=== PATIENT | male | born 1955 | race Caucasian/White ===

== ENCOUNTER → 2016-12-05 | Outpatient (CLI) | payer OTHER | END | disposition home or self-care (01) | LOC: C.LABPBG 12:44 | PROVIDERS: ATTEND Urology | DX: R39.11 Hesitancy of micturition (principal); N39.43 Post-void dribbling; R35.1 Nocturia ==

== ENCOUNTER 2019-03-13 12:55 | Inpatient (IN) ==
[2019-03-13] MEDS ORDERED: ONDANSETRON INJ 2 MG/ML 2 ML VIAL IV STA (13:23)
[2019-03-13] MEDS ORDERED: SODIUM CHLORIDE 0.9% 1000ML 2,000 ML IV ONE (13:23)
[2019-03-13 13:53] LABS: Basophils # (auto) 0.04 K/uL (0-0.2); Basophils % (auto) 0.5 %; Eosinophils # (auto) 0.09 K/uL (0-0.5); Eosinophils % (auto) 1.1 %; Hematocrit (blood only) 48.7 % (42-52); Hemoglobin 16.5 g/dL (14.0-18.0); Immature Granulocytes # (auto) 0.02 K/uL (0.00-0.02); Immature Granulocytes % (auto) 0.2 %; Lymphocytes # (auto) 1.59 K/uL (1.2-3.4); Lymphocytes % (auto) 18.6 %; Mean Corpuscular Hemoglobin 31.8 pg (25-34); Mean Corpuscular Hgb Conc 33.9 g/dL (32-36); Mean Corpuscular Volume 93.8 fL (80-100); Mean Platelet Volume 9.8 fL (7.4-10.4); Monocytes # (auto) 1.12 K/uL (0.11-0.59); Monocytes % (auto) 13.1 %; Neutrophils % (auto) 66.5 %; Platelet Count 376 K/uL (130-400); RDW Coefficient of Variation 14.9 % (11.5-14.5); RDW Standard Deviation 51.6 fL (36.4-46.3); Red Blood Count 5.19 M/uL (4.7-6.1); White Blood Count 8.56 K/uL (4.8-10.8)
[2019-03-13 14:09] LABS: Albumin Level 3.8 gm/dl (3.4-5.0); BUN Creatinine Ratio 14.4 (10-20); Calcium 9.1 mg/dl (8.5-10.1); Creatinine Clr Calc Pharmacy 21.7 ml/min; Est GFR (African American) 18.4; Est GFR (Non-African American) 15.9
[2019-03-13 14:11] LABS: Albumin Globulin Ratio 0.7 (0.9-2); Bilirubin,Total 0.8 mg/dl (0.2-1); Globulin 5.7 gm/dl (2.5-4.0); Total Protein 9.5 gm/dl (6.4-8.2)
--- NOTE | 2019-03-13 14:58 | CT Scan Report ---
CT SCAN OF THE ABDOMEN AND PELVIS WITHOUT CONTRAST CLINICAL HISTORY: Diffuse abdominal pain. Acute renal insufficiency COMPARISON STUDY: No previous studies for comparison. TECHNIQUE: CT scan of the abdomen and pelvis was performed from the lung bases to the proximal femurs . Images are reviewed in the axial, sagittal, and coronal planes. IV contrast was not administered fo r this examination. A dose lowering technique was utilized adhering to the principles of ALARA. CT DOSE: 621.72 mGy.cm FINDINGS: Lower chest: There are bilateral dependent atelectatic changes present. There is a small hiatal herni a. Liver: The unenhanced liver is normal in size, contour, and attenuation. There is no intrahepatic darby iary ductal dilatation. Gallbladder: Unremarkable. Spleen: Not visualized and presumed surgically absent. There are few left upper quadrant nodules like ly representing splenules Pancreas: Unremarkable. Adrenal glands: Unremarkable. Kidneys: No renal, ureteral, or bladder calculi are visualized. Bowel: There is colonic diverticulosis. There is no evidence of acute diverticulitis. The appendix ap pears normal. There are multiple dilated small bowel loops. The distal small bowel is of normal calib er. The findings are indicative of a small bowel obstruction. Peritoneum: There is no intraperitoneal free air or abdominal ascites. There is a small right inguina l hernia containing a knuckle of small bowel. This is not currently obstructing Vasculature: The abdominal aorta is normal in course and caliber. Adenopathy: None. Pelvic viscera: The prostate is enlarged. There is mild bladder wall thickening. Skeletal structures: No destructive osseous lesions are seen. IMPRESSION: 1. Small bowel obstructive pattern 2. No evidence of free air 3. Diverticulosis. No evidence of acute diverticulitis 4. Normal appendix Electronically signed by: Chris Parmar M.D. 03/13/2019 2:56 PM
[2019-03-13] MEDS ORDERED: SODIUM CHLORIDE 0.9% 500 ML IV ONE (15:13)
--- NOTE | 2019-03-13 16:15 | XRay Report ---
XR KUB/Abdomen 1 view CLINICAL HISTORY: ng tube placement COMPARISON STUDY: No previous studies for comparison. FINDINGS: There is a nasogastric tube is visualized with its tip just above the level of the esophago gastric junction. There are distended small bowel loops consistent with a small bowel obstruction. IMPRESSION: 1. Nasogastric tube with its tip just above the level of the esophagogastric junction. Electronically signed by: Chris Parmar M.D. 03/13/2019 4:13 PM
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
--- NOTE | 2019-03-13 17:13 | XRay Report ---
XR KUB/Abdomen 1 view CLINICAL HISTORY: Nasogastric tube repositioning COMPARISON STUDY: 03/13/2019 FINDINGS: The nasogastric tube has been advanced slightly. The tip now projects over the esophagogast laura junction. There is persistent small bowel dilatation IMPRESSION: The nasogastric tube is now positioned with its tip at the level of the esophagogastric j unction. Electronically signed by: Chris Parmar M.D. 03/13/2019 5:12 PM
--- NOTE | 2019-03-13 18:21 | XRay Report ---
XR KUB/Abdomen 1 view CLINICAL HISTORY: repeat for NG tube COMPARISON STUDY: 03/13/2019 FINDINGS: There is persistent small bowel dilatation. The nasogastric tube has been advanced, and the tip now projects over the stomach 8 cm distal to the esophagogastric junction IMPRESSION: 1. The nasogastric tube has been advanced into the stomach. 2. Small bowel dilatation Electronically signed by: Chris Parmar M.D. 03/13/2019 6:20 PM
[2019-03-13] MEDS ORDERED: ACETAMINOPHEN 10MG/ML PEDIATRIC DOSING IV PRN (18:47)
[2019-03-13] MEDS ORDERED: HYDROmorphone INJ 0.5 MG/0.5 ML SYR IV PRN (18:47)
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
[2019-03-13] MEDS ORDERED: ACETAMINOPHEN 1,000 MG/100 ML VIAL IV PRN (19:00)
--- NOTE | 2019-03-13 19:11 | XRay Report ---
XR KUB/Abdomen 1 view CLINICAL HISTORY: Nasogastric tube placement COMPARISON STUDY: 03/13/2019 FINDINGS: There is persistent small bowel dilatation. A nasogastric tube is again visualized with its tip projected over the proximal stomach. The catheter appears somewhat crenulated. IMPRESSION: The nasogastric tube remains positioned within the stomach. Electronically signed by: Chris Parmar M.D. 03/13/2019 7:10 PM
--- NOTE | 2019-03-13 19:49 | Ultrasound Report ---
EXAMINATION: RENAL ULTRASOUND CLINICAL HISTORY: Acute renal insufficiency COMPARISON STUDY: Noncontrast CT scan dated 03/13/2019 FINDINGS: The right kidney measures 12.6 cm. The left kidney measures 11.7 cm. There is no evidence of hydronephrosis. There is a 23 mm lower pole right renal cyst. A few additional tiny cortical cyst s are visualized. No bladder masses are visualized. Neither ureteral jet was identified. The prostate is heterogeneous and enlarged measuring 5.7 cm transversely IMPRESSION : 1. 23 mm lower pole right renal cyst 2. No evidence of hydronephrosis 3. Prostatomegaly 4. Nonvisualization of the ureteral jets Electronically signed by: Chris Parmar M.D. 03/13/2019 7:48 PM
[2019-03-13] MEDS: NSS + 20MEQ KCL 20 MEQ/1,000 ML BAG IV SCH (20:23)
[2019-03-13] MEDS: POTASSIUM CHLORIDE / WTR 10 MEQ/100 ML PLCT IV SCH ×2 (20:23→21:24)
[2019-03-13 20:45] LABS: Calcium 8.3 mg/dl (8.5-10.1); Creatinine Clr Calc Pharmacy 27.6 ml/min; Est GFR (African American) 24.6; Est GFR (Non-African American) 21.2; Potassium 2.7 mmol/L (3.5-5.1)
[2019-03-13] MEDS: HEPARIN SOD 5,000 UNIT/0.5 ML VIAL SQ SCH (21:25)
[2019-03-14 00:04] LABS: Appearance Urine Clear (Clear); Bacteria Urine Automated Negative (Negative); Bilirubin Urine Negative (Negative); Blood Urine Negative (Negative); Color Urine Dark Yellow; Glucose Urine UA Negative (Negative); Ketones Urine 1+ (Negative); Leukocyte Esterase Urine Trace (Negative); Nitrite Urine Negative (Negative); RBC Urine Automated 0-4 /hpf (0-4); Specific Gravity Urine 1.018 (1.000-1.030); Urobilinogen Urine Negative (Negative); pH Urine 7.5 (4.5-7.5)
[2019-03-14 00:20] LABS: Protein Urine Negative (Negative); Sulfosalicylic Acid Urine Negative (Negative)
[2019-03-14 00:22] LABS: Cast Urine Automated >30 /lpf (0-5)
[2019-03-14 00:28] LABS: Protein Creatinine Ratio Urine 0.3 (0-0.2); Total Protein Urine Random 54.3 mg/dl (0-11.9)
[2019-03-14 01:17] LABS: BUN Creatinine Ratio 18.7 (10-20); Calcium 8.3 mg/dl (8.5-10.1); Creatinine Clr Calc Pharmacy 31.5 ml/min; Est GFR (African American) 28.9; Est GFR (Non-African American) 24.9; Potassium 2.8 mmol/L (3.5-5.1)
[2019-03-14] MEDS: POTASSIUM CHLORIDE / WTR 10 MEQ/100 ML PLCT IV SCH ×7 (02:23→21:14)
[2019-03-14] MEDS: NSS + 20MEQ KCL 20 MEQ/1,000 ML BAG IV SCH (05:23)
[2019-03-14] MEDS: HEPARIN SOD 5,000 UNIT/0.5 ML VIAL SQ SCH (05:26)
--- NOTE | 2019-03-14 07:27 | XRay Report ---
KUB HISTORY: Small bowel obstruction. Follow-up. COMPARISON: KUB 03/13/2019. FINDINGS: Nasogastric tube terminates in the proximal stomach. Multiple dilated gas-filled loops of s mall bowel are again noted. These are similar to the prior study and corresponds to patient's history of a small bowel obstruction. No renal calculi. No ureteral calculi. No pneumoperitoneum or pneumat osis. IMPRESSION: Nasogastric tube terminates in the proximal stomach. Persistent small bowel obstruction pattern. Electronically signed by: Bandar Abarca M.D. 03/14/2019 7:26 AM
[2019-03-14 07:47] LABS: Basophils # (auto) 0.05 K/uL (0-0.2); Basophils % (auto) 0.7 %; Eosinophils # (auto) 0.15 K/uL (0-0.5); Eosinophils % (auto) 2.1 %; Hematocrit (blood only) 43.7 % (42-52); Hemoglobin 14.5 g/dL (14.0-18.0); Immature Granulocytes # (auto) 0.01 K/uL (0.00-0.02); Immature Granulocytes % (auto) 0.1 %; Lymphocytes # (auto) 1.43 K/uL (1.2-3.4); Lymphocytes % (auto) 20.3 %; Mean Corpuscular Hemoglobin 31.9 pg (25-34); Mean Corpuscular Hgb Conc 33.2 g/dL (32-36); Mean Corpuscular Volume 96.3 fL (80-100); Mean Platelet Volume 9.8 fL (7.4-10.4); Monocytes # (auto) 1.34 K/uL (0.11-0.59); Monocytes % (auto) 19.1 %; Neutrophils # (auto) 4.05 K/uL (1.4-6.5); Neutrophils % (auto) 57.7 %; Platelet Count 341 K/uL (130-400); RDW Coefficient of Variation 15.3 % (11.5-14.5); RDW Standard Deviation 53.4 fL (36.4-46.3); Red Blood Count 4.54 M/uL (4.7-6.1); White Blood Count 7.03 K/uL (4.8-10.8)
[2019-03-14 07:59] LABS: Estimated Average Glucose 117 mg/dl; Hemoglobin A1C 5.7 % (4.5-5.6)
[2019-03-14 08:22] LABS: BUN Creatinine Ratio 20.3 (10-20); Calcium 8.4 mg/dl (8.5-10.1); Creatinine Clr Calc Pharmacy 35.8 ml/min; Est GFR (African American) 33.7; Est GFR (Non-African American) 29.1; Potassium 3.1 mmol/L (3.5-5.1)
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
[2019-03-14 08:59] LABS: Magnesium 2.6 mg/dl (1.8-2.4); Phosphorus 2.6 mg/dl (2.5-4.9)
[2019-03-14] MEDS ORDERED: D5W AND 1/2NSS 1,000 ML IV SCH (09:00)
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
[2019-03-14] MEDS: POTASSIUM CHLORIDE 40 MEQ in D5W AND 1/2NSS 1,000 ML/1,000 ML BAG IV SCH ×2 (11:10→21:19)
[2019-03-14 13:49] LABS: BUN Creatinine Ratio 20.4 (10-20); Calcium 8.5 mg/dl (8.5-10.1); Creatinine Clr Calc Pharmacy 40.2 ml/min; Est GFR (African American) 38.8; Est GFR (Non-African American) 33.4
[2019-03-14 18:04] LABS: BUN Creatinine Ratio 21.1 (10-20); Calcium 8.5 mg/dl (8.5-10.1); Creatinine Clr Calc Pharmacy 47.3 ml/min; Est GFR (African American) 47.3; Est GFR (Non-African American) 40.8; Potassium 3.1 mmol/L (3.5-5.1)
[2019-03-15 01:34] LABS: Basophils % (auto) 1.2 %; Eosinophils # (auto) 0.23 K/uL (0-0.5); Eosinophils % (auto) 2.9 %; Hematocrit (blood only) 44.4 % (42-52); Hemoglobin 14.8 g/dL (14.0-18.0); Immature Granulocytes # (auto) 0.01 K/uL (0.00-0.02); Immature Granulocytes % (auto) 0.1 %; Lymphocytes # (auto) 1.43 K/uL (1.2-3.4); Lymphocytes % (auto) 17.8 %; Mean Corpuscular Hemoglobin 32.3 pg (25-34); Mean Corpuscular Hgb Conc 33.3 g/dL (32-36); Mean Corpuscular Volume 96.9 fL (80-100); Mean Platelet Volume 9.5 fL (7.4-10.4); Monocytes # (auto) 1.32 K/uL (0.11-0.59); Monocytes % (auto) 16.4 %; Neutrophils # (auto) 4.96 K/uL (1.4-6.5); Neutrophils % (auto) 61.6 %; Platelet Count 372 K/uL (130-400); RDW Coefficient of Variation 15.1 % (11.5-14.5); RDW Standard Deviation 53.1 fL (36.4-46.3); Red Blood Count 4.58 M/uL (4.7-6.1); White Blood Count 8.05 K/uL (4.8-10.8)
[2019-03-15 01:52] LABS: BUN Creatinine Ratio 23.6 (10-20); Calcium 8.2 mg/dl (8.5-10.1); Creatinine Clr Calc Pharmacy 57.3 ml/min; Est GFR (African American) 59.6; Est GFR (Non-African American) 51.4; Magnesium 2.5 mg/dl (1.8-2.4); Potassium 3.2 mmol/L (3.5-5.1)
[2019-03-15 01:55] LABS: Albumin Globulin Ratio 0.6 (0.9-2); Bilirubin,Total 0.8 mg/dl (0.2-1)
[2019-03-15] MEDS: POTASSIUM CHLORIDE 40 MEQ in D5W AND 1/2NSS 1,000 ML/1,000 ML BAG IV SCH ×2 (07:05→17:24)
--- NOTE | 2019-03-15 07:33 | XRay Report ---
KUB HISTORY: Small bowel obstruction. Follow-up. COMPARISON: KUB 03/14/2019. FINDINGS: Multiple mildly dilated gas-filled loop of small bowel are seen throughout the abdomen. Thi s has improved in the interval. There is gas and stool within the colon. The tip of the nasogastric t ube is above the level the diaphragm and may reside within the small hiatus hernia. No renal calculi . No ureteral calculi. No pneumoperitoneum or pneumatosis. IMPRESSION: 1. Interval improvement in the small bowel obstruction pattern. 2. The tip of the nasogastric tube is above the level the diaphragm and may reside within the small h iatus hernia. 3. This report was called/faxed to the referring physician following dictation. Electronically signed by: Bandar Abarca M.D. 03/15/2019 7:32 AM
[2019-03-15 08:18] LABS: BUN Creatinine Ratio 22.3 (10-20); Calcium 8.6 mg/dl (8.5-10.1); Est GFR (African American) 56.7; Est GFR (Non-African American) 48.9; Potassium 3.2 mmol/L (3.5-5.1)
[2019-03-15 08:20] LABS: Albumin Globulin Ratio 0.6 (0.9-2); Bilirubin,Total 0.8 mg/dl (0.2-1); Globulin 5.1 gm/dl (2.5-4.0); Phosphorus 2.3 mg/dl (2.5-4.9); Total Protein 8.1 gm/dl (6.4-8.2)
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
[2019-03-15] MEDS ORDERED: POTASSIUM PHOS 3 MMOL/1 ML INFUSION IV STA (08:26)
--- NOTE | 2019-03-15 08:59 | Nephrology Progress Note ---
Date of Service March 15, 2019 Assessment & Plan (1) TERESA (acute kidney injury): Patient with acute kidney injury likely due to prerenal azotemia in setting of vomiting for several days. Baseline creatinine of 0.9. Patient admitted with creatinine of 3.7 but down to 1.49 today. Urinalysis showed hyaline casts and a high specific gravity consistent with prerenal azotemia. No obstructive uropathy on imaging. -Continue volume resuscitation with D5 and half-normal saline at 100 mL/h. -Monitor input output. -Avoid nephrotoxins such as contrast unless lifesaving. (2) Electrolyte abnormality: Patient with hypokalemia due to vomiting and now NG suction. Will add 40 mEq of potassium chloride iv today. (3) Small bowel obstruction: Patient being managed conservatively with NG suction. he is showing improvement. Surgical team following. (4) HTN (hypertension): Agree with holding lisinopril and Lasix. Blood pressure is at goal. Subjective Patient reports improvement. he is moving gas. No SOB. No urinary symptoms. Still has NG to suction. No abdominal pain. Cr down trending Review of Systems Review of Systems: All systems reviewed & are unremarkable except as noted in HPI & below Physical Exam Physical Exam: General exam: Appears comfortable, no acute distress HEENT: Pupils are equal and reactive to light. NG tube to suction Neck: No JVD, neck is supple trachea is midline Respiratory system: Clear breath sounds bilaterally. Gastrointestinal: Abdomen is soft, non distended, non tender, bowel sounds are present CVS: Regular rate and rhythm. No murmurs, rubs or gallops Musculoskeletal: No joint or muscle tenderness Extremities: Non tender, no edema, peripheral pulses are present Neuro: Oriented, no tremors, no focal neurological deficits Skin: No rashes Results & Data Vital Signs (Past 12 Hours) Vital Signs Temp Pulse Pulse Resp BP BP Pulse Ox 03/15/19 07:49 37.0 C 69 18 115/68 98 03/15/19 04:32 37.4 C 70 18 107/69 95 03/15/19 00:00 75 03/14/19 23:56 36.9 C 75 18 118/80 92 Laboratory Results Laboratory Results - last 24 hr 03/14/19 03/14/19 03/14/19 07:33 07:33 12:34 WBC RBC Hgb Hct MCV MCH MCHC RDW Std Deviation RDW Coeff of Mani Plt Count MPV Immature Gran % (Auto) Neut % (Auto) Lymph % (Auto) [place] % (Auto) Eos % (Auto) Baso % (Auto) Immature Gran # (Auto) Neut # (Auto) Lymph # (Auto) [place] # (Auto) Eos # (Auto) Baso # (Auto) Sodium 136 Potassium 3.0 L Chloride 96 L Carbon Dioxide 32 Anion Gap 8.0 BUN 42 H Creatinine 2.04 H Est Cr Clr Drug Dosing 40.2 Est GFR ( Amer) 38.8 Est GFR (Non-Af Amer) 33.4 BUN/Creatinine Ratio 20.4 H Glucose 86 Calcium 8.5 Phosphorus 2.6 Magnesium 2.6 H Total Bilirubin AST ALT Alkaline Phosphatase Total Protein Albumin Globulin Albumin/Globulin Ratio Hepatitis C Ab Screen Neg 03/14/19 03/15/19 03/15/19 17:29 01:16 01:16 WBC 8.05 RBC 4.58 L Hgb 14.8 Hct 44.4 MCV 96.9 MCH 32.3 MCHC 33.3 RDW Std Deviation 53.1 H RDW Coeff of Mani 15.1 H Plt Count 372 MPV 9.5 Immature Gran % (Auto) 0.1 Neut % (Auto) 61.6 Lymph % (Auto) 17.8 [place] % (Auto) 16.4 Eos % (Auto) 2.9 Baso % (Auto) 1.2 Immature Gran # (Auto) 0.01 Neut # (Auto) 4.96 Lymph # (Auto) 1.43 [place] # (Auto) 1.32 H Eos # (Auto) 0.23 Baso # (Auto) 0.10 Sodium 137 137 Potassium 3.1 L 3.2 L Chloride 98 100 Carbon Dioxide 32 32 Anion Gap 7.0 5.0 BUN 36 H 34 H Creatinine 1.73 H D 1.43 H D Est Cr Clr Drug Dosing 47.3 57.3 Est GFR ( Amer) 47.3 59.6 Est GFR (Non-Af Amer) 40.8 51.4 BUN/Creatinine Ratio 21.1 H 23.6 H Glucose 94 102 H Calcium 8.5 8.2 L Phosphorus Magnesium 2.5 H Total Bilirubin 0.8 AST 16 ALT 29 Alkaline Phosphatase 66 Total Protein 8.0 Albumin 3.0 L Globulin 5.0 H Albumin/Globulin Ratio 0.6 L Hepatitis C Ab Screen 03/15/19 07:17 WBC RBC Hgb Hct MCV MCH MCHC RDW Std Deviation RDW Coeff of Mani Plt Count MPV Immature Gran % (Auto) Neut % (Auto) Lymph % (Auto) [place] % (Auto) Eos % (Auto) Baso % (Auto) Immature Gran # (Auto) Neut # (Auto) Lymph # (Auto) [place] # (Auto) Eos # (Auto) Baso # (Auto) Sodium 137 Potassium 3.2 L Chloride 100 Carbon Dioxide 32 Anion Gap 5.0 BUN 33 H Creatinine 1.49 H Est Cr Clr Drug Dosing 55.0 Est GFR ( Amer) 56.7 Est GFR (Non-Af Amer) 48.9 BUN/Creatinine Ratio 22.3 H Glucose 104 H Calcium 8.6 Phosphorus 2.3 L Magnesium Total Bilirubin 0.8 AST 14 L ALT 24 Alkaline Phosphatase 70 Total Protein 8.1 Albumin 3.0 L Globulin 5.1 H Albumin/Globulin Ratio 0.6 L Hepatitis C Ab Screen
[2019-03-15] MEDS ORDERED: POTASSIUM PHOSPHATE 15 MMOL in SODIUM CHLORIDE 0.9% 250 ML IV SCH (09:00)
--- NOTE | 2019-03-15 09:00 | XRay Report ---
XR KUB/Abdomen 1 view CLINICAL HISTORY: ng tube repositioned COMPARISON STUDY: 03/15/2019 FINDINGS: There are mildly dilated central abdominal small bowel loops. There is gas present within t he colon. The nasogastric tube has been advanced and the tip now projects over the gastric body. IMPRESSION: 1. The nasogastric tube has been advanced and is now positioned within the stomach. Electronically signed by: Chris Parmar M.D. 03/15/2019 8:58 AM
[2019-03-15] MEDS ORDERED: bisacodyL 10 MG SUPP PR STA (09:31)
--- NOTE | 2019-03-15 09:41 | Surgery Progress Note ---
Date of Service March 15, 2019 Assessment & Plan (1) Small bowel obstruction: some improvement in XR but NG output still high will try suppository clamp NG when output decreases Subjective some flatus, no BM, no pain or nausea Physical Exam Gastrointestinal (Abdomen): Inspection/Auscultation: abdomen not distended Percussion/Palpation: abdomen soft; abdomen nontender NG 600 cc overnight Results & Data Vital Signs (Past 12 Hours) Vital Signs Temp Pulse Pulse Resp BP BP Pulse Ox 03/15/19 07:49 37.0 C 69 18 115/68 98 03/15/19 04:32 37.4 C 70 18 107/69 95 03/15/19 00:00 75 03/14/19 23:56 36.9 C 75 18 118/80 92 PG Care Time/CCT Total # of Minutes Spent Total Time Spent with Patient: Total time spent is greater than 50% in coordination of care (as documented) at patient's floor/unit and/or counseling patient:
[2019-03-15] MEDS: POTASSIUM CHLORIDE / WTR 10 MEQ/100 ML PLCT IV SCH ×3 (10:00→12:46)
[2019-03-16] MEDS: POTASSIUM CHLORIDE 40 MEQ in D5W AND 1/2NSS 1,000 ML/1,000 ML BAG IV SCH ×3 (02:54→23:23)
--- NOTE | 2019-03-16 09:12 | Surgery Progress Note ---
Date of Service March 16, 2019 Assessment & Plan (1) Small bowel obstruction: Small bowel obstruction likely secondary to adhesions. His abdomen is soft and benign and not very distended, and there are positive bowel sounds. However he is not passing flatus and his NG tube output is still high. Continue NG tube to low intermittent wall suction Accurately track the amount of ice chips he is taking it as this may be artificially elevating the output from the NG tube KUB today Possible small bowel follow-through if no improvement tomorrow No acute surgical intervention indicated Plan discussed with patient Present on Admission?: Yes Subjective 63-year-old male admitted with small bowel obstruction likely secondary to adhesions. He denies pain or abdominal bloating. He is not passing gas. He has been taking a few cups of ice chips with the NG tube in. Physical Exam Constitutional: WD/WN, vitals as above Gastrointestinal (Abdomen): normal bowel sounds, soft, nontender, no hepatosplenomegaly Results & Data Vital Signs (Past 12 Hours) Vital Signs Temp Pulse Resp BP BP Pulse Ox 03/16/19 07:46 36.4 C L 74 20 125/83 96 03/16/19 04:14 36.7 C 72 20 110/68 95 03/15/19 23:50 36.4 C L 69 18 121/86 95 PG Care Time/CCT Total # of Minutes Spent Total Time Spent with Patient: Total time spent is greater than 50% in coordination of care (as documented) at patient's floor/unit and/or counseling patient:
[2019-03-16 10:19] LABS: BUN Creatinine Ratio 17.8 (10-20); Creatinine Clr Calc Pharmacy 59.8 ml/min; Est GFR (African American) 62.7; Est GFR (Non-African American) 54.1; Potassium 3.5 mmol/L (3.5-5.1)
--- NOTE | 2019-03-16 12:39 | XRay Report ---
KUB HISTORY: Small bowel obstruction. Follow-up. COMPARISON: KUB 03/15/2019. FINDINGS: Nasogastric tube terminates in the expected location of the stomach. A few mildly dilated g as-filled loops of small bowel are again seen throughout the abdomen. These measure up to 3 cm in diogenes meter. This is similar to the prior study. Gas and stool is again noted throughout the colon. No patrick al calculi. No ureteral calculi. No pneumoperitoneum or pneumatosis. IMPRESSION: 1. Nasogastric tube terminates in the stomach. 2. No change in the mildly dilated gas-filled loops of small bowel within the abdomen. This may repre sent a low-grade partial small bowel obstruction. Electronically signed by: Bandar Abarca M.D. 03/16/2019 12:38 PM
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
--- NOTE | 2019-03-16 17:34 | Nephrology Progress Note ---
Date of Service March 16, 2019 Assessment & Plan (1) TERESA (acute kidney injury): Patient with acute kidney injury likely due to prerenal azotemia in setting of vomiting for several days. Baseline creatinine of 0.9. Patient admitted with creatinine of 3.7 but down to 1.3 today. Urinalysis showed hyaline casts and a high specific gravity consistent with prerenal azotemia. No obstructive uropathy on imaging. -Continue volume resuscitation with D5 and half-normal saline at 100 mL/h. -Monitor input output. -Avoid nephrotoxins such as contrast unless lifesaving. (2) Electrolyte abnormality: Patient with hypokalemia due to vomiting and now NG suction. Will continue potassium enriched fluids iv today. (3) Small bowel obstruction: Patient being managed conservatively with NG suction. he is showing improvement. Surgical team following. (4) HTN (hypertension): Agree with holding lisinopril and Lasix. Blood pressure is at goal. Subjective Seen during morning rounds. Feels better. No abdominal pain. No SOB. Still on NG suction. Cr better Review of Systems Review of Systems: All systems reviewed & are unremarkable except as noted in HPI & below Physical Exam Physical Exam: General exam: Appears comfortable, no acute distress HEENT: Pupils are equal and reactive to light. NG suction Neck: No JVD, neck is supple trachea is midline Respiratory system: Clear breath sounds bilaterally. Gastrointestinal: Abdomen is soft, non distended, non tender, bowel sounds are present CVS: Regular rate and rhythm. No murmurs, rubs or gallops Musculoskeletal: No joint or muscle tenderness Extremities: Non tender, no edema, peripheral pulses are present Neuro: Oriented, no tremors, no focal neurological deficits Skin: No rashes Results & Data Vital Signs (Past 12 Hours) Vital Signs Temp Pulse Resp BP BP Pulse Ox 03/16/19 15:16 36.5 C 76 20 116/81 90 03/16/19 11:37 36.8 C 80 22 115/83 97 03/16/19 07:46 36.4 C L 74 20 125/83 96 Laboratory Results Laboratory Results - last 24 hr 03/16/19 09:46 Sodium 140 Potassium 3.5 Chloride 103 Carbon Dioxide 34 H Anion Gap 3.0 BUN 24 H Creatinine 1.37 Est Cr Clr Drug Dosing 59.8 Est GFR ( Amer) 62.7 Est GFR (Non-Af Amer) 54.1 BUN/Creatinine Ratio 17.8 Glucose 113 H Calcium 9.0
--- NOTE | 2019-03-17 07:38 | Surgery Progress Note ---
Date of Service March 17, 2019 Assessment & Plan (1) Small bowel obstruction: normal exam, NG output variable try clamping NG, if does not tolerate will consider SBFT Supervising Physician Co-Signing Physician Notes sbo vs ileus, passing flatus, exam benign. NG tube clamped, tolerating well. If continues then will remove and start on clears. if fails then sbft. Subjective continues to pass flatus, no BM, no pain Physical Exam Gastrointestinal (Abdomen): Inspection/Auscultation: abdomen not distended Percussion/Palpation: abdomen soft; abdomen nontender NG 975 overnight, 200 the previous 8 hours Results & Data Vital Signs (Past 12 Hours) Vital Signs Temp Pulse Pulse Resp BP Pulse Ox 03/17/19 03:43 36.7 C 87 18 106/71 94 03/17/19 00:00 75 03/16/19 23:29 36.7 C 83 18 110/83 97 03/16/19 19:45 75 PG Care Time/CCT Total # of Minutes Spent Total Time Spent with Patient: Total time spent is greater than 50% in coordination of care (as documented) at patient's floor/unit and/or counseling patient:
[2019-03-17 08:07] LABS: BUN Creatinine Ratio 17.3 (10-20); Creatinine Clr Calc Pharmacy 56.1 ml/min; Est GFR (African American) 58.1; Est GFR (Non-African American) 50.1; Magnesium 2.5 mg/dl (1.8-2.4); Potassium 3.4 mmol/L (3.5-5.1)
[2019-03-17 08:13] LABS: Phosphorus 3.8 mg/dl (2.5-4.9)
[2019-03-17] MEDS: POTASSIUM CHLORIDE 40 MEQ in D5W AND 1/2NSS 1,000 ML/1,000 ML BAG IV SCH ×2 (09:11→19:23)
--- NOTE | 2019-03-17 14:17 | Surgery Progress Note ---
Date of Service March 17, 2019 Assessment & Plan (1) Small bowel obstruction: NG residual less than 50 cc for shift, tube removed can have clears for dinner Subjective no symptoms while NG clamped Physical Exam Gastrointestinal (Abdomen): Inspection/Auscultation: abdomen not distended Percussion/Palpation: abdomen soft Results & Data Vital Signs (Past 12 Hours) Vital Signs Temp Pulse Pulse Resp BP BP Pulse Ox 03/17/19 11:33 36.4 C L 77 18 97/66 L 96 03/17/19 08:21 81 03/17/19 08:01 36.5 C 78 18 111/78 96 03/17/19 03:43 36.7 C 87 18 106/71 94 PG Care Time/CCT Total # of Minutes Spent Total Time Spent with Patient: Total time spent is greater than 50% in coordination of care (as documented) at patient's floor/unit and/or counseling patient:
--- NOTE | 2019-03-17 15:48 | Nephrology Progress Note ---
Date of Service March 17, 2019 Assessment & Plan (1) TERESA (acute kidney injury): Patient with acute kidney injury likely due to prerenal azotemia in setting of vomiting for several days. Baseline creatinine of 0.9. Patient admitted with creatinine of 3.7 but stable at 1.4 today. Urinalysis showed hyaline casts and a high specific gravity consistent with prerenal azotemia. No obstructive uropathy on imaging. -Continue volume resuscitation with D5 and half-normal saline at 100 mL/h. -Monitor input output. -Avoid nephrotoxins such as contrast unless lifesaving. (2) Electrolyte abnormality: Patient with hypokalemia due to vomiting and now NG suction. K of 3.4 today. Will continue potassium enriched fluids iv today. (3) Small bowel obstruction: Patient being managed conservatively with NG suction. he is showing improvement. Surgical team following. (4) HTN (hypertension): Agree with holding lisinopril and Lasix. Blood pressure is on the low s koko Subjective He feels better today. No shortness of breath. Still has NG tube but not on suction. Denies abdominal pain. No urinary symptoms. Review of Systems Review of Systems: All systems reviewed & are unremarkable except as noted in HPI & below Physical Exam Physical Exam: General exam: Appears comfortable, no acute distress HEENT: Pupils are equal and reactive to light. NG tube Neck: No JVD, neck is supple trachea is midline Respiratory system: Clear breath sounds bilaterally. Gastrointestinal: Abdomen is soft, non distended, non tender, bowel sounds are present CVS: Regular rate and rhythm. No murmurs, rubs or gallops Musculoskeletal: No joint or muscle tenderness Extremities: Non tender, no edema, peripheral pulses are present Neuro: Oriented, no tremors, no focal neurological deficits Skin: No rashes Results & Data Vital Signs (Past 12 Hours) Vital Signs Temp Pulse Pulse Resp BP BP Pulse Ox 03/17/19 15:18 36.2 C L 75 20 90/59 L 92 03/17/19 11:33 36.4 C L 77 18 97/66 L 96 03/17/19 08:21 81 03/17/19 08:01 36.5 C 78 18 111/78 96 Laboratory Results Laboratory Results - last 24 hr 03/17/19 06:59 Sodium 141 Potassium 3.4 L Chloride 104 Carbon Dioxide 30 Anion Gap 7.0 BUN 25 H Creatinine 1.46 H Est Cr Clr Drug Dosing 56.1 Est GFR ( Amer) 58.1 Est GFR (Non-Af Amer) 50.1 BUN/Creatinine Ratio 17.3 Glucose 125 H Calcium 9.0 Phosphorus 3.8 D Magnesium 2.5 H
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
[2019-03-17] MEDS: PROMETHAZINE HCL 12.5 MG in SODIUM CHLORIDE 0.9% 50 ML IV PRN (23:57)
[2019-03-18] MEDS: POTASSIUM CHLORIDE 40 MEQ in D5W AND 1/2NSS 1,000 ML/1,000 ML BAG IV SCH ×2 (06:13→16:37)
[2019-03-18 07:24] LABS: Calcium 8.8 mg/dl (8.5-10.1); Creatinine Clr Calc Pharmacy 47.6 ml/min; Est GFR (African American) 47.6; Est GFR (Non-African American) 41.1
--- NOTE | 2019-03-18 09:55 | Nephrology Progress Note ---
Date of Service March 18, 2019 Assessment & Plan (1) TERESA (acute kidney injury): Patient with acute kidney injury likely due to prerenal azotemia in setting of vomiting for several days. Baseline creatinine of 0.9. Patient admitted with creatinine of 3.7 but slightly up today at 1.7 likely prerenal. Urinalysis showed hyaline casts and a high specific gravity consistent with prerenal azotemia. No obstructive uropathy on imaging. -Increase rate of IV fluids to 125 mL/h with D5 and half-normal saline. -Monitor input output. -Avoid nephrotoxins such as contrast unless lifesaving. (2) Electrolyte abnormality: Patient with hypokalemia due to vomiting and now NG suction. K of 3.4 today. Will continue potassium enriched fluids iv today. (3) Small bowel obstruction: Patient being managed conservatively with NG suction. he is showing improvement. Surgical team following. (4) HTN (hypertension): Agree with holding lisinopril and Lasix. Blood pressure is on the low side Subjective No new complaints. Patient still on NG suction. No abdominal pain. Creatinine up today at 1.7 Review of Systems Review of Systems: All systems reviewed & are unremarkable except as noted in HPI & below Physical Exam 2 Physical Exam: General exam: Appears comfortable, no acute distress HEENT: Pupils are equal and reactive to light. NG suction Neck: No JVD, neck is supple trachea is midline Respiratory system: Clear breath sounds bilaterally. Gastrointestinal: Abdomen is soft, non distended, non tender, bowel sounds are present CVS: Regular rate and rhythm. No murmurs, rubs or gallops Musculoskeletal: No joint or muscle tenderness Extremities: Non tender, no edema, peripheral pulses are present Neuro: Oriented, no tremors, no focal neurological deficits Skin: No rashes Results & Data Vital Signs (Past 12 Hours) Vital Signs Temp Pulse Resp BP BP Pulse Ox 03/18/19 07:14 36.4 C L 89 19 104/74 95 03/18/19 03:52 36.3 C L 85 20 94/61 L 93 03/17/19 23:59 36.3 C L 96 H 17 116/83 97 Laboratory Results Laboratory Results - last 24 hr 03/18/19 03/18/19 06:30 07:49 Sodium 140 Potassium 3.4 L Chloride 102 Carbon Dioxide 33 H Anion Gap 5.0 BUN 31 H Creatinine 1.72 H Est Cr Clr Drug Dosing 47.6 Est GFR ( Amer) 47.6 Est GFR (Non-Af Amer) 41.1 BUN/Creatinine Ratio 18.0 Glucose 118 H Calcium 8.8
--- NOTE | 2019-03-18 10:04 | Surgery Progress Note ---
Date of Service March 18, 2019 Assessment & Plan (1) Small bowel obstruction: will repeat XR exam is benign, continues to pass flatus but not made much progress Supervising Physician Co-Signing Physician Notes Patient seen and examined, agree with above. Patient with partial small bowel obstruction versus ileus, NG tube pulled yesterday, started clears in the evening then developed bloating and vomited. NG tube was replaced. He is feeling better since then. Denies any abdominal pain. He reports he is still passing flatus. On exam he is afebrile with stable vitals. Abdomen is soft, nondistended, with positive bowel sounds. KUB performed, on my review appears to show nonobstructive bowel gas pattern with air in the colon and rectum with no air-fluid levels or significantly distended small bowel. Radiology read pending. Labs from yesterday showed persistent hypokalemia and renal dysfunction. Partial small bowel obstruction versus ileus versus possible gastroparesis. Based on the progression of his x-rays and benign exam with reported passing flatus, this does not appear to be a true bowel obstruction. We will continue the NG tube for another day or 2. If he does not make progress over the weekend then we will consider a CT scan with oral contrast through the NG tube versus a small bowel follow-through. Continue NG tube If no improvement then CT scan with oral contrast versus small bowel follow- through on Thursday or Thursday Dr. Valerio covering over the weekend Call with questions or concerns Plan of care was discussed with the patient, all questions were answered, the patient expressed understanding agrees with plan of care as stated. Subjective felt a little bloated after dinner then vomited, NG replaced, still having flatus, no BM Physical Exam Gastrointestinal (Abdomen): Inspection/Auscultation: abdomen not distended Percussion/Palpation: abdomen soft; abdomen nontender Results & Data Vital Signs (Past 12 Hours) Vital Signs Temp Pulse Resp BP BP Pulse Ox 03/18/19 07:14 36.4 C L 89 19 104/74 95 03/18/19 03:52 36.3 C L 85 20 94/61 L 93 03/17/19 23:59 36.3 C L 96 H 17 116/83 97 PG Care Time/CCT Total # of Minutes Spent Total Time Spent with Patient: Total time spent is greater than 50% in coordination of care (as documented) at patient's floor/unit and/or counseling patient:
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
[2019-03-18] MEDS ORDERED: POTASSIUM ACETATE 10 MEQ in 0.9 % SODIUM CHLORIDE 100 ML IV ONE (11:25)
[2019-03-18] MEDS ORDERED: POTASSIUM CHLORIDE / WTR 10 MEQ/100 ML PLCT IV STA (11:32)
--- NOTE | 2019-03-18 11:37 | XRay Report ---
XR KUB/Abdomen 1 view CLINICAL HISTORY: SBO COMPARISON STUDY: 03/16/2019 FINDINGS: A nasogastric tube is again visualized. There is gas present within both colon and small aneta wel loops. There is a mildly dilated central small bowel measuring 38 mm in diameter. IMPRESSION: 1. Nasogastric tube within the stomach 2. Nonspecific bowel gas pattern with a minimally dilated central small bowel loop measuring 38 mm. Electronically signed by: Chris Parmar M.D. 03/18/2019 11:36 AM
[2019-03-19] MEDS: POTASSIUM CHLORIDE 40 MEQ in D5W AND 1/2NSS 1,000 ML/1,000 ML BAG IV SCH ×3 (00:17→16:42)
[2019-03-19 07:38] LABS: BUN Creatinine Ratio 16.3 (10-20); Calcium 9.2 mg/dl (8.5-10.1); Creatinine Clr Calc Pharmacy 49.6 ml/min; Est GFR (African American) 50.1; Est GFR (Non-African American) 43.2
--- NOTE | 2019-03-19 10:15 | Nephrology Progress Note ---
Date of Service March 19, 2019 Assessment & Plan (1) TERESA (acute kidney injury): Patient with acute kidney injury likely due to prerenal azotemia in setting of vomiting for several days. Baseline creatinine of 0.9. Patient admitted with creatinine of 3.7 but slightly up today at 1.6 likely prerenal. Urinalysis showed hyaline casts and a high specific gravity consistent with prerenal azotemia. No obstructive uropathy on imaging. -Continue IV fluids to 125 mL/h with D5 and half-normal saline. -Monitor input output. -Avoid nephrotoxins such as contrast unless lifesaving. (2) Electrolyte abnormality: Patient with hypokalemia due to vomiting and now NG suction. K of 3.8 today. Will continue potassium enriched fluids iv today. (3) Small bowel obstruction: Patient being managed conservatively with NG suction. he is showing improvement. Surgical team following. (4) HTN (hypertension): Agree with holding lisinopril and Lasix. Blood pressure is stable Subjective He feels about the same. No abdominal pain. He continues NG suction. He is now on ice chips orally. Creatinine slightly better than yesterday. Review of Systems Review of Systems: All systems reviewed & are unremarkable except as noted in HPI & below Physical Exam Physical Exam: General exam: Appears comfortable, no acute distress HEENT: Pupils are equal and reactive to light. NG suction Neck: No JVD, neck is supple trachea is midline Respiratory system: Clear breath sounds bilaterally. Gastrointestinal: Abdomen is soft, non distended, non tender, bowel sounds are present CVS: Regular rate and rhythm. No murmurs, rubs or gallops Musculoskeletal: No joint or muscle tenderness Extremities: Non tender, no edema, peripheral pulses are present Neuro: Oriented, no tremors, no focal neurological deficits Skin: No rashes Results & Data Vital Signs (Past 12 Hours) Vital Signs Temp Pulse Pulse Resp BP BP Pulse Ox 03/19/19 08:00 77 03/19/19 07:08 36.3 C L 71 22 106/77 92 03/19/19 04:46 36.5 C 73 20 95/65 L 96 03/19/19 01:20 78 03/18/19 23:41 36.5 C 76 20 104/73 95 Laboratory Results Laboratory Results - last 24 hr 03/19/19 03/19/19 06:20 07:52 Sodium 140 Potassium 3.8 Chloride 103 Carbon Dioxide 32 Anion Gap 5.0 BUN 27 H Creatinine 1.65 H Est Cr Clr Drug Dosing 49.6 Est GFR ( Amer) 50.1 Est GFR (Non-Af Amer) 43.2 BUN/Creatinine Ratio 16.3 Glucose 116 H Calcium 9.2
--- NOTE | 2019-03-19 10:33 | Surgery Progress Note ---
Date of Service March 19, 2019 Supervising Physician Co-Signing Physician Notes Patient with partial small bowel obstruction versus ileus - feels better with ng tube in place. Abdominal exam is benign with no clinical sign of obstruction but he does not tolerate advancement of diet. Plan for CT with PO contrast through ng on Thursday. No new recommendations. Subjective Feels fine with the ng in place. No abdominal pain or discomfort. Continuing to pass flatus. Review of Systems Review of Systems: All systems reviewed & are unremarkable except as noted in HPI & below Physical Exam Constitutional: WD/WN, vitals as above Respiratory: normal respiratory effort, lungs clear to auscultation Cardiovascular: Rate/Rhythm: regular rate and regular rhythm Gastrointestinal (Abdomen): normal bowel sounds, soft, nontender, no hepatosplenomegaly NG with 2050 output Neurologic: moves all extremities; no focal motor deficits Results & Data Vital Signs (Past 12 Hours) Vital Signs Temp Pulse Pulse Resp BP BP Pulse Ox 03/19/19 08:00 77 03/19/19 07:08 36.3 C L 71 22 106/77 92 03/19/19 04:46 36.5 C 73 20 95/65 L 96 03/19/19 01:20 78 03/18/19 23:41 36.5 C 76 20 104/73 95
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
[2019-03-20] MEDS: POTASSIUM CHLORIDE 40 MEQ in D5W AND 1/2NSS 1,000 ML/1,000 ML BAG IV SCH ×3 (00:54→17:22)
--- NOTE | 2019-03-20 09:24 | Nephrology Progress Note ---
Date of Service March 20, 2019 Assessment & Plan (1) TERESA (acute kidney injury): Patient with acute kidney injury likely due to prerenal azotemia in setting of vomiting for several days. Baseline creatinine of 0.9. Patient admitted with creatinine of 3.7 but now stable at 1.6.. Urinalysis showed hyaline casts and a high specific gravity consistent with prerenal azotemia. No obstructive uropathy on imaging. -Continue IV fluids to 125 mL/h with D5 and half-normal saline. -Monitor input output. -Avoid nephrotoxins such as contrast unless lifesaving. (2) Electrolyte abnormality: Patient with hypokalemia due to vomiting and now NG suction. Will continue potassium enriched fluids iv today. (3) Small bowel obstruction: Patient being managed conservatively with NG decompression. he is showing improvement. Surgical team following. (4) HTN (hypertension): Agree with holding lisinopril and Lasix. Blood pressure is stable Subjective Patient is now eating and drinking. Still has NG tube. No abdominal pain. He is making a lot of urine, 2.5 L in the past 24 hours Review of Systems Review of Systems: All systems reviewed & are unremarkable except as noted in HPI & below Physical Exam Physical Exam: General exam: Appears comfortable, no acute distress HEENT: Pupils are equal and reactive to light. NG tube Neck: No JVD, neck is supple trachea is midline Respiratory system: Clear breath sounds bilaterally. Gastrointestinal: Abdomen is soft, non distended, non tender, bowel sounds are present CVS: Regular rate and rhythm. No murmurs, rubs or gallops Musculoskeletal: No joint or muscle tenderness Extremities: Non tender, no edema, peripheral pulses are present Neuro: Oriented, no tremors, no focal neurological deficits Skin: No rashes Results & Data Vital Signs (Past 12 Hours) Vital Signs Temp Pulse Pulse Resp BP BP Pulse Ox 03/20/19 08:00 36.4 C L 74 18 106/74 94 03/20/19 04:19 36.9 C 76 18 102/69 95 03/20/19 00:22 36.4 C L 69 18 115/77 94 03/19/19 23:01 75
[2019-03-20 09:55] LABS: BUN Creatinine Ratio 16.4 (10-20); Creatinine Clr Calc Pharmacy 57.7 ml/min; Est GFR (African American) 60.1; Est GFR (Non-African American) 51.8; Potassium 3.5 mmol/L (3.5-5.1)
--- NOTE | 2019-03-20 10:21 | Surgery Progress Note ---
Date of Service March 20, 2019 Assessment & Plan (1) Nausea and vomiting: No clinical sign of bowel obstruction but still with intermittent nausea. Would continue clears today. if tolerates, can d/c ng. if not, will plan on CT with PO contrast through the ng on Thursday. May need eval for gastroparesis if symptoms do not imporove. Present on Admission?: Yes Subjective Overall feels well, tolerating clear liquids but did have one time where ng was unclamped due to nausea which resolved once placed on suction. Now clamped all night with no further nausea. Just had breakfast of clear liquids. No abdominal pain. Physical Exam Constitutional: WD/WN, vitals as above Respiratory: normal respiratory effort, lungs clear to auscultation Cardiovascular: Rate/Rhythm: regular rate and regular rhythm Gastrointestinal (Abdomen): normal bowel sounds, soft, nontender, no hepatosplenomegaly Neurologic: moves all extremities; no focal motor deficits Results & Data Vital Signs (Past 12 Hours) Vital Signs Temp Pulse Pulse Resp BP BP Pulse Ox 03/20/19 08:00 36.4 C L 74 18 106/74 94 03/20/19 04:19 36.9 C 76 18 102/69 95 03/20/19 00:22 36.4 C L 69 18 115/77 94 03/19/19 23:01 75
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
[2019-03-21] MEDS: POTASSIUM CHLORIDE 40 MEQ in D5W AND 1/2NSS 1,000 ML/1,000 ML BAG IV SCH ×3 (01:49→18:34)
[2019-03-21 06:50] LABS: BUN Creatinine Ratio 17.2 (10-20); Calcium 8.8 mg/dl (8.5-10.1); Creatinine Clr Calc Pharmacy 68.8 ml/min; Est GFR (African American) 74.4; Est GFR (Non-African American) 64.2; Potassium 3.6 mmol/L (3.5-5.1)
--- NOTE | 2019-03-21 10:57 | Surgery Progress Note ---
Date of Service March 21, 2019 Assessment & Plan (1) Small bowel obstruction: PSBO vs ileus vs gastroparesis will check CT with po contrast, creatinine remains elevated Subjective continues to pass flatus but no BM, NG clamped for clears but had nausea this AM after breakfast and 450cc out Physical Exam Gastrointestinal (Abdomen): Inspection/Auscultation: + abdomen distended (litle more than preious) Percussion/Palpation: abdomen soft; abdomen nontender Results & Data Vital Signs (Past 12 Hours) Vital Signs Temp Pulse Pulse Resp BP BP Pulse Ox 03/21/19 07:50 36.4 C L 82 16 112/82 97 03/20/19 23:37 36.6 C 79 16 119/84 95 PG Care Time/CCT Total # of Minutes Spent Total Time Spent with Patient: Total time spent is greater than 50% in coordination of care (as documented) at patient's floor/unit and/or counseling patient:
--- NOTE | 2019-03-21 12:18 | Nephrology Progress Note ---
Date of Service March 21, 2019 Assessment & Plan (1) TERESA (acute kidney injury): Patient with acute kidney injury likely due to prerenal azotemia in setting of vomiting for several days. Baseline creatinine of 0.9. Patient admitted with creatinine of 3.7 but now further improved to 1.2 Urinalysis showed hyaline casts and a high specific gravity consistent with prerenal azotemia. No obstructive uropathy on imaging. -Continue IV fluids to 125 mL/h with D5 and half-normal saline and 40 mEq/L K. -Monitor input output. -Avoid nephrotoxins such as contrast unless lifesaving. (2) Electrolyte abnormality: Patient with hypokalemia due to vomiting and now NG suction. Will continue potassium enriched fluids iv today. (3) Small bowel obstruction: Patient being managed conservatively with NG decompression. he is showing improvement. Surgical team following. (4) HTN (hypertension): Agree with holding lisinopril and Lasix. Blood pressure is stable/accept able Subjective seen on rounds thsi am at 0820; up in chair; passing gas, tolerates minimal PO but > N; NGT clamped; ambulates w/o pain or sob Review of Systems Review of Systems: All systems reviewed & are unremarkable except as noted in HPI & below Physical Exam Constitutional: well developed and well nourished; no acute distress up in chair on RA w/ clamped NGT Eyes: EOM intact bilaterally ENMT: Ears: no external ear abnormality Nose: no external nose abnormality Mouth: + dry oral mucous membranes Neck: no nuchal rigidity Respiratory: normal respiratory effort Auscultation: + diminished lung sounds Cardiovascular: RRR, no murmur, no edema Gastrointestinal (Abdomen): Inspection/Auscultation: normal bowel sounds Percussion/Palpation: abdomen soft; abdomen nontender Musculoskeletal: Extremities: strength 5/5 throughout Skin: no rashes, warm and dry Neurologic: silva, fluent speech, no tremor Genitourinary: no silverman Results & Data Vital Signs (Past 12 Hours) Vital Signs Temp Pulse Resp BP Pulse Ox 03/21/19 07:50 36.4 C L 82 16 112/82 97 Laboratory Results 03/15/19 01:16 03/21/19 06:02
--- NOTE | 2019-03-21 14:09 | CT Scan Report ---
CT abd pelvis oral con only CLINICAL HISTORY: 63 years-old Male presenting with partial SBO. TECHNIQUE: Multidetector CT of the abdomen and pelvis was performed after the administration of oral contrast only. IV contrast: None. One or more dose lowering techniques were used consistent with the principles of ALARA (as low as reasonably achievable), including automatic exposure control, mA or kV adjustment to individual patient size, and/or use of iterative reconstruction. COMPARISON: 03/13/2019. CT DOSE (mGy.cm): The estimated cumulative dose is 854.92 mGycm. FINDINGS: Deck Molder topogram: Nasogastric tube terminates in the proximal stomach with sidehole likely within the g astric lumen. Lung bases: Normal heart size. Coronary artery and aortic valve calcification. No pericardial or pleu ral effusion. Minimal dependent changes likely atelectasis. Liver: Normal morphology. Normal density. Biliary: No gross biliary ductal dilatation allowing for noncontrast technique. Gallbladder is likely physiologically distended. No evidence of tension. No gallbladder wall thickening. Pancreas: Normal noncontrast appearance. Spleen: Absent. Adrenal glands: Normal noncontrast appearance. Kidneys and ureters: Normal noncontrast appearance. No nephrolithiasis. No hydronephrosis. Normal ure ters. Bladder: Severe circumferential wall thickening allowing for underdistention. Pelvic organs: Prostate enlargement likely secondary to benign prostatic hyperplasia. Bowel: Nasogastric tube terminates in the gastric body with side hole likely contained within the gas tric lumen. Diverticulosis of the sigmoid and descending colon without wall thickening or pericolonic inflammatory change. The appendix is not well identified on the current exam. A small buckle of smal l bowel is contained within the right inguinal hernia. This does not appear to be the site of obstruc tion. Dilated proximal small bowel with oral contrast transiting to the jejunum. There is smooth tape ring of the extreme bowel. Downstream, there is also smooth tapering to a less dilated caliber. There is no clear site of a transition point. Peritoneal cavity: No free fluid or intraperitoneal gas. Lymph nodes: No gross lymphadenopathy allowing for noncontrast technique. Vasculature: Atherosclerosis of the normal caliber abdominal aorta. Abdominal wall: Small bowel containing right inguinal hernia. Musculoskeletal: Normal. IMPRESSION: 1. Proximally dilated small bowel without evidence of a focal transition point up stream or downstre am. This could represent a partial low-grade bowel obstruction versus ileus. Findings are similar to prior exam. 2. Small bowel containing right inguinal hernia. No obstruction. This does not appear to be the site of obstruction. 3. Chronic bladder outlet obstruction secondary to prostatomegaly. Electronically signed by: Jatinder Zazueta M.D. 03/21/2019 2:08 PM
[2019-03-21] MEDS: PROMETHAZINE HCL 12.5 MG in SODIUM CHLORIDE 0.9% 50 ML IV PRN (15:36)
--- NOTE | 2019-03-21 17:46 | Anesthesiology Consultation ---
Date of Service March 21, 2019 Assessment & Plan Chart Review Chart Review: Patient NOT seen in Pre Admission Testing Consults Requested none ASA [id number] Proposed Anesthesia Anesthesia Type: General History Surgery Operation Date: 03/22/19 12:00 Proposed Procedures p Diagnostic Laparoscopy, Possible Laparotomy, Possible Laparoscopic or Open Inguinal Hernia Repair - Gunnar Coffey, , FACS Height/Weight Height: 6 ft Weight: 80 kg Allergies Allergy/AdvReac Type Severity Reaction Status Date / Time amlodipine AdvReac Intermediate peripheral Verified 03/13/19 16:50 edema Medications Home Medications Medication Instructions Recorded Confirmed Last Taken aspirin 81 mg PO DAILY 03/13/19 03/13/19 Unknown lisinopril 40 mg PO DAILY 03/13/19 03/13/19 Unknown Active Medications Generic Name Dose Route Start Last Admin Trade Name Freq PRN Reason Stop Dose Admin Potassium Chloride 40 meq/ 1,000 ml in 1,020 mls @ 125 mls/hr 03/14/19 10:45 03/21/19 09:51 Dextrose/Sodium Chloride IV 04/13/19 10:44 125 mls/hr .[id number] SEBASTIAN Administration Promethazine HCl 12.5 mg/ 50.5 mls @ 202 mls/hr 03/17/19 23:22 03/21/19 16:39 Sodium Chloride IV 04/16/19 23:21 Infused Q6H PRN Infusion Nausea And Vomiting Past Medical History Medical History Gout HTN (hypertension) Exercise / Class Metabolic Activity III < 4 Walking/Shop/Light housework Past Family History Family History Father Colorectal cancer Mother Breast cancer Past Surgical History Surgical History H/O left inguinal hernia repair H/O splenectomy History of elbow surgery Past Anesthesia History No Hx of Anesthesia Complications and No Family Hx of Anesthesia Complications History of PONV No Hx of PONV and No Hx of Motion Sickness Social History Smoking Status: Former smoker Hx Alcohol Use: Yes Alcohol type: beer Hx Substance Use: No Physical Exam Vital Signs Last Vital Signs Temp 36.5 C 03/21/19 15:52 Pulse 67 03/21/19 15:52 Resp 16 03/21/19 15:52 BP 120/65 03/21/19 15:52 Pulse Ox 93 03/21/19 15:52 Testing Laboratory Results 03/15/19 01:16 03/21/19 06:02 Hemoglobin A1c 5.7 % (4.5-5.6) H 03/14/19 07:33 Urine Color Dark Yellow 03/13/19 23:50 Urine Appearance Clear (Clear) 03/13/19 23:50 Urine pH 7.5 (4.5-7.5) 03/13/19 23:50 Ur Specific [place] 1.018 (1.000-1.030) 03/13/19 23:50 Urine Protein Negative (Negative) 03/13/19 23:50 Urine Glucose (UA) Negative (Negative) 03/13/19 23:50 Urine Ketones 1+ (Negative) H 03/13/19 23:50 Urine Nitrite Negative (Negative) 03/13/19 23:50 Ur Leukocyte Esterase Trace (Negative) H 03/13/19 23:50 Urine WBC (Auto) 1-5 /hpf (0-5) 03/13/19 23:50 Urine RBC (Auto) 0-4 /hpf (0-4) 03/13/19 23:50 U Hyaline Cast (Auto) >30 /lpf (0-5) H 03/13/19 23:50 U Epithel Cells (Auto) 10-20 /lpf (0-5) H 03/13/19 23:50 Urine Bacteria (Auto) Negative (Negative) 03/13/19 23:50
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
[2019-03-22] MEDS: POTASSIUM CHLORIDE 40 MEQ in D5W AND 1/2NSS 1,000 ML/1,000 ML BAG IV SCH ×3 (02:44→22:27)
--- NOTE | 2019-03-22 08:07 | XRay Report ---
KUB HISTORY: Small bowel obstruction. COMPARISON: KUB 03/18/2019. FINDINGS: The nasogastric tube is just below the level the diaphragm likely resides within the proxim al stomach. A few mildly dilated gas-filled loops of small bowel are seen within the abdomen. These m easure up to 3.3 cm in diameter. This has slightly improved. Gas and stool remains throughout the col on. Contrast is seen within the proximal colon. Therefore, this is consistent with improvement in the partial small bowel obstruction. No renal calculi. No ureteral calculi. No pneumoperitoneum or pneu matosis. IMPRESSION: 1. Interval improvement in the partial small bowel obstruction. The oral contrast now resides within the proximal colon. 2. Nasogastric tube terminates in the proximal stomach. Electronically signed by: Bandar Abarca M.D. 03/22/2019 8:05 AM
--- NOTE | 2019-03-22 09:36 | Surgery Progress Note ---
Date of Service March 22, 2019 Assessment & Plan (1) Small bowel obstruction: 63-year-old male with possible partial small bowel obstruction. He is passing flatus and contrast has gone into his right colon on his x-ray this morning, however he continues to have high NG tube output and has not tolerated trials of clamping or removing his NG tube. I again reviewed his CT scans and x-rays, and it is not clear that this is a small bowel obstruction. I discussed his options with him to include surgical exploration, continued observation, and possible GI evaluation. I informed him that exploration may not yield any cause of his symptoms, but it would also help us to know that there is no true mechanical obstruction. He also understands that it does incur the risk of performing surgery that we have discussed. At this point, he is willing to undergo a diagnostic laparoscopy and is scheduled for surgery today. Plan for diagnostic laparoscopy, possible open, possible bowel resection, possible laparoscopic or open right inguinal hernia repair The risks of this procedure were discussed to include but not limited to bleeding, infection, conversion to open, damage to surrounding structures, need for future more extensive surgery, chronic pain, hernia recurrence, negative exploration, and the risks of anesthesia Pre-op antibiotic The differential diagnosis, treatment options, details of the procedure and recovery, and plan of care discussed with the patient, all questions were answered, the patient expressed understanding and agrees to proceed with surgery as planned Subjective 63-year-old male admitted for partial small bowel obstruction. Over the course the past week he has had return of flatus and has not been very distended. It appeared on multiple occasions that his obstruction was resolving and we attempted removal or clamping of his NG tube which he did not tolerate. We repeated a CT scan with oral contrast yesterday which showed a gentle tapering of the bowel with contrast into the small bowel and no transition point, which could represent a partial small bowel obstruction. This morning's x-ray shows contrast in his right colon. He is continued to pass gas and is denying any pain. However he has had copious amounts from his NG tube overnight, almost 4 L. He said most the contrast came out. No other changes Physical Exam Constitutional: WD/WN, vitals as above Eyes: PERRL, conjunctivae normal, anicteric sclerae ENMT: external ear and nose normal, oropharynx normal Neck: trachea midline, no thyromegaly Respiratory: normal respiratory effort, lungs clear to auscultation Cardiovascular: RRR, no murmur, no edema Gastrointestinal (Abdomen): Inspection/Auscultation: + abdominal surgical scar (Left upper quadrant subcostal incision well-healed, no evidence of hernia) Percussion/Palpation: abdomen soft and + hernia (Reducible right inguinal hernia); abdomen nontender, no guarding, abdomen not rigid, no hepatosplenomegaly and not tympanic to percussion Musculoskeletal: no cyanosis or clubbing, extremities motor strength 5/5 Skin: no rashes, warm and dry Neurologic: PERRL, EOMI, accommodation nl, no face palsy, no dysarthria Psychiatric: A+Ox3, euthymic affect Lymphatic: no cervical or axillary lymphadenopathy Results & Data Vital Signs (Past 12 Hours) Vital Signs Temp Pulse Pulse Resp BP Pulse Ox 03/22/19 07:50 36.5 C 81 16 118/81 93 03/21/19 23:04 36.7 C 79 16 120/83 95 Diagnostic Findings HISTORY: Small bowel obstruction. COMPARISON: KUB 03/18/2019. FINDINGS: The nasogastric tube is just below the level the diaphragm likely resides within the proximal stomach. A few mildly dilated gas-filled loops of small bowel are seen within the abdomen. These measure up to 3.3 cm in diameter. This has slightly improved. Gas and stool remains throughout the colon. Contrast is seen within the proximal colon. Therefore, this is consistent with improvement in the partial small bowel obstruction. No renal calculi. No ureteral calculi. No pneumoperitoneum or pneumatosis. IMPRESSION: 1. Interval improvement in the partial small bowel obstruction. The oral contrast now resides within the proximal colon. 2. Nasogastric tube terminates in the proximal stomach. CT abd pelvis oral con only CLINICAL HISTORY: 63 years-old Male presenting with partial SBO. TECHNIQUE: Multidetector CT of the abdomen and pelvis was performed after the administration of oral contrast only. IV contrast: None. One or more dose lowering techniques were used consistent with the principles of ALARA (as low as reasonably achievable), including automatic exposure control, mA or kV a djustment to individual patient size, and/or use of iterative reconstruction. COMPARISON: 03/13/2019. CT DOSE (mGy.cm): The estimated cumulative dose is 854.92 mGycm. FINDINGS: Net Software Engineer topogram: Nasogastric tube terminates in the proximal stomach with sidehole likely within the gastric lumen. Lung bases: Normal heart size. Coronary artery and aortic valve calcification. No pericardial or pleural effusion. Minimal dependent changes likely atelectasis. Liver: Normal morphology. Normal density. Biliary: No gross biliary ductal dilatation allowing for noncontrast technique. Gallbladder is likely physiologically distended. No evidence of tension. No gallbladder wall thickening. Pancreas: Normal noncontrast appearance. Spleen: Absent. Adrenal glands: Normal noncontrast appearance. Kidneys and ureters: Normal noncontrast appearance. No nephrolithiasis. No hydronephrosis. Normal ureters. Bladder: Severe circumferential wall thickening allowing for underdistention. Pelvic organs: Prostate enlargement likely secondary to benign prostatic hyperplasia. Bowel: Nasogastric tube terminates in the gastric body with side hole likely contained within the gastric lumen. Diverticulosis of the sigmoid and descending colon without wall thickening or pericolonic inflammatory change. The appendix is not well identified on the current exam. A small buckle of small bowel is contained within the right inguinal hernia. This does not appear to be the site of obstruction. Dilated proximal small bowel with oral contrast transiting to the jejunum. There is smooth tapering of the extreme bowel. Downstream, there is also smooth tapering to a less dilated caliber. There is no clear site of a transition point. Peritoneal cavity: No free fluid or intraperitoneal gas. Lymph nodes: No gross lymphadenopathy allowing for noncontrast technique. Vasculature: Atherosclerosis of the normal caliber abdominal aorta. Abdominal wall: Small bowel containing right inguinal hernia. Musculoskeletal: Normal. IMPRESSION: 1. Proximally dilated small bowel without evidence of a focal transition point up stream or downstream. This could represent a partial low-grade bowel obstruction versus ileus. Findings are similar to prior exam. 2. Small bowel containing right inguinal hernia. No obstruction. This does not appear to be the site of obstruction. 3. Chronic bladder outlet obstruction secondary to prostatomegaly. PG Care Time/CCT Total # of Minutes Spent Total Time Spent with Patient: Total time spent is greater than 50% in coordination of care (as documented) at patient's floor/unit and/or counseling patient:
[2019-03-22] MEDS ORDERED: GLYCOPYRROLATE 0.2 MG/ML VIAL ONE ×2 (10:09→11:55)
[2019-03-22] MEDS ORDERED: ONDANSETRON INJ 2 MG/ML 2 ML VIAL ONE (10:09)
[2019-03-22] MEDS ORDERED: NEOSTIGMINE METHYLSULFATE 5 MG/5 ML SYR ONE (10:09)
[2019-03-22] MEDS ORDERED: MIDAZOLAM HCL 1 MG/ML 2ML VIAL ONE (10:09)
[2019-03-22] MEDS ORDERED: PROPOFOL IV EMULSION 10 MG/ML 20 ML VIAL IV ONE (10:09)
[2019-03-22] MEDS ORDERED: DEXAMETHASONE SOD INJ 4 MG/ML VIAL ONE (10:09)
[2019-03-22] MEDS ORDERED: LIDOCAINE HCL 2% 2 ML VIAL/AMP(20MG/ML) INFIL ONE (10:09)
[2019-03-22] MEDS ORDERED: fentaNYL citrate 100 MCG/2 ML VIAL ONE ×3 (10:09→11:41)
[2019-03-22] MEDS ORDERED: BUPIVACAINE 0.5 % 5 MG/1 ML MPF 30ML VIAL ONE (10:19)
[2019-03-22] MEDS ORDERED: METOCLOPRAMIDE HCL INJ 5 MG/ML 2 ML VIAL IV PRN (10:35)
[2019-03-22] MEDS ORDERED: ONDANSETRON INJ 2 MG/ML 2 ML VIAL IV PRN (10:35)
[2019-03-22] MEDS ORDERED: HYDROmorphone INJ 0.5 MG/0.5 ML SYR IV PRN (10:35)
[2019-03-22] MEDS ORDERED: ePHEDrine sulfate 50 MG/ML AMP IV PRN (10:35)
[2019-03-22] MEDS ORDERED: PROMETHAZINE HCL 12.5 MG in SODIUM CHLORIDE 0.9% 50 ML IV PRN (10:35)
[2019-03-22] MEDS ORDERED: fentaNYL citrate 100 MCG/2 ML VIAL IV PRN (10:35)
[2019-03-22] MEDS ORDERED: ATROPINE SULFATE 0.1 MG/ML 10ML SYR IV PRN (10:35)
[2019-03-22] MEDS ORDERED: HYDROmorphone INJ 2 MG/ML SYR/VIAL IV PRN (10:39)
[2019-03-22] MEDS ORDERED: SODIUM CHLORIDE 0.9% INJ 10 ML VIAL ONE (10:52)
[2019-03-22] MEDS ORDERED: CEFAZOLIN 250 MG/ML 1 GM VIAL ONE (10:52)
[2019-03-22] MEDS ORDERED: CEFAZOLIN 2000MG 2,000 MG/15 ML SYR IV ONE (11:30)
[2019-03-22] MEDS ORDERED: ROCURONIUM BROMIDE 10 MG/ML 5 ML VIAL ONE (11:52)
[2019-03-22] MEDS ORDERED: LARYING-O-JET KIT (LTA) ONE (11:52)
--- NOTE | 2019-03-22 12:05 | Operative Report ---
PG Post Operative Report Pre & Post Diagnosis Operation Date: 03/22/19 12:00 Pre-Op Diagnosis: Small Bowel Obstruction Post-Op Diagnosis: Ileus I identified the patient and participated in the time-out.: Yes Procedure Operation Date: 03/22/19 12:00 Actual Procedures p Diagnostic Laparoscopy, Lysis of Adhesions(Not Applicable) - Gunnar Coffey DO, OPHELIA Surgeon Gunnar Coffey DO, OPHELIA Outside Machinist Jose Tapia Estimated Blood Loss 4 Findings Consistent with Post-Op Diagnosis Some omental adhesions to the anterior abdominal wall. No evidence of bowel obstruction. Small right inguinal hernia not containing any bowel. Normal appendix and colon. Dilated proximal small bowel with no transition point and no significant adhesions. Distended but noninflamed gallbladder. Normal stomac h. Specimens None Anesthesia Type General Complications none Disposition Accompanied Patient To Recovery: No Disposition: Recovery Room Indications 63-year-old male admitted with possible partial small bowel obstruction with apparent resolution. Multiple attempts to clamp to remove the NG tube were unsuccessful. CT scans showed persistent possible small bowel obstruction. A fter discussion with the patient regarding his options, the patient elected for diagnostic laparoscopy. We will plan for diagnostic laparoscopy, possible open, possible bowel resection, possible lap scopic or open right inguinal hernia repair. The patient understood that there was potential for normal laparoscopy. The risks of the procedure were discussed, all questions were answered, and the patient agreed to proceed with surgery as planned. Description of Procedure The patient was properly identified, consented, and taken to the operating room where he was placed in the supine position. General endotracheal anesthesia was induced. An NG tube was already in place. A silverman catheter, SCDs and a safety belt were placed. Preoperative antibiotics were administered. The patient's abdomen was prepped and draped in the standard sterile fashion. Surgical timeout was performed and all parties were in agreement that this was the correct patient and procedure to be performed and we continued as planned. An incision was made to the right of the umbilicus and the Veress needle was inserted. Saline drop test confirmed entry into the peritoneum. The abdomen was insufflated with carbon dioxide which the patient tolerated without incident. The abdomen was then entered using the Optiview technique and a 5 mm trocar. The laparoscope was inserted and no damage from initial trocar or Veress needle placement was noted, no gross abnormalities were noted within the 4 quadrants of the abdomen. 5 mm ports were then placed in the right upper and right lower quadrants. The abdomen was explored. There was some omental adhesions to the anterior abdominal wall in the area of his prior laparotomy incision. These were taken down using the harmonic scalpel. Overall the abdomen appeared normal. We began running the small bowel starting at the ligament of Treitz and working distally. The proximal small bowel was moderately dilated but did not appear inflamed. As we ran the bowel there was no evidence of significant adhesions. As the small bowel was examined it had a gentle taper to non distended bowel. There was no transition point. No evidence of any internal hernias or significant intestinal adhesions. We continued running the small bowel until he reached the ileocecal valve which appeared normal. The appendix was not inflamed and normal. The colon was normal. There were some adhesions of the right colon to the lateral and anterior abdominal wall but this was not causing any evidence of obstruction. The sigmoid colon and rectum appeared normal. There was a small right inguinal hernia that was not incarcerated and did not contain bowel, nor did it seem large enough to allow bowel to enter it. This was obviously not a point of obstruction. This was not repaired. The gallbladder appeared distended but not inflamed and normal. Overall this was a normal laparoscopy. Hemostasis was confirmed and the abdomen was irrigated. 5 mm trochars were removed under direct visualization and the abdomen was allowed to collapse. The wound was irrigated, and the skin of all ports was closed with 4-0 Monocryl subc uticular sutures. Dermabond was placed over the wounds. The patient was extubated in the operating room and taken to the PACU where he recovered without apparent incident. All sponge, instrument and needle counts were correct at the conclusion of the procedure. The patient tolerated the procedure well. The physician's supply assistant was present and scrubbed for the entire to the case. He was critical in positioning the patient, prepping and draping, driving the laparoscope, closure the incisions, and placement of the dressings. I attest to the content of the Intraoperative Record and any orders documented therein. Any exceptions are noted below.
[2019-03-22] MEDS ORDERED: MoRPHine SULFATE 2 MG/ML CARP IV PRN (12:55)
[2019-03-22] MEDS ORDERED: MoRPHine SULFATE 4 MG/ML 1 ML CARP\\VIAL IV PRN (12:55)
--- NOTE | 2019-03-22 13:06 | Anesthesiology Progress Note ---
Date of Service March 22, 2019 Anesthesia Post Procedure Vital Signs Vital Signs: Temp Pulse Pulse Resp BP BP Pulse Ox 03/22/19 12:55 36.1 C L 71 10 L 113/80 95 03/22/19 12:45 65 12 128/86 94 03/22/19 12:35 69 12 136/85 96 03/22/19 12:25 61 10 L 151/97 H 100 03/22/19 12:15 36.8 C 61 12 167/100 H 100 03/22/19 10:16 36.8 C 77 18 110/78 99 03/22/19 07:50 36.5 C 81 16 118/81 93 03/21/19 23:04 36.7 C 79 16 120/83 95 03/21/19 15:52 36.5 C 67 16 120/65 93 Pain Intensity Abdomen: Pain Intensity: 0 Transfer of Care Handoff Completed per policy Notes Mental Status: alert / awake / arousable and participated in evaluation Patient Amnestic to Procedure: Yes Nausea / Vomiting: adequately controlled Pain: adequately controlled Airway Patency, RR, SpO2: stable & adequate BP & HR: stable & adequate Hydration State: stable & adequate Anesthetic Complications: no major complications apparent
[2019-03-22] MEDS ORDERED: METHYLNALTREXONE BROMIDE 12 MG/0.6 ML VIAL SQ ONE (14:51)
--- NOTE | 2019-03-22 15:05 | Gastrointestinal Consultation ---
Date of Consultation March 22, 2019 Assessment & Plan (1) Ileus: Pt is a 63 y/o male admitted initially for suspected SBO. He didn't tolerate trial of NGT clamping. Taken to OR for laparascopic eval and found to have not site of obstruction, essentially normal exam. - Keep NGT to LIS - Bowel rest - Relistor 12mg subQ today - Repeat KUB tomorrow AM - Replete and maintain K >4 Supervising Physician Co-Signing Physician Notes On 03/22/2019, I performed a history and physical examination of this patient and reviewed the electronic medical record. Specifically, on physical examination there is mild epigastric tenderness. I have discussed the case with JEANNIE Quezada. The above note reflects my findings, conclusions, and recommendations. Ten Oconnor MD History of Present Illness Reason for Consultation: Persistent N/V Requesting Physician: Dr. Gunnar Coffey Attending Physician: Dr. Ten Oconnor History of Present Illness Pt is a 63 y/o male currently admitted for suspected SBO. He had been followed by Surgery service. Attempted clamping of NGT and feeding him CL diet failed resulting in nausea and vomiting. CT abd/pelvis yesterday showed proximally di lated small bowel without evidence of a focal transition point up stream or downstream suspicious for low grade SBO vs ileus, small bowel contains R inguinal hernia but this doesn't appear to be site of obstruction. He was taken to OR for laparoscopic eval by Dr. Coffey - some adhesions noted on R colon but no site of obstruction found. Pt reports hx of spleenectomy, otherwise denies any other abdominal surgeries. Denies any uses of chronic narcotic Currently he has NGT w intermittent suction in place. NGT draining bilious fluid about 200mL. He reports passing flatus but no BM since 03/11/19 per chart review. Allergies Allergy/AdvReac Type Severity Reaction Status Date / Time amlodipine AdvReac Intermediate peripheral Verified 03/13/19 16:50 edema Home Medications Home Medications Medication Instructions Recorded Confirmed Type aspirin 81 mg PO DAILY 03/13/19 03/13/19 History lisinopril 40 mg PO DAILY 03/13/19 03/13/19 History Patient History Medical History Gout HTN (hypertension) Surgical History H/O left inguinal hernia repair H/O splenectomy History of elbow surgery Family History Father Colorectal cancer Mother Breast cancer Social History Preferred Language: Malian Communication Ability: Effective Beliefs That Will Affect Care: None marital status: Single Current Living Situation: Family Current Living Situation Comment: Lives with mother Other Information That Helps Us Care for You: No Feels Safe at Home: Yes Safety Concerns: Feels Safe At This Time Smoking Status: Former smoker Number of Years Since Quit: 30 ; Hx Alcohol Use: Yes Alcohol type: beer Alcohol type Comment: 6 light beers daily; last drink 1 week ago Alcohol Intake Frequency: Daily Hx Substance Use: No Review of Systems Review of Systems: All systems reviewed & are unremarkable except as noted in HPI & below Physical Exam Constitutional: WD/WN, vitals as above well groomed, cooperative and comfortable Eyes: PERRL, conjunctivae normal, anicteric sclerae ENMT: external ear and nose normal, oropharynx normal NGT in place Respiratory: normal respiratory effort, lungs clear to auscultation Cardiovascular: RRR, no murmur, no edema Gastrointestinal (Abdomen): Inspection/Auscultation: + hypoactive bowel sounds Percussion/Palpation: abdomen soft; abdomen nontender Skin: no rashes, warm and dry no jaundice Psychiatric: A+Ox3, euthymic affect Lymphatic: no lymphedema Results & Data Vital Signs (Past 12 Hours) Vital Signs Temp Pulse Resp BP BP Pulse Ox 03/22/19 14:05 36.3 C L 73 16 125/86 96 03/22/19 13:35 71 16 114/75 93 03/22/19 13:05 36.5 C 74 14 119/78 95 03/22/19 12:55 36.1 C L 71 10 L 113/80 95 03/22/19 12:45 65 12 128/86 94 03/22/19 12:35 69 12 136/85 96 03/22/19 12:25 61 10 L 151/97 H 100 03/22/19 12:15 36.8 C 61 12 167/100 H 100 03/22/19 10:16 36.8 C 77 18 110/78 99 03/22/19 07:50 36.5 C 81 16 118/81 93 03/22/19 03:40 88 16 154/74 H 95
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
[2019-03-22] MEDS ORDERED: TPN/PPN CONSULT PHARMACY PRN (19:51)
[2019-03-23] MEDS: POTASSIUM CHLORIDE 40 MEQ in D5W AND 1/2NSS 1,000 ML/1,000 ML BAG IV SCH ×2 (07:40→12:10)
--- NOTE | 2019-03-23 08:17 | XRay Report ---
KUB CLINICAL HISTORY: Reevaluate ileus. COMPARISON STUDY: CT of the abdomen and pelvis March 31, 2019. KUB March 22, 2019. FINDINGS: Right colon oral contrast is noted. Tip of nasogastric tube projects of the proximal body o f the stomach. Mild small bowel dilatation is similar to KUB of March 31, 2019. IMPRESSION: No significant change in mild small bowel dilatation since prior KUB. This may reflect a partial small bowel obstruction or ileus. Electronically signed by: Nasir Baker M.D. 03/23/2019 8:16 AM
[2019-03-23 08:20] LABS: Calcium 9.2 mg/dl (8.5-10.1); Creatinine Clr Calc Pharmacy 69.4 ml/min; Est GFR (African American) 75.1; Est GFR (Non-African American) 64.8; Potassium 3.5 mmol/L (3.5-5.1)
[2019-03-23 08:25] LABS: Bilirubin,Total 0.9 mg/dl (0.2-1); Phosphorus 3.5 mg/dl (2.5-4.9); Prealbumin 18.1 mg/dl (20-40)
--- NOTE | 2019-03-23 09:13 | Surgery Progress Note ---
Date of Service March 23, 2019 Assessment & Plan (1) Ileus: 63-year-old male POD #1 negative diagnostic laparoscopy with no evidence of bowel obstruction. He appears to have an ileus of unclear etiology that is not related to his surgery. No further surgical intervention indicated Appreciate GIs assessment of this patient Management per GI and primary team Surgery will follow peripherally Patient may shower Activity as tolerated All with questions or concerns Subjective 63-year-old male POD #1 diagnostic laparoscopy with lysis of omental adhesions to abdominal wall but no intestinal adhesions and no evidence of bowel obstruction. He is yet to have a bowel movement and still has a decent amount of NG tube output. Overall he has minimal pain from his surgery. He continues to pass flatus. GI saw him in consultation yesterday. Physical Exam Constitutional: WD/WN, vitals as above Gastrointestinal (Abdomen): normal bowel sounds, soft, nontender, no hepatosplenomegaly Inspection/Auscultation: + abdominal surgical incision (Incision with Dermabond, healing well, no evidence of infection) Results & Data Vital Signs (Past 12 Hours) Vital Signs Temp Pulse Pulse Resp BP Pulse Ox 03/23/19 07:46 36.5 C 68 16 123/79 94 03/23/19 03:04 36.5 C 68 16 145/88 H 96 03/22/19 23:22 36.4 C L 67 16 127/77 96 03/22/19 23:21 36.4 C L PG Care Time/CCT Total # of Minutes Spent Total Time Spent with Patient: Total time spent is greater than 50% in coordination of care (as documented) at patient's floor/unit and/or counseling patient:
--- NOTE | 2019-03-23 09:47 | Gastroenterology Progress Note ---
Date of Service March 23, 2019 Assessment & Plan (1) Ileus: Pt is a 63 y/o male admitted initially for suspected SBO. He didn't tolerate trial of NGT clamping. Taken to OR for laparascopic eval and found to have not site of obstruction, essentially normal exam. Likely having an ileus He's not passing flatus or bowel movements though on exam does have more bowel sounds and abd remains soft, non tender - Keep NGT to LIS - Bowel rest - Relistor 12mg subQ tomorrow again - Repeat KUB daily - Replete and maintain K >4 Supervising Physician Co-Signing Physician Notes I have performed a history and physical examination of this patient and reviewed the electronic medical record. Specifically, on physical examination there is no abdominal tenderness. I have discussed the case with JEANNIE Quezada. The above note reflects my findings, conclusions, and recommendations. Ten Oconnor MD Subjective Pt reports mild abd pain and R shoulder soreness. He isn't passing flatus or stools. He had ambulated this AM. NGT in place, noted output yesterday 4.9L though he had also been eating ice chips. KUB showed similar small bowel dilation suggestive of PSBO vs ileus Review of Systems Review of Systems: All systems reviewed & are unremarkable except as noted in HPI & below Physical Exam Constitutional: WD/WN, vitals as above well groomed, cooperative and comfortable Eyes: PERRL, conjunctivae normal, anicteric sclerae ENMT: external ear and nose normal, oropharynx normal NGT in place, output bilious fluid Respiratory: normal respiratory effort, lungs clear to auscultation Cardiovascular: RRR, no murmur, no edema Gastrointestinal (Abdomen): Inspection/Auscultation: + hypoactive bowel sounds Percussion/Palpation: abdomen soft; abdomen nontender Skin: no rashes, warm and dry no jaundice Psychiatric: A+Ox3, euthymic affect Lymphatic: no lymphedema Results & Data Vital Signs (Past 12 Hours) Vital Signs Temp Pulse Pulse Resp BP Pulse Ox 03/23/19 07:46 36.5 C 68 16 123/79 94 03/23/19 03:04 36.5 C 68 16 145/88 H 96 03/22/19 23:22 36.4 C L 67 16 127/77 96 03/22/19 23:21 36.4 C L
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
--- NOTE | 2019-03-23 11:43 | Pharmacy Report ---
Pharmacy PN Initial Consult - Date of Service March 23, 2019 - Scope Pharmacy has been consulted to manage parenteral nutrition orders and order appropriate labs. As part of the Nutrition Support Team guidelines, pharmacy will work in conjunction with dietary when determining the patients caloric needs. - Subjective The patient is a 63 year old M admitted on 03/13/19 15:50 for SBO. 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 Trialed clear liquid diet on admission and NGT but patient currently still with N/V and high NGT output on suction. Hospitalist ordered to start PPN. - Objective Height: 6 ft Weight: 80 kg Vascular Access:: Peripheral access currently Intake & Output (Last 24Hrs): Intake & Output 03/21/19 03/22/19 03/23/19 03/24/19 06:59 06:59 06:59 06:59 Intake Total 3850.417 / 3850.417 3519.667 / 3519.667 3060 / 3060 Output Total 635 / 635 5520 / 5520 2145 / 2145 Balance 3215.417 / 3215.417 -2000.333 / -2000.333 915 / 915 Weight 80 kg Laboratory Data (Last 24 Hrs):: 03/23/19 07:03 Sodium 138 Potassium 3.5 Chloride 103 Carbon Dioxide 30 BUN 18 Creatinine 1.18 Glucose 103 H Calcium 9.2 Phosphorus 3.5 Magnesium 2.0 Total Bilirubin 0.9 AST 18 ALT 34 Alkaline Phosphatase 79 Prealbumin 18.1 L Nutrition Assessment:: Please refer to the Notes section of the EMR for the most recent nutrition program instructor note. - Assessment 03/23: Today is day 1 of PPN. Labs assessed. WNL. Patient has been getting IV fluids D51/2NS w/ 40 meq KCL running at 125 ml/hr for around past 10 days. Will start PPN at lower than goal calories then advance to goal in the next 1 to 2 days per dietitian's recommendation. Will d/c IV fluids at 1600 today and start PPN at that time. - Plan For day 1 of PN administration, the following will be ordered: Macronutrients Amino acids 80 grams/day Dextrose 150 grams/day Lipids 20 grams/day Micronutrients Combined electrolytes 20 mL - contains 35 mEq Na, 20 meq K, 4.5 mEq Ca, 5 mEq Mg, 35 mEq Cl, 29.5 mEq acetate per 20 mL Sodium phosphate 12 MMol Sodium chloride 50 mEq Potassium chloride 30 mEq Multivitamins 10 mL Trace Elements 1 mL Additional additives: Folic acid 1mg; Thiamine 100 mg, Famotidine 20 mg Total volume 3000 mL to be infused over 24 hrs will provide 1030 kcal/day Final osmolarity 597 mOsm/L (maximum for PPN is 900 mOsm/L) Labs to be ordered per PN order protocol Pharmacy will follow and adjust parenteral nutrition orders on a daily basis. Thank you.
[2019-03-23] MEDS ORDERED: METOCLOPRAMIDE HCL INJ 5 MG/ML 2 ML VIAL IV ONE (13:29)
[2019-03-23] MEDS ORDERED: Custom Peripheral Pn 3,000 ML in TPN BAG 0 ML IV SCH (16:00)
--- NOTE | 2019-03-23 18:24 | Nephrology Progress Note ---
Date of Service March 23, 2019 Assessment & Plan (1) TERESA (acute kidney injury): Patient with acute kidney injury likely due to prerenal azotemia in setting of vomiting for several days. Baseline creatinine of 0.9. Patient admitted with creatinine of 3.7 but now further plateau'd at 1.2 Urinalysis showed hyaline casts and a high specific gravity consistent with prerenal azotemia. No obstructive uropathy on imaging. -note this afternoon team has stopped IV fluids 125 mL/h with D5 and half-normal saline and 40 mEq/L K> pt starting tpn -Monitor input output. -Avoid nephrotoxins such as contrast unless lifesaving. (2) Electrolyte abnormality: Patient with hypokalemia due to vomiting and now NG suction. Will continue potassium enriched fluids iv today. GI recommends K of 4; should improve on TPN daily bmp (3) HTN (hypertension): Agree with holding lisinopril and Lasix. Blood pressure is s table/acceptable (4) Ileus: Patient being managed conservatively with NG decompression. s/p 03/22 exlap showing no obstruction. gi following Present on Admission?: Yes Subjective went to OR yesterday for ex lap > no obstruction site found; for continued supportive care; getting TPN Review of Systems Review of Systems: All systems reviewed & are unremarkable except as noted in HPI & below Gastrointestinal: + abdominal pain (minimal) + flatus; no bm since or Genitourinary: no dysuria, no difficulty urinating and no urinary frequency Hematologic / Lymphatic: no easy bleeding Physical Exam Constitutional: well developed and well nourished; no acute distress (sitting in bed on RA w/ NGT w/ dark brown green OP) Eyes: EOM intact bilaterally ENMT: Ears: no external ear abnormality Nose: no external nose abnormality Mouth: + dry oral mucous membranes Neck: no nuchal rigidity Respiratory: normal respiratory effort Auscultation: + diminished lung s ounds Cardiovascular: RRR, no murmur, no edema Gastrointestinal (Abdomen): Inspection/Auscultation: + hypoactive bowel sounds (slight) Percussion/Palpation: + abdomen tender and abdomen soft lap wounds healing well Musculoskeletal: Extremities: strength 5/5 throughout Skin: no rashes, warm and dry Neurologic: silva, fluent speech, no tremor Psychiatric: Orientation: alert and oriented x 3 Speech: normal rate/rhythm/volume of speech Affect: + anxious affect and + tearful affect Genitourinary: no silverman Results & Data Vital Signs (Past 12 Hours) Vital Signs Temp Pulse Pulse Resp BP Pulse Ox 03/23/19 15:42 36.7 C 71 16 128/83 96 03/23/19 07:46 36.5 C 68 16 123/79 94 Laboratory Results 03/15/19 01:16 03/23/19 07:03
[2019-03-24 07:11] LABS: Hematocrit (blood only) 43.9 % (42-52); Hemoglobin 14.7 g/dL (14.0-18.0); Mean Corpuscular Hemoglobin 31.9 pg (25-34); Mean Corpuscular Hgb Conc 33.5 g/dL (32-36); Mean Corpuscular Volume 95.2 fL (80-100); Mean Platelet Volume 10.2 fL (7.4-10.4); Platelet Count 450 K/uL (130-400); RDW Coefficient of Variation 14.9 % (11.5-14.5); RDW Standard Deviation 52.1 fL (36.4-46.3); Red Blood Count 4.61 M/uL (4.7-6.1); White Blood Count 9.54 K/uL (4.8-10.8)
[2019-03-24 07:46] LABS: BUN Creatinine Ratio 17.7 (10-20); Calcium 8.8 mg/dl (8.5-10.1); Est GFR (African American) 86.5; Est GFR (Non-African American) 74.7; Potassium 3.5 mmol/L (3.5-5.1)
[2019-03-24 07:54] LABS: Phosphorus 2.9 mg/dl (2.5-4.9)
--- NOTE | 2019-03-24 08:33 | Nephrology Progress Note ---
Date of Service March 24, 2019 Assessment & Plan (1) Electrolyte abnormality: Patient with hypokalemia due to vomiting and now NG suction. GI recommends K of 4; should improve on PPN -discussed w/ PPN pharmacist >> will increase K in PPN up to 100 mEq if possible from fluid osm standpoint -ordered 40 mEq IV K as well -cont daily bmp and mag, phos (2) HTN (hypertension): cont to hold lisinopril and Lasix. Blood pressure is stable/acceptable (3) Ileus: Patient being managed conservatively with NG decompression. s/p 03/22 exlap showing no obstruction. gi following Subjective thick and slightly weak cough this am (new); nonproductive. denies sob or orthopnea; no f. no voidign issues; passing gas and NT else. no mm weakness Review of Systems Review of Systems: All systems reviewed & are unremarkable except as noted in HPI & below Physical Exam Constitutional: well developed and well nourished; no acute distress (sitting in bed on RA w/ NGT w/ dark brown OP) Eyes: EOM intact bilaterally ENMT: Ears: no external ear abnormality Nose: no external nose abnormality Mouth: + dry oral mucous membranes Neck: no nuchal rigidity Respiratory: normal respiratory effort Auscultation: + diminished lung sounds Cardiovascular: RRR, no murmur, no edema Gastrointestinal (Abdomen): Inspection/Auscultation: + hypoactive bowel sounds (slight) Percussion/Palpation: + abdomen tender and abdomen soft Musculoskeletal: Extremities: strength 5/5 throughout Skin: no rashes, warm and dry Psychiatric: Orientation: alert and oriented x 3 Speech: normal rate/rhythm/volume of speech Affect: euthymic affect Results & Data Vital Signs (Past 12 Hours) Vital Signs Temp Pulse Pulse Resp BP Pulse Ox 03/24/19 08:03 36.8 C 68 18 134/85 95 03/23/19 22:52 36.7 C 71 16 138/77 96 Laboratory Results 03/24/19 07:00 03/24/19 07:00
--- NOTE | 2019-03-24 09:22 | Gastroenterology Progress Note ---
Date of Service March 24, 2019 Assessment & Plan (1) Ileus: Pt is a 63 y/o male followed for ileus. Laparoscopic exam w/o signs of obstruction. He is feeling better today, less abd pain, and is passing flatus, no n/v. No BMs yet. On exam abd soft, non tender and good bowel sounds present. - KUB today. If still signs of ileus may repeat Relistor 12mg subQ today - Trial clamping of NGT - PPN management per primary team. - Replete and maintain K >4 Supervising Physician Co-Signing Physician Notes I have performed a history and physical examination of this patient and reviewed the electronic medical record. Specifically, on physical examination there is mild epigastric tenderness. I have discussed the case with JEANNIE Quezada. The above note reflects my findings, conclusions, and recommendations. Ten Oconnor MD Subjective Pt feels less abd pain, is passing flatus, but no BMs. He denies any n/v. NGT w bilious fluid 1.4L output yesterday. He had been started on PPN. Review of Systems Review of Systems: All systems reviewed & are unremarkable except as noted in HPI & below Physical Exam Constitutional: WD/WN, vitals as above well groomed, cooperative and comfortable Eyes: PERRL, conjunctivae normal, anicteric sclerae ENMT: external ear and nose normal, oropharynx normal NGT in place w Low intermittent suction Respiratory: normal respiratory effort, lungs clear to auscultation Cardiovascular: RRR, no murmur, no edema Gastrointestinal (Abdomen): Inspection/Auscultation: normal bowel sounds Percussion/Palpation: abdomen soft; abdomen nontender Skin: no rashes, warm and dry no jaundice Psychiatric: A+Ox3, euthymic affect Lymphatic: no lymphedema Results & Data Vital Signs (Past 12 Hours) Vital Signs Temp Pulse Pulse Resp BP Pulse Ox 03/24/19 08:03 36.8 C 68 18 134/85 95 03/23/19 22:52 36.7 C 71 16 138/77 96
--- NOTE | 2019-03-24 09:47 | XRay Report ---
XR KUB/Abdomen 1 view CLINICAL HISTORY: 63 years-old Male presenting with re-eval ileus. TECHNIQUE: Single supine view of the abdomen was obtained. COMPARISON: 03/23/2019 at 8:00 AM. FINDINGS: Nasogastric tube remains in place terminating in the proximal stomach, side hole within the gastric l umen. Mild gaseous distention of small bowel loops with possible mild small bowel wall thickening in the central abdomen. Mild stool burden. Radiodense contrast noted in the right colon. No gross pneumo peritoneum allowing for supine technique. Few pelvic phleboliths noted. The gas and stool burden degrades evaluation for nephrolithiasis. Mild focal degenerative changes in the lower lumbar spine. Lung bases clear. IMPRESSION: 1. Appropriately positioned nasogastric tube. 2. Mild gaseous distention of small bowel with mild small bowel wall thickening suspected. This can be seen in the setting of ileus or enteritis. Electronically signed by: Jatinder Zazueta M.D. 03/24/2019 9:46 AM
[2019-03-24] MEDS: POTASSIUM CHLORIDE / WTR 10 MEQ/100 ML PLCT IV SCH ×4 (10:19→15:11)
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
[2019-03-24] MEDS ORDERED: METHYLNALTREXONE BROMIDE 12 MG/0.6 ML VIAL SQ ONE (11:00)
[2019-03-24] MEDS ORDERED: Custom Peripheral Pn 3,000 ML in TPN BAG 0 ML IV SCH (16:00)
[2019-03-24] MEDS: DEXTROSE 10% 1,000 ML IV SCH (16:33)
[2019-03-25] MEDS: DEXTROSE 10% 1,000 ML IV SCH ×2 (01:09→09:52)
[2019-03-25 08:22] LABS: Hematocrit (blood only) 41.2 % (42-52); Mean Corpuscular Volume 94.3 fL (80-100); Mean Platelet Volume 10.2 fL (7.4-10.4); Platelet Count 468 K/uL (130-400); RDW Coefficient of Variation 14.7 % (11.5-14.5); RDW Standard Deviation 50.7 fL (36.4-46.3); Red Blood Count 4.37 M/uL (4.7-6.1); White Blood Count 11.67 K/uL (4.8-10.8)
[2019-03-25 08:50] LABS: Albumin Level 2.7 gm/dl (3.4-5.0); BUN Creatinine Ratio 24.1 (10-20); Calcium 9.1 mg/dl (8.5-10.1); Creatinine Clr Calc Pharmacy 95.2 ml/min; Est GFR (African American) 106.2; Est GFR (Non-African American) 91.6; Potassium 3.9 mmol/L (3.5-5.1)
[2019-03-25 08:52] LABS: Albumin Globulin Ratio 0.5 (0.9-2); Bilirubin,Total 0.6 mg/dl (0.2-1); Globulin 4.9 gm/dl (2.5-4.0); Total Protein 7.6 gm/dl (6.4-8.2)
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
--- NOTE | 2019-03-25 10:16 | Gastroenterology Progress Note ---
Date of Service March 25, 2019 Assessment & Plan (1) Ileus: Pt is a 63 y/o male followed for ileus. Laparoscopic exam w/o signs of obstruction. He tolerated clamping of NGT w/o abd pain, n/v. Continues to pass flatus but no BMs yet. - KUB today. - Can DC NGT, trial sips of CL. - PPN management per primary team. - Replete and maintain K >4. - GI to sign off; recall prn Supervising Physician Co-Signing Physician Notes I saw and evaluated the patient. It appears that he is starting to pass some flatus but no stool as of yet. Appears that the ileus is starting to improve. Given this the GI service will sign off for the present time. Subjective Pt feels well. Tolerated clamping of NGT w/o n/v, abd pain. Is still passing flatus but no BMs yet. Review of Systems Review of Systems: All systems reviewed & are unremarkable except as noted in HPI & below Physical Exam Constitutional: WD/WN, vitals as above well groomed, cooperative and comfortable Eyes: PERRL, conjunctivae normal, anicteric sclerae ENMT: external ear and nose normal, oropharynx normal NGT in place, clamped Respiratory: normal respiratory effort, lungs clear to auscultation Cardiovascular: RRR, no murmur, no edema Gastrointestinal (Abdomen): Inspection/Auscultation: normal bowel sounds Percussion/Palpation: abdomen soft; abdomen nontender Skin: no rashes, warm and dry no jaundice Psychiatric: A+Ox3, euthymic affect Lymphatic: no lymphedema Results & Data Vital Signs (Past 12 Hours) Vital Signs Temp Pulse Pulse Resp BP Pulse Ox 03/25/19 07:33 36.5 C 85 18 133/87 96 03/24/19 23:04 36.6 C 68 18 138/84 95
--- NOTE | 2019-03-25 10:29 | XRay Report ---
XR KUB/Abdomen 1 view CLINICAL HISTORY: re-eval ileus COMPARISON STUDY: 03/24/2019 FINDINGS: There is a nasogastric tube within the proximal stomach. There is contrast present within n ondilated right colon. There are multiple air-filled small bowel loops at the upper limits of normal in size, and slightly diminished from the preceding study IMPRESSION: 1. Decreasing small bowel distention. 2. Nasogastric tube within the proximal stomach Electronically signed by: Chris Parmar M.D. 03/25/2019 10:28 AM
--- NOTE | 2019-03-25 14:37 | Surgery Progress Note ---
Date of Service March 25, 2019 Assessment & Plan (1) Nausea and vomiting: some progress stable post op Dr. Gonzalez covering the weekend if there are any new issues Subjective NG clamped for more than 24 hrs without nausea, trying clears for lunch Physical Exam Gastrointestinal (Abdomen): Inspection/Auscultation: + abdominal surgical incision (clean, dry); abdomen not distended Percussion/Palpation: abdomen soft Results & Data Vital Signs (Past 12 Hours) Vital Signs Temp Pulse Resp BP Pulse Ox 03/25/19 07:33 36.5 C 85 18 133/87 96 PG Care Time/CCT Total # of Minutes Spent Total Time Spent with Patient: Total time spent is greater than 50% in coordination of care (as documented) at patient's floor/unit and/or counseling patient:
[2019-03-25] MEDS: PROMETHAZINE HCL 12.5 MG in SODIUM CHLORIDE 0.9% 50 ML IV PRN (23:32)
[2019-03-26 07:35] LABS: BUN Creatinine Ratio 20.9 (10-20); Creatinine Clr Calc Pharmacy 93.1 ml/min; Est GFR (African American) 105.2; Est GFR (Non-African American) 90.8; Potassium 3.8 mmol/L (3.5-5.1)
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
--- NOTE | 2019-03-26 08:24 | Surgery Progress Note ---
Date of Service March 26, 2019 Assessment & Plan (1) Small bowel obstruction: Awaiting full return of his bowel function. We will keep him on liquids again today to see how he does before advancing to solid foods. Subjective Doing better today. Tolerated liquids all day yesterday however did have some nausea after his evening meal. No emesis. This morning he feels good but he has not had breakfast yet. Physical Exam Physical Exam: Alert and oriented no acute distress No respiratory distress Abdomen is soft with expected tenderness. Nondistended. Results & Data Vital Signs (Past 12 Hours) Vital Signs Temp Pulse Pulse Resp BP BP Pulse Ox 03/26/19 08:00 36.4 C L 83 16 131/81 03/25/19 23:10 36.3 C L 83 18 136/86 96 PG Care Time/CCT Total # of Minutes Spent Total Time Spent with Patient: Total time spent is greater than 50% in coordination of care (as documented) at patient's floor/unit and/or counseling patient:
[2019-03-26] MEDS: INDOMETHACIN 25 MG CAP PO SCH ×3 (08:51→20:07)
[2019-03-26] MEDS: COLCHICINE 0.6 MG TAB PO SCH ×2 (08:51→20:07)
[2019-03-27] MEDS: PROMETHAZINE HCL 12.5 MG in SODIUM CHLORIDE 0.9% 50 ML IV PRN (04:10)
[2019-03-27] MEDS ORDERED: ONDANSETRON 8MG OD TAB PO PRN (07:21)
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
[2019-03-27 08:28] LABS: Hematocrit (blood only) 42.1 % (42-52); Hemoglobin 14.3 g/dL (14.0-18.0); Mean Corpuscular Hemoglobin 31.2 pg (25-34); Mean Corpuscular Volume 91.9 fL (80-100); Mean Platelet Volume 10.2 fL (7.4-10.4); Platelet Count 511 K/uL (130-400); RDW Coefficient of Variation 15.1 % (11.5-14.5); RDW Standard Deviation 50.2 fL (36.4-46.3); Red Blood Count 4.58 M/uL (4.7-6.1); White Blood Count 10.26 K/uL (4.8-10.8)
[2019-03-27 08:58] LABS: BUN Creatinine Ratio 19.5 (10-20); Creatinine Clr Calc Pharmacy 80.3 ml/min; Est GFR (African American) 89.6; Est GFR (Non-African American) 77.3; Potassium 3.4 mmol/L (3.5-5.1)
[2019-03-27] MEDS: INDOMETHACIN 25 MG CAP PO SCH ×3 (09:49→20:27)
[2019-03-27] MEDS: COLCHICINE 0.6 MG TAB PO SCH ×2 (09:49→20:26)
--- NOTE | 2019-03-27 09:57 | XRay Report ---
XR KUB/Abdomen 1 view CLINICAL HISTORY: 63 years-old Male presenting with sbo. TECHNIQUE: Single supine view of the abdomen was obtained. COMPARISON: 03/25/[address] from 03/21/2019. FINDINGS: Gaseous distention of small bowel with an apparent diameter of nearly 4 cm though this may be affecte d by magnification. The degree of distention appears greater than on exam. Distention is rather diffu se. Mild stool burden. No gross pneumoperitoneum. Allowing for bowel gas and stool, no calcifications to suggest nephrolithiasis. Degenerative changes of the spine. Lung bases clear. IMPRESSION: 1. Diffuse pathologic distention of small bowel increased from prior. Persistent ileus versus partia l low-grade bowel obstruction. Electronically signed by: Jatinder Zazueta M.D. 03/27/2019 9:56 AM
--- NOTE | 2019-03-27 10:11 | Surgery Progress Note ---
Date of Service March 27, 2019 Assessment & Plan (1) Small bowel obstruction: Clinically doing okay at this point. I think it is okay to keep him on the regular diet and see how he does for lunch today. We will add some Reglan to his regimen to see if a prokinetic may help some of his symptoms. Subjective Patient was having some nausea with vomiting last evening and early this morning however is feeling better currently. In fact he ate some scrambled eggs and toast and so far feels fine. He did have a bowel movement yesterday but it was on the liquid side. His pain is controlled. Physical Exam Physical Exam: Alert and oriented no acute distress Abdomen is soft nondistended. Results & Data Vital Signs (Past 12 Hours) Vital Signs Temp Pulse Pulse Resp BP BP Pulse Ox 03/27/19 07:52 36.3 C L 69 18 103/70 96 03/26/19 23:50 36.2 C L 70 18 135/85 97 PG Care Time/CCT Total # of Minutes Spent Total Time Spent with Patient: Total time spent is greater than 50% in coordination of care (as documented) at patient's floor/unit and/or counseling patient:
[2019-03-27] MEDS ORDERED: POTASSIUM CHLORIDE 20 MEQ TABCR PO STA (11:29)
[2019-03-27] MEDS: METOCLOPRAMIDE HCL 10 MG TABLET PO SCH ×3 (11:54→23:22)
[2019-03-28 05:56] LABS: Hemoglobin 13.4 g/dL (14.0-18.0); Mean Corpuscular Hemoglobin 31.4 pg (25-34); Mean Corpuscular Hgb Conc 33.5 g/dL (32-36); Mean Corpuscular Volume 93.7 fL (80-100); Mean Platelet Volume 10.1 fL (7.4-10.4); Platelet Count 558 K/uL (130-400); RDW Coefficient of Variation 15.1 % (11.5-14.5); RDW Standard Deviation 51.7 fL (36.4-46.3); Red Blood Count 4.27 M/uL (4.7-6.1); White Blood Count 8.96 K/uL (4.8-10.8)
[2019-03-28] MEDS: METOCLOPRAMIDE HCL 10 MG TABLET PO SCH (05:59)
[2019-03-28 06:22] LABS: BUN Creatinine Ratio 23.3 (10-20); Calcium 8.5 mg/dl (8.5-10.1); Creatinine Clr Calc Pharmacy 75.1 ml/min; Est GFR (African American) 82.7; Est GFR (Non-African American) 71.4; Potassium 3.4 mmol/L (3.5-5.1)
[2019-03-28 07:56] VITALS: TEMP 98.1; O2SAT 98
[2019-03-28] MEDS: INDOMETHACIN 25 MG CAP PO SCH (08:11)
[2019-03-28] MEDS: COLCHICINE 0.6 MG TAB PO SCH (08:12)
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
[2019-03-28 08:54] VITALS: BP 98/65; PULSE 85
--- NOTE | 2019-03-28 12:54 | Surgery Progress Note ---
Date of Service March 28, 2019 Assessment & Plan (1) Small bowel obstruction: 03/28/19 Patient passing flatus and having BMs currently tolerating a regular diet without nausea or abdominal pain Medicine placed discharge orders will leave instructions for patient to follow up with Dr. Coffey within 2 weeks for a post op check Subjective Patient states that he is feeling well. He has eaten breakfast and is currently working on lunch without any complaints of nausea. He is passing flatus and says his last BM was this morning. He has minimal incisional pain. Physical Exam Physical Exam: awake/alert. sitting in chair eating lunch Constitutional: well developed and well nourished; no acute distress Respiratory: normal respiratory effort Gastrointestinal (Abdomen): Inspection/Auscultation: + abdominal surgical incision (c/d/i with dermabond overtop) Percussion/Palpation: abdomen soft; abdomen nontender Results & Data Vital Signs (Past 12 Hours) Vital Signs Temp Pulse Pulse Resp BP BP Pulse Ox 03/28/19 08:53 36.7 C 74 85 16 98/65 L 111/74 98 03/28/19 07:00 36.7 C 74 16 111/74 98 PG Care Time/CCT Total # of Minutes Spent Total Time Spent with Patient: Total time spent is greater than 50% in coordination of care (as documented) at patient's floor/unit and/or counseling patient:
== END 2019-03-28 14:09 | disposition home or self-care (01) | DRG 357 ==
LOC: ED 12:55 → SUATTDRO 15:50 → 2S 15:50 → 3N 03-20 18:14

== ENCOUNTER 2019-11-29 17:47 | Inpatient (IN) ==
[2019-11-29 18:21] LABS: Basophils # (auto) 0.02 K/uL (0-0.2); Basophils % (auto) 0.4 %; Hematocrit (blood only) 41.1 % (42-52); Hemoglobin 13.7 g/dL (14.0-18.0); Immature Granulocytes # (auto) 0.01 K/uL (0.00-0.02); Immature Granulocytes % (auto) 0.2 %; Lymphocytes # (auto) 0.63 K/uL (1.2-3.4); Lymphocytes % (auto) 11.7 %; Mean Corpuscular Hemoglobin 31.6 pg (25-34); Mean Corpuscular Hgb Conc 33.3 g/dL (32-36); Mean Corpuscular Volume 94.7 fL (80-100); Mean Platelet Volume 9.4 fL (7.4-10.4); Monocytes # (auto) 0.66 K/uL (0.11-0.59); Monocytes % (auto) 12.3 %; Neutrophils # (auto) 4.06 K/uL (1.4-6.5); Neutrophils % (auto) 75.4 %; Platelet Count 486 K/uL (130-400); RDW Coefficient of Variation 16.9 % (11.5-14.5); Red Blood Count 4.34 M/uL (4.7-6.1); White Blood Count 5.38 K/uL (4.8-10.8)
[2019-11-29 18:37] LABS: Albumin Level 3.2 gm/dl (3.4-5.0); BUN Creatinine Ratio 23.4 (10-20); Calcium 9.4 mg/dl (8.5-10.1); Creatinine Clr Calc Pharmacy 66.9 ml/min; Est GFR (Non-African American) 77.7; Potassium 4.3 mmol/L (3.5-5.1)
[2019-11-29 18:40] LABS: Albumin Globulin Ratio 0.6 (0.9-2); Bilirubin,Total 0.5 mg/dl (0.2-1); Globulin 5.7 gm/dl (2.5-4.0)
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
--- NOTE | 2019-11-29 19:22 | XRay Report ---
XR chest 1V portable CLINICAL HISTORY: sob, cancer COMPARISON STUDY: Chest CT scan performed September 2019 FINDINGS: There is elevation of the right hemidiaphragm. There is a right basilar chest tube. There i s no pneumothorax. There is no significant pleural fluid. The left lung is clear. There is abnormal d ensity within the right hilum/paramediastinal region. This may represent residual mass/adenopathy.[ IMPRESSION: 1. Interval placement of a right-sided chest tube. No pleural effusion. No evidence of pneumothorax 2. Right hilar/paramediastinal opacity, possibly representing residual mass/adenopathy ACT 112: Negative or not required by law. Electronically signed by: Chris Parmar M.D. 11/29/2019 7:21 PM
[2019-11-29] MEDS ORDERED: IOVERSOL 100ml IV ONE (19:46)
--- NOTE | 2019-11-29 20:02 | CT Scan Report ---
CT abd pelvis IV con only CLINICAL HISTORY: Abdominal pain COMPARISON STUDY: 03/21/2019 TECHNIQUE: The patient was scanned in a dynamic helical fashion during intravenous administration of 94 cc of Optiray 320. A dose lowering technique was utilized adhering to the principles of ALARA. CT DOSE: 318.60 mGy.cm FINDINGS: Lower chest: There is partial visualization of an 8 cm mediastinal mass. There is subcarinal lymphade nopathy. There is a pericardial effusion. There are coronary artery calcifications. There is a right- sided pleural drainage catheter. There is a small right pleural effusion. There are right middle lobe atelectatic changes. There is mild elevation right hemidiaphragm. Liver: The contrast-enhanced liver is normal in size, contour, and attenuation. There is no intrahepa tic biliary ductal dilatation. The hepatic veins and portal veins are patent. Gallbladder: Mildly distended. No calculi identified. Spleen: There are small upper quadrant splenules. The spleen is presumably surgically absent. Pancreas: Unremarkable. Adrenal glands: There is a new 17 mm left adrenal mass suspicious for a metastatic deposit. Kidneys: There are bilateral renal cysts. There is no hydronephrosis. No solid renal masses are visua lized. Bowel: There is colonic diverticulosis. There is no evidence of acute diverticulitis. There is marked gastric distention. There are dilated fluid-filled proximal and mid small bowel loops with air-fluid levels. The distal small bowel is of normal caliber. The findings are indicative of a small bowel ob struction. Peritoneum: There is no intraperitoneal free air or abdominal ascites. Vasculature: The abdominal aorta is normal in course and caliber. Adenopathy: None. Pelvic viscera: The prostate is enlarged. Skeletal structures: No destructive osseous lesions are seen. There are nonspecific subcutaneous nodu les within the anterior abdominal wall. IMPRESSION: 1. Small bowel obstruction with marked gastric distention 2. No evidence of free air 3. Partially visualized 8 centimeter mediastinal mass and subcarinal adenopathy 4. Small right pleural effusion. Right-sided chest tube. 5. New left adrenal nodule suspicious for metastatic disease 6. Prostatomegaly 7. Extensive colonic diverticulosis. No evidence of acute diverticulitis ACT 112: Negative or not required by law. Electronically signed by: Chris Parmar M.D. 11/29/2019 8:00 PM
[2019-11-29] MEDS ORDERED: SODIUM CHLORIDE 0.9% 1000ML 1,000 ML IV ONE (20:46)
[2019-11-29] MEDS ORDERED: ONDANSETRON INJ 2 MG/ML 2 ML VIAL IV STA (20:46)
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
[2019-11-29] MEDS ORDERED: ACETAMINOPHEN 1000 MG/100 ML IV IV SCH (23:22)
[2019-11-29] MEDS ORDERED: D5W AND NSS 1,000 ML IV SCH (23:22)
[2019-11-29] MEDS ORDERED: ACETAMINOPHEN 1000 MG/100 ML IV IV ONE (23:45)
[2019-11-29] MEDS ORDERED: DiphenhydrAMINE HCL 50 MG/ML VIAL IV STA (23:50)
[2019-11-30 00:10] LABS: Partial Thromboplastin Ratio 1.4; Partial Thromboplastin Time 39.9 Seconds (21.0-31.0)
[2019-11-30] MEDS: ACETAMINOPHEN 1,000 MG/100 ML VIAL IV SCH ×4 (00:37→23:36)
[2019-11-30] MEDS: PANTOprazole 40 MG in SYRINGE 0 ML IV SCH ×3 (00:47→21:05)
[2019-11-30] MEDS: HEPARIN SODIUM/DEXTROSE 25,000 UNITS/500 ML BAG IV SCH ×2 (00:50→21:50)
[2019-11-30] MEDS ORDERED: MAGNESIUM SULFATE / D5W 1 GM/100 ML BAG IV ONE (03:59)
[2019-11-30] MEDS ORDERED: NORMOSOL-R 1,000 ML IV ONE (04:00)
[2019-11-30] MEDS: D5W AND NSS 1,000 ML IV SCH ×3 (05:58→21:50)
[2019-11-30 06:42] LABS: Appearance Urine Cloudy (Clear); Bacteria Urine Automated Negative (Negative); Bilirubin Urine Negative (Negative); Blood Urine 3+ (Negative); Color Urine Dark Yellow; Glucose Urine UA Negative (Negative); Ketones Urine 2+ (Negative); Leukocyte Esterase Urine Negative (Negative); Nitrite Urine Negative (Negative); Protein Urine 1+ (Negative); RBC Urine Automated >30 /hpf (0-4); Specific Gravity Urine > 1.045 (1.000-1.030); Urobilinogen Urine Negative (Negative)
[2019-11-30 07:00] LABS: Cast Urine Automated 0 /lpf (0-5)
[2019-11-30 07:01] LABS: Mucus Urine Present (None Prsent)
[2019-11-30 07:05] LABS: Hematocrit (blood only) 36.3 % (42-52); Mean Corpuscular Hgb Conc 33.1 g/dL (32-36); Mean Corpuscular Volume 93.8 fL (80-100); Mean Platelet Volume 9.8 fL (7.4-10.4); Platelet Count 436 K/uL (130-400); RDW Coefficient of Variation 17.1 % (11.5-14.5); RDW Standard Deviation 59.3 fL (36.4-46.3); Red Blood Count 3.87 M/uL (4.7-6.1); White Blood Count 4.91 K/uL (4.8-10.8)
[2019-11-30 07:26] LABS: Partial Thromboplastin Ratio 2.3
[2019-11-30 07:27] LABS: Partial Thromboplastin Time 63.2 Seconds (21.0-31.0)
[2019-11-30 07:43] LABS: BUN Creatinine Ratio 27.2 (10-20); Calcium 8.4 mg/dl (8.5-10.1); Creatinine Clr Calc Pharmacy 99.4 ml/min; Est GFR (African American) 116.2; Est GFR (Non-African American) 100.2; Magnesium 2.3 mg/dl (1.8-2.4); Phosphorus 2.9 mg/dl (2.5-4.9); Potassium 3.6 mmol/L (3.5-5.1)
--- NOTE | 2019-11-30 09:12 | XRay Report ---
KUB CLINICAL HISTORY: f/u KUB COMPARISON STUDY: CT of the abdomen and pelvis November 29, 2019. FINDINGS: The tip of the nasogastric tube is within the body of the stomach. Gastric distention has r esolved. There is contrast within the bladder from recent contrast-enhanced CT. Small bowel dilatatio n has resolved. Although sensitivity is diminished on this supine exam, is no evidence for free air. A right pleural catheter is in place. IMPRESSION: Interval resolution of small bowel and gastric distention following nasogastric tube doreen cement. ACT 112: Negative or not required by law. Electronically signed by: Nasir Baker M.D. 11/30/2019 9:11 AM
--- NOTE | 2019-11-30 12:06 | Electrocardiogram Report ---
Test Reason : Blood Pressure : / mmHG Vent. Rate : 120 BPM Atrial Rate : 120 BPM P-R Int : 150 ms QRS Dur : 078 ms QT Int : 326 ms P-R-T Axes : 029 -24 047 degrees QTc Int : 460 ms Sinus tachycardia with Premature atrial complexes Low voltage QRS Inferior infarct , age undetermined Poor R wave progression, consider anterior CO vs. lead placement vs. LVH Abnormal ECG When compared with ECG of 21-MAR-2019 18:27, Premature atrial complexes are now Present Vent. rate has increased BY 41 BPM Confirmed by Ten Joel ([id number]) on 11/30/2019 12:06:21 PM Referred By: REFERRED SELF Confirmed By:Ten Joel
[2019-11-30] MEDS: Heparin IV Standard *NO* Bolus IV SCH ×2 (12:07→21:24)
--- NOTE | 2019-11-30 12:51 | Hospitalist Progress Note ---
Date of Service November 30, 2019 Assessment & Plan (1) Small bowel obstruction: -Patient presenting from home with reports of worsening nausea, vomiting, abdominal pain, bloating. In the ED, CT ABD/pelvis showing signs of SBO. -Patient with prior history of SBO 03/2019, required surgical intervention with lysis of adhesions -NG tube placed in ED, draining well -Clinically a lot better today without any abdominal symptoms and little drainage from the NG tube -Awaiting surgical evaluation -Likely to have NG tube removed today and will have clears but await surgical evaluation first (2) Adenocarcinoma of lung: -Recently diagnosed with adenocarcinoma of right lung. Course has been complicated by pleural effusion requiring Pleurx catheter and malignant pericardial effusion. -Completed radiation therapy -Is to start chemo (Alimta, carboplatin, Keytruda) in the near future once port has been placed -Continue to drain Pleurx catheter daily-has been draining about 150 cc of fluid daily -Denies any acute shortness of breath or pain involving the right lung area (3) History of DVT (deep vein thrombosis): -Right upper extremity DVT diagnosed 10/2019 -Has been on therapeutic dose Lovenox in the setting of active malignancy -Given possible need for OR, will hold Lovenox and place patient on heparin drip -We will change to Lovenox as soon as possible (4) DVT prophylaxis: -On IV heparin drip as above -Lovenox will be started as soon as okay from the surgery Admission and Anticipated Discharge Date Admission Date: November 29, 2019 Subjective 11/30/2019 Patient was seen and examined in medical telemetry unit He complains to have some discomfort secondary to NG tube Denies any abdominal distention, pain, nausea and/or vomiting Has been passing gas but bowel has not moved yet Review of Systems Review of Systems: All systems reviewed and are unremarkable except as noted below Gastrointestinal: no abdominal pain, no bloating, no nausea and no vomiting Has NG tube in situ Physical Exam Physical Exam: Lying in bed with some distress mostly secondary to NG tube Constitutional: well developed, well nourished, + acute distress and + ill appearing Eyes: PERRL, conjunctivae normal, anicteric sclerae ENMT: external ear and nose normal, oropharynx normal Neck: trachea midline, no thyromegaly Respiratory: normal respiratory effort; no respiratory distress Auscultation: + diminished lung sounds (Mostly on the right lower lung) Has right-sided Pleurx catheter in situ Cardiovascular: Rate/Rhythm: regular rate and regular rhythm Heart Sounds: + murmur (2/6 ejection systolic murmur) Extremities: no pedal edema Gastrointestinal (Abdomen): Inspection/Auscultation: abdomen normal to inspec tion and normal bowel sounds; abdomen not distended Percussion/Palpation: abdomen soft; abdomen nontender Musculoskeletal: No acute arthritis involving any joints Neurologic: moves all extremities; no focal motor deficits Lymphatic: no cervical or axillary lymphadenopathy Results & Data Results & Data ([facility]) Vital Signs (Past 12 Hours) Vital Signs Temp Pulse Pulse Resp BP Pulse Ox 11/30/19 11:50 36.7 C 104 H 16 103/74 97 11/30/19 10:00 107 H 11/30/19 07:12 36.4 C L 109 H 16 104/67 95 11/30/19 04:12 36.7 C 113 H 20 104/77 94 Laboratory Results Short CBC 11/29/19 11/30/19 Range/Units 18:12 06:39 WBC 5.38 4.91 (4.8-10.8) K/uL Hgb 13.7 L 12.0 L (14.0-18.0) g/dL Hct 41.1 L 36.3 L (42-52) % Plt Count 486 H 436 H (130-400) K/uL BMP 11/29/19 11/30/19 18:12 06:39 Sodium 134 L 136 Potassium 4.3 3.6 D Chloride 99 103 Carbon Dioxide 24 26 BUN 24 H 19 H Creatinine 1.01 0.68 D Glucose 94 97 Calcium 9.4 8.4 L Cardiac Enzymes 11/29/19 Range/Units 18:12 Troponin I < 0.015 (0-0.045) ng/ml Liver Function 11/29/19 Range/Units 18:12 Total Bilirubin 0.5 (0.2-1) mg/dl AST 15 (15-37) U/L ALT 16 (12-78) U/L Alkaline Phosphatase 90 (45-117) U/L Albumin 3.2 L (3.4-5.0) gm/dl Urine 11/30/19 Range/Units 06:06 Urine Color Dark Yellow Urine Appearance Cloudy A (Clear) Urine pH 5.0 (4.5-7.5) Ur Specific [place] > 1.045 H (1.000-1.030) Urine Protein 1+ H (Negative) Urine Glucose (UA) Negative (Negative) Medications Administered Current Inpatient Medications Heparin Sodium/Dextrose (Heparin Sodium/Dextrose) 25,000 units in 500 mls @ 23 mls/hr IV .[id number] [facility]; Protocol Stop: 12/29/19 23:21 Last Titration: 11/30/19 07:13 Dose: 1,150 units/hr, 23 mls/hr Documented by: Pantoprazole Sodium 40 mg/ (Syringe) 10 mls @ 5 mls/min IV BID [facility] Stop: 12/29/19 23:21 Last Admin: 11/30/19 08:19 Dose: 5 mls/min Documented by: Acetaminophen (Ofirmev) 1,000 mg in 100 mls @ 400 mls/hr IV Q8H [facility] Stop: 12/03/19 00:00 Last Infusion: 11/30/19 08:52 Dose: Infused Documented by: Dextrose/Sodium Chloride (D5w And Nss) 1,000 mls @ 125 mls/hr IV .Q8H [facility] Stop: 12/30/19 04:59 Last Admin: 11/30/19 05:58 Dose: 125 mls/hr Documented by: Morphine Sulfate (Morphine Sulfate 4 Mg/Ml 1 Ml Carp\Vial) 3 mg IV Q4H PRN PRN Reason: Pain Stop: 12/13/19 23:21 Ondansetron HCl (Ondansetron Inj 2 Mg/Ml 2 Ml Vial) 4 mg IV Q8H PRN PRN Reason: nausea Stop: 12/29/19 23:21
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
[2019-11-30] MEDS: ONDANSETRON INJ 2 MG/ML 2 ML VIAL IV PRN (15:38)
[2019-11-30] MEDS: MoRPHine SULFATE 4 MG/ML 1 ML CARP\\VIAL IV PRN ×2 (18:02→23:35)
[2019-11-30] MEDS: CHLORASEPTIC 1.4% SOLN 180 ML BTL MT PRN (21:05)
[2019-12-01] MEDS: D5W AND NSS 1,000 ML IV SCH ×3 (05:48→22:00)
[2019-12-01 06:25] LABS: Basophils # (auto) 0.01 K/uL (0-0.2); Basophils % (auto) 0.2 %; Eosinophils # (auto) 0.11 K/uL (0-0.5); Hematocrit (blood only) 37.5 % (42-52); Hemoglobin 12.2 g/dL (14.0-18.0); Immature Granulocytes # (auto) 0.01 K/uL (0.00-0.02); Immature Granulocytes % (auto) 0.2 %; Lymphocytes # (auto) 0.68 K/uL (1.2-3.4); Lymphocytes % (auto) 12.1 %; Mean Corpuscular Hemoglobin 30.9 pg (25-34); Mean Corpuscular Hgb Conc 32.5 g/dL (32-36); Mean Corpuscular Volume 94.9 fL (80-100); Monocytes # (auto) 0.68 K/uL (0.11-0.59); Monocytes % (auto) 12.1 %; Neutrophils # (auto) 4.13 K/uL (1.4-6.5); Neutrophils % (auto) 73.4 %; Platelet Count 418 K/uL (130-400); RDW Standard Deviation 59.5 fL (36.4-46.3); Red Blood Count 3.95 M/uL (4.7-6.1); White Blood Count 5.62 K/uL (4.8-10.8)
[2019-12-01 06:50] LABS: Partial Thromboplastin Ratio 4.8
[2019-12-01] MEDS: Heparin IV Standard *NO* Bolus IV SCH ×3 (06:57→07:09)
[2019-12-01 06:58] LABS: Partial Thromboplastin Time 133.7 Seconds (21.0-31.0)
[2019-12-01 07:00] LABS: BUN Creatinine Ratio 18.7 (10-20); Calcium 7.9 mg/dl (8.5-10.1); Creatinine Clr Calc Pharmacy 123.7 ml/min; Magnesium 1.6 mg/dl (1.8-2.4); Phosphorus 2.3 mg/dl (2.5-4.9); Potassium 3.3 mmol/L (3.5-5.1)
[2019-12-01] MEDS: ACETAMINOPHEN 1,000 MG/100 ML VIAL IV SCH ×3 (07:29→23:53)
[2019-12-01] MEDS: PANTOprazole 40 MG in SYRINGE 0 ML IV SCH ×2 (07:36→20:49)
[2019-12-01 08:26] LABS: Partial Thromboplastin Ratio 3.2
[2019-12-01 08:28] LABS: Partial Thromboplastin Time 88.3 Seconds (21.0-31.0)
[2019-12-01] MEDS ORDERED: MAGNESIUM SULFATE / D5W 1 GM/100 ML BAG IV ONE (08:45)
[2019-12-01] MEDS: MoRPHine SULFATE 4 MG/ML 1 ML CARP\\VIAL IV PRN (09:07)
[2019-12-01] MEDS: POTASSIUM CHLORIDE / WTR 10 MEQ/100 ML PLCT IV SCH ×2 (09:07→10:12)
[2019-12-01 09:47] LABS: Partial Thromboplastin Ratio 1.8
[2019-12-01 09:49] LABS: Partial Thromboplastin Time 50.1 Seconds (21.0-31.0)
[2019-12-01] MEDS: POLYETHYLENE (MIRALAX) 17 GM PACK NG SCH (12:04)
--- NOTE | 2019-12-01 12:27 | Surgery Progress Note ---
Date of Service December 01, 2019 Assessment & Plan (1) Small bowel obstruction: Resolving NGT with 170 cc output last 24 hours abdomen soft, nondistended, no abdominal pain only passing flatus Plan: Encouraged ambulating hallway and OOB to increase GI motility Will give Miralax through NGT If bowel movement can remove NGT and start clear liquids Continue medical management Dr. Grady has seen patient, agrees with above. Admission and Anticipated Discharge Date Admission Date: November 29, 2019 Subjective passing some gas but not much today no bowel movement yet no abdominal pain, complaining of throat pain has not ambulated hallway no nausea or vomiting Physical Exam Constitutional: WD/WN, vitals as above no acute distress Respiratory: normal respiratory effort; no respiratory distress Gastrointestinal (Abdomen): Inspection/Auscultation: abdomen normal to inspection; abdomen not distended Percussion/Palpation: abdomen soft; abdomen nontender, no guarding and abdomen not rigid Skin: no rashes, warm and dry Psychiatric: Orientation: alert and oriented x 3 Affect: + flat affect Results & Data ([facility]) Vital Signs (Past 12 Hours) Vital Signs Temp Pulse Resp BP Pulse Ox 12/01/19 11:28 36.5 C 84 18 109/74 96 12/01/19 07:27 36.5 C 99 H 20 114/76 95 12/01/19 03:48 36.8 C 95 H 17 100/65 92 Laboratory Results 12/01/19 12/01/19 12/01/19 Range/Units 09:17 07:56 05:48 WBC (4.8-10.8) K/uL RBC (4.7-6.1) M/uL Hgb (14.0-18.0) g/dL Hct (42-52) % MCV (80-100) fL MCH (25-34) pg MCHC (32-36) g/dL RDW Std Deviation (36.4-46.3) fL RDW Coeff of Mani (11.5-14.5) % Plt Count (130-400) K/uL MPV (7.4-10.4) fL Immature Gran % (Auto) % Neut % (Auto) % Lymph % (Auto) % [place] % (Auto) % Eos % (Auto) % Baso % (Auto) % Neut # (Auto) (1.4-6.5) K/uL Lymph # (Auto) (1.2-3.4) K/uL [place] # (Auto) (0.11-0.59) K/uL Eos # (Auto) (0-0.5) K/uL Baso # (Auto) (0-0.2) K/uL Immature Gran # (Auto) (0.00-0.02) K/uL APTT 50.1 H* 88.3 H* (21.0-31.0) Seconds PTT Ratio 1.8 3.2 Sodium 137 (136-145) mmol/L Potassium 3.3 L (3.5-5.1) mmol/L Chloride 107 (98-107) mmol/L Carbon Dioxide 27 (21-32) mmol/L Anion Gap 3.0 (3-11) BUN 11 (7-18) mg/dl Creatinine 0.58 L (0.6-1.4) mg/dl Est Cr Clr Drug Dosing 123.7 ml/min Est GFR ( Amer) 124.0 Est GFR (Non-Af Amer) 107.0 BUN/Creatinine Ratio 18.7 (10-20) Glucose 123 H (70-99) mg/dl Calcium 7.9 L (8.5-10.1) mg/dl Phosphorus 2.3 L (2.5-4.9) mg/dl Magnesium 1.6 L (1.8-2.4) mg/dl COVID-19 Eval Order SARS-CoV-2, RNA, NAAT (NEGATIVE) 12/01/19 12/01/19 11/30/19 Range/Units 05:48 05:48 16:43 WBC 5.62 (4.8-10.8) K/uL RBC 3.95 L (4.7-6.1) M/uL Hgb 12.2 L (14.0-18.0) g/dL Hct 37.5 L (42-52) % MCV 94.9 (80-100) fL MCH 30.9 (25-34) pg MCHC 32.5 (32-36) g/dL RDW Std Deviation 59.5 H (36.4-46.3) fL RDW Coeff of Mani 17.0 H (11.5-14.5) % Plt Count 418 H (130-400) K/uL MPV 10.0 (7.4-10.4) fL Immature Gran % (Auto) 0.2 % Neut % (Auto) 73.4 % Lymph % (Auto) 12.1 % [place] % (Auto) 12.1 % Eos % (Auto) 2.0 % Baso % (Auto) 0.2 % Neut # (Auto) 4.13 (1.4-6.5) K/uL Lymph # (Auto) 0.68 L (1.2-3.4) K/uL [place] # (Auto) 0.68 H (0.11-0.59) K/uL Eos # (Auto) 0.11 (0-0.5) K/uL Baso # (Auto) 0.01 (0-0.2) K/uL Immature Gran # (Auto) 0.01 (0.00-0.02) K/uL APTT 133.7 H* (21.0-31.0) Seconds PTT Ratio 4.8 Sodium (136-145) mmol/L Potassium (3.5-5.1) mmol/L Chloride (98-107) mmol/L Carbon Dioxide (21-32) mmol/L Anion Gap (3-11) BUN (7-18) mg/dl Creatinine (0.6-1.4) mg/dl Est Cr Clr Drug Dosing ml/min Est GFR ( Amer) Est GFR (Non-Af Amer) BUN/Creatinine Ratio (10-20) Glucose (70-99) mg/dl Calcium (8.5-10.1) mg/dl Phosphorus (2.5-4.9) mg/dl Magnesium (1.8-2.4) mg/dl COVID-19 Eval Order SARS-CoV-2, RNA, NAAT NEGATIVE (NEGATIVE) 11/30/19 Range/Units 16:43 WBC (4.8-10.8) K/uL RBC (4.7-6.1) M/uL Hgb (14.0-18.0) g/dL Hct (42-52) % MCV (80-100) fL MCH (25-34) pg MCHC (32-36) g/dL RDW Std Deviation (36.4-46.3) fL RDW Coeff of Mani (11.5-14.5) % Plt Count (130-400) K/uL MPV (7.4-10.4) fL Immature Gran % (Auto) % Neut % (Auto) % Lymph % (Auto) % [place] % (Auto) % Eos % (Auto) % Baso % (Auto) % Neut # (Auto) (1.4-6.5) K/uL Lymph # (Auto) (1.2-3.4) K/uL [place] # (Auto) (0.11-0.59) K/uL Eos # (Auto) (0-0.5) K/uL Baso # (Auto) (0-0.2) K/uL Immature Gran # (Auto) (0.00-0.02) K/uL APTT (21.0-31.0) Seconds PTT Ratio Sodium (136-145) mmol/L Potassium (3.5-5.1) mmol/L Chloride (98-107) mmol/L Carbon Dioxide (21-32) mmol/L Anion Gap (3-11) BUN (7-18) mg/dl Creatinine (0.6-1.4) mg/dl Est Cr Clr Drug Dosing ml/min Est GFR ( Amer) Est GFR (Non-Af Amer) BUN/Creatinine Ratio (10-20) Glucose (70-99) mg/dl Calcium (8.5-10.1) mg/dl Phosphorus (2.5-4.9) mg/dl Magnesium (1.8-2.4) mg/dl COVID-19 Eval Order Covid19 [facility] SARS-CoV-2, RNA, NAAT (NEGATIVE)
--- NOTE | 2019-12-01 13:49 | Hospitalist Progress Note ---
Date of Service December 01, 2019 Assessment & Plan (1) Small bowel obstruction: -Patient presenting from home with reports of worsening nausea, vomiting, abdominal pain, bloating. In the ED, CT ABD/pelvis showing signs of SBO. -Patient with prior history of SBO 03/2019, required surgical intervention with lysis of adhesions -NG tube placed in ED, draining well -Clinically a lot better today without any abdominal symptoms and little drainage from the NG tube -Awaiting surgical evaluation -Likely to have NG tube removed today and will have clears but await surgical evaluation first -Repeat KUB did show resolving obstruction and the NG tube suction was about 170 cc last 24 hours -We will remove NG tube with bowel movement and start clears (2) Adenocarcinoma of lung: -Recently diagnosed with adenocarcinoma of right lung. Course has been c omplicated by pleural effusion requiring Pleurx catheter and malignant pericardial effusion. -Completed radiation therapy -Is to start chemo (Alimta, carboplatin, Keytruda) in the near future once port has been placed -Continue to drain Pleurx catheter daily-has been draining about 150 cc of fluid daily -Denies any acute shortness of breath or pain involving the right lung area -COVID test was negative -He was advised to keep the plan for a port placement on Thursday (3) History of DVT (deep vein thrombosis): -Right upper extremity DVT diagnosed 10/2019 -Has been on therapeutic dose Lovenox in the setting of active malignancy -Given possible need for OR, will hold Lovenox and place patient on heparin drip -We will change to Lovenox as soon as possible -We will change to Lovenox on discharge (4) DVT prophylaxis: -On IV heparin drip as above -Lovenox will be started as soon as okay from the surgery Admission and Anticipated Discharge Date Admission Date: November 29, 2019 Subjective 11/30/2019 Patient was seen and examined in medical telemetry unit He complains to have some discomfort secondary to NG tube Denies any abdominal distention, pain, nausea and/or vomiting Has been passing gas but bowel has not moved yet 12/01/2019 The patient was seen and examined in medical telemetry unit He has been feeling much better and denies any abdominal distention, discomfort, nausea and or vomiting His NG tube is still draining considerable amount of fluid Denies any fever and/or chills and denies any other symptoms Review of Systems Review of Systems: All systems reviewed and are unremarkable except as noted below Gastrointestinal: Has NG tube in situ Physical Exam Physical Exam: Lying in bed with some distress mostly secondary to NG tube Constitutional: well developed, well nourished, + acute distress and + ill appearing Eyes: PERRL, conjunctivae normal, anicteric sclerae ENMT: external ear and nose normal, oropharynx normal Neck: trachea midline, no thyromegaly Respiratory: normal respiratory effort; no respiratory distress Auscultation: + diminished lung sounds (Mostly on the right lower lung) Cardiovascular: Rate/Rhythm: regular rate and regular rhythm Heart Sounds: + murmur (2/6 ejection systolic murmur) Extremities: no pedal edema Gastrointestinal (Abdomen): Inspection/Auscultation: abdomen normal to inspection and normal bowel sounds; abdomen not distended Percussion/Palpation: abdomen soft; abdomen nontender Musculoskeletal: No acute arthritis involving any joints Neurologic: moves all extremities; no focal motor deficits Lymphatic: no cervical or axillary lymphadenopathy Results & Data Results & Data ([facility]) Vital Signs (Past 12 Hours) Vital Signs Temp Pulse Resp BP Pulse Ox 12/01/19 11:28 36.5 C 84 18 109/74 96 12/01/19 07:27 36.5 C 99 H 20 114/76 95 12/01/19 03:48 36.8 C 95 H 17 100/65 92 Laboratory Results Short CBC 12/01/19 Range/Units 05:48 WBC 5.62 (4.8-10.8) K/uL Hgb 12.2 L (14.0-18.0) g/dL Hct 37.5 L (42-52) % Plt Count 418 H (130-400) K/uL BMP 12/01/19 05:48 Sodium 137 Potassium 3.3 L Chloride 107 Carbon Dioxide 27 BUN 11 Creatinine 0.58 L Glucose 123 H Calcium 7.9 L Medications Administered Current Inpatient Medications Heparin Sodium/Dextrose (Heparin Sodium/Dextrose) 25,000 units in 500 mls @ 19 mls/hr IV .Q24H [facility]; Protocol Stop: 12/29/19 23:21 Last Titration: 12/01/19 10:08 Dose: 950 units/hr, 19 mls/hr Documented by: Pantoprazole Sodium 40 mg/ (Syringe) 10 mls @ 5 mls/min IV BID [facility] Stop: 12/29/19 23:21 Last Admin: 12/01/19 07:36 Dose: 5 mls/min Documented by: Acetaminophen (Ofirmev) 1,000 mg in 100 mls @ 400 mls/hr IV Q8H [facility] Stop: 12/03/19 00:00 Last Infusion: 12/01/19 07:46 Dose: Infused Documented by: Dextrose/Sodium Chloride (D5w And Nss) 1,000 mls @ 125 mls/hr IV .Q8H [facility] Stop: 12/30/19 04:59 Last Admin: 12/01/19 05:48 Dose: 125 mls/hr Documented by: Morphine Sulfate (Morphine Sulfate 4 Mg/Ml 1 Ml Carp\Vial) 3 mg IV Q4H PRN PRN Reason: Pain Stop: 12/13/19 23:21 Last Admin: 12/01/19 09:07 Dose: 3 mg Documented by: Ondansetron HCl (Ondansetron Inj 2 Mg/Ml 2 Ml Vial) 4 mg IV Q8H PRN PRN Reason: nausea Stop: 12/29/19 23:21 Last Admin: 11/30/19 15:38 Dose: 4 mg Documented by: Phenol (Chloraseptic 1.4% Soln 180 Ml Btl) 1 sprays MT Q4H PRN PRN Reason: Sore Throat Stop: 12/30/19 20:22 Last Admin: 11/30/19 21:05 Dose: 1 sprays Documented by: Polyethylene Glycol (Polyethylene (Miralax) 17 Gm Pack) 17 gm NG DAILY [facility] Stop: 12/31/19 11:29 Last Admin: 12/01/19 12:04 Dose: 17 gm Documented by:
[2019-12-01] MEDS: CHLORASEPTIC 1.4% SOLN 180 ML BTL MT PRN ×2 (15:22→19:06)
[2019-12-01 16:39] LABS: Partial Thromboplastin Ratio 2.9
[2019-12-01 16:43] LABS: Partial Thromboplastin Time 81.4 Seconds (21.0-31.0)
[2019-12-02 00:09] LABS: Partial Thromboplastin Ratio 2.4
[2019-12-02 00:23] LABS: Partial Thromboplastin Time 66.3 Seconds (21.0-31.0)
[2019-12-02] MEDS ORDERED: POLYETHYLENE (MIRALAX) 17 GM PACK PO STA (00:53)
[2019-12-02] MEDS: HEPARIN SODIUM/DEXTROSE 25,000 UNITS/500 ML BAG IV SCH (01:05)
[2019-12-02] MEDS: D5W AND NSS 1,000 ML IV SCH ×2 (05:04→13:09)
[2019-12-02 08:14] LABS: Partial Thromboplastin Ratio 2.1
[2019-12-02 08:15] LABS: Partial Thromboplastin Time 59.1 Seconds (21.0-31.0)
[2019-12-02] MEDS: ACETAMINOPHEN 1,000 MG/100 ML VIAL IV SCH ×3 (08:16→23:47)
[2019-12-02] MEDS: POLYETHYLENE (MIRALAX) 17 GM PACK NG SCH (08:16)
[2019-12-02] MEDS: PANTOprazole 40 MG in SYRINGE 0 ML IV SCH ×2 (08:16→20:09)
[2019-12-02 08:22] LABS: BUN Creatinine Ratio 10.4 (10-20); Calcium 8.2 mg/dl (8.5-10.1); Creatinine Clr Calc Pharmacy 124.1 ml/min; Est GFR (African American) 124.9; Est GFR (Non-African American) 107.8; Magnesium 1.9 mg/dl (1.8-2.4); Phosphorus 2.3 mg/dl (2.5-4.9); Potassium 3.5 mmol/L (3.5-5.1)
--- NOTE | 2019-12-02 09:08 | Surgery Progress Note ---
Date of Service December 02, 2019 Assessment & Plan (1) Small bowel obstruction: Resolving No n/v, abdominal pain or distended with NGT clamped since yesterday 4 pm abdomen soft, nondistended, no abdominal pain only passing flatus Plan: Will discontinue NGT, start clear liquids slowly Dulcolax suppository now Encouraged ambulating hallway and OOB to increase GI motility Continue medical management Scheduled for aport with Dr. Grady on Thursday, keep as scheduled, COVID tested negative Dr. Grady has seen pt, agrees with above Admission and Anticipated Discharge Date Admission Date: November 29, 2019 Subjective feeling okay NGT has been clamped since yesterday afternoon (around 4 pm), no nausea , vomiting, abdominal bloating or pain passing small amount of gas no bowel movement yet walked hallway a little yesterday Physical Exam Constitutional: WD/WN, vitals as above no acute distress and not ill appearing Respiratory: normal respiratory effort; no respiratory distress Gastrointestinal (Abdomen): Inspection/Auscultation: abdomen normal to inspection; abdomen not distended Percussion/Palpation: abdomen soft; abdomen nontender, no guarding and abdomen not rigid Skin: no rashes, warm and dry Psychiatric: Orientation: alert and oriented x 3 Affect: + flat affect Results & Data ([facility]) Vital Signs (Past 12 Hours) Vital Signs Temp Pulse Pulse Resp BP Pulse Ox 12/02/19 08:05 36.5 C 92 H 18 119/83 93 12/02/19 03:45 36.8 C 89 18 91/58 L 91 12/02/19 00:06 92 H 12/01/19 22:00 36.7 C 81 18 115/81 94 Laboratory Results 12/02/19 12/02/19 12/01/19 Range/Units 07:16 07:16 23:32 APTT 59.1 H* 66.3 H* (21.0-31.0) Seconds PTT Ratio 2.1 2.4 Sodium 135 L (136-145) mmol/L Potassium 3.5 (3.5-5.1) mmol/L Chloride 104 (98-107) mmol/L Carbon Dioxide 26 (21-32) mmol/L Anion Gap 5.0 (3-11) BUN 6 L D (7-18) mg/dl Creatinine 0.57 L (0.6-1.4) mg/dl Est Cr Clr Drug Dosing 124.1 ml/min Est GFR ( Amer) 124.9 Est GFR (Non-Af Amer) 107.8 BUN/Creatinine Ratio 10.4 (10-20) Glucose 119 H (70-99) mg/dl Calcium 8.2 L (8.5-10.1) mg/dl Phosphorus 2.3 L (2.5-4.9) mg/dl Magnesium 1.9 (1.8-2.4) mg/dl 12/01/19 12/01/19 Range/Units 16:00 09:17 APTT 81.4 H* 50.1 H* (21.0-31.0) Seconds PTT Ratio 2.9 1.8 Sodium (136-145) mmol/L Potassium (3.5-5.1) mmol/L Chloride (98-107) mmol/L Carbon Dioxide (21-32) mmol/L Anion Gap (3-11) BUN (7-18) mg/dl Creatinine (0.6-1.4) mg/dl Est Cr Clr Drug Dosing ml/min Est GFR ( Amer) Est GFR (Non-Af Amer) BUN/Creatinine Ratio (10-20) Glucose (70-99) mg/dl Calcium (8.5-10.1) mg/dl Phosphorus (2.5-4.9) mg/dl Magnesium (1.8-2.4) mg/dl
[2019-12-02] MEDS ORDERED: bisacodyL 10 MG SUPP PR STA (09:09)
[2019-12-02] MEDS ORDERED: POTASSIUM PHOS 3 MMOL/1 ML INFUSION IV STA (09:40)
[2019-12-02] MEDS ORDERED: POTASSIUM PHOSPHATE 24 MMOL in SODIUM CHLORIDE 0.9% 500 ML IV ONE (10:00)
--- NOTE | 2019-12-02 14:28 | Hospitalist Progress Note ---
Date of Service December 02, 2019 Assessment & Plan (1) Small bowel obstruction: -Patient presenting from home with reports of worsening nausea, vomiting, abdominal pain, bloating. In the ED, CT ABD/pelvis showing signs of SBO. -Patient with prior history of SBO 03/2019, required surgical intervention with lysis of adhesions -NG tube placed in ED, draining well -Clinically a lot better today without any abdominal symptoms and little drainage from the NG tube -Appreciate surgery input and recommendation -NG tube has been taken out -Patient is tolerating clear liquids -We will get PT and OT evaluation and advance diet as tolerated -Likely discharge tomorrow Electrolyte imbalance We will replace and monitor accordingly (2) Adenocarcinoma of lung: -Recently diagnosed with adenocarcinoma of right lung. Course has been complicated by pleural effusion requiring Pleurx catheter and malignant pericardial effusion. -Completed radiation therapy -Is to start chemo (Alimta, carboplatin, Keytruda) in the near future once port has been placed -Continue to drain Pleurx catheter daily-has been draining about 150 cc of fluid daily -Denies any acute shortness of breath or pain involving the right lung area -COVID test was negative -He was advised to keep the plan for a port placement on Thursday (3) History of DVT (deep vein thrombosis): -Right upper extremity DVT diagnosed 10/2019 -Has been on therapeutic dose Lovenox in the setting of active malignancy -Given possible need for OR, will hold Lovenox and place patient on heparin drip -We will change to Lovenox as soon as possible -We will change to Lovenox on discharge (4) DVT prophylaxis: -On IV heparin drip as above -Lovenox will be started as soon as okay from the surgery Admission and Anticipated Discharge Date Admission Date: November 29, 2019 Subjective 11/30/2019 Patient was seen and examined in medical telemetry unit He complains to have some discomfort secondary to NG tube Denies any abdominal distention, pain, nausea and/or vomiting Has been passing gas but bowel has not moved yet 12/01/2019 The patient was seen and examined in medical telemetry unit He has been feeling much better and denies any abdominal distention, discomfort, nausea and or vomiting His NG tube is still draining considerable amount of fluid Denies any fever and/or chills and denies any other symptoms 12/02/2019 The patient was seen and examined in medical floor He has been feeling a lot better today but remains weak He is a status post discontinuation of NG tube Has been tolerating clears orally Review of Systems Review of Systems: All systems reviewed and are unremarkable except as noted below Gastrointestinal: Has NG tube in situ-discontinued Physical Exam Physical Exam: Lying in bed with some distress mostly secondary to NG tube Constitutional: well developed, well nourished, + acute distress and + ill appearing Eyes: PERRL, conjunctivae normal, anicteric sclerae ENMT: external ear and nose normal, oropharynx normal Neck: trachea midline, no thyromegaly Respiratory: normal respiratory effort; no respiratory distress Auscultation: + diminished lung sounds (Mostly on the right lower lung) Cardiovascular: Rate/Rhythm: regular rate and regular rhythm Heart Sounds: + murmur (2/6 ejection systolic murmur) Extremities: no pedal edema Gastrointestinal (Abdomen): Inspection/Auscultation: abdomen normal to inspection and normal bowel sounds; abdomen not distended Percussion/Palpation: abdomen soft; abdomen nontender Musculoskeletal: No acute arthritis involving any joints Neurologic: moves all extremities; no focal motor deficits Lymphatic: no cervical or axillary lymphadenopathy Results & Data Results & Data ([facility]) Vital Signs (Past 12 Hours) Vital Signs Temp Pulse Resp BP Pulse Ox 12/02/19 08:05 36.5 C 92 H 18 119/83 93 12/02/19 03:45 36.8 C 89 18 91/58 L 91 Laboratory Results [facility] 12/02/19 07:16 Sodium 135 L Potassium 3.5 Chloride 104 Carbon Dioxide 26 BUN 6 L D Creatinine 0.57 L Glucose 119 H Calcium 8.2 L Medications Administered Current Inpatient Medications Heparin Sodium/Dextrose (Heparin Sodium/Dextrose) 25,000 units in 500 mls @ 16 mls/hr IV .Q24H [facility]; Protocol Stop: 12/29/19 23:21 Last Titration: 12/02/19 07:13 Dose: 800 units/hr, 16 mls/hr Documented by: Pantoprazole Sodium 40 mg/ (Syringe) 10 mls @ 5 mls/min IV BID [facility] Stop: 12/29/19 23:21 Last Admin: 12/02/19 08:16 Dose: 5 mls/min Documented by: Acetaminophen (Ofirmev) 1,000 mg in 100 mls @ 400 mls/hr IV Q8H [facility] Stop: 12/03/19 00:00 Last Infusion: 12/02/19 08:42 Dose: Infused Documented by: Potassium Phosphate 24 mmol/ (Sodium Chloride) 508 mls @ 88 mls/hr IV ONE ONE Stop: 12/02/19 15:46 Last Admin: 12/02/19 10:27 Dose: 88 mls/hr Documented by: Morphine Sulfate (Morphine Sulfate 4 Mg/Ml 1 Ml Carp\Vial) 3 mg IV Q4H PRN PRN Reason: Pain Stop: 12/13/19 23:21 Last Admin: 12/01/19 09:07 Dose: 3 mg Documented by: Ondansetron HCl (Ondansetron Inj 2 Mg/Ml 2 Ml Vial) 4 mg IV Q8H PRN PRN Reason: nausea Stop: 12/29/19 23:21 Last Admin: 11/30/19 15:38 Dose: 4 mg Documented by: Phenol (Chloraseptic 1.4% Soln 180 Ml Btl) 1 sprays MT Q4H PRN PRN Reason: Sore Throat Stop: 12/30/19 20:22 Last Admin: 12/01/19 19:06 Dose: 1 sprays Documented by: Polyethylene Glycol (Polyethylene (Miralax) 17 Gm Pack) 17 gm NG DAILY [facility] Stop: 12/31/19 11:29 Last Admin: 12/02/19 08:16 Dose: 17 gm Documented by:
[2019-12-03] MEDS: ONDANSETRON INJ 2 MG/ML 2 ML VIAL IV PRN (00:14)
[2019-12-03] MEDS: HEPARIN SODIUM/DEXTROSE 25,000 UNITS/500 ML BAG IV SCH ×3 (07:04→17:51)
[2019-12-03] MEDS: POLYETHYLENE (MIRALAX) 17 GM PACK NG SCH (08:38)
[2019-12-03] MEDS: PANTOprazole 40 MG in SYRINGE 0 ML IV SCH ×2 (08:39→21:31)
--- NOTE | 2019-12-03 08:46 | Surgery Progress Note ---
Date of Service December 03, 2019 Assessment & Plan (1) Small bowel obstruction: -continue liquid only -discussed with pt. and RN that if N/V recurs he may need re-insertion of NGT and de-escalation of diet -encourage ambulation Admission and Anticipated Discharge Date Admission Date: November 29, 2019 Subjective Pt. note passing some flatus and BMs in last 24 hours, but after eating liquids last night he had emesis. This am he denies N/V or abdominal pain. He has already consumed liquids this am and thus far has not had N/V. Physical Exam Constitutional: well developed and well nourished; no acute distress Respiratory: normal respiratory effort; no respiratory distress and no labored breathing Cardiovascular: Rate/Rhythm: regular rate and regular rhythm Gastrointestinal (Abdomen): Percussion/Palpation: abdomen soft; abdomen nontender non-distened; no pain with palpation Results & Data ([facility]) Vital Signs (Past 12 Hours) Vital Signs Temp Pulse Pulse Resp BP Pulse Ox 12/03/19 08:12 93 H 12/03/19 07:58 36.7 C 103 H 18 112/80 94 12/03/19 03:00 36.5 C 95 H 18 111/78 92 12/03/19 00:00 108 H 12/02/19 22:00 36.4 C L 105 H 20 114/76 93 PG Care Time/CCT Total # of Minutes Spent Total Time Spent with Patient: Total time spent is greater than 50% in coordination of care (as documented) at patient's floor/unit and/or counseling patient: Coding Level of Care Code None Diagnoses Small bowel obstruction K56.609
[2019-12-03 08:51] LABS: BUN Creatinine Ratio 11.3 (10-20); Calcium 7.8 mg/dl (8.5-10.1); Creatinine Clr Calc Pharmacy 114.1 ml/min; Est GFR (African American) 120.7; Est GFR (Non-African American) 104.1; Magnesium 1.8 mg/dl (1.8-2.4); Partial Thromboplastin Ratio 3.1; Potassium 3.5 mmol/L (3.5-5.1)
--- NOTE | 2019-12-03 13:57 | Hospitalist Progress Note ---
Date of Service December 03, 2019 Assessment & Plan (1) Small bowel obstruction: -Patient presenting from home with reports of worsening nausea, vomiting, abdominal pain, bloating. In the ED, CT ABD/pelvis showing signs of SBO. -Patient with prior history of SBO 03/2019, required surgical intervention with lysis of adhesions -NG tube placed in ED, draining well -Clinically a lot better today without any abdominal symptoms and little drainage from the NG tube -Appreciate surgery input and recommendation -NG tube has been taken out -Patient is tolerating clear liquids -We will get PT and OT evaluation and advance diet as tolerated -Appreciate surgery recommendation to continue clear liquid for today Electrolyte imbalance We will replace and monitor accordingly Electrolytes are normalized (2) Adenocarcinoma of lung: -Recently diagnosed with adenocarcinoma of right lung. Course has been complicated by pleural effusion requiring Pleurx catheter and malignant pericardial effusion. -Completed radiation therapy -Is to start chemo (Alimta, carboplatin, Keytruda) in the near future once port has been placed -Continue to drain Pleurx catheter daily-has been draining about 150 cc of fluid daily -Denies any acute shortness of breath or pain involving the right lung area -COVID test was negative -He was advised to keep the plan for a port placement on Thursday (3) History of DVT (deep vein thrombosis): -Right upper extremity DVT diagnosed 10/2019 -Has been on therapeutic dose Lovenox in the setting of active malignancy -Given possible need for OR, will hold Lovenox and place patient on heparin drip -We will change to Lovenox as soon as possible -We will change to Lovenox on discharge (4) DVT prophylaxis: -On IV heparin drip as above -Lovenox will be started as soon as okay from the surgery Admission and Anticipated Discharge Date Admission Date: November 29, 2019 Subjective 11/30/2019 Patient was seen and examined in medical telemetry unit He complains to have some discomfort secondary to NG tube Denies any abdominal distention, pain, nausea and/or vomiting Has been passing gas but bowel has not moved yet 12/01/2019 The patient was seen and examined in medical telemetry unit He has been feeling much better and denies any abdominal distention, discomfort, nausea and or vomiting His NG tube is still draining considerable amount of fluid Denies any fever and/or chills and denies any other symptoms 12/02/2019 The patient was seen and examined in medical floor He has been feeling a lot better today but remains weak He is a status post discontinuation of NG tube Has been tolerating clears orally 12/03/2019 The patient was seen and examined in medical telemetry unit He has been feeling a lot better Denies any abdominal discomfort, nausea and or vomiting Tolerating liquid diet without any problem Review of Systems Review of Systems: All systems reviewed and are unremarkable except as noted below Gastrointestinal: Has NG tube in situ-discontinued Physical Exam Physical Exam: Lying in bed without any distress Constitutional: well developed, well nourished, + acute distress and + ill appearing Eyes: PERRL, conjunctivae normal, anicteric sclerae ENMT: external ear and nose normal, oropharynx normal Neck: trachea midline, no thyromegaly Respiratory: normal respiratory effort; no respiratory distress Auscultation: + diminished lung sounds (Mostly on the right lower lung) Cardiovascular: Rate/Rhythm: regular rate and regular rhythm Heart Sounds: + murmur (2/6 ejection systolic murmur) Extremities: no pedal edema Gastrointestinal (Abdomen): Inspection/Auscultation: abdomen normal to insp ection and normal bowel sounds; abdomen not distended Percussion/Palpation: abdomen soft; abdomen nontender Musculoskeletal: No acute arthritis involving any joints Neurologic: moves all extremities; no focal motor deficits Alert awake and oriented x3, Lymphatic: no cervical or axillary lymphadenopathy Results & Data Results & Data ([facility]) Vital Signs (Past 12 Hours) Vital Signs Temp Pulse Pulse Resp BP Pulse Ox 12/03/19 11:56 36.5 C 107 H 16 113/80 95 12/03/19 08:12 93 H 12/03/19 07:58 36.7 C 103 H 18 112/80 94 12/03/19 03:00 36.5 C 95 H 18 111/78 92 Laboratory Results [facility] 12/03/19 08:15 Sodium 136 Potassium 3.5 Chloride 104 Carbon Dioxide 27 BUN 7 Creatinine 0.62 Glucose 92 Calcium 7.8 L Medications Administered Current Inpatient Medications Heparin Sodium/Dextrose (Heparin Sodium/Dextrose) 25,000 units in 500 mls @ 13 mls/hr IV .Q24H [facility]; Protocol Stop: 12/29/19 23:21 Last Admin: 12/03/19 12:14 Dose: 650 units/hr, 13 mls/hr Documented by: Pantoprazole Sodium 40 mg/ (Syringe) 10 mls @ 5 mls/min IV BID [facility] Stop: 12/29/19 23:21 Last Admin: 12/03/19 08:39 Dose: 5 mls/min Documented by: Morphine Sulfate (Morphine Sulfate 4 Mg/Ml 1 Ml Carp\Vial) 3 mg IV Q4H PRN PRN Reason: Pain Stop: 12/13/19 23:21 Last Admin: 12/01/19 09:07 Dose: 3 mg Documented by: Ondansetron HCl (Ondansetron Inj 2 Mg/Ml 2 Ml Vial) 4 mg IV Q8H PRN PRN Reason: nausea Stop: 12/29/19 23:21 Last Admin: 12/03/19 00:14 Dose: 4 mg Documented by: Phenol (Chloraseptic 1.4% Soln 180 Ml Btl) 1 sprays MT Q4H PRN PRN Reason: Sore Throat Stop: 12/30/19 20:22 Last Admin: 12/01/19 19:06 Dose: 1 sprays Documented by: Polyethylene Glycol (Polyethylene (Miralax) 17 Gm Pack) 17 gm NG DAILY [facility] Stop: 12/31/19 11:29 Last Admin: 12/03/19 08:38 Dose: 17 gm Documented by:
[2019-12-03 19:11] LABS: Partial Thromboplastin Ratio 2.1
[2019-12-03 19:22] LABS: Partial Thromboplastin Time 57.4 Seconds (21.0-31.0)
[2019-12-03] MEDS: ACETAMINOPHEN 325 MG TAB PO PRN (21:40)
[2019-12-04 07:12] LABS: Partial Thromboplastin Ratio 1.8
[2019-12-04 07:16] LABS: Partial Thromboplastin Time 51.5 Seconds (21.0-31.0)
[2019-12-04] MEDS: HEPARIN SODIUM/DEXTROSE 25,000 UNITS/500 ML BAG IV SCH ×2 (07:26→20:53)
--- NOTE | 2019-12-04 07:47 | Surgery Progress Note ---
Date of Service December 04, 2019 Assessment & Plan (1) Small bowel obstruction: -due to reported symptoms will decrease diet to clears -if N/V recurs re-insertion of NGT may be required -encourage ambulation Admission and Anticipated Discharge Date Admission Date: November 29, 2019 Subjective Pt. notes he had some nausea yesterday evening but currently feels fine without abdominal pain or N/V. He notes he had solid food yesterday evening. Physical Exam Constitutional: well developed and well nourished; no acute distress Respiratory: normal respiratory effort; no respiratory distress and no labored breathing Cardiovascular: Rate/Rhythm: regular rate and regular rhythm Gastrointestinal (Abdomen): Inspection/Auscultation: normal bowel sounds Percussion/Palpation: abdomen soft; abdomen nontender Results & Data ([facility]) Vital Signs (Past 12 Hours) Vital Signs Temp Pulse Pulse Pulse Resp BP Pulse Ox 12/04/19 07:16 36.7 C 98 H 18 124/84 94 12/04/19 06:58 99 H 12/04/19 03:05 36.3 C L 93 H 18 96/64 L 93 12/03/19 23:42 98 H 12/03/19 22:00 36.5 C 100 H 20 120/86 100 PG Care Time/CCT Total # of Minutes Spent Total Time Spent with Patient: Total time spent is greater than 50% in coordination of care (as documented) at patient's floor/unit and/or counseling patient: Coding Level of Care Code 35054 Subseq Hosp Care Lvl 1 Diagnoses Small bowel obstruction K56.609
[2019-12-04] MEDS: PANTOprazole 40 MG in SYRINGE 0 ML IV SCH ×2 (08:41→20:53)
[2019-12-04] MEDS: POLYETHYLENE (MIRALAX) 17 GM PACK NG SCH (08:41)
[2019-12-04] MEDS: ONDANSETRON INJ 2 MG/ML 2 ML VIAL IV PRN ×2 (09:19→17:23)
--- NOTE | 2019-12-04 11:22 | Hospitalist Progress Note ---
Date of Service December 04, 2019 Assessment & Plan (1) Small bowel obstruction: -Patient presenting from home with reports of worsening nausea, vomiting, abdominal pain, bloating. In the ED, CT ABD/pelvis showing signs of SBO. -Patient with prior history of SBO 03/2019, required surgical intervention with lysis of adhesions -NG tube placed in ED, draining well -Clinically a lot better today without any abdominal symptoms and little drainage from the NG tube -Appreciate surgery input and recommendation -NG tube has been taken out -Patient is tolerating clear liquids -We will get PT and OT evaluation and advance diet as tolerated -Has had some nausea and vomiting this morning -Still wants to go home if he has been feeling better after lunch Electrolyte imbalance We will replace and monitor accordingly Electrolytes are normalized (2) Adenocarcinoma of lung: -Recently diagnosed with adenocarcinoma of right lung. Course has been complicated by pleural effusion requiring Pleurx catheter and malignant pericardial effusion. -Completed radiation therapy -Is to start chemo (Alimta, carboplatin, Keytruda) in the near future once port has been placed -Continue to drain Pleurx catheter daily-has been draining about 150 cc of fluid daily -Denies any acute shortness of breath or pain involving the right lung area -COVID test was negative -He was advised to keep the plan for a port placement on Thursday (3) History of DVT (deep vein thrombosis): -Right upper extremity DVT diagnosed 10/2019 -Has been on therapeutic dose Lovenox in the setting of active malignancy -Given possible need for OR, will hold Lovenox and place patient on heparin drip -We will change to Lovenox as soon as possible -We will change to Lovenox on discharge -We will start Lovenox on discharge (4) DVT prophylaxis: -On IV heparin drip as above -Lovenox will be started as soon as okay from the surgery Admission and Anticipated Discharge Date Admission Date: November 29, 2019 Subjective 11/30/2019 Patient was seen and examined in medical telemetry unit He complains to have some discomfort secondary to NG tube Denies any abdominal distention, pain, nausea and/or vomiting Has been passing gas but bowel has not moved yet 12/01/2019 The patient was seen and examined in medical telemetry unit He has been feeling much better and denies any abdominal distention, discomfort, nausea and or vomiting His NG tube is still draining considerable amount of fluid Denies any fever and/or chills and denies any other symptoms 12/02/2019 The patient was seen and examined in medical floor He has been feeling a lot better today but remains weak He is a status post discontinuation of NG tube Has been tolerating clears orally 12/03/2019 The patient was seen and examined in medical telemetry unit He has been feeling a lot better Denies any abdominal discomfort, nausea and or vomiting Tolerating liquid diet without any problem 12/04/2019 The patient was seen and examined in medical telemetry unit He wanted to go home yesterday but has been complaining of some nausea and vomiting since this morning Denies any abdominal distention, bloating or pain No fever and/or chills Review of Systems Review of Systems: All systems reviewed and are unremarkable except as noted below Gastrointestinal: + nausea and + vomiting Has NG tube in situ-discontinued Physical Exam Physical Exam: Lying in bed without any distress Constitutional: well developed, well nourished, + acute distress and + ill appearing Eyes: PERRL, conjunctivae normal, anicteric sclerae ENMT: external ear and nose normal, oropharynx normal Neck: trachea midline, no thyromegaly Respiratory: normal respiratory effort; no respiratory distress Auscultation: + diminished lung sounds (Mostly on the right lower lung.) Has a Pleurx catheter in situ on the right side Cardiovascular: Rate/Rhythm: regular rate and regular rhythm Heart Sounds: + murmur (2/6 ejection systolic murmur) Extremities: no pedal edema Gastrointestinal (Abdomen): Inspection/Auscultation: abdomen normal to inspection and normal bowel sounds; abdomen not distended Percussion/Palpation: abdomen soft; abdomen nontender Musculoskeletal: No acute arthritis involving any joints Neurologic: moves all extremities; no focal motor deficits Lymphatic: no cervical or axillary lymphadenopathy Results & Data Results & Data ([facility]) Vital Signs (Past 12 Hours) Vital Signs Temp Pulse Pulse Pulse Resp BP Pulse Ox 12/04/19 07:16 36.7 C 98 H 18 124/84 94 12/04/19 06:58 99 H 12/04/19 03:05 36.3 C L 93 H 18 96/64 L 93 12/03/19 23:42 98 H Medications Administered Current Inpatient Medications Acetaminophen (Acetaminophen 325 Mg Tab) 650 mg PO Q4H PRN PRN Reason: Pain or Fever Stop: 01/02/20 21:34 Last Admin: 12/03/19 21:40 Dose: 650 mg Documented by: Diphenhydramine HCl (Diphenhydramine Hcl 25 Mg Cap) 25 mg PO HS PRN PRN Reason: Insomnia Stop: 01/02/20 21:34 Last Admin: 12/03/19 21:40 Dose: 25 mg Documented by: Heparin Sodium/Dextrose (Heparin Sodium/Dextrose) 25,000 units in 500 mls @ 13 mls/hr IV .Q24H SEBASTIAN; Protocol Stop: 12/29/19 23:21 Last Admin: 12/04/19 07:26 Dose: 650 units/hr, 13 mls/hr Documented by: Pantoprazole Sodium 40 mg/ (Syringe) 10 mls @ 5 mls/min IV BID SEBASTIAN Stop: 12/29/19 23:21 Last Admin: 12/04/19 08:41 Dose: 5 mls/min Documented by: Morphine Sulfate (Morphine Sulfate 4 Mg/Ml 1 Ml Carp\Vial) 3 mg IV Q4H PRN PRN Reason: Pain Stop: 12/13/19 23:21 Last Admin: 12/01/19 09:07 Dose: 3 mg Documented by: Ondansetron HCl (Ondansetron Inj 2 Mg/Ml 2 Ml Vial) 4 mg IV Q8H PRN PRN Reason: nausea Stop: 12/29/19 23:21 Last Admin: 12/04/19 09:19 Dose: 4 mg Documented by: Phenol (Chloraseptic 1.4% Soln 180 Ml Btl) 1 sprays MT Q4H PRN PRN Reason: Sore Throat Stop: 12/30/19 20:22 Last Admin: 12/01/19 19:06 Dose: 1 sprays Documented by: Polyethylene Glycol (Polyethylene (Miralax) 17 Gm Pack) 17 gm NG DAILY SEBASTIAN Stop: 12/31/19 11:29 Last Admin: 12/04/19 08:41 Dose: 17 gm Documented by:
[2019-12-04] MEDS ORDERED: PROMETHAZINE HCL 12.5 MG in SODIUM CHLORIDE 0.9% 50 ML IV PRN (13:55)
[2019-12-04] MEDS: PROMETHAZINE HCL 25 MG in SODIUM CHLORIDE 0.9% 50 ML IV PRN (18:42)
[2019-12-04] MEDS ORDERED: PROCHLORPERAZINE 5 MG in SYRINGE 4 ML IV ONE (23:39)
[2019-12-05] MEDS: PROMETHAZINE HCL 25 MG in SODIUM CHLORIDE 0.9% 50 ML IV PRN (05:58)
[2019-12-05 08:15] LABS: Basophils # (auto) 0.02 K/uL (0-0.2); Basophils % (auto) 0.2 %; Eosinophils # (auto) 0.12 K/uL (0-0.5); Eosinophils % (auto) 1.4 %; Hematocrit (blood only) 39.1 % (42-52); Hemoglobin 12.8 g/dL (14.0-18.0); Immature Granulocytes # (auto) 0.02 K/uL (0.00-0.02); Immature Granulocytes % (auto) 0.2 %; Lymphocytes # (auto) 0.56 K/uL (1.2-3.4); Lymphocytes % (auto) 6.3 %; Mean Corpuscular Hgb Conc 32.7 g/dL (32-36); Mean Corpuscular Volume 94.7 fL (80-100); Mean Platelet Volume 10.2 fL (7.4-10.4); Monocytes # (auto) 1.03 K/uL (0.11-0.59); Monocytes % (auto) 11.6 %; Neutrophils % (auto) 80.3 %; Platelet Count 486 K/uL (130-400); RDW Standard Deviation 59.1 fL (36.4-46.3); Red Blood Count 4.13 M/uL (4.7-6.1); White Blood Count 8.85 K/uL (4.8-10.8)
[2019-12-05] MEDS: PANTOprazole 40 MG in SYRINGE 0 ML IV SCH ×2 (08:41→20:17)
[2019-12-05 08:46] LABS: BUN Creatinine Ratio 20.5 (10-20); Calcium 8.4 mg/dl (8.5-10.1); Est GFR (African American) 117.6; Est GFR (Non-African American) 101.5; Magnesium 1.9 mg/dl (1.8-2.4); Potassium 3.5 mmol/L (3.5-5.1)
[2019-12-05] MEDS: POLYETHYLENE (MIRALAX) 17 GM PACK NG SCH (13:11)
[2019-12-05] MEDS: MoRPHine SULFATE 4 MG/ML 1 ML CARP\\VIAL IV PRN (13:16)
[2019-12-05] MEDS ORDERED: MIDAZOLAM HCL 1 MG/ML 2ML VIAL IV ONE (14:47)
[2019-12-05] MEDS ORDERED: ONDANSETRON INJ 2 MG/ML 2 ML VIAL IV ONE (14:47)
[2019-12-05] MEDS ORDERED: PROPOFOL IV EMULSION 10 MG/ML 20 ML VIAL IV ONE (14:47)
[2019-12-05] MEDS ORDERED: LIDOCAINE HCL 2% 2 ML VIAL/AMP(20MG/ML) INFIL ONE (14:47)
[2019-12-05] MEDS ORDERED: fentaNYL citrate 100 MCG/2 ML VIAL IV ONE (14:47)
--- NOTE | 2019-12-05 15:23 | History & Physical Bridge Note ---
Date of Service December 05, 2019 History & Physical Bridge Note I have examined the patient, reviewed the History & Physical and in the interval since the performance of the History & Physical I have noted the following changes of clinical significance: no changes noted Supervising Physician Co-Signing Physician Notes I have seen and examined the patient and have discussed the case with the provider above. I agree with the assessment and plan as stated. He is a 64 yo man with adenocarcinoma of the lung s/p pleurx catheter placed on the right side. Symptoms of severe nausea and abdominal discomfort starting on Thursday evening. His abdomen became distended and he wasn't able to eat or have a bathroom, last BM was Thursday. He has had an NG tube placed to suction and feels better at this time. Consulted General Surgery and [employer]ICE TECHNICIAN had a conversation with him. Recent DVT on Lovenox and this was switch to heparin in case procedure is needed. He is slightly tachycardic tonight, but again pain is controlled. He is reporting a headache and asks for Tylenol PM, which is what he typically takes every night at home. Physical exam reveals no increased work of breathing. Lungs are clear to auscultation throughout. Abdomen in nontender and nondistended. Pleurex catheter is covered and in place on the anterior abdomen. NG tube is in good position and is draining bilious material. Agree with plan to convert him from Lovenox to Heparin drip in case of the need for a procedure. Cont supportive care with pain meds and antiemetics as needed. DO Jean-Paul
[2019-12-05] MEDS ORDERED: CEFAZOLIN 2000MG 2,000 MG/15 ML SYR IV ONE (15:24)
[2019-12-05] MEDS ORDERED: LIDOCAINE HCL 1% 20 ML VIAL ONE (15:28)
[2019-12-05] MEDS ORDERED: BUPIVACAINE 0.5 % 5 MG/1 ML MPF 30ML VIAL ONE (15:28)
[2019-12-05] MEDS ORDERED: BACITRACIN OINT 15 GM TUBE ONE (15:29)
[2019-12-05] MEDS ORDERED: SODIUM CHLORIDE 0.9% PF 50 ML VIAL ONE (15:30)
[2019-12-05] MEDS ORDERED: HEPARIN 100 UNIT/ML 5ML FLUSH ONE (15:30)
--- NOTE | 2019-12-05 15:36 | Hospitalist Progress Note ---
Date of Service December 05, 2019 Assessment & Plan (1) Small bowel obstruction: -Patient presenting from home with reports of worsening nausea, vomiting, abdominal pain, bloating. In the ED, CT ABD/pelvis showing signs of SBO. -Patient with prior history of SBO 03/2019, required surgical intervention with lysis of adhesions -NG tube placed in ED, draining well -Clinically a lot better today without any abdominal symptoms and little drainage from the NG tube -Appreciate surgery input and recommendation -NG tube has been taken out -Patient is tolerating clear liquids -We will get PT and OT evaluation and advance diet as tolerated -Has had some nausea and vomiting since yesterday morning -Condition improved -Awaiting a port placement today and if no problem with nausea and or vomiting likely to be discharged tomorrow Electrolyte imbalance We will replace and monitor accordingly Electrolytes are normalized (2) Adenocarcinoma of lung: -Recently diagnosed with adenocarcinoma of right lung. Course has been complicated by pleural effusion requiring Pleurx catheter and malignant pericardial effusion. -Completed radiation therapy -Is to start chemo (Alimta, carboplatin, Keytruda) in the near future once port has been placed -Continue to drain Pleurx catheter daily-has been draining about 150 cc of fluid daily -Denies any acute shortness of breath or pain involving the right lung area -COVID test was negative -He was advised to keep the plan for a port placement on Thursday -We will have a port placement this afternoon (3) History of DVT (deep vein thrombosis): -Right upper extremity DVT diagnosed 10/2019 -Has been on therapeutic dose Lovenox in the setting of active malignancy -Given possible need for OR, will hold Lovenox and place patient on heparin drip -We will change to Lovenox as soon as possible -We will change to Lovenox on discharge -We will start Lovenox on discharge (4) DVT prophylaxis: -On IV heparin drip as above -Lovenox will be started as soon as okay from the surgery Admission and Anticipated Discharge Date Admission Date: November 29, 2019 Subjective 11/30/2019 Patient was seen and examined in medical telemetry unit He complains to have some discomfort secondary to NG tube Denies any abdominal distention, pain, nausea and/or vomiting Has been passing gas but bowel has not moved yet 12/01/2019 The patient was seen and examined in medical telemetry unit He has been feeling much better and denies any abdominal distention, discomfort, nausea and or vomiting His NG tube is still draining considerable amount of fluid Denies any fever and/or chills and denies any other symptoms 12/02/2019 The patient was seen and examined in medical floor He has been feeling a lot better today but remains weak He is a status post discontinuation of NG tube Has been tolerating clears orally 12/03/2019 The patient was seen and examined in medical telemetry unit He has been feeling a lot better Denies any abdominal discomfort, nausea and or vomiting Tolerating liquid diet without any problem 12/04/2019 The patient was seen and examined in medical telemetry unit He wanted to go home yesterday but has been complaining of some nausea and vomiting since this morning Denies any abdominal distention, bloating or pain No fever and/or chills 12/05/2019 The patient was seen and examined in medical telemetry unit He has had nausea last night but none since this morning He denies to me abdominal pain and/or distention He has been waiting for a port placement Review of Systems Review of Systems: All systems reviewed and are unremarkable except as noted below Constitutional: + fatigue and + weakness Gastrointestinal: + nausea and + vomiting Has NG tube in situ-discontinued Physical Exam Physical Exam: Lying in bed without any distress Constitutional: well developed, well nourished and + ill appearing; no acute distress Eyes: PERRL, conjunctivae normal, anicteric sclerae ENMT: external ear and nose normal, oropharynx normal Neck: trachea midline, no thyromegaly Respiratory: normal respiratory effort; no respiratory distress Au scultation: + diminished lung sounds (Mostly on the right lower lung.) Cardiovascular: Rate/Rhythm: regular rate and regular rhythm Heart Sounds: + murmur (2/6 ejection systolic murmur) Extremities: no pedal edema and no edema Gastrointestinal (Abdomen): Inspection/Auscultation: abdomen normal to inspection and normal bowel sounds; abdomen not distended Percussion/Palpation: abdomen soft; abdomen nontender Musculoskeletal: No acute arthritis involving any joints Neurologic: moves all extremities; no focal motor deficits Alert, awake and oriented x3 Lymphatic: no cervical or axillary lymphadenopathy Results & Data Results & Data ([facility]) Vital Signs (Past 12 Hours) Vital Signs Temp Pulse Pulse Resp BP Pulse Ox 12/05/19 15:21 36.6 C 108 H 20 130/87 95 12/05/19 11:58 36.3 C L 110 H 16 126/90 97 12/05/19 07:46 107 H 12/05/19 07:23 36.7 C 108 H 16 121/87 96 Laboratory Results Short CBC 12/05/19 Range/Units 07:48 WBC 8.85 (4.8-10.8) K/uL Hgb 12.8 L (14.0-18.0) g/dL Hct 39.1 L (42-52) % Plt Count 486 H (130-400) K/uL BMP 12/05/19 07:48 Sodium 136 Potassium 3.5 Chloride 102 Carbon Dioxide 26 BUN 14 D Creatinine 0.66 Glucose 86 Calcium 8.4 L Medications Administered Current Inpatient Medications Acetaminophen (Acetaminophen 325 Mg Tab) 650 mg PO Q4H PRN PRN Reason: Pain or Fever Stop: 01/02/20 21:34 Last Admin: 12/03/19 21:40 Dose: 650 mg Documented by: Diphenhydramine HCl (Diphenhydramine Hcl 25 Mg Cap) 25 mg PO HS PRN PRN Reason: Insomnia Stop: 01/02/20 21:34 Last Admin: 12/03/19 21:40 Dose: 25 mg Documented by: Pantoprazole Sodium 40 mg/ (Syringe) 10 mls @ 5 mls/min IV BID SEBASTIAN Stop: 12/29/19 23:21 Last Admin: 12/05/19 08:41 Dose: 5 mls/min Documented by: Promethazine HCl 25 mg/ Sodium (Chloride) 51 mls @ 202 mls/hr IV Q6H PRN PRN Reason: Nausea And Vomiting Stop: 01/03/20 18:19 Last Infusion: 12/05/19 06:29 Dose: Infused Documented by: Morphine Sulfate (Morphine Sulfate 4 Mg/Ml 1 Ml Carp\Vial) 3 mg IV Q4H PRN PRN Reason: Pain Stop: 12/13/19 23:21 Last Admin: 12/05/19 13:16 Dose: 3 mg Documented by: Ondansetron HCl (Ondansetron Inj 2 Mg/Ml 2 Ml Vial) 4 mg IV Q8H PRN PRN Reason: nausea Stop: 12/29/19 23:21 Last Admin: 12/04/19 17:23 Dose: 4 mg Documented by: Phenol (Chloraseptic 1.4% Soln 180 Ml Btl) 1 sprays MT Q4H PRN PRN Reason: Sore Throat Stop: 12/30/19 20:22 Last Admin: 12/01/19 19:06 Dose: 1 sprays Documented by: Polyethylene Glycol (Polyethylene (Miralax) 17 Gm Pack) 17 gm NG DAILY SEBASTIAN Stop: 12/31/19 11:29 Last Admin: 12/05/19 13:11 Dose: Not Given Documented by:
[2019-12-05] MEDS ORDERED: ePHEDrine sulfate 50 MG/ML AMP IV PRN (15:40)
[2019-12-05] MEDS ORDERED: ATROPINE SULFATE 0.1 MG/ML 10ML SYR IV PRN (15:40)
[2019-12-05] MEDS ORDERED: ONDANSETRON INJ 2 MG/ML 2 ML VIAL IV PRN (15:40)
[2019-12-05] MEDS ORDERED: fentaNYL citrate 100 MCG/2 ML VIAL IV PRN (15:40)
--- NOTE | 2019-12-05 16:35 | Post Operative Brief Note ---
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
--- NOTE | 2019-12-05 17:02 | XRay Report ---
XR chest 1V portable CLINICAL HISTORY: S/P port insertion COMPARISON STUDY: 11/29/2019 FINDINGS: There is been interval insertion of a left-sided A-Port catheter. The tip projects over the superior vena cava. There is no pneumothorax. A line shadow paralleling the left chest wall is felt to a skinfold. A right basilar chest tube is again visualized. There is evidence for a right hilar/me diastinal mass with right upper thigh loss. IMPRESSION: No evidence of pneumothorax status post placement of a left-sided A-Port catheter ACT 112: Negative or not required by law. Electronically signed by: Chris Parmar M.D. 12/05/2019 5:00 PM
[2019-12-05] MEDS ORDERED: PROCHLORPERAZINE MALEATE 10 MG TAB PO PRN (17:11)
[2019-12-05] MEDS ORDERED: bisacodyL 10 MG SUPP PR PRN (17:11)
[2019-12-05] MEDS ORDERED: ENOXAPARIN 80 MG/0.8 ML SYR SQ SCH (17:11)
[2019-12-05] MEDS ORDERED: ONDANSETRON 8MG OD TAB PO PRN (17:11)
[2019-12-05] MEDS ORDERED: ACETAMINOPHEN 325 MG TAB PO PRN (17:11)
[2019-12-05] MEDS: ASPIRIN 81 MG ECTAB PO SCH (18:55)
[2019-12-05] MEDS: ENOXAPARIN 80 MG/0.8 ML SYR SQ SCH (20:18)
[2019-12-05] MEDS: ACETAMINOPHEN 325 MG TAB PO PRN (20:26)
[2019-12-05] MEDS ORDERED: dexAMETHasone 4 MG TAB PO SCH (21:00)
[2019-12-05] MEDS ORDERED: FOLIC ACID 1 MG TAB PO SCH (21:00)
--- NOTE | 2019-12-06 01:21 | Operative Report (OR) ---
DATE OF OPERATION: 12/05/2019 PREOPERATIVE DIAGNOSIS: Lung cancer. POSTOPERATIVE DIAGNOSIS: Lung cancer. OPERATION: Insertion of tunneled [id number] on left internal jugular vein. SURGEON: Jayne Grady MD ANESTHESIA: Conscious sedation plus local. ESTIMATED BLOOD LOSS: About 5 mL. FINDINGS: A patent left internal jugular vein. COMPLICATIONS: None. INDICATIONS FOR THE PROCEDURE: This is a 64-year-old gentleman who is referred for port insertion for chemotherapy for his lung cancer. I did talk to the patient about the benefits, the risks, alternate procedures. I indicated the risks may include but not limited such as bleeding, infection, injury to the lung, blood clot, dysfunction of catheter. The patient understands. He signed informed consent and I answered all questions. DETAILS OF PROCEDURE: We brought in the patient to the OR, put the patient in the supine position. The patient received SCDs on bilateral legs to prevent DVT. Also patient received 2 grams Ancef IV for prophylactic antibiotic. The patient received conscious sedation by the anesthesiology. The left side of the neck and left side of the upper chest were prepped and draped in routine sterile fashion after timeout. I injected the local anesthesia on the left side of the neck and left side of the upper chest. Then I used ultrasound guide to puncture the left internal jugular vein, easy blood return, passed the wire, and removed the needle. Then we used fluoro to confirm the wire located at the superior vena cava. Then I made about a 2.5 cm incision on the left side upper chest wall to create a pouch. Hemostasis was obtained. Then we passed the catheter through the left side of upper chest to reach the left side of neck. The end of the catheter was connected to the port. Then we used the dilator with sheath to pass the wire and remove the dilator and the wire leaving the sheath in. Also during the procedure, we put the patient on the Trendelenburg position. Then we passed the catheter through the sheath, removed the sheath, and then we used fluoro to confirm the tip of the catheter located at the junction between the right atrium and superior vena cava. Hemostasis was obtained. Then we used 2-0 Prolene and fixed the port on the chest wall at 3 points. I then closed subcutaneous layer by using 2-0 Vicryl continuous running, closed skin by using 4-0 Vicryl continuous running. Then we used heparin with saline and injected the port as well as the skin, easy blood return, injected 10 mL of heparin with saline. Then we put the dressing on. The patient tolerated the procedure well. All instrument, needle, and sponge count were correct x2 at the end of the case. The patient was transferred to recovery room in stable condition. After the procedure, I did talk to the patient about the OR finding and the procedure we did. Also I gave patient postop care instruction, the patient understands. I attest to the content of the Intraoperative Record and any orders documented therein. Any exception s are noted below.
[2019-12-06] MEDS: MoRPHine SULFATE 4 MG/ML 1 ML CARP\\VIAL IV PRN ×2 (01:23→11:47)
[2019-12-06] MEDS: ENOXAPARIN 80 MG/0.8 ML SYR SQ SCH (08:14)
[2019-12-06] MEDS: ASPIRIN 81 MG ECTAB PO SCH (08:14)
[2019-12-06] MEDS: POLYETHYLENE (MIRALAX) 17 GM PACK NG SCH ×2 (08:15→08:17)
[2019-12-06] MEDS: PANTOprazole 40 MG in SYRINGE 0 ML IV SCH ×2 (08:15→08:17)
[2019-12-06] MEDS ORDERED: PANTOprazole 40 MG TAB PO SCH (09:00)
--- NOTE | 2019-12-06 12:58 | Hospitalist Progress Note ---
Date of Service December 06, 2019 Assessment & Plan (1) Small bowel obstruction: -Patient presenting from home with reports of worsening nausea, vomiting, abdominal pain, bloating. In the ED, CT ABD/pelvis showing signs of SBO. -Patient with prior history of SBO 03/2019, required surgical intervention with lysis of adhesions -NG tube placed in ED, draining well -Clinically a lot better today without any abdominal symptoms and little drainage from the NG tube -Appreciate surgery input and recommendation -NG tube has been taken out -Patient is tolerating clear liquids -We will get PT and OT evaluation and advance diet as tolerated -Has had some nausea and vomiting since yesterday morning -Condition improved -Awaiting a port placement today and if no problem with nausea and or vomiting likely to be discharged tomorrow -No signs and/or symptoms of SBO and has been tolerating advanced diet and ambulating well -Complains today of some pain at the operation site and left shoulder area but nothing significant -We will discharge home this afternoon Electrolyte imbalance We will replace and monitor accordingly Electrolytes are normalized (2) Adenocarcinoma of lung: -Recently diagnosed with adenocarcinoma of right lung. Course has been complicated by pleural effusion requiring Pleurx catheter and malignant pericardial effusion. -Completed radiation therapy -Is to start chemo (Alimta, carboplatin, Keytruda) in the near future once port has been placed -Continue to drain Pleurx catheter daily-has been draining about 150 cc of fluid daily -Denies any acute shortness of breath or pain involving the right lung area -COVID test was negative -He was advised to keep the plan for a port placement on Thursday -We will have a port placement this afternoon -Status post a port placement -We will get an appointment with oncologist to start chemo (3) History of DVT (deep vein thrombosis): -Right upper extremity DVT diagnosed 10/2019 -Has been on therapeutic dose Lovenox in the setting of active malignancy -Given possible need for OR, will hold Lovenox and place patient on heparin drip -We will change to Lovenox as soon as possible -We will change to Lovenox on discharge -We will start Lovenox on discharge -Lovenox doses have been decreased to 70 mg twice a day (4) DVT prophylaxis: -On IV heparin drip as above -Lovenox will be started as soon as okay from the surgery Admission and Anticipated Discharge Date Admission Date: November 29, 2019 Subjective 11/30/2019 Patient was seen and examined in medical telemetry unit He complains to have some discomfort secondary to NG tube Denies any abdominal distention, pain, nausea and/or vomiting Has been passing gas but bowel has not moved yet 12/01/2019 The patient was seen and examined in medical telemetry unit He has been feeling much better and denies any abdominal distention, discomfort, nausea and or vomiting His NG tube is still draining considerable amount of fluid Denies any fever and/or chills and denies any other symptoms 12/02/2019 The patient was seen and examined in medical floor He has been feeling a lot better today but remains weak He is a status post discontinuation of NG tube Has been tolerating clears orally 12/03/2019 The patient was seen and examined in medical telemetry unit He has been feeling a lot better Denies any abdominal discomfort, nausea and or vomiting Tolerating liquid diet without any problem 12/04/2019 The patient was seen and examined in medical telemetry unit He wanted to go home yesterday but has been complaining of some nausea and vomiting since this morning Denies any abdominal distention, bloating or pain No fever and/or chills 12/05/2019 The patient was seen and examined in medical telemetry unit He has had nausea last night but none since this morning He denies to me abdominal pain and/or distention He has been waiting for a port placement 12/06/2019 The patient was seen and examined in medical telemetry unit He is a status post left upper chest a-port placement Denies any complaints today and wants to go home Has been tolerating advanced diet and ambulating well Review of Systems Review of Systems: All systems reviewed and are unremarkable except as noted below Constitutional: + fatigue and + weakness Gastrointestinal: + nausea and + vomiting Has NG tube in situ-discontinued Physical Exam Physical Exam: Lying in bed without any distress Constitutional: well developed and well nourished; no acute distress and not ill appearing Eyes: PERRL, conjunctivae normal, anicteric sclerae ENMT: external ear and nose normal, oropharynx normal Neck: trachea midline, no thyromegaly Respiratory: normal respiratory effort; no respiratory distress Auscultation: + diminished lung sounds (Mostly on the right lower lung.) Cardiovascular: Rate/Rhythm: regular rate and regular rhythm Heart Sounds: + murmur (2/6 ejection systolic murmur) Extremities: no pedal edema and no edema Gastrointestinal (Abdomen): Inspection/Auscultation: abdomen normal to inspection and normal bowel sounds; abdomen not distended Percussion/Palpation: abdomen soft; abdomen nontender Musculoskeletal: No acute arthritis involving any joints Neurologic: moves all extremities; no focal motor deficits Lymphatic: no cervical or axillary lymphadenopathy Results & Data Results & Data ([facility]) Vital Signs (Past 12 Hours) Vital Signs Temp Pulse Pulse Resp BP Pulse Ox 12/06/19 11:22 36.7 C 111 H 20 134/87 94 12/06/19 07:39 101 H 12/06/19 07:13 36.4 C L 108 H 18 126/87 94 12/06/19 02:56 36.5 C 100 H 18 123/86 94 Medications Administered Current Inpatient Medications Acetaminophen (Acetaminophen 325 Mg Tab) 650 mg PO Q4H PRN PRN Reason: Pain or Fever Stop: 01/02/20 21:34 Last Admin: 12/05/19 20:26 Dose: 650 mg Documented by: Acetaminophen (Acetaminophen 325 Mg Tab) 325 mg PO Q6H PRN PRN Reason: Pain Stop: 01/04/20 17:10 Aspirin (Aspirin 81 Mg Ectab) 81 mg PO QA SEBASTIAN Stop: 01/04/20 17:59 Last Admin: 12/06/19 08:14 Dose: 81 mg Documented by: Bisacodyl (Bisacodyl 10 Mg Supp) 10 mg OK DAILY PRN PRN Reason: Constipation Stop: 01/04/20 17:10 Diphenhydramine HCl (Diphenhydramine Hcl 25 Mg Cap) 25 mg PO HS PRN PRN Reason: Insomnia Stop: 01/02/20 21:34 Last Admin: 12/05/19 22:10 Dose: 25 mg Documented by: Enoxaparin Sodium (Enoxaparin 80 Mg/0.8 Ml Syr) 70 mg SQ Q12 SEBASTIAN Stop: 01/04/20 20:59 Last Admin: 12/06/19 08:14 Dose: 70 mg Documented by: Folic Acid (Folic Acid 1 Mg Tab) 1 mg PO HS SEBASTIAN Stop: 01/04/20 20:59 Last Admin: 12/05/19 20:17 Dose: 1 mg Documented by: Pantoprazole Sodium 40 mg/ (Syringe) 10 mls @ 5 mls/min IV BID SEBASTIAN Stop: 12/29/19 23:21 Last Admin: 12/06/19 08:17 Dose: Not Given Documented by: Promethazine HCl 25 mg/ Sodium (Chloride) 51 mls @ 202 mls/hr IV Q6H PRN PRN Reason: Nausea And Vomiting Stop: 01/03/20 18:19 Last Infusion: 12/05/19 06:29 Dose: Infused Documented by: Morphine Sulfate (Morphine Sulfate 4 Mg/Ml 1 Ml Carp\Vial) 3 mg IV Q4H PRN PRN Reason: Pain Stop: 12/13/19 23:21 Last Admin: 12/06/19 11:47 Dose: 3 mg Documented by: Ondansetron HCl (Ondansetron Inj 2 Mg/Ml 2 Ml Vial) 4 mg IV Q8H PRN PRN Reason: nausea Stop: 12/29/19 23:21 Last Admin: 12/04/19 17:23 Dose: 4 mg Documented by: Ondansetron HCl (Ondansetron 8mg Od Tab) 8 mg PO Q8H PRN PRN Reason: Nausea Pantoprazole Sodium (Pantoprazole 40 Mg Tab) 40 mg PO QAM [facility] Stop: 01/05/20 08:59 Last Admin: 12/06/19 08:14 Dose: 40 mg Documented by: Phenol (Chloraseptic 1.4% Soln 180 Ml Btl) 1 sprays MT Q4H PRN PRN Reason: Sore Throat Stop: 12/30/19 20:22 Last Admin: 12/01/19 19:06 Dose: 1 sprays Documented by: Polyethylene Glycol (Polyethylene (Miralax) 17 Gm Pack) 17 gm NG DAILY [facility] Stop: 12/31/19 11:29 Last Admin: 12/06/19 08:17 Dose: Not Given Documented by: Prochlorperazine (Prochlorperazine Maleate 10 Mg Tab) 10 mg PO Q6H PRN PRN Reason: Nausea Stop: 01/04/20 17:10
[2019-12-06] MEDS: ACETAMINOPHEN 325 MG TAB PO PRN (13:36)
--- NOTE | 2019-12-06 18:08 | Discharge Summary ---
Date of Service December 06, 2019 Admission HPI Per Admitting Provider 64-year-old male with PMH adenocarcinoma of right lung, pleural effusion with Pleurx catheter in place, malignant pericardial effusion status post pericardiostomy, prior alcohol abuse, and other problems listed below who presents the ED for evaluation of nausea, vomiting, abdominal pain. Patient was recently diagnosed with adenocarcinoma of the right lung. He was [place] [facility] [place] for evaluation of large pleural effusion. He underwent thoracentesis and subsequent Pleurx catheter placement. Pleural fluid was benign. He was also found to have moderate to large pericardial effusion with tamponade physiology and had tube pericardiostomy performed. Pericardial fluid cytology was consistent with adenocarcinoma. Fine-needle aspiration of right paratracheal lymph node showed non-small cell adenocarcinoma. He completed radiation to large right lung mass. He was also diagnosed with right upper extremity DVT and placed on therapeutic dose Lovenox. Patient was discharged and followed up with outpatient oncology. He is scheduled to have port placed for chemotherapy next week. He will be starting Alimta, carboplatin, Keytruda. Patient reports developing nausea, vomiting, abdominal pain, bloating 4 days ago. He reports he has been unable to keep much food or liquids down. He reports last bowel movement was 3 days ago and was very small. Patient denies hematemesis or coffee-ground emesis. He reports feeling lightheaded and dizzy however no syncopal event. Denies fevers and chills. No chest pain or shortness of breath. Denies any urinary symptoms. CT ABD/pelvis is showing small bowel obstruction. NG tube was placed and is draining brown fluid. He was given IVF and IV Zofran. Patient is hemodynamically stable. Lactate 1.9. Admission Exam Per Admitting Provider Constitutional: WD/WN, vitals as above Eyes: PERRL, conjunctivae normal, anicteric sclerae ENMT: external ear and nose normal, oropharynx normal Respiratory: normal respiratory effort, lungs clear to auscultation Right Pleurx catheter in place Cardiovascular: Rate/Rhythm: regular rate and regular rhythm Vessels: normal peripheral pulses Extremities: no edema Gastrointestinal (Abdomen): Inspection/Auscultation: abdomen not distended and + abnormal bowel sounds (Hyperactive) Percussion/Palpation: abdomen soft; abdomen nontender, no guarding, abdomen not rigid and no hepatosplenomegaly NG tube in place draining large amount of brown drainage Musculoskeletal: no cyanosis or clubbing, extremities motor strength 5/5 Skin: no rashes, warm and dry Neurologic: PERRL, EOMI, accommodation nl, no face palsy, no dysarthria Psychiatric: A+Ox3, euthymic affect Principal Diagnosis SBO-resolved, adenocarcinoma of the lung status post a port placement, history of DVT on Lovenox, right Pleurx catheter in situ Discharge Exam Constitutional well developed and well nourished; no acute distress and not ill appearing Eyes PERRL, conjunctivae normal, anicteric sclerae ENMT external ear and nose normal, oropharynx normal Neck trachea midline, no thyromegaly Respiratory normal respiratory effort; no respiratory distress Auscultation: + diminished lung sounds (Mostly on the right lower lung.) Cardiovascular Rate/Rhythm: regular rate and regular rhythm Heart Sounds: + murmur (2/6 ejection systolic murmur) Extremities: no pedal edema and no edema Gastrointestinal (Abdomen) Inspection/Auscultation: abdomen normal to inspection and normal bowel sounds; abdomen not distended Percussion/Palpation: abdomen soft; abdomen nontender Neurologic moves all extremities; no focal motor deficits Lymphatic no cervical or axillary lymphadenopathy Discharge Data Allergies Allergy/AdvReac Type Severity Reaction Status Date / Time amlodipine AdvReac Intermediate peripheral Verified 11/29/19 20:39 edema Consultations 11/29/19 20:22 ED Decision to Admit Stat 11/29/19 23:22 Consult General Surgery Routine Procedures Performed Operation Date: 12/05/19 13:15 Actual Procedures p Left Chest Wall Port Insertion(Left) - Jayne Grady MD Ordered Studies 11/29/19 18:48 CT abd pelvis IV con only Stat Hospital Course (1) Small bowel obstruction: -Patient presenting from home with reports of worsening nausea, vomiting, abdominal pain, bloating. In the ED, CT ABD/pelvis showing signs of SBO. -Patient with prior history of SBO 03/2019, required surgical intervention with lysis of adhesions -NG tube placed in ED, draining well -Clinically a lot better today without any abdominal symptoms and little drainage from the NG tube -Appreciate surgery input and recommendation -NG tube has been taken out -Patient is tolerating clear liquids -We will get PT and OT evaluation and advance diet as tolerated -Has had some nausea and vomiting since yesterday morning -Condition improved -Awaiting a port placement today and if no problem with nausea and or vomiting likely to be discharged tomorrow -No signs and/or symptoms of SBO and has been tolerating advanced diet and ambulating well -Complains today of some pain at the operation site and left shoulder area but nothing significant -We will discharge home this afternoon Electrolyte imbalance We will replace and monitor accordingly Electrolytes are normalized (2) Adenocarcinoma of lung: -Recently diagnosed with adenocarcinoma of right lung. Course has been complicated by pleural effusion requiring Pleurx catheter and malignant pericardial effusion. -Completed radiation therapy -Is to start chemo (Alimta, carboplatin, Keytruda) in the near future once port has been placed -Continue to drain Pleurx catheter daily-has been draining about 150 cc of fluid daily -Denies any acute shortness of breath or pain involving the right lung area -COVID test was negative -He was advised to keep the plan for a port placement on Thursday -We will have a port placement this afternoon -Status post a port placement -We will get an appointment with oncologist to start chemo (3) History of DVT (deep vein thrombosis): -Right upper extremity DVT diagnosed 10/2019 -Has been on therapeutic dose Lovenox in the setting of active malignancy -Given possible need for OR, will hold Lovenox and place patient on heparin drip -We will change to Lovenox as soon as possible -We will change to Lovenox on discharge -We will start Lovenox on discharge -Lovenox doses have been decreased to 70 mg twice a day (4) DVT prophylaxis: -On IV heparin drip as above -Lovenox will be started as soon as okay from the surgery Total Time Total Time Spent Total Time Spent (In Minutes): 35 minutes Total Time Includes: Examination of the Patient, Discharge Planning, Medication Reconciliation and Communication With Other Providers Discharge Plan Discharge Items Patient Disposition: Home - Home Health Services Reason For Visit: SBO Discharge Diagnosis: SBO-resolved, adenocarcinoma of the lung status post a port placement, history of DVT on Lovenox, right Pleurx catheter in situ Condition on Discharge: Fair Activity: Resume your previous activity Non-emergency contact: Primary Care Provider Call non-emergency contact if: you have any medication questions and your symptoms worsen Follow-up/Referrals: Odilon Lin MD [Primary Care Provider] - 12/07/19 12:00 pm (Date & Time 12/07/2019 12:00 PM Provider Layo Camarillo MD Department Internal Medicine [facility] ) Diet: Regular Addtl Attending Provider Instructions: Please take precaution to avoid falls Keep in touch with your oncologist for chemotherapy and instructions We have decreased your Lovenox to 70 mg twice daily as per your weight and renal function Pending Studies at Discharge: No Stand-Alone Forms: My [facility], Smoking Cessation Medications and DC Order Prescriptions: Continued aspirin 81 mg Tablet,Delayed Release (Dr/Ec) 81 mg PO QAM RF: 0 pantoprazole 40 mg tablet,delayed release (DR/EC) 40 mg PO QAM RF: 0 bisacodyl 10 mg suppository 10 mg SD DAILY PRN (Reason: Constipation) RF: 0 folic acid 1 mg Tablet 1 mg PO HS RF: 0 dexamethasone 4 mg tablet 4 mg PO BID RF: 0 ondansetron HCl 8 mg tablet 8 mg PO Q8H PRN (Reason: Nausea) RF: 0 prochlorperazine maleate 10 mg tablet 10 mg PO Q6H PRN (Reason: Nausea) RF: 0 acetaminophen [Tylenol] 325 mg Tablet 325 mg PO Q6H PRN (Reason: Pain) RF: 0 Changed enoxaparin 80 mg/0.8 mL syringe 70 mg subcut Q12H Qty: 0 RF: 0 Discharge Orders: Discharge Order (Routine); Ordered 12/06/19 Ordered By: James Martinez Admission Data Admit Date/Time: 11/29/19 21:27 Attending Provider: James Martinez Admit Provider: Brynn Jeong Primary Care Provider: Odilon Lin Other Providers: Brynn Jeong ; [facility] ; Wilfredo Márquez ; Maldonado Henry Other Interventions: Discharge Summary Assessment (RN) Last Done: 12/06/19 15:05
--- NOTE | 2019-12-22 09:06 | Anesthesiology Progress Note ---
Date of Service December 22, 2019 Anesthesia Post Procedure Pain Intensity Bilateral Throat: Pain Intensity: 7 Transfer of Care Handoff Completed per policy Notes Mental Status: alert / awake / arousable and participated in evaluation Patient Amnestic to Procedure: Yes Nausea / Vomiting: adequately controlled Pain: adequately controlled Airway Patency, RR, SpO2: stable & adequate BP & HR: stable & adequate Hydration State: stable & adequate Anesthetic Complications: no major complications apparent and Pt Satisfied with anesthetic care Notes: patient seen postoperatively but note placed at a later date.
== END 2019-12-06 17:00 | disposition home health service (06) | DRG 315 ==
LOC: ED 17:47 → SUATTDRO 21:27 → 2W 21:27

== ENCOUNTER 2019-12-23 13:47 | Inpatient (IN) ==
[2019-12-23] MEDS ORDERED: CEFEPIME 2,000 MG/20 ML VIAL IV STA (14:14)
[2019-12-23] MEDS ORDERED: VANCOMYCIN HCL 1,500 MG in SODIUM CHLORIDE 0.9% 500 ML IV STA (14:14)
[2019-12-23] MEDS ORDERED: VANCOMYCIN CONSULT ACTIVE PRN (14:14)
[2019-12-23] MEDS ORDERED: SODIUM CHLORIDE 0.9% 1000ML 1,000 ML IV SCH ×2 (14:15→15:15)
[2019-12-23 14:41] LABS: Hematocrit (blood only) 35.1 % (42-52); Mean Corpuscular Hemoglobin 30.9 pg (25-34); Mean Corpuscular Hgb Conc 34.2 g/dL (32-36); Mean Corpuscular Volume 90.5 fL (80-100); Mean Platelet Volume 11.2 fL (7.4-10.4); Nucleated RBC # (auto) 0.03 K/uL (0-0); Nucleated RBC % (auto) 1.9 %; Platelet Count 241 K/uL (130-400); RDW Coefficient of Variation 16.1 % (11.5-14.5); RDW Standard Deviation 52.8 fL (36.4-46.3); Red Blood Count 3.88 M/uL (4.7-6.1); White Blood Count 1.73 K/uL (4.8-10.8)
[2019-12-23 14:52] LABS: INR 1.1 (0.9-1.1); Partial Thromboplastin Ratio 1.3; Partial Thromboplastin Time 36.5 Seconds (21.0-31.0); Prothrombin Time 11.5 Seconds (9.0-12.0)
[2019-12-23 15:00] LABS: Alanine Aminotransferase 20 U/L (12-78); Albumin Level 2.1 gm/dl (3.4-5.0); Aspartate Aminotransferase 14 U/L (15-37); BUN Creatinine Ratio 34.5 (10-20); Blood Urea Nitrogen 47 mg/dl (7-18); Carbon Dioxide 25 mmol/L (21-32); Chloride 102 mmol/L (98-107); Creatinine Clr Calc Pharmacy 43.9 ml/min; Est GFR (African American) 62.3; Est GFR (Non-African American) 53.7; Glucose 125 mg/dl (70-99); Magnesium 1.7 mg/dl (1.8-2.4); Potassium 2.8 mmol/L (3.5-5.1); Sodium 138 mmol/L (136-145)
--- NOTE | 2019-12-23 15:03 | XRay Report ---
XR chest 1V portable HISTORY: SEPSIS COMPARISON: Chest 12/05/2019. FINDINGS: Left jugular Port-A-Cath terminates in the SVC. Right basilar pleural drain is unchanged in position. Stable volume loss within left hemithorax with elevation of the right hemidiaphragm. The l eft lung is clear. The heart is normal in size. Redemonstration of the right hilar mass with right up per and middle lobe collapse. This is also unchanged. IMPRESSION: 1. No significant change compared to the prior study. No new focal lung consolidations to suggest pne umonia. 2. Satisfactory support line placement. 3. No change in the right hilar mass and right upper and middle lobe collapse. ACT 112: Negative or not required by law. Electronically signed by: Bandar Abarca M.D. 12/23/2019 3:02 PM
[2019-12-23 15:05] LABS: Albumin Globulin Ratio 0.4 (0.9-2); Alkaline Phosphatase 76 U/L (45-117); Bilirubin,Total 0.5 mg/dl (0.2-1); Globulin 5.1 gm/dl (2.5-4.0); Total Protein 7.2 gm/dl (6.4-8.2); Troponin I < 0.015 ng/ml (0-0.045)
[2019-12-23] MEDS ORDERED: POTASSIUM CHLORIDE 20 MEQ TABCR PO STA (15:08)
[2019-12-23] MEDS ORDERED: POTASSIUM CHLORIDE / WTR 10 MEQ/100 ML PLCT IV ONE (15:08)
[2019-12-23 15:13] LABS: ALC (manual) 0.31 K/uL (1.2-3.4); Dohle Bodies 2+; Echinocytes 2+; Eosinophils # (manual) 0.02 K/uL (0-0.5); Eosinophils % (manual) 1.4 %; Giant Platelets 2+; Howell-Jolly Bodies 1+; Lymphocytes # (manual) 0.31 K/uL (1.2-3.4); Lymphocytes % (manual) 18.1 %; Metamyelocytes # (manual) 0.02 K/uL (0-0); Metamyelocytes % (manual) 1.4 %; Monocytes # (manual) 0.17 K/uL (0.11-0.59); Monocytes % (manual) 9.7 %; Neutrophils % (manual) 69.4 %; Schistocytes 1+; Target Cells 1+; Toxic Granulation 2+
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
[2019-12-23] MEDS ORDERED: ACETAMINOPHEN 1,000 MG/100 ML VIAL IV STA (17:05)
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
[2019-12-23] MEDS ORDERED: CONSULT PHARMACY STA (17:49)
[2019-12-23] MEDS ORDERED: ACETAMINOPHEN 325 MG TAB PO PRN (17:49)
--- NOTE | 2019-12-23 17:59 | Electrocardiogram Report ---
Test Reason : Blood Pressure : / mmHG Vent. Rate : 103 BPM Atrial Rate : 103 BPM P-R Int : 148 ms QRS Dur : 090 ms QT Int : 352 ms P-R-T Axes : 040 017 079 degrees QTc Int : 461 ms Sinus tachycardia Possible Left atrial enlargement Low voltage QRS Abnormal ECG When compared with ECG of 29-NOV-2019 19:03, Premature atrial complexes are no longer Present Questionable change in initial forces of Inferior leads Inverted T waves have replaced nonspecific T wave abnormality in Anterior leads Confirmed by Chris Han ([id number]) on 12/23/2019 5:59:13 PM Referred By: REFERRED SELF Confirmed By:Aayush Han
[2019-12-23] MEDS ORDERED: PIPERACILL/TAZOBAC CONSULT ACTIVE PRN (18:02)
[2019-12-23] MEDS ORDERED: MAGNESIUM SULFATE / D5W 1 GM/100 ML BAG IV ONE (18:15)
[2019-12-23] MEDS ORDERED: PIPERACILLIN/TAZOBACTAM 3.375 GM in DEXTROSE 5% 100 ML IV ONE (19:00)
--- NOTE | 2019-12-23 19:32 | CT Scan Report ---
CT OF THE ABDOMEN AND PELVIS WITHOUT CONTRAST CLINICAL HISTORY: fever, vomiting, Lung ca, LLQ pain COMPARISON STUDY: CT of the abdomen and pelvis November 29, 2019. KUB November 30, 2019. TECHNIQUE: Axial images of the abdomen and pelvis were obtained without IV contrast. Images were revi ewed in the axial, sagittal, and coronal planes. Automated exposure control was utilized for the tim dy. A dose lowering technique was utilized adhering to the principles of ALARA. FINDINGS: Visualized portions the lower chest demonstrate a right pleural catheter. Mild dilatation o f the ascending aorta is partially imaged. There is a trace right pleural effusion. A 4 mm lingular n odule is unchanged. Note is made of mild left lower lobe airspace opacity. There is also mild right m iddle lobe airspace opacity. Mediastinal tumor/lymphadenopathy is better depicted on prior contrast e nhanced CT of November 29, 2019. No pneumatosis, free air or portal venous gas is present. Evaluation o f the abdomen and pelvis is compromised on this exam. A 2 cm left adrenal nodule is unchanged since p rior CT but new from earlier CT. This suggests a metastasis. Gallbladder is mildly diffuse and appear s no pericholecystic infiltration. Unenhanced images of the liver, right adrenal gland and kidneys ar e unremarkable. There is no hydronephrosis. Extensive sigmoid diverticulosis is noted. There is mild sigmoid colon wall thickening with minimal pericolonic infiltration. There is no free air or abscess. A right inguinal hernia contains a loop of small bowel. This does not result in a bowel obstruction. Small bowel is fluid-filled and slightly dilated. No transition point is identified. Right colon is also fluid-filled. No suspicious osseous lesions are noted. Water attenuation right renal lesion was shown to reflect a cyst on prior contrast enhanced CT. IMPRESSION: 1. Technically difficult study to interpret given lack of contrast and paucity of intra-abdominal fat . 2. Extensive sigmoid diverticulosis. Mild sigmoid colon wall thickening with equivocal adjacent infil tration. Mild diverticulitis would be difficult to exclude. No free air or abscess. 3. Fluid-filled small bowel without discrete transition point. This favors an ileus or enteritis. A p artial small bowel obstruction could appear similar. Right inguinal hernia contains small bowel loops which does not appear to result in bowel obstruction. 4. Gallbladder distention without pericholecystic infiltration. No convincing evidence for acute chol ecystitis. 5. Redemonstration mediastinal tumor/lymphadenopathy, better depicted on prior chest CT. ACT 112: Negative or not required by law. Electronically signed by: Nasir Baker M.D. 12/23/2019 7:31 PM
[2019-12-23] MEDS: NSS + 20MEQ KCL 20 MEQ/1,000 ML BAG IV SCH (19:54)
[2019-12-23] MEDS: NYSTATIN SUSP 500,000 U/5 ML UDC PO SCH ×2 (19:54→21:44)
[2019-12-23] MEDS: FOLIC ACID 1 MG TAB PO SCH (21:20)
[2019-12-23] MEDS: MIRTAZAPINE TAB 15 MG TAB PO SCH (21:21)
[2019-12-23] MEDS: CHLORPROMAZINE HCL 25 MG TABLET PO SCH (21:21)
[2019-12-23] MEDS: ENOXAPARIN INJ 60 MG/0.6 ML SYR SQ SCH (21:44)
[2019-12-23 22:24] LABS: Appearance Urine Cloudy (Clear); Bacteria Urine Automated Negative (Negative); Bilirubin Urine Negative (Negative); Blood Urine Negative (Negative); Color Urine Orange; Epithelial Cell Urine Auto >30 /lpf (0-5); Glucose Urine UA Negative (Negative); Ketones Urine Trace (Negative); Leukocyte Esterase Urine Trace (Negative); Nitrite Urine Negative (Negative); Protein Urine 1+ (Negative); Specific Gravity Urine 1.025 (1.000-1.030); Urobilinogen Urine Negative (Negative); pH Urine 5.5 (4.5-7.5)
[2019-12-24] MEDS: PIPERACILLIN/TAZOBACTAM 3.375 GM in DEXTROSE 5% 100 ML IV SCH ×4 (02:35→23:52)
[2019-12-24] MEDS ORDERED: COUGH DROP (SUGAR FREE) LOZ 24 LOZ/1 BOX BUCCAL ONE ×2 (04:05→04:09)
[2019-12-24 04:18] LABS: Hematocrit (blood only) 30.2 % (42-52); Hemoglobin 10.4 g/dL (14.0-18.0); Mean Corpuscular Hgb Conc 34.4 g/dL (32-36); Mean Corpuscular Volume 89.9 fL (80-100); Mean Platelet Volume 10.7 fL (7.4-10.4); Nucleated RBC # (auto) 0.03 K/uL (0-0); Nucleated RBC % (auto) 1.5 %; Platelet Count 235 K/uL (130-400); RDW Coefficient of Variation 16.1 % (11.5-14.5); RDW Standard Deviation 52.8 fL (36.4-46.3); Red Blood Count 3.36 M/uL (4.7-6.1); White Blood Count 2.13 K/uL (4.8-10.8)
[2019-12-24 04:54] LABS: BUN Creatinine Ratio 41.3 (10-20); Basophils # (auto) 0.02 K/uL (0-0.2); Basophils % (auto) 0.9 %; Calcium 7.5 mg/dl (8.5-10.1); Creatinine Clr Calc Pharmacy 63.9 ml/min; Dohle Bodies 1+; Echinocytes 1+; Eosinophils # (auto) 0.03 K/uL (0-0.5); Eosinophils % (auto) 1.4 %; Est GFR (African American) 94.6; Est GFR (Non-African American) 81.6; Giant Platelets 1+; Immature Granulocytes # (auto) 0.11 K/uL (0.00-0.02); Immature Granulocytes % (auto) 5.2 %; Lymphocytes # (auto) 0.28 K/uL (1.2-3.4); Lymphocytes % (auto) 13.1 %; Magnesium 1.6 mg/dl (1.8-2.4); Monocytes # (auto) 0.12 K/uL (0.11-0.59); Monocytes % (auto) 5.6 %; Neutrophils # (auto) 1.57 K/uL (1.4-6.5); Neutrophils % (auto) 73.8 %; Potassium 2.7 mmol/L (3.5-5.1)
[2019-12-24] MEDS: NSS + 20MEQ KCL 20 MEQ/1,000 ML BAG IV SCH (05:48)
[2019-12-24] MEDS: NYSTATIN SUSP 500,000 U/5 ML UDC PO SCH ×2 (08:16→13:12)
[2019-12-24] MEDS: CHLORPROMAZINE HCL 25 MG TABLET PO SCH ×3 (08:18→19:44)
[2019-12-24] MEDS: ASPIRIN 81 MG ECTAB PO SCH (08:18)
[2019-12-24] MEDS: VANCOMYCIN HCL 750 MG in SODIUM CHLORIDE 0.9% 250 ML IV SCH ×2 (08:33→19:44)
[2019-12-24] MEDS ORDERED: POTASSIUM CHLORIDE 20 MEQ TABCR PO STA (08:56)
[2019-12-24] MEDS ORDERED: POTASSIUM CHLORIDE 40 MEQ, MAGNESIUM SULFATE 50% 4 GM in SODIUM CHLORIDE 0.9% 500 ML IV SCH (09:30)
--- NOTE | 2019-12-24 10:26 | XRay Report ---
XR KUB/Abdomen 1 view CLINICAL HISTORY: Ileus COMPARISON STUDY: 11/30/2019, CT scan dated 12/23/2019 FINDINGS: There is a right basilar pleural catheter. There are dilated mid abdominal small bowel loop s measuring up to 42 mm in diameter. There is gas present within nondilated colon. While the findings favor an ileus, a partial small bowel obstruction could appear similar IMPRESSION: Nonspecific bowel gas pattern with dilated central small bowel loops. ACT 112: Negative or not required by law. Electronically signed by: Chris Parmar M.D. 12/24/2019 10:24 AM
[2019-12-24] MEDS: ENOXAPARIN INJ 60 MG/0.6 ML SYR SQ SCH ×2 (10:56→19:44)
[2019-12-24] MEDS: MAGNESIUM SULFATE / D5W 1 GM/100 ML BAG IV SCH ×4 (10:57→16:11)
[2019-12-24] MEDS: PANTOprazole 40 MG in SYRINGE 0 ML IV SCH (10:57)
--- NOTE | 2019-12-24 13:30 | Hospitalist Progress Note ---
Date of Service December 24, 2019 Assessment & Plan (1) Sepsis: Resuscitated overnight. Possible bacteremia, however, this is only 1 of 4 bottles GPC positive for right now. Cont Vanc and repeat Blood cultures. May need repeat echo. He is feeling better today and WBC went down. Cont perdomo pportive care. At this time there is no other clear source except maybe a ?colitis. C-diff and stool culture is pending (2) Bacteremia: GPCs in blood. Continue Vanc empirically. Repeat Blood cultures ordered. Clinically improved today. (3) Fever: resolved with abx and treatment overnight. Cont to search for source of sepsis. (4) Nausea and vomiting: has a h/o recent SBO, but he is currently passing bowel and flatus. Has a hernia with bowel loops inside of it and had a hard time reducing it. Surgeon looked at him and was able to reduce it. No urgent need for OR at this time. Cont Zosyn pending culture results ans clinical improvement. (5) TERESA (acute kidney injury): resolved with IVF overnight. Switched him to magic mouthwash which I'm hoping will help him take more in PO. (6) Hypokalemia: Still low today. Gave an additional 80 KcL and 4gm Mg today. Repeat in am. (7) Hypomagnesemia: Still low today. Gave an additional 4 grams. Repeat in am. (8) Thrush: Thrush for several days. Impacts his ability to swallow because of pain. Switched him to Magic Mouthwash containing dexamethasone, benadryl and nystatin to see if this helps. May also consider liquid vycodin if not effective. (9) Lung cancer: Probable adenocarcinoma. Pleur x cath in place Following with Dr Griggs Had chemo on 12/09/2019 (Keytruda, Alimta, carboplatin) (10) Right inguinal hernia: Present and reducible. No urgent surgical needs today. (11) History of DVT (deep vein thrombosis): H/O RUE DVT in 10/2019. On Lovenox -Continue Lovenox BID (12) DVT prophylaxis: On Lovenox for recent known RUE DVT Full Code for now as per discussion with pt, however pt reports wants to further discuss with family for future consideration Dispo-uncertain at this time. Brynn Jeong DO [facility] Hospitalist Admission and Anticipated Discharge Date Admission Date: December 23, 2019 Subjective 64-year-old man with adenocarcinoma of the lung on chemotherapy most recently received on 12/08 presented to the ER with reports of fever and inability to tolerate oral intake. He was tachycardic and appeared septic on arrival. He was given cefepime and vancomycin and IV fluids were administered. He was found to have leukopenia on his CBC and hypokalemia. Initial white blood cell count was 1.73 with an ANC of 1200. Potassium was 2.8 creatinine was 1.37 magnesium was 1.7 procalcitonin was 0.25 urinalysis appeared negative and he denies any urinary tract infection symptoms. A COVID-19 screening was performed and negative. Initial blood pressure was 79/56 heart rate was 108 temp was 37.6 (99.7F) chest x-ray revealed no acute changes. He has chronic changes in the right upper lobe that were again noted. Overnight he states he feels much better and did not have any fevers or chills. He still has diarrhea and some abdominal pain. He has pain in his mouth secondary to stomatitis from chemo. He does not use Magic mouthwash typically. He was started on nystatin but this is not helping him. Repeat lab work this morning reveals white blood cell count of 2.13 with no differential performed. Potassium is 2.7 and creatinine reveals resolution of acute renal failure with a creatinine of 0.97 and a GFR of 64 lactate is 1.1 magnesium is 1.6. Over the past 1 to 2 weeks he has been experiencing abdominal pain and diarrhea despite 3 Imodium capsules taken daily. He does have a hernia which he has reportedly had difficulty reducing which is chronic. Although lactate was 1.1 I did consult general surgery who evaluated the patient and was able to reduce the hernia. There was no recommendation to press on to any operation at this time given his risk factors and nonurgent status. Blood cultures revealed gram- positive cocci. The patient does have a Pleurx catheter in place on the right anterior chest and a port in place on the left anterior chest. He did not note any changes in the pleural fluid recently. An abdominal CT reveals extensive sigmoid diverticulosis, mild sigmoid colon wall thickening with equivalent adjacent infiltration, fluid-filled small bowel without a discrete transition point favoring an ileus or enteritis. A small bowel obstruction could appear similar however he is passing gas and stool making this less likely. The right inguinal hernia he has contained small bowel loops which does not appear to have any bowel obstruction related. Gallbladder distention was seen with no evidence of cholecystitis. Review of Systems Review of Systems: All systems reviewed & are unremarkable except as noted in Subjective Physical Exam Physical Exam: CONSTITUTIONAL: thin, frail, vitals as above, generally ill- appearing EYES: EOMI bilaterally, PERRL, normal conjuctivae, no scleral icterus, no fundoscopic abnormality ENT: external ear and nose normal, oropharynx clear, no TM abnormality, no maxillary or ethmoid sinus tenderness NECK: trachea midline, no lymphadenopathy, normal thyroid RESPIRATORY: clear to auscultation bilaterally, no crackles, rales or wheezes, normal respiratory effort CARDIOVASCULAR: regular rate and rhythm, S1 and 2 heard without murmurs, gallops or rubs, no JVD, no peripheral edema, no carotid bruits CHEST: inspection of chest was normal (+pacemaker, +port) GASTROINTESTINAL: normal bowel sounds, soft, nontender, no hepatomegaly, no guarding MUSCULOSKELETAL: strength 5/5 throughout, head is normocephalic and atraumatic, neck supple, normal palpation of chest wall without tenderness SKIN: warm and dry, no rashes NEUROLOGIC: patellar DTRs 2+ bilat. PERRL, EOMI, no facial palsy, no dysarthria. Touch, pain and proprioception normal. CN 2-12 grossly intact, no sensory deficit, normal cognition, normal speech, no tremor PSYCHIATRIC: alert cooperative and oriented to person, place and time. Euthymic mood, makes good eye contact, language grossly intact, recent and remote memory grossly intact. LYMPHATIC: no LAD Results & Data Results & Data ([facility]) Vital Signs (Past 12 Hours) Vital Signs Temp Pulse Resp BP Pulse Ox 12/24/19 12:05 36.6 C 89 18 97/65 L 95 12/24/19 07:11 36.8 C 116 H 17 94/63 L 94 12/24/19 03:23 37 C 115 H 16 91/61 L 95 Laboratory Results Short CBC 12/23/19 12/24/19 Range/Units 14:23 04:08 WBC 1.73 L 2.13 L (4.8-10.8) K/uL Hgb 12.0 L 10.4 L (14.0-18.0) g/dL Hct 35.1 L 30.2 L (42-52) % Plt Count 241 235 (130-400) K/uL BMP 12/23/19 12/24/19 14:23 04:08 Sodium 138 142 Potassium 2.8 L 2.7 L Chloride 102 112 H Carbon Dioxide 25 21 BUN 47 H 40 H Creatinine 1.37 0.97 D Glucose 125 H 90 Calcium 8.0 L 7.5 L Cardiac Enzymes 12/23/19 Range/Units 14:23 Troponin I < 0.015 (0-0.045) ng/ml Liver Function 12/23/19 Range/Units 14:23 Total Bilirubin 0.5 (0.2-1) mg/dl AST 14 L (15-37) U/L ALT 20 (12-78) U/L Alkaline Phosphatase 76 (45-117) U/L Albumin 2.1 L (3.4-5.0) gm/dl Urine 12/23/19 Range/Units Unknown Urine Color [place] Urine Appearance Cloudy A (Clear) Urine pH 5.5 (4.5-7.5) Ur Specific [place] 1.025 (1.000-1.030) Urine Protein 1+ H (Negative) Urine Glucose (UA) Negative (Negative) Medications Administered Current Inpatient Medications Acetaminophen (Acetaminophen 325 Mg Tab) 650 mg PO Q4H PRN PRN Reason: Pain or Fever Stop: 01/22/20 17:48 Aspirin (Aspirin 81 Mg Ectab) 81 mg PO QAM [facility] Stop: 01/23/20 08:59 Last Admin: 12/24/19 08:18 Dose: Not Given Documented by: Chlorpromazine HCl (Chlorpromazine Hcl 25 Mg Tablet) 25 mg PO TID SEBASTIAN Stop: 01/22/20 20:59 Last Admin: 12/24/19 13:12 Dose: Not Given Documented by: Enoxaparin Sodium (Enoxaparin Inj 60 Mg/0.6 Ml Syr) 60 mg SQ Q12 [facility]STIAN Stop: 01/22/20 20:59 Last Admin: 12/24/19 10:56 Dose: 60 mg Documented by: Folic Acid (Folic Acid 1 Mg Tab) 1 mg PO HS SEBASTIAN Stop: 01/22/20 20:59 Last Admin: 12/23/19 21:20 Dose: Not Given Documented by: Heparin Sodium (Porcine) (Heparin 100 Unit/Ml 5ml Flush) 5 ml FLUSH PRN PRN PRN Reason: Flush Stop: 01/22/20 22:48 Potassium Chloride/Sodium Chloride (Normal Saline W/20 Meq Kcl) 20 meq in 1,000 mls @ 100 mls/hr IV .Q10H [facility] Stop: 12/24/19 14:14 Last Admin: 12/24/19 05:48 Dose: 100 mls/hr Documented by: Pantoprazole Sodium 40 mg/ (Syringe) 10 mls @ 5 mls/min IV DAILY@1100 [facility] Stop: 01/23/20 10:59 Last Admin: 12/24/19 10:57 Dose: 5 mls/min Documented by: Piperacillin Sod/Tazobactam (Sod 3.375 gm/ Dextrose) 115 mls @ 28.75 mls/hr IV Q8H [facility]; Protocol Stop: 12/26/19 00:00 Last Infusion: 12/24/19 12:15 Dose: Infused Documented by: Vancomycin HCl 750 mg/ Sodium (Chloride) 265 mls @ 125 mls/hr IV Q12@0800,2000 [facility]; Protocol Stop: 12/26/19 08:29 Last Infusion: 12/24/19 10:58 Dose: Infused Documented by: Magnesium Sulfate/Dextrose (Magnesium Sulfate / D5w) 1 gm in 100 mls @ 50 mls/hr IV Q2H [facility] Stop: 12/24/19 17:29 Last Admin: 12/24/19 13:11 Dose: 50 mls/hr Documented by: Potassium Chloride 40 meq/Magnesium Sulfate 4 gm/ Sodium Chloride 528 mls @ 125 mls/hr IV .Q4H14M [facility] Stop: 12/24/19 13:30 Last Admin: 12/24/19 10:57 Dose: 125 mls/hr Documented by: Mirtazapine (Mirtazapine Tab 15 Mg Tab) 15 mg PO HS [facility] Stop: 01/22/20 20:59 Last Admin: 12/23/19 21:21 Dose: Not Given Documented by: Miscellaneous Information (Vancomycin Consult Active) 1 ea N/A UD PRN PRN Reason: Consult Stop: 01/22/20 14:13 Last Admin: 12/23/19 15:05 Dose: 1 ea Documented by: Miscellaneous Information (Piperacill/Tazobac Consult Active) 1 ea N/A UD PRN PRN Reason: Consult Stop: 01/22/20 18:01 Nystatin (Nystatin Susp 500,000 U/5 Ml Udc) 5 ml PO QID [facility]STIAN Stop: 01/02/20 18:14 Last Admin: 12/24/19 13:12 Dose: 5 ml Documented by: Ondansetron HCl (Ondansetron Inj 2 Mg/Ml 2 Ml Vial) 4 mg IV Q6H PRN PRN Reason: Nausea Stop: 01/22/20 17:48
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
--- NOTE | 2019-12-24 14:34 | Pharmacy Report ---
Pharmacy Abx Dose Short Note - Date of Service December 24, 2019 - Assessment & Plan Assessment 64 year old M receiving empiric vancomycin and Zosyn for treatment of febrile neutropenia. Patient with adenocarcinoma lung cancer - last chemo on 12/09/19 (Keytrudda, Alimta, and carboplatin). Patient with low-grade fever on admission yesterday (Tmax: 37.6 C). Abdominal/pelvic CT revealed extensive sigmoid diverticulosis - mild diverticulitis would be difficult to exclude. Significant change in renal function observed overnight (SCr: 1.37 -> 0.97 mg/dL) - will continue to follow renal function. Day # 2 of antimicrobial therapy. Microbiology: 12/22 - blood culture #1: gram positive cocci in clusters 12/22 - blood culture #2: pending 12/22 - urine: pending Plan Vancomycin * Random vanco level this AM of 10.7 mcg/mL * Will order vanco 750 mg IV q12h * Goal trough level for febrile neutropenia : 15 to 20 mcg/mL * Will order vanco trough if therapy is to be continued beyond 48 hours Zosyn * 3.375 g IV q8h - appropriate based on BMI and renal function Pharmacy will continue to follow and will adjust dose/frequency as necessary. Thank you.
[2019-12-24] MEDS ORDERED: NYSTATIN 0.625 ML, DEXAMETHASONE CONC 0.078 MG, DiphenhydrAMINE Syrup 6.25 MG, ORA-SWEE... PO ONE (15:44)
[2019-12-24] MEDS: Magic Mouthwash 240mL PO SCH ×2 (18:37→19:45)
[2019-12-24] MEDS ORDERED: POTASSIUM CHLORIDE 40 MEQ in SODIUM CHLORIDE 0.9% 500 ML IV SCH (19:00)
[2019-12-24] MEDS: MIRTAZAPINE TAB 15 MG TAB PO SCH (19:44)
[2019-12-24] MEDS: FOLIC ACID 1 MG TAB PO SCH (19:44)
[2019-12-25 07:18] LABS: Hematocrit (blood only) 30.4 % (42-52); Hemoglobin 10.1 g/dL (14.0-18.0); Mean Corpuscular Hemoglobin 30.2 pg (25-34); Mean Corpuscular Hgb Conc 33.2 g/dL (32-36); Mean Platelet Volume 11.1 fL (7.4-10.4); Nucleated RBC # (auto) 0.03 K/uL (0-0); Nucleated RBC % (auto) 0.8 %; Platelet Count 290 K/uL (130-400); RDW Coefficient of Variation 16.6 % (11.5-14.5); RDW Standard Deviation 55.8 fL (36.4-46.3); Red Blood Count 3.34 M/uL (4.7-6.1); White Blood Count 3.71 K/uL (4.8-10.8)
[2019-12-25 07:52] LABS: BUN Creatinine Ratio 33.8 (10-20); Calcium 7.5 mg/dl (8.5-10.1); Creatinine Clr Calc Pharmacy 82.9 ml/min; Est GFR (Non-African American) 95.7; Magnesium 2.8 mg/dl (1.8-2.4); Potassium 3.1 mmol/L (3.5-5.1)
[2019-12-25 07:55] LABS: Basophils # (auto) 0.01 K/uL (0-0.2); Basophils % (auto) 0.3 %; Dohle Bodies 2+; Echinocytes 2+; Eosinophils # (auto) 0.08 K/uL (0-0.5); Eosinophils % (auto) 2.2 %; Giant Platelets 1+; Immature Granulocytes # (auto) 0.12 K/uL (0.00-0.02); Immature Granulocytes % (auto) 3.2 %; Lymphocytes # (auto) 0.39 K/uL (1.2-3.4); Lymphocytes % (auto) 10.5 %; Monocytes # (auto) 0.23 K/uL (0.11-0.59); Monocytes % (auto) 6.2 %; Neutrophils # (auto) 2.88 K/uL (1.4-6.5); Neutrophils % (auto) 77.6 %; Toxic Granulation 2+
[2019-12-25 08:08] LABS: Phosphorus 1.5 mg/dl (2.5-4.9)
[2019-12-25] MEDS: VANCOMYCIN HCL 750 MG in SODIUM CHLORIDE 0.9% 250 ML IV SCH (08:19)
[2019-12-25] MEDS: ASPIRIN 81 MG ECTAB PO SCH (08:19)
[2019-12-25] MEDS: PIPERACILLIN/TAZOBACTAM 3.375 GM in DEXTROSE 5% 100 ML IV SCH (08:19)
[2019-12-25] MEDS: Magic Mouthwash 240mL PO SCH ×4 (08:20→20:25)
[2019-12-25] MEDS: CHLORPROMAZINE HCL 25 MG TABLET PO SCH ×3 (08:20→20:25)
[2019-12-25] MEDS ORDERED: SODIUM PHOSPHATE 3 MMOL/1 ML 5 ML VIAL IV ONE (08:32)
[2019-12-25] MEDS ORDERED: SODIUM PHOSPHATE 30 MMOL in SODIUM CHLORIDE 0.9% 500 ML IV ONE (09:00)
[2019-12-25] MEDS ORDERED: POTASSIUM CHLORIDE 40 MEQ in SODIUM CHLORIDE 0.9% 500 ML IV SCH (09:00)
--- NOTE | 2019-12-25 11:08 | Surgery Progress Note ---
Date of Service December 25, 2019 Assessment & Plan (1) Right inguinal hernia: Patient has right inguinal hernia. No longer protruding No indication for immediate surgical intervention We will sign off, please let me know if there is anything else that we can do to be of assistance. Admission and Anticipated Discharge Date Admission Date: December 23, 2019 Subjective Sleeping this morning Arousable Stated the right inguinal region is not causing any discomfort today Has no nausea or vomiting Physical Exam Gastrointestinal (Abdomen): Inspection/Auscultation: abdomen normal to inspection Percussion/Palpation: abdomen soft Right inguinal hernia is not protruding Results & Data ([facility]) Vital Signs (Past 12 Hours) Vital Signs Temp Pulse Resp BP Pulse Ox 12/25/19 06:52 36.3 C L 87 16 93/56 L 93 12/25/19 03:53 36.4 C L 84 18 100/69 97 12/24/19 23:19 36.6 C 105 H 16 99/65 L 94
[2019-12-25] MEDS: ENOXAPARIN INJ 60 MG/0.6 ML SYR SQ SCH ×2 (11:13→20:25)
[2019-12-25] MEDS: PANTOprazole 40 MG in SYRINGE 0 ML IV SCH (11:15)
--- NOTE | 2019-12-25 11:21 | Hospitalist Progress Note ---
Date of Service December 25, 2019 Assessment & Plan (1) Sepsis: Resuscitated and clinically improved. Staph species present, awaiting speciation. Rojelio ID consulted. Pleural fluid also has Staph species present (culture taken from Pleurex catheter). Repeat echo ordered for am. WBC improved to 3. Cont supportive care. Diarrhea resolved. ?pleural fluid source. With no evidence of enteritis, colitis or UTI and diarrhea improved, and no clear cholecystitis present will stop Zosyn at this time. Cont Vanc for staph bacteremia as above. If declines overnight would add zosyn back again. (2) Bacteremia: Staph species, plan as above. (3) Fever: resolved now for 48 hours. (4) Nausea and vomiting: has a h/o recent SBO, but he is currently passing bowel and flatus. improved and he is eating but seems to have some regurgitation issues on occasion. Will consult speech to weigh in. (5) TERESA (acute kidney injury): resolved (6) Hypokalemia: replace and repeat later today. (7) Hypomagnesemia: repleted, diarrhea stopped. (8) Thrush: Thrush for several days. Impacts his ability to swallow because of pain. Switched him to Magic Mouthwash containing dexamethasone, benadryl and nystatin which has been helpful for him. Per my discussion with him, will also give some Lortab elixir as a trial for additional pain control (9) Lung cancer: Probable adenocarcinoma. Pleur x cath in place Following with Dr Griggs Had chemo on 12/09/2019 (Keytruda, Alimta, carboplatin) (10) Right inguinal hernia: Present and reducible. No urgent surgical needs (11) History of DVT (deep vein thrombosis): H/O RUE DVT in 10/2019. On Lovenox -Continue Lovenox BID (12) DVT prophylaxis: On Lovenox for recent known RUE DVT Full Code Dispo-cont PCU for now. Otherwise uncertain dispo home. will add PT/ OT consults. DO Rojelio Josue Hospitalist Admission and Anticipated Discharge Date Admission Date: December 23, 2019 Subjective Pt looks much better today He is swallowing easier with the magic mouthwash tolerating liquids denies diarrhea today, no abd pain some nausea and vomiting moreso as a regurgitation as a result of dysphagia though. will ask speech to evaluate him. Review of Systems Review of Systems: All systems reviewed & are unremarkable except as noted in Subjective Physical Exam Physical Exam: CONSTITUTIONAL: thin, frail, vitals as above, generally ill- appearing EYES: normal conjunctivae, no scleral icterus ENT: external ear and nose normal, oral mucous membranes appear irritated RESPIRATORY: clear to auscultation bilaterally, some crackles at the right base, clear on the left,no rales or wheezes, normal respiratory effort CARDIOVASCULAR: regular rate and rhythm, S1 and 2 heard without murmurs, gallops or rubs, no JVD, no peripheral edema CHEST: port to left anterior chest-accesed. Pleurex catheter covered on right anterior chest wall. GASTROINTESTINAL: soft, nontender, nondistended, no inguinal hernia palpable today, no guarding. MUSCULOSKELETAL: strength 5/5 throughout, head is normocephalic and atraumatic SKIN: warm and dry NEUROLOGIC: No facial palsy, no dysarthria. CN 2-12 grossly intact, normal cognition, normal speech PSYCHIATRIC: alert cooperative and oriented to person, place and time. Results & Data Results & Data ([facility]) Vital Signs (Past 12 Hours) Vital Signs Temp Pulse Resp BP Pulse Ox 12/25/19 06:52 36.3 C L 87 16 93/56 L 93 12/25/19 03:53 36.4 C L 84 18 100/69 97 Laboratory Results Short CBC 12/25/19 Range/Units 07:04 WBC 3.71 L (4.8-10.8) K/uL Hgb 10.1 L (14.0-18.0) g/dL Hct 30.4 L (42-52) % Plt Count 290 (130-400) K/uL BMP 12/25/19 07:01 Sodium 144 Potassium 3.1 L Chloride 114 H Carbon Dioxide 23 BUN 26 H Creatinine 0.76 Glucose 114 H Calcium 7.5 L Medications Administered Current Inpatient Medications Acetaminophen (Acetaminophen 325 Mg Tab) 650 mg PO Q4H PRN PRN Reason: Pain or Fever Stop: 01/22/20 17:48 Aspirin (Aspirin 81 Mg Ectab) [facility] [place] Stop: 01/23/20 08:59 Last Admin: 12/25/19 08:19 Dose: 81 mg Documented by: Chlorpromazine HCl (Chlorpromazine Hcl 25 Mg Tablet) 25 mg PO TID [facility] Stop: 01/22/20 20:59 Last Admin: 12/25/19 08:20 Dose: 25 mg Documented by: Nystatin 30 ml/ Dexamethasone 3.75 mg/ Diphenhydramine HCl 300 mg/ Sucrose 45 ml/Microcrystalline Cellulose 45 ml/ BARCODE IDENTIFIER 1 ea 0 ml PO QID [facility] Stop: 01/23/20 15:59 Last Admin: 12/25/19 08:20 Dose: 10 ml Documented by: Enoxaparin Sodium (Enoxaparin Inj 60 Mg/0.6 Ml Syr) 60 mg SQ Q12 [facility] Stop: 01/22/20 20:59 Last Admin: 12/25/19 11:13 Dose: 60 mg Documented by: Folic Acid (Folic Acid 1 Mg Tab) 1 mg PO HS [facility] Stop: 01/22/20 20:59 Last Admin: 12/24/19 19:44 Dose: 1 mg Documented by: Heparin Sodium (Porcine) (Heparin 100 Unit/Ml 5ml Flush) 5 ml FLUSH PRN PRN PRN Reason: Flush Stop: 01/22/20 22:48 Pantoprazole Sodium 40 mg/ (Syringe) 10 mls @ 5 mls/min IV DAILY@1100 [facility] Stop: 01/23/20 10:59 Last Admin: 12/25/19 11:15 Dose: 5 mls/min Documented by: Piperacillin Sod/Tazobactam (Sod 3.375 gm/ Dextrose) 115 mls @ 28.75 mls/hr IV Q8H [facility]; Protocol Stop: 12/26/19 00:00 Last Admin: 12/25/19 08:19 Dose: 28.8 mls/hr Documented by: Vancomycin HCl 750 mg/ Sodium (Chloride) 265 mls @ 125 mls/hr IV Q12@0800,2000 [facility]; Protocol Stop: 12/26/19 08:29 Last Infusion: 12/25/19 11:04 Dose: Infused Documented by: Potassium Chloride 40 meq/ (Sodium Chloride) 520 mls @ 125 mls/hr IV .Q4H10M [facility] Stop: 12/25/19 13:00 Last Admin: 12/25/19 09:21 Dose: 125 mls/hr Documented by: Sodium Phosphate 30 mmol/ (Sodium Chloride) 510 mls @ 102 mls/hr IV ONE ONE Stop: 12/25/19 13:59 Last Admin: 12/25/19 09:21 Dose: 102 mls/hr Documented by: Mirtazapine (Mirtazapine Tab 15 Mg Tab) 15 mg PO HS [facility] Stop: 01/22/20 20:59 Last Admin: 12/24/19 19:44 Dose: 15 mg Documented by: Miscellaneous Information (Vancomycin Consult Active) 1 ea N/A UD PRN PRN Reason: Consult Stop: 01/22/20 14:13 Last Admin: 12/23/19 15:05 Dose: 1 ea Documented by: Miscellaneous Information (Piperacill/Tazobac Consult Active) 1 ea N/A UD PRN PRN Reason: Consult Stop: 01/22/20 18:01 Ondansetron HCl (Ondansetron Inj 2 Mg/Ml 2 Ml Vial) 4 mg IV Q6H PRN PRN Reason: Nausea Stop: 01/22/20 17:48
[2019-12-25] MEDS ORDERED: ACETAMINOPHEN/HYDROCODONE ELIX 15 ML/CUP UDP PO PRN (14:26)
--- NOTE | 2019-12-25 18:23 | Pharmacy Report ---
Pharmacy Abx Dose Short Note - Date of Service December 25, 2019 - Assessment & Plan Assessment 64 year old M receiving Vancomycin for empiric treatment. Day # 3 of antimicrobial therapy. Empiric treatment extended due to Staph species growing in Pleural culture and one of 2 blood cultures. Plan Vancomycin * Random level of 15.6 mcg/mL is subtherapeutic. Drawn prior to steady state due to growth in cultures to ensure adequate dosing. * Change to 1250 mg IV every 12 hours (AUC dosing) * Goal trough level: 15 to 20 mcg/mL * Recommend trough level to be drawn if vanc therapy extended. No levels ordered at this time. Pharmacy will continue to follow and will adjust dose/frequency as necessary. Thank you.
[2019-12-25] MEDS: VANCOMYCIN HCL 1,250 MG in SODIUM CHLORIDE 0.9% 250 ML IV SCH (18:31)
[2019-12-25] MEDS: FOLIC ACID 1 MG TAB PO SCH (20:25)
[2019-12-25] MEDS: MIRTAZAPINE TAB 15 MG TAB PO SCH (20:25)
[2019-12-25] MEDS: HEPARIN 100 UNIT/ML 5ML FLUSH FLUSH PRN (20:26)
[2019-12-26] MEDS: VANCOMYCIN HCL 1,250 MG in SODIUM CHLORIDE 0.9% 250 ML IV SCH (06:01)
[2019-12-26 07:14] LABS: Creatinine Clr Calc Pharmacy 105.8 ml/min; Est GFR (African American) 119.1; Est GFR (Non-African American) 102.7
[2019-12-26] MEDS: ASPIRIN 81 MG ECTAB PO SCH (07:33)
[2019-12-26] MEDS: ENOXAPARIN INJ 60 MG/0.6 ML SYR SQ SCH ×2 (07:33→20:46)
[2019-12-26] MEDS: CHLORPROMAZINE HCL 25 MG TABLET PO SCH ×3 (07:33→20:46)
[2019-12-26] MEDS: Magic Mouthwash 240mL PO SCH ×4 (08:24→20:47)
[2019-12-26 09:05] LABS: Hematocrit (blood only) 29.5 % (42-52); Hemoglobin 9.8 g/dL (14.0-18.0); Mean Corpuscular Hgb Conc 33.2 g/dL (32-36); Mean Corpuscular Volume 93.4 fL (80-100); Mean Platelet Volume 11.4 fL (7.4-10.4); Nucleated RBC % (auto) 3.1 %; Platelet Count 336 K/uL (130-400); RDW Coefficient of Variation 16.9 % (11.5-14.5); RDW Standard Deviation 57.1 fL (36.4-46.3); Red Blood Count 3.16 M/uL (4.7-6.1); White Blood Count 3.16 K/uL (4.8-10.8)
[2019-12-26 09:21] LABS: Calcium 7.7 mg/dl (8.5-10.1); Creatinine Clr Calc Pharmacy 112.8 ml/min; Est GFR (African American) 122.3; Est GFR (Non-African American) 105.5; Magnesium 2.1 mg/dl (1.8-2.4); Phosphorus 2.1 mg/dl (2.5-4.9); Potassium 3.2 mmol/L (3.5-5.1)
[2019-12-26 09:32] LABS: Acanthocytes 1+; Basophils # (auto) 0.02 K/uL (0-0.2); Basophils % (auto) 0.6 %; Dohle Bodies 1+; Echinocytes 2+; Eosinophils # (auto) 0.09 K/uL (0-0.5); Eosinophils % (auto) 2.8 %; Giant Platelets 2+; Howell-Jolly Bodies 1+; Immature Granulocytes # (auto) 0.17 K/uL (0.00-0.02); Immature Granulocytes % (auto) 5.4 %; Lymphocytes # (auto) 0.42 K/uL (1.2-3.4); Lymphocytes % (auto) 13.3 %; Monocytes # (auto) 0.27 K/uL (0.11-0.59); Monocytes % (auto) 8.5 %; Neutrophils # (auto) 2.19 K/uL (1.4-6.5); Neutrophils % (auto) 69.4 %; Target Cells 1+; Toxic Granulation 1+
[2019-12-26] MEDS ORDERED: POTASSIUM CHLORIDE 20 MEQ TABCR PO STA (09:32)
--- NOTE | 2019-12-26 09:37 | Hospitalist Progress Note ---
Date of Service December 26, 2019 Assessment & Plan (1) Sepsis: Resuscitated and clinically improved. 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 Possible infected pleural space. Recommendations to switch to ceftriaxone, have him evaluated by thoracic surgery to decide if his pleurX catheter should be removed, ANA. He is clinically improved today, however, around lunchtime he developed a sinus tachycardia in the 130s that was persistent without pain or hypovolemia or other obvious cause. Not clinically deteriorating. Diarrhea resolved. Initial studies revealed no evidence of pneumonia, and he did have a CT a/p. Will obtain a CT chest at this time to better visualize this area. Will consult pulm for assistance. For now, will continue new ceftriaxone overnight and see how he improves. CT chest w contrast: (2) Bacteremia: Staph species, cont ceftriaxone per ID plan. Consider ANA. Not sure if this is truly necessary as his second blood cultures cleared. Will discuss further with them in am. (3) Fever: resolved now for 72 hours. (4) Nausea and vomiting: resolved and swallowing with more ease now that stomatitis is improved. N/V is resolved and he is tolerating a regular diet. (5) Lung cancer: AdenoCA of right lung, now with ?mets to adrenal gland. Following with Dr Griggs Had first chemo on 12/09/2019 (Keytruda, Alimta, carboplatin) Patient sent for severe SOB from PCP abida on 10/06 to [facility] where he was admitted until 10/18/19. -RUE DVT found and started on full dose Lovenox -echo revealsed pericardial effusion and window was performed on 10/12 with effusion consistent with adenocarcinoma -persistent SOB lead to thoracis surgery draining R side and placing PleurX on 10/18/2019 -12/05/2019-IVAD (port) placement by Dr. Grady at [facility] -12/09/2019 first chemotherapy trt (6) Right inguinal hernia: Present and reducible. No urgent surgical needs (7) History of DVT (deep vein thrombosis): H/O RUE DVT in 10/2019. On Lovenox -Continue Lovenox BID (8) Oral candidiasis: MagicMouthwash x 10 days (includes Nystatin) (9) Stomatitis: Improved wtih Magic Mouthwash and liquid Lortab (10) Malnutrition: Boost supplementation per Nutrition. (11) DVT prophylaxis: On Lovenox for recent known RUE DVT Full Code Dispo-cont PCU for now. Discussed developing situation with catheter with he and his girlfriend this evening. All questions answered and they are in agreement with the plan. DO Rojelio Josue Hospitalist Admission and Anticipated Discharge Date Admission Date: December 23, 2019 Subjective Pt reports he is feeling well today and eating better. He reports some congestion and stringy mucus that he expectorates on occasion Afebrile overnight, no chills, abd pain, chest pain, diarrhea, or pain in his mouth He reports that it is now easier to swallow. Became more tachy in the 130s just after lunchtime but denied pain or and other symptoms. reported that he just wanted to rest. Rojelio ID consult with concern for infected pleural space. Also with bacteremia. Review of Systems Review of Systems: All systems reviewed & are unremarkable except as noted in Subjective Physical Exam Physical Exam: CONSTITUTIONAL: thin, frail, vitals as above, NAD EYES: normal conjunctivae, no scleral icterus ENT: external ear and nose normal, oral mucous membranes appear less irritated, Pt just drank grape juice and discolored entire mouth reddish color NECK: no pain or LAD RESPIRATORY: clear to auscultation bilaterally, no c/w/r, normal respiratory effort CARDIOVASCULAR: regular rate and rhythm, S1 and 2 heard without murmurs, gallops or rubs, no JVD, no peripheral edema CHEST: port to left anterior chest-accessed. Pleurx catheter covered on right anterior chest wall, area around insertion in dry without any drainage and no erythema. GASTROINTESTINAL: soft, nontender, nondistended, no inguinal hernia palpable today, no guarding. MUSCULOSKELETAL: strength 5/5 throughout, head is normocephalic and atraumatic SKIN: warm and dry NEUROLOGIC: No facial palsy, no dysarthria. CN 2-12 grossly intact, normal cognition, normal speech PSYCHIATRIC: alert cooperative and oriented to person, place and time. Results & Data Results & Data ([facility]) Vital Signs (Past 12 Hours) Vital Signs Temp Pulse Pulse Pulse Pulse Resp BP 12/26/19 08:00 105 H 12/26/19 06:59 36.5 C 87 18 115/81 12/26/19 02:58 36.4 C L 84 18 107/75 12/25/19 23:35 110 H 12/25/19 23:28 36.3 C L 106 H 20 116/83 Pulse Ox 12/26/19 08:00 12/26/19 06:59 97 12/26/19 02:58 96 12/25/19 23:35 12/25/19 23:28 96 Laboratory Results Short CBC 12/26/19 Range/Units 06:04 WBC 3.16 L (4.8-10.8) K/uL Hgb 9.8 L (14.0-18.0) g/dL Hct 29.5 L (42-52) % Plt Count 336 (130-400) K/uL BMP 12/26/19 12/26/19 06:04 06:05 Sodium 145 Potassium 3.2 L Chloride 114 H Carbon Dioxide 23 BUN 17 Creatinine 0.60 0.64 Glucose 91 Calcium 7.7 L Diagnostic Findings CHEST CT WITH CONTRAST CT DOSE: 282.26 mGy.cm HISTORY: Shortness of breath. pleurx catheter, concern for empyema TECHNIQUE: Multiaxial CT images of the chest were performed following the intravenous administration of contrast. A dose lowering technique was utilized adhering to the principles of ALARA. COMPARISON: Chest CT 10/06/2019. FINDINGS: A small right pleural effusion has increased in size. Right basilar pleural catheter remains in good position. There is a trace left pleural effusion which is also increased in size. Redemonstration of the right upper complete collapse due to severe narrowing of the right upper lobe bronchus. This has improved in the interval. Necrotic lymphadenopathy has decreased in size. Dominant paratracheal lymph node currently measures 3.5 cm. Heterogeneous appearance to the collapsed right upper suggest neoplastic involvement. A left jugular Port-A-Cath terminates in the mid SVC. There is severe compression of the mid SVC due to the necrotic lymphadenopathy. Diffuse body wall edema. The study is inadequate to assess for a pulmonary embolus due to the poor opacification of the pulmonary arterial tree. Normal caliber thoracic aorta with no evidence for dissection. The heart is normal in size. Small pericardial effusion is noted. Limited views of the upper abdomen demonstrate a normal liver and right adrenal gland. The spleen is not identified and may be surgically absent. There is a 1.4 cm metastatic nodule within the left adrenal gland. Decrease in size in the mildly enlarged left inguinal lymph nodes. No enhancement within the pleural effusions to suggest an infectious process. No suspicious lytic or blastic osseous lesions. No pneumothorax. Stable 5 mm nodule within the left upper lobe on image 183. Focal areas of consolidation within the medial aspect of the right middle lobe and right lower lobe posteriorly favor a telectasis. IMPRESSION: 1. Small right and trace left pleural effusions. The right basilar pleural catheter is in good position. No pleural enhancement to suggest an underlying infection. 2. Persistent right upper lobe collapse. There is a heterogeneous appearance to the collapsed right upper lobe suggesting underlying tumor. 3. Necrotic mediastinal, hilar, left axillary lymphadenopathy which has improved. 4. Severe compression of the SVC due to the necrotic lymphadenopathy. 5. Small pericardial effusion which is improved. 6. Metastatic left adrenal gland nodule is again noted. 7. Stable 5 mm nodule within the left upper lobe. 8. Additional findings as described above. Medications Administered Current Inpatient Medications Acetaminophen (Acetaminophen 325 Mg Tab) 650 mg PO Q4H PRN PRN Reason: Pain or Fever Stop: 01/22/20 17:48 Hydrocodone Bitart/Acetaminophen (Acetaminophen/Hydrocodone Elix 15 Ml/Cup Udp) 15 ml PO Q6H PRN PRN Reason: Pain Stop: 01/08/20 14:25 Last Admin: 12/25/19 15:18 Dose: 15 ml Documented by: Aspirin (Aspirin 81 Mg Ectab) 81 mg PO QAM [facility] Stop: 01/23/20 08:59 Last Admin: 12/26/19 07:33 Dose: 81 mg Documented by: Chlorpromazine HCl (Chlorpromazine Hcl 25 Mg Tablet) 25 mg PO TID [facility] Stop: 01/22/20 20:59 Last Admin: 12/26/19 07:33 Dose: 25 mg Documented by: Nystatin 30 ml/ Dexamethasone 3.75 mg/ Diphenhydramine HCl 300 mg/ Sucrose 45 ml/Microcrystalline Cellulose 45 ml/ BARCODE IDENTIFIER 1 ea 0 ml PO QID [facility] Stop: 01/23/20 15:59 Last Admin: 12/26/19 08:24 Dose: 10 ml Documented by: Enoxaparin Sodium (Enoxaparin Inj 60 Mg/0.6 Ml Syr) 60 mg SQ Q12 [facility] Stop: 01/22/20 20:59 Last Admin: 12/26/19 07:33 Dose: 60 mg Documented by: Folic Acid (Folic Acid 1 Mg Tab) 1 mg PO HS [facility] Stop: 01/22/20 20:59 Last Admin: 12/25/19 20:25 Dose: 1 mg Documented by: Heparin Sodium (Porcine) (Heparin 100 Unit/Ml 5ml Flush) 5 ml FLUSH PRN PRN PRN Reason: Flush Stop: 01/22/20 22:48 Last Admin: 12/25/19 20:26 Dose: 5 ml Documented by: Pantoprazole Sodium 40 mg/ (Syringe) 10 mls @ 5 mls/min IV DAILY@1100 [facility] Stop: 01/23/20 10:59 Last Admin: 12/25/19 11:15 Dose: 5 mls/min Documented by: Vancomycin HCl 1,250 mg/ (Sodium Chloride) 275 mls @ 125 mls/hr IV Q12H [facility] Stop: 12/26/19 17:59 Last Infusion: 12/26/19 08:29 Dose: Infused Documented by: Mirtazapine (Mirtazapine Tab 15 Mg Tab) 15 mg PO HS [facility] Stop: 01/22/20 20:59 Last Admin: 12/25/19 20:25 Dose: 15 mg Documented by: Miscellaneous Information (Vancomycin Consult Active) 1 ea N/A UD PRN PRN Reason: Consult Stop: 01/22/20 14:13 Last Admin: 12/23/19 15:05 Dose: 1 ea Documented by: Ondansetron HCl (Ondansetron Inj 2 Mg/Ml 2 Ml Vial) 4 mg IV Q6H PRN PRN Reason: Nausea Stop: 01/22/20 17:48
[2019-12-26] MEDS: PANTOprazole 40 MG in SYRINGE 0 ML IV SCH (10:21)
[2019-12-26] MEDS: guaiFENesin 600 MG TABCR PO SCH ×2 (15:49→20:46)
[2019-12-26] MEDS ORDERED: OPTIRAY 320 125ml IV ONE (18:00)
[2019-12-26] MEDS: cefTRIAXone SODIUM 2,000 MG in DEXTROSE 5% 50 ML IV SCH (18:08)
--- NOTE | 2019-12-26 18:16 | CT Scan Report ---
CHEST CT WITH CONTRAST CT DOSE: 282.26 mGy.cm HISTORY: Shortness of breath. pleurx catheter, concern for empyema TECHNIQUE: Multiaxial CT images of the chest were performed following the intravenous administration of contrast. A dose lowering technique was utilized adhering to the principles of ALARA. COMPARISON: Chest CT 10/06/2019. FINDINGS: A small right pleural effusion has increased in size. Right basilar pleural catheter remain s in good position. There is a trace left pleural effusion which is also increased in size. Redemonst ration of the right upper complete collapse due to severe narrowing of the right upper lobe bronchus. This has improved in the interval. Necrotic lymphadenopathy has decreased in size. Dominant paratrac heal lymph node currently measures 3.5 cm. Heterogeneous appearance to the collapsed right upper sugg est neoplastic involvement. A left jugular Port-A-Cath terminates in the mid SVC. There is severe com pression of the mid SVC due to the necrotic lymphadenopathy. Diffuse body wall edema. The study is in adequate to assess for a pulmonary embolus due to the poor opacification of the pulmonary arterial tr ee. Normal caliber thoracic aorta with no evidence for dissection. The heart is normal in size. Small pericardial effusion is noted. Limited views of the upper abdomen demonstrate a normal liver and rig ht adrenal gland. The spleen is not identified and may be surgically absent. There is a 1.4 cm metast atic nodule within the left adrenal gland. Decrease in size in the mildly enlarged left inguinal lymp h nodes. No enhancement within the pleural effusions to suggest an infectious process. No suspicious lytic or blastic osseous lesions. No pneumothorax. Stable 5 mm nodule within the left upper lobe on i mage 183. Focal areas of consolidation within the medial aspect of the right middle lobe and right lo wer lobe posteriorly favor atelectasis. IMPRESSION: 1. Small right and trace left pleural effusions. The right basilar pleural catheter is in good positi on. No pleural enhancement to suggest an underlying infection. 2. Persistent right upper lobe collapse. There is a heterogeneous appearance to the collapsed right u pper lobe suggesting underlying tumor. 3. Necrotic mediastinal, hilar, left axillary lymphadenopathy which has improved. 4. Severe compression of the SVC due to the necrotic lymphadenopathy. 5. Small pericardial effusion which is improved. 6. Metastatic left adrenal gland nodule is again noted. 7. Stable 5 mm nodule within the left upper lobe. 8. Additional findings as described above. ACT 112: Negative or not required by law. Electronically signed by: Bandar Abarca M.D. 12/26/2019 6:15 PM
[2019-12-26 18:54] LABS: Total Protein Pleural Fluid 2.5 g/dl
[2019-12-26 19:42] LABS: Appearance Pleural Fluid CLOUDY; Basophils, Fluid 0 %; Color Pleural Fluid STRAW; Eosinophils, Fluid 0 %; Lymphocytes, Fluid 20 %; Mono,Macrophage,Mesothelial 5 %; Neutrophils, Fluid 75 %; RBC Pleural Fluid (A) < 3000 /uL; Source Pleural Fluid RIGHT LUNG; WBC Pleural Fluid (A) 2642 /uL
[2019-12-26] MEDS: MIRTAZAPINE TAB 15 MG TAB PO SCH (20:46)
[2019-12-26] MEDS: FOLIC ACID 1 MG TAB PO SCH (20:46)
[2019-12-27] MEDS ORDERED: VANCOMYCIN TROUGH ONE (05:30)
[2019-12-27] MEDS: ENOXAPARIN INJ 60 MG/0.6 ML SYR SQ SCH ×2 (08:08→21:54)
[2019-12-27] MEDS: CHLORPROMAZINE HCL 25 MG TABLET PO SCH ×3 (08:08→20:03)
[2019-12-27] MEDS: Magic Mouthwash 240mL PO SCH ×4 (08:08→20:01)
[2019-12-27] MEDS: guaiFENesin 600 MG TABCR PO SCH ×2 (08:09→20:03)
[2019-12-27] MEDS: ASPIRIN 81 MG ECTAB PO SCH (08:09)
[2019-12-27] MEDS ORDERED: KETOROLAC TROMETHAMINE 15 MG/ML VIAL IV ONE (08:59)
[2019-12-27 09:00] LABS: Basophils # (auto) 0.01 K/uL (0-0.2); Basophils % (auto) 0.3 %; Eosinophils # (auto) 0.08 K/uL (0-0.5); Eosinophils % (auto) 2.6 %; Hematocrit (blood only) 31.3 % (42-52); Hemoglobin 10.5 g/dL (14.0-18.0); Immature Granulocytes % (auto) 3.2 %; Lymphocytes % (auto) 16.1 %; Mean Corpuscular Hemoglobin 30.8 pg (25-34); Mean Corpuscular Hgb Conc 33.5 g/dL (32-36); Mean Corpuscular Volume 91.8 fL (80-100); Mean Platelet Volume 11.3 fL (7.4-10.4); Monocytes # (auto) 0.27 K/uL (0.11-0.59); Monocytes % (auto) 8.7 %; Neutrophils # (auto) 2.15 K/uL (1.4-6.5); Neutrophils % (auto) 69.1 %; Nucleated RBC # (auto) 0.11 K/uL (0-0); Nucleated RBC % (auto) 3.5 %; Platelet Count 405 K/uL (130-400); RDW Coefficient of Variation 16.9 % (11.5-14.5); RDW Standard Deviation 56.4 fL (36.4-46.3); Red Blood Count 3.41 M/uL (4.7-6.1); White Blood Count 3.11 K/uL (4.8-10.8)
[2019-12-27 09:22] LABS: Acanthocytes 1+; Echinocytes 1+; Target Cells 1+
[2019-12-27 09:26] LABS: Calcium 7.9 mg/dl (8.5-10.1); Est GFR (African American) 119.9; Est GFR (Non-African American) 103.4; Magnesium 1.6 mg/dl (1.8-2.4); Potassium 3.3 mmol/L (3.5-5.1); Total Protein 5.8 gm/dl (6.4-8.2)
[2019-12-27] MEDS ORDERED: SODIUM PHOSPHATE 3 MMOL/1 ML 5 ML VIAL IV ONE (09:56)
[2019-12-27] MEDS ORDERED: SODIUM PHOSPHATE 15 MMOL in SODIUM CHLORIDE 0.9% 250 ML IV ONE (10:15)
[2019-12-27] MEDS ORDERED: SODIUM CHLORIDE 0.9% IV SCH (10:30)
[2019-12-27] MEDS ORDERED: MAGNESIUM SULFATE IV SCH (10:30)
[2019-12-27] MEDS ORDERED: POTASSIUM CHLORIDE IV SCH (10:30)
[2019-12-27] MEDS ORDERED: POTASSIUM PHOSPHATE 15 MMOL in SODIUM CHLORIDE 0.9% 250 ML IV ONE (10:30)
--- NOTE | 2019-12-27 10:40 | XRay Report ---
SINGLE VIEW CHEST CLINICAL HISTORY: Right-sided chest tube. FINDINGS: 2 AP, portable, upright chest radiographs are compared to study dated 12/23/2019 and correla linette with chest CT dated 12/26/2019. The examination is degraded by portable technique and patient rota tion. A left internal jugular central venous infusion port is unchanged in position. The cardiac silh ouette is unremarkable noting atherosclerotic calcification of the thoracic aorta. A chest tube at th e right lung base is unchanged. There is chronic elevation of the right hemidiaphragm with atelectasi s of the right upper lobe. A small right pleural effusion persists. There is trace left pleural effus ion with left basilar consolidation. No pneumothorax is seen. The skeletal structures are osteopenic. The bony thorax is grossly intact. IMPRESSION: 1. A right sided chest tube is unchanged in position. A small right pleural effusion persists. 2. There is near complete atelectasis of the right upper lobe. 3. Trace left pleural effusion with left basilar consolidation is again noted. ACT 112: Negative or not required by law. Electronically signed by: Jaswinder Alva M.D. 12/27/2019 10:39 AM
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
[2019-12-27 11:21] LABS: Glucose Pleural Fluid 100 mg/dl
[2019-12-27 11:33] LABS: LDH Pleural Fluid 274 U/L; Total Protein Pleural Fluid 2.7 g/dl
[2019-12-27] MEDS: PANTOprazole 40 MG in SYRINGE 0 ML IV SCH (11:49)
[2019-12-27 12:36] LABS: Appearance Pleural Fluid HAZY; Color Pleural Fluid PALE YELLOW; RBC Pleural Fluid (A) < 3000 /uL; Source Pleural Fluid RIGHT LUNG; WBC Pleural Fluid (A) 2632 /uL
--- NOTE | 2019-12-27 14:02 | Hospitalist Progress Note ---
Date of Service December 27, 2019 Assessment & Plan (1) Sepsis: Resuscitated and clinically improved. CHANGE ROOM ATTENDANT in blood and pleural fluid. Rojelio WALKER feels this pleural space is infected although may not be an empyema. Additionally, it became clear today there was pain with this area in the last few weeks and he wasn't allowing anyone to drain it leading to a buildup of fluid in this pocket which was drained by Pulmonary today. I spoke again with Rojelio ID, Dr. Davis, and he stands by the concern for this CHANGE ROOM ATTENDANT being a true infection. This will require two weeks of IV ceftriaxone (cannot be oral cefdinir), after which he should be evaluated by local ID (may be best at [facility] for follow-up). then he may still require an additional two weeks of oral antibiotic based on what he looks like at that follow-up. If he declines, PleurX catheter (and possibly his IVAD) may need to be removed, and it would be good to have thoracic surgery see him for evaluation of this. No evidence of pneumonia. Remains afebrile and his tachycardia that re-emerged yesterday afternoon resolved overnight. Continues to do well on the ceftriaxone. Cardiology is evaluating him to see if he is a candidate for ANA procedure per request. ADDENDUM: ANA scheduled for 0745 tomorrow morning. AM Lovenox held prior to procedure. May restart right after. (2) Bacteremia: Drummond-sensitive CHANGE ROOM ATTENDANT species, cont ceftriaxone per ID plan IV x 2 weeks. Consider ANA. Rest of plan as above. (3) Lung cancer: AdenoCA of right lung, now with ?mets to adrenal gland. Following with Dr Griggs. Defer him to speak with the patient regarding the metastatic disease and formulate a plan as outpatient. Dr. Griggs is aware of all findings and current plan above. Had first chemo on 12/09/2019 (Keytruda, Alimta, carboplatin) Patient sent for severe SOB from PCP offive on 10/06 to [facility] where he was admitted until 10/18/19. -RUE DVT found and started on full dose Lovenox -echo revealed pericardial effusion and window was performed on 10/12 with effusion consistent with adenocarcinoma -persistent SOB lead to thoracis surgery draining R side and placing PleurX on 10/18/2019 -12/05/2019-IVAD (port) placement by Dr. Grady at [facility] -12/09/2019 first chemotherapy trt (4) Right inguinal hernia: Present and reducible. No urgent surgical needs (5) History of DVT (deep vein thrombosis): H/O RUE DVT in 10/2019. On Lovenox -Continue Lovenox BID (6) Oral candidiasis: MagicMouthwash x 10 days (includes Nystatin) (7) Stomatitis: Improved wtih Magic Mouthwash and liquid Lortab (8) Malnutrition: Boost supplementation per Nutrition. Cont unrestricted diet. (9) DVT prophylaxis: On Lovenox for recent known RUE DVT Full Code Dispo-cont PCU for now. Poss ANA in am pending cardiology recommendations. If not planned would restart diet. Once tolerating IV ceftriaxone, looking clinically stable, and has IV abx set up for home, he should be stable for discharge to home. Cont unrestricted regular diet at discharge. Follow-up closely with Dr. Griggs for updates in careplan with new findings and abx needs, and this will likley push back his scheduled chemotherapy until the infection is cleared. He will need an appointment with infectious disease ([facility]?) set up for two weeks from now prior to discharge. Brynn Jeong DO [facility] and Anticipated Discharge Date Admission Date: December 23, 2019 Subjective feels well, tolerating PO, afebrile, ambulating with walker, low energy, no pain in right lung base. Review of Systems Review of Systems: All systems reviewed & are unremarkable except as noted in Subjective Physical Exam Physical Exam: CONSTITUTIONAL: thin, frail, vitals as above, NAD EYES: normal conjunctivae, no scleral icterus ENT: external ear and nose normal, oral mucous membranes appear less irritated, Pt just drank grape juice and discolored entire mouth reddish color NECK: no pain or LAD RESPIRATORY: clear to auscultation bilaterally, no c/w/r, normal respiratory effort CARDIOVASCULAR: regular rate and rhythm, S1 and 2 heard without murmurs, gallops or rubs, no JVD, no peripheral edema CHEST: port to left anterior chest-accessed. Pleurx catheter covered on right anterior chest wall, area around insertion in dry without any drainage and no erythema. GASTROINTESTINAL: soft, nontender, nondistended, no inguinal hernia palpable today, no guarding. MUSCULOSKELETAL: strength 5/5 throughout, head is normocephalic and atraumatic SKIN: warm and dry NEUROLOGIC: No facial palsy, no dysarthria. CN 2-12 grossly intact, normal cognition, normal speech PSYCHIATRIC: alert cooperative and oriented to person, place and time. Results & Data Results & Data ([place]) Vital Signs (Past 12 Hours) Vital Signs Temp Pulse Pulse Resp BP BP Pulse Ox 12/27/19 10:59 36.4 C L 77 18 99/68 L 94 12/27/19 08:00 80 12/27/19 07:07 36.4 C L 85 18 111/79 98 12/27/19 02:54 36.3 C L 123 H 20 108/80 96 Laboratory Results Short CBC 12/27/19 Range/Units 07:44 WBC 3.11 L (4.8-10.8) K/uL Hgb 10.5 L (14.0-18.0) g/dL Hct 31.3 L (42-52) % Plt Count 405 H (130-400) K/uL BMP 12/27/19 07:44 Sodium 142 Potassium 3.3 L Chloride 111 H Carbon Dioxide 24 BUN 9 D Creatinine 0.63 Glucose 97 Calcium 7.9 L Medications Administered Current Inpatient Medications Acetaminophen (Acetaminophen 325 Mg Tab) 650 mg PO Q4H PRN PRN Reason: Pain or Fever Stop: 01/22/20 17:48 Hydrocodone Bitart/Acetaminophen (Acetaminophen/Hydrocodone Elix 15 Ml/Cup Udp) 15 ml PO Q6H PRN PRN Reason: Pain Stop: 01/08/20 14:25 Last Admin: 12/25/19 15:18 Dose: 15 ml Documented by: Aspirin (Aspirin 81 Mg Ectab) 81 mg PO QAM [facility] Stop: 01/23/20 08:59 Last Admin: 12/27/19 08:09 Dose: 81 mg Documented by: Chlorpromazine HCl (Chlorpromazine Hcl 25 Mg Tablet) 25 mg PO TID [facility] Stop: 01/22/20 20:59 Last Admin: 12/27/19 13:10 Dose: 25 mg Documented by: Nystatin 30 ml/ Dexamethasone 3.75 mg/ Diphenhydramine HCl 300 mg/ Sucrose 45 ml/Microcrystalline Cellulose 45 ml/ BARCODE IDENTIFIER 1 ea 0 ml PO QID [facility] Stop: 01/23/20 15:59 Last Admin: 12/27/19 13:10 Dose: 10 ml Documented by: Enoxaparin Sodium (Enoxaparin Inj 60 Mg/0.6 Ml Syr) 60 mg SQ Q12 SE[facility]STIAN Stop: 01/22/20 20:59 Last Admin: 12/27/19 08:08 Dose: 60 mg Documented by: Folic Acid (Folic Acid 1 Mg Tab) 1 mg PO HS [facility] Stop: 01/22/20 20:59 Last Admin: 12/26/19 20:46 Dose: 1 mg Documented by: Guaifenesin (Guaifenesin 600 Mg Tabcr) 600 mg PO Q12 [facility] Stop: 01/25/20 13:29 Last Admin: 12/27/19 08:09 Dose: 600 mg Documented by: Heparin Sodium (Porcine) (Heparin 100 Unit/Ml 5ml Flush) 5 ml FLUSH PRN PRN PRN Reason: Flush Stop: 01/22/20 22:48 Last Admin: 12/25/19 20:26 Dose: 5 ml Documented by: Pantoprazole Sodium 40 mg/ (Syringe) 10 mls @ 5 mls/min IV DAILY@1100 [facility] Stop: 12/27/19 18:00 Last Admin: 12/27/19 11:49 Dose: 5 mls/min Documented by: Ceftriaxone Sodium 2,000 mg/ (Dextrose) 70 mls @ 100 mls/hr IV Q24H [facility]; Protocol Stop: 01/02/20 17:59 Last Infusion: 12/26/19 19:03 Dose: Infused Documented by: Potassium Chloride 20 meq/Magnesium Sulfate 4 gm/ Sodium Chloride 518 mls @ 125 mls/hr IV .Q4H9M [facility] Stop: 12/27/19 14:38 Last Admin: 12/27/19 10:42 Dose: 125 mls/hr Documented by: Mirtazapine (Mirtazapine Tab 15 Mg Tab) 15 mg PO HS [facility] Stop: 01/22/20 20:59 Last Admin: 12/26/19 20:46 Dose: 15 mg Documented by: Ondansetron HCl (Ondansetron Inj 2 Mg/Ml 2 Ml Vial) 4 mg IV Q6H PRN PRN Reason: Nausea Stop: 01/22/20 17:48 Pantoprazole Sodium (Pantoprazole 40 Mg Tab) 40 mg PO DAILY [facility] Stop: 01/27/20 08:59
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
--- NOTE | 2019-12-27 15:05 | Electrocardiogram Report ---
Test Reason : Blood Pressure : / mmHG Vent. Rate : 117 BPM Atrial Rate : 117 BPM P-R Int : 152 ms QRS Dur : 082 ms QT Int : 332 ms P-R-T Axes : 050 -27 034 degrees QTc Int : 463 ms Sinus tachycardia Low voltage QRS Cannot rule out Inferior infarct (cited on or before 26-DEC-2019) Abnormal ECG When compared with ECG of 23-DEC-2019 15:01, QRS axis Shifted left Confirmed by Ten Joel ([id number]) on 12/27/2019 3:05:32 PM Referred By: REFERRED SELF Confirmed By:Ten Joel
[2019-12-27 15:33] LABS: Eosinophils, Fluid 0 %; Lymphocytes, Fluid 8 %; Mono,Macrophage,Mesothelial 4 %; Neutrophils, Fluid 88 %
[2019-12-27] MEDS: cefTRIAXone SODIUM 2,000 MG in DEXTROSE 5% 50 ML IV SCH (17:30)
[2019-12-27] MEDS: FOLIC ACID 1 MG TAB PO SCH (20:03)
[2019-12-27] MEDS: MIRTAZAPINE TAB 15 MG TAB PO SCH (20:03)
[2019-12-28] MEDS ORDERED: BENZOCAIN/TETRACA/BUTAM SPRAY 200 APPLN/20 GM SPRY EXT ONE (07:29)
[2019-12-28] MEDS ORDERED: ePHEDrine sulfate 50 MG/ML AMP IV PRN (07:46)
[2019-12-28] MEDS ORDERED: ATROPINE SULFATE 0.1 MG/ML 10ML SYR IV PRN (07:46)
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
[2019-12-28] MEDS ORDERED: EPINEPHrine INJ 1 MG/ML AMP ONE (07:48)
[2019-12-28] MEDS ORDERED: LIDOCAINE HCL 2% 2 ML VIAL/AMP(20MG/ML) INFIL ONE (08:25)
[2019-12-28] MEDS ORDERED: PROPOFOL IV EMULSION 10 MG/ML 20 ML VIAL IV ONE (08:25)
[2019-12-28] MEDS: Magic Mouthwash 240mL PO SCH ×4 (08:56→22:20)
[2019-12-28] MEDS: ASPIRIN 81 MG ECTAB PO SCH (08:57)
[2019-12-28] MEDS: PANTOprazole 40 MG TAB PO SCH (08:57)
[2019-12-28] MEDS: guaiFENesin 600 MG TABCR PO SCH ×2 (08:57→22:19)
[2019-12-28] MEDS: CHLORPROMAZINE HCL 25 MG TABLET PO SCH ×3 (08:57→22:18)
[2019-12-28] MEDS ORDERED: LINEZOLID CONSULT ACTIVE PRN (10:16)
--- NOTE | 2019-12-28 10:19 | Communication Note ---
Date of Service: December 28, 2019 pleural fluid culture : staph aureus started on Zyvox will discuss with ID in [facility] for further recommendation Delphine Gabriel MD
[2019-12-28] MEDS ORDERED: LINEZOLID 600 MG/300 ML D5W IV SCH (10:30)
[2019-12-28] MEDS ORDERED: LINEZOLID 600 MG/300 ML D5W IV ONE (10:45)
[2019-12-28] MEDS: LINEZOLID 600 MG/300 ML BAG IV SCH ×2 (10:45→22:33)
--- NOTE | 2019-12-28 10:52 | Pulmonology Progress Note ---
Date of Service December 28, 2019 Assessment & Plan (1) Pleural effusion: Is a 64-year-old male that we are consulted to evaluate pleural effusion as he has not been able to tolerate more than 50 to 100 cc of drainage at a time secondary to pain. Patient does have an adenocarcinoma that is being treated by Dr. Greg Griggs. Recommendation: 1. Pleural effusion Right pleural catheter placed October 18, 2019 at [facility] Drained pleurX catheter again this morning for 400 mL of straw colored fluid. No labs were requested Patient now has ability to drain slowly without pain meds at home. Insertion site looks non-infected. Would have patient follow up with his thoracic surgeon upon discharge Patient can continue to drain catheter on his own at home - limit to one liter daily 2. Oral candidiasis Improved. Continue Nystatin swish and swallow 3. Adenocarcinoma of the lung Recommended 2 weeks of ceftriaxone for coag negative staph will most likely delay further chemotherapy Further management per oncology 4. Bacteremia Although this is usually considered a contaminant with coag negative staph, it is in 2 sources Further management per infectious disease Anticipate ANA today to r/o endocarditis Further care deferred to the hospitalist team Thank you for including us in the care of this patient. We will sign off at this time. Please refer to Dr. Osuna's addendum for further recommendations. (2) Adenocarcinoma of lung: (3) Oral candidiasis: (4) Malnutrition: (5) Hypokalemia: (6) HTN (hypertension): Admission and Anticipated Discharge Date Admission Date: December 23, 2019 Supervising Physician Co-Signing Physician Notes Discussed with pedicle care MEGA and agree with his assessment and plan as noted. Unclear if this represents true parapneumonic effusion versus potential catheter infection. There is no evidence of a tunnel infection. Typically catheter infections can be treated with antibiotics without need to remove the catheter. Indications for catheter removal would include persistent bacteremia, or ongoing or progressive septic shock. In light of the patient's clinical stability and potential need for the catheter, agree with plans for IV antibiotics. He should follow-up with ID. He can follow-up with [facility] thoracic surgery to place the catheter if it needs to be removed. We will sign off for now. Feel free to contact us if we can be of additional assistance Subjective Attending: Dr. Osuna Patient seen and examined at bedside. He is doing well. No shortness of breath. Continues with nonproductive cough. He denies any fever chills or rigors. He has no night sweats. He slept a little bit better last night. He has no pain on the right flank or in the right chest. Review of Systems Review of Systems: All systems reviewed & are unremarkable except as noted in Subjective Physical Exam Physical Exam: GENERAL : No acute distress EYES: No icterus, gaze conjugate NOSE: No evidence of epistaxis MOUTH: No lesions or candidiasis NECK: Supple LUNGS: Rales at the bases. Lung sounds appear to be equal. There is some rhonchi in the upper stauffer. Patient with wet cough but no productive sputum. HEART: Regular, rate controlled ABDOMEN: Soft, NT, ND, BS Present EXTREMITIES: No LE edema, pedal pulses intact NEURO: A&OX3 Results & Data Results & Data ([facility]) Vital Signs (Past 12 Hours) Vital Signs Temp Pulse Pulse Resp BP BP Pulse Ox 12/28/19 09:00 111 H 12/28/19 03:23 36.4 C L 108 H 16 117/78 94 12/27/19 23:00 36.4 C L 107 H 16 117/83 95 PG Care Time/CCT Total # of Minutes Spent Total Time Spent with Patient: Total time spent is greater than 50% in coordination of care (as documented) at patient's floor/unit and/or counseling patient: 40 minutes including drainage of PleurX Coding Level of Care Code 13346 Subseq Hosp Care Lvl 3 Diagnoses Pleural effusion J90 Adenocarcinoma of lung C34.90 Oral candidiasis B37.0 Malnutrition E46 Hypokalemia E87.6 HTN (hypertension) I10 Time Spent (min) 40
--- NOTE | 2019-12-28 10:54 | Anesthesiology Progress Note ---
Date of Service December 28, 2019 Anesthesia Post Procedure Vital Signs Vital Signs: Temp Pulse Pulse Resp BP BP Pulse Ox 12/28/19 09:00 111 H 12/28/19 03:23 36.4 C L 108 H 16 117/78 94 12/27/19 23:00 36.4 C L 107 H 16 117/83 95 12/27/19 19:33 36.6 C 110 H 22 111/78 91 12/27/19 14:53 36.4 C L 109 H 19 102/71 93 12/27/19 10:59 36.4 C L 77 18 99/68 L 94 Pain Intensity Medial Throat: Pain Intensity: 7 Transfer of Care Handoff Completed per policy Notes Mental Status: alert / awake / arousable and participated in evaluation Patient Amnestic to Procedure: Yes Nausea / Vomiting: adequately controlled Pain: adequately controlled Airway Patency, RR, SpO2: stable & adequate BP & HR: stable & adequate Hydration State: stable & adequate Anesthetic Complications: no major complications apparent and Pt Satisfied with anesthetic care
[2019-12-28 13:04] LABS: Hematocrit (blood only) 30.1 % (42-52); Hemoglobin 9.9 g/dL (14.0-18.0)
[2019-12-28 13:33] LABS: BUN Creatinine Ratio 16.6 (10-20); Calcium 7.5 mg/dl (8.5-10.1); Creatinine Clr Calc Pharmacy 117.9 ml/min; Est GFR (African American) 122.3; Est GFR (Non-African American) 105.5; Magnesium 1.8 mg/dl (1.8-2.4); Potassium 3.9 mmol/L (3.5-5.1)
--- NOTE | 2019-12-28 17:08 | Hospitalist Progress Note ---
Date of Service December 28, 2019 Assessment & Plan (1) Sepsis: Admitted with sepsis, multifactorial Patient is on IV Rocephin, will need 2 weeks of IV antibiotic treatment Rojelio infectious disease consulted, appreciate input ANA done today, no evidence of endocarditis in limited views Aortic valve sclerosis mild, without significant aortic valvular stenosis Left ventricular ejection fraction is grossly normal GI bleed/blood in stool: Noted to have multiple episodes of bowel movements with blood clot in stool Hemoccult positive Follow H&H, patient is on PPI already N.p.o. past midnight, GI eval requested (2) Bacteremia: Culture 1 bottle: Coag negative staph possible contaminated sample Repeat blood culture no growth (3) Lung cancer: AdenoCA of right lung, now with ?mets to adrenal gland. Following with Dr Griggs. Defer him to speak with the patient regarding the metastatic disease and formulate a plan as outpatient. Dr. Griggs is aware of all findings and current plan above. Had first chemo on 12/09/2019 (Keytruda, Alimta, carboplatin) Patient sent for severe SOB from PCP abida on 10/06 to [facility] where he was admitted until 10/18/19. -RUE DVT found and started on full dose Lovenox -echo revealed pericardial effusion and window was performed on 10/12 with effusion consistent with adenocarcinoma -persistent SOB lead to thoracis surgery draining R side and placing PleurX on 10/18/2019 -12/05/2019-IVAD (port) placement by Dr. Grady at [facility] -12/09/2019 first chemotherapy trt (4) Right inguinal hernia: Present and reducible. No urgent surgical needs (5) History of DVT (deep vein thrombosis): H/O RUE DVT in 10/2019. On Lovenox -Continue Lovenox BID (6) Oral candidiasis: MagicMouthwash x 10 days (includes Nystatin) (7) Stomatitis: Improved wtih Magic Mouthwash and liquid Lortab (8) Malnutrition: Boost supplementation per Nutrition. Cont unrestricted diet. (9) DVT prophylaxis: On Lovenox for recent known RUE DVT Full Code Disposition: Expected to be discharged home when medically stable, patient will need arrangements for home IV antibiotic therapy, Plan of care discussed with patient's significant other present at bedside Admission and Anticipated Discharge Date Admission Date: December 23, 2019 Subjective Patient has multiple episode of loose bowel movement mixed with blood clot Reports of abdominal cramps before having bowel movements No nausea vomiting, appetite remains poor Denies of any shortness of breath, no orthopnea No fever or chills Review of Systems Review of Systems: All systems reviewed & are unremarkable except as noted in HPI & below Gastrointestinal: + blood in stools Physical Exam Constitutional: WD/WN, vitals as above + ill appearing and + thin Eyes: + anicteric sclerae ENMT: external ear and nose normal, oropharynx normal Neck: trachea midline, no thyromegaly Respiratory: normal respiratory effort, lungs clear to auscultation Cardiovascular: RRR, no murmur, no edema Gastrointestinal (Abdomen): normal bowel sounds, soft, nontender, no hepatosplenomegaly Musculoskeletal: no cyanosis or clubbing, extremities motor strength 5/5 Neurologic: PERRL, EOMI, accommodation nl, no face palsy, no dysarthria Psychiatric: A+Ox3, euthymic affect Results & Data Results & Data ([facility]) Vital Signs (Past 12 Hours) Vital Signs Temp Pulse Pulse Resp BP BP Pulse Ox 12/28/19 15:28 114 H 12/28/19 15:16 36.3 C L 121 H 16 111/83 95 12/28/19 11:51 36.3 C L 118 H 20 102/71 98 12/28/19 09:00 111 H
[2019-12-28] MEDS: cefTRIAXone SODIUM 2,000 MG in DEXTROSE 5% 50 ML IV SCH (17:49)
[2019-12-28] MEDS: FOLIC ACID 1 MG TAB PO SCH (22:18)
[2019-12-29 08:00] LABS: Hematocrit (blood only) 23.2 % (42-52); Hemoglobin 7.8 g/dL (14.0-18.0); Mean Corpuscular Hemoglobin 31.1 pg (25-34); Mean Corpuscular Hgb Conc 33.6 g/dL (32-36); Mean Corpuscular Volume 92.4 fL (80-100); Mean Platelet Volume 10.8 fL (7.4-10.4); Nucleated RBC # (auto) 0.07 K/uL (0-0); Nucleated RBC % (auto) 2.4 %; Platelet Count 392 K/uL (130-400); RDW Coefficient of Variation 16.6 % (11.5-14.5); Red Blood Count 2.51 M/uL (4.7-6.1); White Blood Count 2.92 K/uL (4.8-10.8)
[2019-12-29 08:23] LABS: Basophils # (auto) 0.03 K/uL (0-0.2); Echinocytes 1+; Eosinophils # (auto) 0.05 K/uL (0-0.5); Eosinophils % (auto) 1.7 %; Giant Platelets 2+; Immature Granulocytes # (auto) 0.15 K/uL (0.00-0.02); Immature Granulocytes % (auto) 5.1 %; Lymphocytes # (auto) 0.55 K/uL (1.2-3.4); Lymphocytes % (auto) 18.8 %; Monocytes # (auto) 0.54 K/uL (0.11-0.59); Monocytes % (auto) 18.5 %; Neutrophils % (auto) 54.9 %
[2019-12-29 09:11] LABS: BUN Creatinine Ratio 23.6 (10-20); Calcium 7.2 mg/dl (8.5-10.1); Creatinine Clr Calc Pharmacy 157.7 ml/min; Est GFR (African American) 138.9; Est GFR (Non-African American) 119.9; Potassium 4.1 mmol/L (3.5-5.1)
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
[2019-12-29] MEDS: guaiFENesin 600 MG TABCR PO SCH ×2 (09:59→21:53)
[2019-12-29] MEDS: CHLORPROMAZINE HCL 25 MG TABLET PO SCH ×3 (10:00→21:53)
[2019-12-29] MEDS: Magic Mouthwash 240mL PO SCH ×4 (10:04→21:51)
[2019-12-29] MEDS ORDERED: SODIUM CHLORIDE 0.9% 250 ML IV PRN (11:30)
--- NOTE | 2019-12-29 11:35 | Communication Note ---
Date of Service: December 29, 2019 acute blood loss anemia : due to GI bleed Hb drop noted from from 9.9 to 7.8 border line hypotension with tachycardia ordered for 2 units of PRBC to be transfused D/w Dr Anson Oliveira /Onc -no need for irradiated blood products Delphine Gabriel MD
[2019-12-29] MEDS: PANTOprazole 40 MG TAB PO SCH ×2 (11:40→21:53)
[2019-12-29] MEDS: LINEZOLID 600 MG/300 ML BAG IV SCH ×2 (12:15→23:52)
--- NOTE | 2019-12-29 16:22 | Hospitalist Progress Note ---
Date of Service December 29, 2019 Assessment & Plan (1) Sepsis: Admitted with sepsis, multifactorial Patient is on IV Rocephin, will need 2 weeks of IV antibiotic treatment Rojelio infectious disease consulted, appreciate input ANA :, no evidence of endocarditis in limited views Aortic valve sclerosis mild, without significant aortic valvular stenosis Left ventricular ejection fraction is grossly normal GI bleed/blood in stool: Noted to have multiple episodes of bowel movements with blood clot in stool Hemoccult positive GI consulted, appreciate input, patient is too high risk for anesthesia, GI procedure, Recommends blood transfusion as indicated, avoid antiplatelets Overall prognosis remains very poor acute blood loss anemia : due to GI bleed Hb drop noted from from 9.9 to 7.8 border line hypotension with tachycardia ordered for 2 units of PRBC to be transfused D/w Dr Griggs Heme /Onc -no need for irradiated blood products Sinus tachycardia: Due to above, ordered for 2 units of PRBC transfusion to correct anemia Hypoxia no shortness of breath Monitor in telemetry (2) Bacteremia: Culture 1 bottle: Coag negative staph possible contaminated sample Repeat blood culture no growth (3) Lung cancer: AdenoCA of right lung, 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 Had first chemo on 12/09/2019 (Keytruda, Alimta, carboplatin) Follow-up with hematology regarding the metastatic disease and formulate a plan as outpatient. Dr. Griggs is aware of all findings and current plan above. Patient sent for severe SOB from PCP office on 10/06 to [facility] where he was admitted until 10/18/19. -RUE DVT found and started on full dose Lovenox -echo revealed pericardial effusion and window was performed on 10/12 with effusion consistent with adenocarcinoma -persistent SOB lead to thoracis surgery draining R side and placing PleurX on 10/18/2019 -12/05/2019-had A port placement by Dr. Grady at [facility] -12/09/2019 first chemotherapy trt (4) Right inguinal hernia: Present and reducible. No urgent surgical needs (5) History of DVT (deep vein thrombosis): H/O RUE DVT in 10/2019. On Lovenox -Continue Lovenox BID (6) Oral candidiasis: MagicMouthwash x 10 days (includes Nystatin) Symptoms has improved (7) Stomatitis: Improved wtih Magic Mouthwash and liquid Lortab (8) Malnutrition: Boost supplementation per Nutrition. Cont unrestricted diet. (9) DVT prophylaxis: On Lovenox for recent known RUE DVT Full Code Disposition: Expected to be discharged home when medically stable, patient will need arrangements for home IV antibiotic therapy, Patient's overall prognosis remains extremely poor Patient and his significant other aware will need IV antibiotic for ongoing infection will defer to Hematology -for the discussion of Palliatiave care in office setting after pt completes his Abx course Admission and Anticipated Discharge Date Admission Date: December 23, 2019 Subjective Had 3-4 bowel movements since a.m., mixed with blood clots No complaint of abdominal pain no nausea vomiting and Feels very weak and fatigued No cough, no shortness of breath or orthopnea aFebrile Getting 2 units of PRBC transfusion Review of Systems Review of Systems: All systems reviewed & are unremarkable except as noted in HPI & below Physical Exam Constitutional: WD/WN, vitals as above + ill appearing and + thin Eyes: + anicteric sclerae ENMT: external ear and nose normal, oropharynx normal Neck: trachea midline, no thyromegaly Respiratory: normal respiratory effort, lungs clear to auscultation Cardiovascular: RRR, no murmur, no edema Gastrointestinal (Abdomen): normal bowel sounds, soft, nontender, no hepatosplenomegaly Musculoskeletal: no cyanosis or clubbing, extremities motor strength 5/5 Neurologic: PERRL, EOMI, accommodation nl, no face palsy, no dysarthria Psychiatric: A+Ox3, euthymic affect Results & Data Results & Data ([facility]) Vital Signs (Past 12 Hours) Vital Signs Temp Pulse Pulse Pulse Resp BP BP 12/29/19 15:56 36.4 C L 126 H 20 82/51 L 12/29/19 14:56 36.3 C L 103 H 16 81/59 L 12/29/19 14:26 36.4 C L 138 H 17 88/63 L 12/29/19 14:11 36.4 C L 134 H 16 92/70 L 12/29/19 13:45 36.3 C L 133 H 18 85/58 L 12/29/19 11:47 36.7 C 132 H 18 92/67 L 12/29/19 07:14 36.3 C L 111 H 19 100/65 Pulse Ox 12/29/19 15:56 96 12/29/19 14:56 94 12/29/19 14:26 96 12/29/19 14:11 96 12/29/19 13:45 97 12/29/19 11:47 96 12/29/19 07:14 96
[2019-12-29] MEDS: cefTRIAXone SODIUM 2,000 MG in DEXTROSE 5% 50 ML IV SCH (18:32)
[2019-12-29] MEDS: FOLIC ACID 1 MG TAB PO SCH (21:52)
[2019-12-30 06:40] LABS: Hematocrit (blood only) 24.2 % (42-52); Hemoglobin 8.2 g/dL (14.0-18.0); Mean Corpuscular Hgb Conc 33.9 g/dL (32-36); Mean Corpuscular Volume 88.6 fL (80-100); Nucleated RBC # (auto) 0.09 K/uL (0-0); Nucleated RBC % (auto) 2.5 %; Platelet Count 396 K/uL (130-400); RDW Coefficient of Variation 18.2 % (11.5-14.5); RDW Standard Deviation 58.8 fL (36.4-46.3); Red Blood Count 2.73 M/uL (4.7-6.1); White Blood Count 3.55 K/uL (4.8-10.8)
[2019-12-30] MEDS: HEPARIN 100 UNIT/ML 5ML FLUSH FLUSH PRN (06:48)
[2019-12-30 07:06] LABS: BUN Creatinine Ratio 20.2 (10-20); Calcium 7.3 mg/dl (8.5-10.1); Creatinine Clr Calc Pharmacy 136.8 ml/min; Est GFR (African American) 130.7; Est GFR (Non-African American) 112.8; Potassium 3.9 mmol/L (3.5-5.1)
[2019-12-30 07:19] LABS: Acanthocytes 1+; Basophils # (auto) 0.06 K/uL (0-0.2); Basophils % (auto) 1.7 %; Eosinophils # (auto) 0.07 K/uL (0-0.5); Howell-Jolly Bodies 1+; Immature Granulocytes # (auto) 0.24 K/uL (0.00-0.02); Immature Granulocytes % (auto) 6.8 %; Lymphocytes # (auto) 0.55 K/uL (1.2-3.4); Lymphocytes % (auto) 15.5 %; Monocytes # (auto) 0.71 K/uL (0.11-0.59); Neutrophils # (auto) 1.92 K/uL (1.4-6.5)
[2019-12-30] MEDS: guaiFENesin 600 MG TABCR PO SCH ×2 (07:37→20:00)
[2019-12-30] MEDS: Magic Mouthwash 240mL PO SCH ×4 (07:37→20:01)
[2019-12-30] MEDS: CHLORPROMAZINE HCL 25 MG TABLET PO SCH ×3 (07:41→20:00)
[2019-12-30] MEDS: PANTOprazole 40 MG TAB PO SCH (07:41)
--- NOTE | 2019-12-30 09:06 | Gastroenterology Progress Note ---
Date of Service December 30, 2019 Assessment & Plan (1) Coag negative Staphylococcus bacteremia: 64 year old male w/ history of adenocarcinoma lung, h/o malignant pleural effusion requiring Pleurx cath,h/o DVT right upper extremity 10/2019 on Lovenox presented to ER for N/V x 2 weeks. Had chemo on 12/09/2019 (Keytruda, Alimta, carboplatin admitted w/ coag neg staph bactermia on IV ABX who developed diarrhea w/ bloody stools yesterday. Yesterday at onset passed a large blood clot, now notes some BRB mixed with stool and toilet tissue. Vitals stable, HGB 7.8 from 9 w/o BUN elevation. ddx infectious, diverticular, ischemic Nuc Med bleeding scan Transfer for IR of positive Doubt UGI source PO PPI BID Trend HGB Monitor and document GI output Transfuse PRN No current indication for repeat colonoscopy as he is high risk and clinically stable check for cdiff check stool culture and giardia Thank you for allowing us to participate in the care of this patient. Please call with any acute changes, questions or concerns. Please see addendum below with additional recommendation from my supervising physician. Admission and Anticipated Discharge Date Admission Date: December 23, 2019 Subjective Pt was seen and evaluated, chart reviewed Persistent rectal bleeding Noted clots in stool this AM No black stools No abd pain Tolerating PO No fever, chills, CP, SOB Review of Systems Constitutional: no fever and no chills Respiratory: no cough and no dyspnea Cardiovascular: no chest pain and no dyspnea Gastrointestinal: + change in bowel habits, + diarrhea/loose stools and + blood in stools; no melena Physical Exam Constitutional: + ill appearing (chronically); no acute distress Neck: trachea midline Respiratory: normal respiratory effort Cardiovascular: Rate/Rhythm: regular rate Gastrointestinal (Abdomen): Inspection/Auscultation: normal bowel sounds; abdomen not distended Percussion/Palpation: abdomen soft; abdomen nontender, no guarding and abdomen not rigid Skin: no rashes, warm and dry Results & Data ([facility]) Vital Signs (Past 12 Hours) Vital Signs Temp Pulse Pulse Resp BP BP BP 12/30/19 07:57 36.3 C L 111 H 20 89/68 L 12/30/19 07:08 73 12/30/19 05:18 36.6 C 69 20 101/64 12/29/19 23:42 36.4 C L 64 16 99/67 L 12/29/19 23:00 127 H 12/29/19 21:27 36.4 C L 91 H 16 94/62 L Pulse Ox 12/30/19 07:57 95 12/30/19 07:08 12/30/19 05:18 98 12/29/19 23:42 94 12/29/19 23:00 12/29/19 21:27 97 Laboratory Results 12/30/19 12/30/19 12/29/19 Range/Units 06:20 06:20 11:35 WBC 3.55 L (4.8-10.8) K/uL RBC 2.73 L (4.7-6.1) M/uL Hgb 8.2 L (14.0-18.0) g/dL Hct 24.2 L (42-52) % MCV 88.6 (80-100) fL MCH 30.0 (25-34) pg MCHC 33.9 (32-36) g/dL RDW Std Deviation 58.8 H (36.4-46.3) fL RDW Coeff of Mani 18.2 H (11.5-14.5) % Plt Count 396 (130-400) K/uL MPV 11.0 H (7.4-10.4) fL Immature Gran % (Auto) 6.8 % Neut % (Auto) 54.0 % Lymph % (Auto) 15.5 % [place] % (Auto) 20.0 % Eos % (Auto) 2.0 % Baso % (Auto) 1.7 % Neut # (Auto) 1.92 (1.4-6.5) K/uL Lymph # (Auto) 0.55 L (1.2-3.4) K/uL [place] # (Auto) 0.71 H (0.11-0.59) K/uL Eos # (Auto) 0.07 (0-0.5) K/uL Baso # (Auto) 0.06 (0-0.2) K/uL Immature Gran # (Auto) 0.24 H (0.00-0.02) K/uL Absolute Nucleated RBC 0.09 H (0-0) K/uL Nucleated RBC % (auto) 2.5 % [place] Bodies 1+ Acanthocytes (Spur) 1+ Sodium 140 (136-145) mmol/L Potassium 3.9 (3.5-5.1) mmol/L Chloride 109 H (98-107) mmol/L Carbon Dioxide 26 (21-32) mmol/L Anion Gap 5.0 (3-11) BUN 10 (7-18) mg/dl Creatinine 0.51 L (0.6-1.4) mg/dl Est Cr Clr Drug Dosing 136.8 ml/min Est GFR ( Amer) 130.7 Est GFR (Non-Af Amer) 112.8 BUN/Creatinine Ratio 20.2 H (10-20) Glucose 82 (70-99) mg/dl Calcium 7.3 L (8.5-10.1) mg/dl Blood Type O Positive Blood Type Recheck Antibody Screen NEGATIVE Crossmatch See Detail 12/29/19 12/28/19 Range/Units 07:45 12:52 WBC (4.8-10.8) K/uL RBC (4.7-6.1) M/uL Hgb (14.0-18.0) g/dL Hct (42-52) % MCV (80-100) fL MCH (25-34) pg MCHC (32-36) g/dL RDW Std Deviation (36.4-46.3) fL RDW Coeff of Mani (11.5-14.5) % Plt Count (130-400) K/uL MPV (7.4-10.4) fL Immature Gran % (Auto) % Neut % (Auto) % Lymph % (Auto) % [place] % (Auto) % Eos % (Auto) % Baso % (Auto) % Neut # (Auto) (1.4-6.5) K/uL Lymph # (Auto) (1.2-3.4) K/uL [place] # (Auto) (0.11-0.59) K/uL Eos # (Auto) (0-0.5) K/uL Baso # (Auto) (0-0.2) K/uL Immature Gran # (Auto) (0.00-0.02) K/uL Absolute Nucleated RBC (0-0) K/uL Nucleated RBC % (auto) % [place] Bodies Acanthocytes ([place]) Sodium 140 (136-145) mmol/L Potassium 4.1 (3.5-5.1) mmol/L Chloride 109 H (98-107) mmol/L Carbon Dioxide 27 (21-32) mmol/L Anion Gap 4.0 (3-11) BUN 10 (7-18) mg/dl Creatinine 0.44 L (0.6-1.4) mg/dl Est Cr Clr Drug Dosing 157.7 ml/min Est GFR ( Amer) 138.9 Est GFR (Non-Af Amer) 119.9 BUN/Creatinine Ratio 23.6 H (10-20) Glucose 84 (70-99) mg/dl Calcium 7.2 L (8.5-10.1) mg/dl Blood Type Blood Type Recheck O Positive Antibody Screen Crossmatch
[2019-12-30] MEDS: LINEZOLID 600 MG/300 ML BAG IV SCH (10:56)
--- NOTE | 2019-12-30 15:03 | Nuclear Medicine Report ---
NM GI bleeding CLINICAL HISTORY: rectal bleeding COMPARISON STUDY: TECHNIQUE: Following the IV administration of 26 mCi of technetium 99m UltraTag labeled red blood malathi ls, nuclear bleeding scan was performed. Anterior flow images were obtained every 2 seconds for a tot al 48 seconds. Anterior static images were obtained every 5 minutes for a total of 60 minutes. FINDINGS: There are no extravascular areas of activity suspicious for GI hemorrhage. Minimal increas ed activity within the pelvis is felt to represent the patient's bladder. IMPRESSION: No scintigraphic evidence of active GI bleeding. ACT 112: Negative or not required by law. Electronically signed by: Chris Parmar M.D. 12/30/2019 3:02 PM
--- NOTE | 2019-12-30 16:08 | Communication Note ---
Date of Service: December 30, 2019 pt did not have any bowel movement /blood clot in stool today s/p 2 units of PRBC transfusion yesterday Hb 7.8-> 8.2 NC bleeding scan shows no evidence of active GI bleed will repeat CBC in AM cont on clear liquid diet for today if now further episode of blood in stool , H&H stable will advance diet to solid appreciate input from GI Delphine Gabriel MD
[2019-12-30] MEDS ORDERED: SODIUM CHLORIDE 0.9% 250 ML IV PRN ×2 (16:39→17:00)
[2019-12-30] MEDS ORDERED: PANTOPRAZOLE BOLUS/DRIP 1 EA IV STA (17:03)
--- NOTE | 2019-12-30 17:21 | Communication Note ---
Date of Service: December 30, 2019 Nc scan was negative for active GI bleed pt continued to have large amount of melanotic BM felt dizzy and lightheaded , Hypotensive BP 93/66 , tachycardic ordered for stat H&H and 2 units of PRBC transfusion D/w irrigation technician GI , needs to be transferred to higher level of care , [facility] for IR guided procedure -too high risk for GI procedure ( EGD /colonoscopy ) called [facility] Sharita , discussed with on Triage Hospitalist in [facility] ,Dr Coyne - feels pt is too unstable to be in medicine service /ICU level care needed Case d/w Lead Scientist Dr De Leon -as pt is still having active bleeding , recommends to transfuse 2 units of PRBC now re evaluate , improved, if patient continues to have active GI bleed, need to call back to [facility], admission to medical team Delphine Gabriel MD
[2019-12-30] MEDS ORDERED: SODIUM CHLORIDE 0.9% 1000ML 250 ML IV ONE (17:24)
[2019-12-30] MEDS ORDERED: PANTOprazole 80 MG in DEXTROSE 5% 100 ML IV ONE (17:30)
[2019-12-30] MEDS: cefTRIAXone SODIUM 2,000 MG in DEXTROSE 5% 50 ML IV SCH (17:45)
[2019-12-30 18:06] LABS: Hematocrit (blood only) 26.3 % (42-52); Hemoglobin 8.7 g/dL (14.0-18.0)
[2019-12-30 18:20] LABS: INR 1.1 (0.9-1.1); Prothrombin Time 11.2 Seconds (9.0-12.0)
[2019-12-30 18:24] LABS: BUN Creatinine Ratio 17.7 (10-20); Calcium 7.3 mg/dl (8.5-10.1); Creatinine Clr Calc Pharmacy 110.8 ml/min; Est GFR (African American) 119.9; Est GFR (Non-African American) 103.4; Potassium 4.1 mmol/L (3.5-5.1)
[2019-12-30] MEDS: SODIUM CHLORIDE 0.9% 1000ML 1,000 ML IV SCH (18:32)
--- NOTE | 2019-12-30 18:40 | Hospitalist Progress Note ---
Date of Service December 30, 2019 Assessment & Plan (1) GI (gastrointestinal bleed): acute GI bleed for last 48 hours/melanotic stool, lower versus upper, was on subcu Lovenox for upper extremity DVT which has been discontinued, GI team has been following, feels too high risk for EGD colonoscopy, For any GI procedure need to be transferred to higher level of care, [facility]-patient was treated at [facility] recently Nuclear medicine bleeding scan: Shows no active bleeding spot Patient continued to have melanotic stool after the scan Strict n.p.o., IV Protonix drip, H&H every 6 hours Updated GI team, ordered for 2 units of PRBC transfusion, For ongoing bleeding, may benefit with CT angiography of abdomen pelvis, Present patient is getting PRBC transfusion borderline hypotensive, will hold off further CT scan until patient is stable Plan discussed with ICU team, recommends volume resuscitation with PRBC and IV fluids If patient's vital status compromise even after aggressive resuscitation, patient will be transferred to [facility] ICU, [facility] updated as well (2) Acute blood loss anemia: due to active GI bleed melanotic stool 2 units of PRBC yesterday ordered for 1 more unit Follow H&H every 6 hours, transfuse for any evidence of active GI bleed or hemodynamic compromise (3) Bacteremia: Culture 1 bottle: Coag negative staph possible contaminated sample Repeat blood culture no growth [facility] ID consult appreciated, IV Rocephin for 2 weeks (4) Lung cancer: AdenoCA of right lung, 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 Had first chemo on 12/09/2019 (Keytruda, Alimta, carboplatin) Follow-up with hematology regarding the metastatic disease and formulate a plan as outpatient. Dr. Griggs is aware of all findings and current plan above. Patient sent for severe SOB from PCP office on 10/06 to [facility] where he was admitted until 10/18/19. -RUE DVT found and started on full dose Lovenox-was continued for active GI bleed -echo revealed pericardial effusion and window was performed on 10/12 with effusion consistent with adenocarcinoma -persistent SOB lead to thoracis surgery draining R side and placing PleurX on 10/18/2019 -12/05/2019-had A port placement by Dr. Grady at [facility] -12/09/2019 first chemotherapy tx -Discussed with [facility] hospitalist and ICU team for possible transfer Likely recommends a volume resuscitation /reevaluate the patient, We will call again after patient was hemodynamically stable to be transferred out (5) History of DVT (deep vein thrombosis): H/O RUE DVT in 10/2019. 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 Khan SBP 93, patient had been borderline hypotensive's since admission, Continue blood transfusion, IV fluid bolus, If patient's hypotension does not improve with resuscitative measures and have active GI bleed(last melanotic BM was at 3:30 PM) Patient can be transferred down to ICU Plan of care discussed with patient and patient's significant other present at bedside CODE STATUS at readdressed, patient wants full resuscitation measures, mechanical ventilation and CPR, Patient remains full code Results & Data Results & Data ([facility]) Vital Signs (Past 12 Hours) Vital Signs Temp Pulse Pulse Pulse Resp BP BP 12/30/19 18:16 36.4 C L 98 H 20 111/77 12/30/19 17:25 36.3 C L 100 H 20 106/70 12/30/19 16:00 100 H 12/30/19 15:52 36.2 C L 98 H 12 93/66 L 12/30/19 12:36 36.9 C 108 H 18 12/30/19 07:57 36.3 C L 111 H 20 12/30/19 07:08 73 BP Pulse Ox 12/30/19 18:16 95 12/30/19 17:25 98 12/30/19 16:00 12/30/19 15:52 94 12/30/19 12:36 89/62 L 94 12/30/19 07:57 89/68 L 95 12/30/19 07:08
[2019-12-30] MEDS: FOLIC ACID 1 MG TAB PO SCH (20:00)
[2019-12-30] MEDS: PANTOprazole 40 MG in DEXTROSE 5% 100 ML IV SCH (20:18)
[2019-12-31] MEDS: SODIUM CHLORIDE 0.9% 1000ML 1,000 ML IV SCH ×3 (01:01→17:11)
[2019-12-31] MEDS: PANTOprazole 40 MG in DEXTROSE 5% 100 ML IV SCH ×5 (01:02→19:16)
[2019-12-31 03:55] LABS: Hemoglobin 9.9 g/dL (14.0-18.0); Mean Corpuscular Hgb Conc 31.9 g/dL (32-36); Mean Corpuscular Volume 87.6 fL (80-100); Nucleated RBC # (auto) 0.18 K/uL (0-0); Nucleated RBC % (auto) 5.2 %; Platelet Count 452 K/uL (130-400); RDW Coefficient of Variation 17.7 % (11.5-14.5); RDW Standard Deviation 57.1 fL (36.4-46.3); Red Blood Count 3.54 M/uL (4.7-6.1); White Blood Count 3.58 K/uL (4.8-10.8)
[2019-12-31 04:19] LABS: BUN Creatinine Ratio 21.1 (10-20); Calcium 6.9 mg/dl (8.5-10.1); Creatinine Clr Calc Pharmacy 145.4 ml/min; Est GFR (Non-African American) 115.6; Potassium 3.8 mmol/L (3.5-5.1)
[2019-12-31 04:39] LABS: ALC (manual) 0.95 K/uL (1.2-3.4); ANC (manual) 2.01 K/uL (1.4-6.5); Acanthocytes 1+; Basophils # (manual) 0.07 K/uL (0-0.2); Eosinophils # (manual) 0.11 K/uL (0-0.5); Eosinophils % (manual) 3.1 %; Howell-Jolly Bodies 1+; Lymphocytes # (manual) 0.95 K/uL (1.2-3.4); Lymphocytes % (manual) 26.5 %; Monocytes % (manual) 11.2 %; Myelocytes # (manual) 0.04 K/uL (0-0); Neutrophils # (manual) 2.01 K/uL (1.4-6.5); Neutrophils % (manual) 56.2 %
[2019-12-31] MEDS: guaiFENesin 600 MG TABCR PO SCH ×2 (07:58→20:44)
[2019-12-31] MEDS: CHLORPROMAZINE HCL 25 MG TABLET PO SCH ×3 (07:58→20:44)
[2019-12-31] MEDS: ONDANSETRON INJ 2 MG/ML 2 ML VIAL IV PRN (08:01)
[2019-12-31] MEDS: Magic Mouthwash 240mL PO SCH ×4 (08:02→21:39)
[2019-12-31 09:35] LABS: Hematocrit (blood only) 30.8 % (42-52); Hemoglobin 10.3 g/dL (14.0-18.0)
[2019-12-31] MEDS ORDERED: OPTIRAY 320 125ml IV ONE (10:54)
--- NOTE | 2019-12-31 11:04 | Hospitalist Progress Note ---
Date of Service December 31, 2019 Assessment & Plan (1) GI (gastrointestinal bleed): acute GI bleed for last 48 hours/melanotic stool, lower versus upper, was on subcu Lovenox for upper extremity DVT which has been discontinued, GI team has been following, Nuclear medicine bleeding scan: Shows no active bleeding spot Patient continued to have melanotic stool after the scan Strict n.p.o., IV Protonix drip, received 2 units of PRBC transfusion last night Hb 10 having melanotic stool , stable hemodynamics For ongoing bleeding, ordered CT angiography of abdomen pelvis, spoke with Dr Ba , pt will be evaluated by GI team today may consider EGD /colonoscopy in am colonoscopy prep -defer to GI (2) Acute blood loss anemia: due to active GI bleed melanotic stool received 4 units of PRBC tx H&H been stable 9.8-> 10 last 12 hrs follow H&H transfuse for any evidence of active GI bleed or hemodynamic compromise GI following (3) Bacteremia: Culture 1 bottle: Coag negative staph possible contaminated sample cont on Iv rocephin Repeat blood culture no growth [facility] ID consult appreciated, IV Rocephin for 2 weeks (4) Lung cancer: AdenoCA of right lung, 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 Had first chemo on 12/09/2019 (Keytruda, Alimta, carboplatin) Follow-up with hematology regarding the metastatic disease and formulate a plan as outpatient. Dr. Griggs is aware of all findings and current plan above. Patient sent for severe SOB from PCP office on 10/06 to [facility] where he was admitted until 10/18/19. -RUE DVT found and started on full dose Lovenox-was continued for active GI bleed -echo revealed pericardial effusion and window was performed on 10/12 with effusion consistent with adenocarcinoma -persistent SOB lead to thoracis surgery draining R side and placing PleurX on 10/18/2019 -12/05/2019-had A port placement by Dr. Grady at [facility] -12/09/2019 first chemotherapy tx -over all prognosis poor pt and his Significant other ( girl Friend ) aware wants to pursue all treatment : IV Abx chemo tx if possible wants to discuss with Oncology regarding prognosis , treatment options and possible , hospice if pt is unable to receive any more chemo tx on next clinic visit (5) History of DVT (deep vein thrombosis): H/O RUE DVT in 10/2019. 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 GI physician updated , may consider EGD /colonoscopy at [facility] tomorrow pt does not need transfer to ICU will continue to monitor in ICU Review of Systems Review of Systems: All systems reviewed & are unremarkable except as noted in HPI & below Gastrointestinal: + blood in stools and + melena Physical Exam Constitutional: WD/WN, vitals as above + ill appearing and + thin Eyes: + anicteric sclerae ENMT: external ear and nose normal, oropharynx normal Neck: trachea midline, no thyromegaly Respiratory: normal respiratory effort, lungs clear to auscultation Cardiovascular: RRR, no murmur, no edema Gastrointestinal (Abdomen): normal bowel sounds, soft, nontender, no hepatosplenomegaly Musculoskeletal: no cyanosis or clubbing, extremities motor strength 5/5 Neurologic: PERRL, EOMI, accommodation nl, no face palsy, no dysarthria Psychiatric: A+Ox3, euthymic affect Results & Data Results & Data ([facility]) Vital Signs (Past 12 Hours) Vital Signs Temp Pulse Pulse Resp BP BP BP 12/31/19 08:00 36.3 C L 95 H 111 H 19 118/76 12/31/19 04:03 36.3 C L 95 H 18 105/71 12/31/19 01:28 36.5 C 91 H 18 113/75 12/31/19 00:50 36.5 C 89 20 105/65 12/30/19 23:50 36.4 C L 90 18 106/75 12/30/19 23:20 36.3 C L 88 15 106/75 12/30/19 23:05 36.3 C L 92 H 15 96/74 L Pulse Ox 12/31/19 08:00 95 12/31/19 04:03 94 12/31/19 01:28 97 12/31/19 00:50 97 12/30/19 23:50 97 12/30/19 23:20 96 12/30/19 23:05 97
--- NOTE | 2019-12-31 11:40 | CT Scan Report ---
CT ANGIOGRAM OF THE ABDOMEN AND PELVIS CLINICAL HISTORY: GI bleeding. COMPARISON STUDY: Abdominal CT dated 12/23/2019. Nuclear bleeding scan dated 12/30/2019. Chest CT date d 12/26/2019. TECHNIQUE: Following the IV administration of 118 cc of Optiray 320, CT angiogram of the abdomen and pelvis was performed from the lung bases the proximal femora. Images are reviewed in the axial, sagit humphrey, and coronal planes. 3-D MIPS images are created and assessed. IV contrast was administered witho ut complication. A dose lowering technique was utilized adhering to the principles of ALARA. CT DOSE: 367.90 mGy.cm FINDINGS: Lower chest: The tip of a central venous catheter terminates at the cavoatrial junction. Necrotic med iastinal lymphadenopathy is partially visualized. The heart is normal in size noting a moderate peric ardial effusion. The coronary arteries are densely calcified. A pleural drain is noted at the right l rod base. Small to moderate pleural effusions have increased in size from 12/23/2019. There is associa linette bibasilar consolidation. Emphysematous change is suspected. A 5 mm pulmonary nodule in the lingul a seen on image #29. Liver: The contrast-enhanced liver is normal in size and heterogeneous in attenuation. There is no in trahepatic or ductal dilatation. A 4 mm hypervascular focus in the right lobe as seen on image #51. T his is nonspecific and may represent a flash filling hemangioma. Gallbladder: Unremarkable. Spleen: A normal spleen is not identified. Splenules are noted in the left upper quadrant. Pancreas: Unremarkable. Adrenal glands: A 2 cm left adrenal nodule is unchanged and concerning for metastatic disease. Kidneys: The contrast enhanced kidneys are normal in size and without hydronephrosis. The kidneys enh ance symmetrically. A 2.4 cm cyst is noted in the right lower pole. Additional subcentimeter cortical hypodensities also likely represent cysts but are too small for definitive characterization. Abdominal aorta and iliac arteries: The abdominal aorta is normal in course and caliber noting mild t o moderate atherosclerotic calcification. No dissection is seen. The iliac arteries are widely patent bilaterally. Major branches of the abdominal aorta: The celiac trunk, superior mesenteric, and inferior mesenteric arteries are widely patent. There is a common origin of the left gastric artery and the splenic sajan ry which both arise from the abdominal aorta. Hepatic arterial anatomy is conventional. There are 3 r ight renal arteries and 2 left renal arteries. The renal arteries are widely patent bilaterally. Bowel: The rectal wall appears mildly thickened and hyperemic. There are mildly distended and fluid-f illed loops of small bowel with no evidence of transition point or mechanical obstruction. A right in guinal hernia contains nonobstructed small bowel loops. A loop of small bowel within the inguinal her chandan appears hyperemic as seen on image #465. Additional mildly hyperemic appearing small bowel upstre am noted in the pelvis. These loops do not appear significantly thick walled. There is also nonspecif ic hyperemia of the gastric mucosa. There is no pneumatosis intestinalis or portal venous gas. Mild f ecal retention is noted throughout the colon. There is advanced sigmoid diverticulosis without clear CT evidence of acute diverticulitis. This is not well evaluated. Liquid stool seen throughout the col on. The appendix is not clearly identified. Peritoneum: There is a small volume of pelvic ascites. No intraperitoneal free air is seen. There is diffuse mesenteric edema. Lymphadenopathy: None. Pelvic viscera: The bladder is mildly distended but otherwise normal in appearance. The prostate glan d is enlarged and heterogeneous. There is a bowel containing right inguinal hernia. Skeletal structures: The skeletal structures are osteopenic. Mild lumbosacral spondylosis is observed . No lytic or blastic lesion is seen. Soft tissues: There is body wall edema. Numerous foci of induration are present within the ventral ab dominal wall and may be related to subcutaneous injections. IMPRESSION: 1. Unremarkable CT angiogram of the abdominal aorta and its major branches. 2. A pleural drain is again seen at the right lung base. There are small to moderate pleural effusion s which have modestly increased in size from recent prior studies. 3. Centrally necrotic mediastinal lymphadenopathy is partially visualized. 4. There is diffuse body wall edema, mesenteric edema, and a small volume of pelvic ascites. This deg rades evaluation of the abdominal viscera. 5. Advanced sigmoid diverticulosis without clear CT evidence of acute diverticulitis. This is not wel l assessed on this examination. 6. There is no clear evidence of bowel obstruction. A right inguinal hernia contains a nonobstructed small bowel loop. Ileus is not excluded. 7. There is nonspecific hyperemia of the gastric mucosa, the rectal mucosa, and scattered loops of sm all bowel in the pelvis and within the right inguinal hernia. This is nonspecific and could represent gastritis/enteritis/proctitis. Clinical correlation will be essential. 8. A left adrenal lesion is unchanged and concerning for metastatic disease. 9. A normal spleen is not identified with splenules seen in the left upper quadrant. 10. Pericardial effusion. 11. Additional findings as above. ACT 112: Negative or not required by law. Electronically signed by: Jaswinder Alva M.D. 12/31/2019 11:38 AM
--- NOTE | 2019-12-31 16:46 | Gastroenterology Progress Note ---
Date of Service December 31, 2019 Assessment & Plan Admission and Anticipated Discharge Date Admission Date: December 23, 2019 Subjective Pt with continued BRBPR overnight and this am. Pt describes large volume bleeding, although BP has been stable and had rise in hgb from 7's to 10's with 4 U PRBC. He has not passed blood since this am. Of note, he was prev on Lovenox, now held. PE: Appears comfortable. HEENT: no sig pallor, no LAD Resp: No incr WOB Abd: soft NT. He does not have abd distention. He has an easily reducible R ing hernia. Extrem: bilat UE edema Labs reviewed hgb 10's, abs neutrophil count 2, plts 452 BUN to, A/P: Met lung CA on Keytruda/Alimta/Carbo with malignant pleural effusion s/p Pleurx and pericardial effusion s/p window Recent UE DVT on Lovenox H/o SBO secondary to ? 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 Given need to resume anti-coagulation, will proceed with EGD and csocpy tomorrow to help stratify risk of re-bleeding with anticoag. - Would consider UE dopplers to see if pt has active DVT, but will defer to primary hospitalist. Results & Data ([facility]) Vital Signs (Past 12 Hours) Vital Signs Temp Pulse Pulse Resp BP BP Pulse Ox 12/31/19 16:01 36.6 C 96 H 18 103/77 96 12/31/19 11:35 36.3 C L 107 H 20 104/74 96 12/31/19 08:00 36.3 C L 95 H 111 H 19 118/76 95
[2019-12-31] MEDS: cefTRIAXone SODIUM 2,000 MG in DEXTROSE 5% 50 ML IV SCH (17:10)
[2019-12-31] MEDS ORDERED: METOCLOPRAMIDE HCL INJ 5 MG/ML 2 ML VIAL IV ONE (17:15)
[2019-12-31] MEDS ORDERED: LAVAGE SOLUTION 4000ML PO ONE (17:30)
[2019-12-31 18:25] LABS: Hematocrit (blood only) 29.5 % (42-52); Hemoglobin 9.9 g/dL (14.0-18.0)
[2019-12-31] MEDS: FOLIC ACID 1 MG TAB PO SCH (20:44)
[2020-01-01] MEDS: PANTOprazole 40 MG in DEXTROSE 5% 100 ML IV SCH ×3 (00:52→11:11)
[2020-01-01] MEDS: SODIUM CHLORIDE 0.9% 1000ML 1,000 ML IV SCH (04:25)
[2020-01-01 07:02] LABS: Hematocrit (blood only) 30.1 % (42-52); Hemoglobin 9.8 g/dL (14.0-18.0); Mean Corpuscular Hemoglobin 28.9 pg (25-34); Mean Corpuscular Hgb Conc 32.6 g/dL (32-36); Mean Corpuscular Volume 88.8 fL (80-100); Mean Platelet Volume 10.8 fL (7.4-10.4); Nucleated RBC # (auto) 0.21 K/uL (0-0); Platelet Count 494 K/uL (130-400); RDW Coefficient of Variation 17.7 % (11.5-14.5); RDW Standard Deviation 57.5 fL (36.4-46.3); Red Blood Count 3.39 M/uL (4.7-6.1); White Blood Count 4.24 K/uL (4.8-10.8)
--- NOTE | 2020-01-01 07:18 | History & Physical Bridge Note ---
Date of Service January 01, 2020 History & Physical Bridge Note I have examined the patient, reviewed the History & Physical and in the interval since the performance of the History & Physical I have noted the following changes of clinical significance: no changes noted
[2020-01-01] MEDS: CHLORPROMAZINE HCL 25 MG TABLET PO SCH ×3 (07:20→20:54)
[2020-01-01] MEDS: guaiFENesin 600 MG TABCR PO SCH ×2 (07:20→20:53)
[2020-01-01] MEDS: Magic Mouthwash 240mL PO SCH ×4 (07:22→21:00)
[2020-01-01 07:37] LABS: BUN Creatinine Ratio 10.4 (10-20); Calcium 6.8 mg/dl (8.5-10.1); Creatinine Clr Calc Pharmacy 134.2 ml/min; Est GFR (African American) 129.7; Est GFR (Non-African American) 111.9; Potassium 3.3 mmol/L (3.5-5.1)
--- NOTE | 2020-01-01 08:18 | Ultrasound Report ---
RIGHT UPPER EXTREMITY VENOUS DOPPLER HISTORY: Rt brachial artery DVT COMPARISON STUDY: None. FINDINGS: The right internal jugular vein is patent. There is normal flow within the right subclavian vein. There is normal flow and compressibility within the right axillary, basilic, brachial, radial, ulnar, and visualized cephalic veins. There is an intravenous line identified within the basilic vei n. The cephalic vein is suboptimally assessed due to its small size. Limited evaluation of the mid bi ceps region due to the patient's overlying bandages. IMPRESSION: No DVT within the visualized right upper extremity. ACT 112: Negative or not required by law. Electronically signed by: Bandar Abarca M.D. 01/01/2020 8:17 AM
[2020-01-01] MEDS ORDERED: ePHEDrine sulfate 50 MG/ML AMP IV PRN (08:48)
[2020-01-01] MEDS ORDERED: ATROPINE SULFATE 0.1 MG/ML 10ML SYR IV PRN (08:48)
[2020-01-01] MEDS ORDERED: fentaNYL citrate 100 MCG/2 ML VIAL IV PRN (08:48)
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
[2020-01-01] MEDS ORDERED: PROPOFOL IV EMULSION 10 MG/ML 20 ML VIAL IV ONE (09:11)
[2020-01-01] MEDS ORDERED: LIDOCAINE HCL 2% 2 ML VIAL/AMP(20MG/ML) INFIL ONE (09:11)
[2020-01-01] MEDS ORDERED: NSS + 20MEQ KCL 20 MEQ/1,000 ML BAG IV SCH (10:30)
--- NOTE | 2020-01-01 10:38 | GI REPORT ---
Patient Name: Keith Sheehan Procedure Date: 01/01/2020 9:13 AM Date of : 1955 Admit Type: Inpatient Age: 64 Gender: Male Attending MD: Yadira Ba MD Procedure: Upper GI endoscopy Providers: Yadira Ba MD Referring MD: Delphine Gabriel Indications: Hematochezia Medicines: See the Anesthesia note for documentation of the administered medications Complications: No immediate complications. Estimated Blood Loss: Estimated blood loss: none. Procedure: Pre-Anesthesia Assessment: - ASA Grade Assessment: III - A patient with severe systemic disease. After obtaining informed consent, the endoscope was passed under direct vision. Throughout the procedure, the patient's blood pressure, pulse, and oxygen saturations were monitored continuously. The Endoscope was introduced through the mouth, and advanced to the duodenal bulb. The patient tolerated the procedure well. The upper GI endoscopy was accomplished without difficulty. Findings: There was a small inlet patch. The veins in the mid esophagus were mildly prominent. There was a small hiatal hernia. The remainder of the esophagus was normal. The stomach was thought to be large and capacious. The duodenum was normal. Impression: No UGI soure of bleeding. Recommendation: - Discharge patient to floor. Yadira Ba M.D. Yadira Ba MD 01/01/2020 10:37:31 AM This report has been signed electronically. Note Initiated On: 01/01/2020 9:13 AM Number of Addenda: 0 I attest to the content of the Intraoperative Record and orders documented therein, exceptions below {[id number]}
--- NOTE | 2020-01-01 10:43 | GI REPORT ---
Patient Name: Keith Sheehan Procedure Date: 01/01/2020 9:11 AM Date of : 1955 Admit Type: Inpatient Age: 64 Gender: Male Attending MD: Yadira Ba MD Procedure: Colonoscopy Providers: Yadira Ba MD Referring MD: Delphine Gabriel Indications: Rectal bleeding Medicines: See the Anesthesia note for documentation of the administered medications Complications: No immediate complications. Estimated Blood Loss: Estimated blood loss: none. Procedure: Pre-Anesthesia Assessment: - ASA Grade Assessment: II - A patient with mild systemic disease. After I obtained informed consent, the scope was passed under direct vision. Throughout the procedure, the patient's blood pressure, pulse, and oxygen saturations were monitored continuously. The Colonoscope was introduced through the anus and advanced to the cecum, identified by appendiceal orifice and ileocecal valve. The colonoscopy was performed without difficulty. The patient tolerated the procedure well. The quality of the bowel preparation was poor. Findings: The perianal and digital rectal examinations were normal. There was a large amount of thick liquid green stool throughout the colon making visualization difficult. I attempted to lavage, but kept losing suction, and was unable to clear the colon. Of note, the prep was not sufficient for colon cancer screening. There was no evidence of active bleeding. There were numerous diverticula throughout the sigmoid and descending colon. I could not see any stigmata in the area of diverticulosis. The cecum could not be cleared due to prep quality. The remainder of the colon was normal. Impression: - Preparation of the colon was poor. - Severe diverticulosis in left colon. - No evidence of active bleeding. I presume that this was a diverticular bleed. Recommendation: - Discharge patient to floor. - Resume diet today as tolerated. Consider Reglan given possibility of gastroparesis. - Follow hgb and transfuse if needed. - Ok to resume Lovenox once hgb is stable for 3 days. - If evidence of re-bleeding, consider transfer to center with interventional radiology. Annie Feliz MD 01/01/2020 10:42:41 AM This report has been signed electronically. Note Initiated On: 01/01/2020 9:11 AM Number of Addenda: 0 I attest to the content of the Intraoperative Record and orders documented therein, exceptions below {[id number]}
--- NOTE | 2020-01-01 10:55 | Anesthesiology Progress Note ---
Date of Service January 01, 2020 Anesthesia Post Procedure Vital Signs Vital Signs: Temp Pulse Pulse Pulse Resp BP BP 01/01/20 10:50 103 H 16 122/79 01/01/20 10:35 36.5 C 90 16 124/86 01/01/20 10:27 36.0 C L 88 16 117/84 01/01/20 07:50 107 H 01/01/20 04:32 36.5 C 71 18 110/73 01/01/20 00:00 99 H 12/31/19 23:11 36.5 C 98 H 18 107/74 12/31/19 19:20 36.4 C L 101 H 19 110/76 12/31/19 16:01 36.6 C 96 H 18 103/77 12/31/19 11:35 36.3 C L 107 H 20 104/74 Pulse Ox 01/01/20 10:50 96 01/01/20 10:35 96 01/01/20 10:27 97 01/01/20 07:50 01/01/20 04:32 92 01/01/20 00:00 12/31/19 23:11 95 12/31/19 19:20 96 12/31/19 16:01 96 12/31/19 11:35 96 Pain Intensity Medial Throat: Pain Intensity: 7 Transfer of Care Handoff Completed per policy Notes Mental Status: alert / awake / arousable and participated in evaluation Patient Amnestic to Procedure: Yes Nausea / Vomiting: adequately controlled Pain: adequately controlled Airway Patency, RR, SpO2: stable & adequate BP & HR: stable & adequate Hydration State: stable & adequate Anesthetic Complications: no major complications apparent and Pt Satisfied with anesthetic care
[2020-01-01] MEDS: POTASSIUM CHLORIDE / WTR 10 MEQ/100 ML PLCT IV SCH ×2 (11:11→12:25)
[2020-01-01] MEDS ORDERED: METOPROLOL TARTRATE 1 MG/ML VIAL IV PRN (11:51)
[2020-01-01] MEDS: METOCLOPRAMIDE HCL INJ 5 MG/ML 2 ML VIAL IV SCH ×2 (12:22→20:59)
--- NOTE | 2020-01-01 12:27 | Hospitalist Progress Note ---
Date of Service January 01, 2020 Assessment & Plan (1) GI (gastrointestinal bleed): Possible secondary to diverticular bleed Resolved, no further episode of melanotic stool for last 24 hours H&H remained stable Risk factor for bleeding was on subcu Lovenox for upper extremity DVT which has been discontinued, Aspirin 81 mg daily discontinued Status post EGD and colonoscopy: Normal study on EGD, Colonoscopy poor colon prep limited view, severe diverticulosis of left colon, no evidence of active bleeding Diet advanced, Hold anticoagulation History of right upper extremity DVT: Ultrasound shows resolution of DVT, Risk for GI bleed will not resume Lovenox. (2) Acute blood loss anemia: due to active GI bleed melanotic stool/possible diverticular bleed received 4 units of PRBC tx No GI bleed for 1 day H&H remained stable Continue to follow H&H (3) Bacteremia: Culture 1 bottle: Coag negative staph possible contaminated sample cont on Iv rocephin Repeat blood culture no growth 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 Had first chemo on 12/09/2019 (Keytruda, Alimta, carboplatin) Follow-up with hematology regarding the metastatic disease and formulate a plan as outpatient. Dr. Griggs is aware of all findings and current plan above. Patient sent for severe SOB from PCP office on 10/06 to [facility] where he was admitted until 10/18/19. -RUE DVT found and started on full dose Lovenox-was continued for active GI bl eed -echo revealed pericardial effusion and window was performed on 10/12 with effusion consistent with adenocarcinoma -persistent SOB lead to thoracis surgery draining R side and placing PleurX on 10/18/2019 -12/05/2019-had A port placement by Dr. Grady at [facility] -12/09/2019 first chemotherapy tx -over all prognosis poor pt and his Significant other ( girl Friend ) aware wants to pursue all treatment : IV Abx chemo tx if possible wants to discuss with Oncology regarding prognosis , treatment options and possible , hospice if pt is unable to receive any more chemo tx on next clinic visit (5) History of DVT (deep vein thrombosis): H/O RUE DVT in 10/2019. Was on Lovenox Ultrasound, this admission 12/31/2019: No evidence of right upper extremity DVT No indication to continue Lovenox therapy Status: Full code Disposition: Expected to be discharged home next 1-2 days if no further episode of GI bleed Managements will be made for home IV antibiotic treatment Patient already have A port for IV access Admission and Anticipated Discharge Date Admission Date: December 23, 2019 Subjective No further episode of melanotic stool Could not finishbowel prep yesterday, due to nausea Had EGD and colonoscopy, no evidence of active GI bleed Diet advanced to full liquid, tolerating well Vitals been stable Review of Systems Review of Systems: All systems reviewed & are unremarkable except as noted in HPI & below Physical Exam Constitutional: WD/WN, vitals as above + ill appearing and + thin Eyes: + anicteric sclerae ENMT: external ear and nose normal, oropharynx normal Neck: trachea midline, no thyromegaly Respiratory: normal respiratory effort, lungs clear to auscultation Cardiovascular: RRR, no murmur, no edema Gastrointestinal (Abdomen): normal bowel sounds, soft, nontender, no hepatosplenomegaly Musculoskeletal: no cyanosis or clubbing, extremities motor strength 5/5 Neurologic: PERRL, EOMI, accommodation nl, no face palsy, no dysarthria Psychiatric: A+Ox3, euthymic affect Results & Data Results & Data ([facility]) Vital Signs (Past 12 Hours) Vital Signs Temp Pulse Pulse Pulse Resp BP Pulse Ox 01/01/20 12:02 36.4 C L 98 H 18 115/84 98 01/01/20 11:44 36.3 C L 122 H 20 123/89 96 01/01/20 11:10 36.6 C 120 H 20 116/80 95 01/01/20 10:59 36.6 C 110 H 20 116/80 96 01/01/20 10:50 103 H 16 122/79 96 01/01/20 10:35 36.5 C 90 16 124/86 96 01/01/20 10:27 36.0 C L 88 16 117/84 97 01/01/20 07:50 107 H 01/01/20 04:32 36.5 C 71 18 110/73 92
[2020-01-01] MEDS: cefTRIAXone SODIUM 2,000 MG in DEXTROSE 5% 50 ML IV SCH (17:25)
[2020-01-01] MEDS: ONDANSETRON INJ 2 MG/ML 2 ML VIAL IV PRN (17:34)
[2020-01-01] MEDS: PANTOprazole 40 MG TAB PO SCH (20:53)
[2020-01-01] MEDS: FOLIC ACID 1 MG TAB PO SCH (20:53)
[2020-01-01] MEDS ORDERED: PROMETHAZINE HCL 12.5 MG in SODIUM CHLORIDE 0.9% 50 ML IV ONE (21:00)
[2020-01-02 07:10] LABS: Hematocrit (blood only) 31.1 % (42-52); Hemoglobin 10.5 g/dL (14.0-18.0); Mean Corpuscular Hgb Conc 33.8 g/dL (32-36); Mean Corpuscular Volume 88.9 fL (80-100); Mean Platelet Volume 10.8 fL (7.4-10.4); Nucleated RBC # (auto) 0.11 K/uL (0-0); Nucleated RBC % (auto) 2.1 %; Platelet Count 528 K/uL (130-400); RDW Coefficient of Variation 17.3 % (11.5-14.5); RDW Standard Deviation 56.3 fL (36.4-46.3); White Blood Count 5.35 K/uL (4.8-10.8)
[2020-01-02 07:42] LABS: BUN Creatinine Ratio 7.8 (10-20); Calcium 7.7 mg/dl (8.5-10.1); Creatinine Clr Calc Pharmacy 125.5 ml/min; Est GFR (African American) 124.9; Est GFR (Non-African American) 107.8; Potassium 3.5 mmol/L (3.5-5.1)
[2020-01-02] MEDS: Magic Mouthwash 240mL PO SCH ×4 (08:23→20:48)
[2020-01-02] MEDS: guaiFENesin 600 MG TABCR PO SCH ×2 (08:27→20:47)
[2020-01-02] MEDS: CHLORPROMAZINE HCL 25 MG TABLET PO SCH ×3 (08:27→20:47)
[2020-01-02] MEDS: METOCLOPRAMIDE HCL INJ 5 MG/ML 2 ML VIAL IV SCH ×2 (08:27→20:48)
[2020-01-02] MEDS: PANTOprazole 40 MG TAB PO SCH ×2 (08:27→20:47)
--- NOTE | 2020-01-02 11:01 | Gastroenterology Progress Note ---
Date of Service January 02, 2020 Assessment & Plan (1) GI (gastrointestinal bleed): Pt is a64 y/o male w hx of metastatic lung CA on Keytruda/Alimta/Carboplatin, coag negative staph bacteremia on IV antibx, followed for rectal bleeding. He underwent EGD/Colonoscopy 12/31 to r/o source of GI bleeding - EGD unremarkable, noted to have severe L sided diverticulosis. Suspected diverticular bleeding. No more rectal bleeding, denies abd pain, n/v, blood ct stable - Hold Lovenox until stable blood cx x 3 days - Monitor blood ct - GI will sign off; pls recall prn Attg add: Iinterviewed and examined pt, reviewed chart and labs. Pt without further bleeding. H/h stable. Likely resolved diverticular bleed. Call with questions. Admission and Anticipated Discharge Date Admission Date: December 23, 2019 Subjective Pt feels well, having BMs but no signs of GI bleeding. Blood ct stable. Denies abd pain, n/v. Review of Systems Review of Systems: All systems reviewed & are unremarkable except as noted in HPI & below Physical Exam Constitutional: WD/WN, vitals as above well groomed, cooperative and comfortable Eyes: PERRL, conjunctivae normal, anicteric sclerae ENMT: external ear and nose normal, oropharynx normal Respiratory: normal respiratory effort, lungs clear to auscultation Cardiovascular: RRR, no murmur, no edema Gastrointestinal (Abdomen): normal bowel sounds, soft, nontender, no hepatosplenomegaly Skin: no rashes, warm and dry no jaundice Psychiatric: A+Ox3, euthymic affect Lymphatic: no lymphedema Results & Data ([facility]) Vital Signs (Past 12 Hours) Vital Signs Temp Pulse Pulse Pulse Resp BP Pulse Ox 01/02/20 07:24 103 H 01/02/20 07:09 36.3 C L 117 H 18 125/86 92 01/02/20 03:13 36.6 C 67 16 115/74 95 01/02/20 00:00 106 H 01/01/20 23:31 36.6 C 104 H 16 107/74 92
--- NOTE | 2020-01-02 12:47 | Communication Note ---
Date of Service: January 02, 2020 No further episode of GI bleed hb Globin stays stable at 10.6 Received 7 days of IV Rocephin needs total 14 days of treatment Prescription will be given for 7 more days of IV antibiotic treatment Plan to discharge home tomorrow with home health, home physical therapy Patient needs follow-up with hematology oncology, pulmonology And infectious disease doctor on discharge Delphine Gabriel MD
--- NOTE | 2020-01-02 17:42 | Hospitalist Progress Note ---
Date of Service January 02, 2020 Assessment & Plan (1) GI (gastrointestinal bleed): Possible secondary to diverticular bleed Resolved, no further episode of melanotic stool for last 24 hours H&H remained stable Risk factor for bleeding was on subcu Lovenox for upper extremity DVT which has been discontinued, Aspirin 81 mg daily discontinued Status post EGD and colonoscopy: Normal study on EGD, Colonoscopy poor colon prep limited view, severe diverticulosis of left colon, no evidence of active bleeding Diet advanced, Hold anticoagulation History of right upper extremity DVT: Ultrasound shows resolution of DVT, Risk for GI bleed will not resume Lovenox. 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 Had first chemo on 12/09/2019 (Keytruda, Alimta, carboplatin) Follow-up with hematology regarding the metastatic disease and formulate a plan as outpatient. Dr. Griggs is aware of all findings and current plan above. Patient sent for severe SOB from PCP office on 10/06 to [facility] where he was admitted until 10/18/19. -RUE DVT found and started on full dose Lovenox-was continued for active GI bleed -echo revealed pericardial effusion and window was performed on 10/12 with effusion consistent with adenocarcinoma -persistent SOB lead to thoracis surgery draining R side and placing PleurX on 10/18/2019 -12/05/2019-had A port placement by Dr. Grady at [facility] -12/09/2019 first chemotherapy tx -over all prognosis poor pt and his Significant other ( girl Friend ) aware wants to pursue all treatment : IV Abx chemo tx if possible wants to discuss with Oncology regarding prognosis , treatment options and possible , hospice if pt is unable to receive any more chemo tx on next clinic visit (5) History of DVT (deep vein thrombosis): H/O RUE DVT in 10/2019. Was on Lovenox Ultrasound, this admission 12/31/2019: No evidence of right upper extremity DVT No indication to continue Lovenox therapy Status: Full code Disposition: discharge home in AM Admission and Anticipated Discharge Date Admission Date: December 23, 2019 Subjective Pt feels well, having BMs but no signs of GI bleeding. Blood ct stable. Denies abd pain, n/v. Physical Exam Constitutional: WD/WN, vitals as above + ill appearing and + thin Eyes: + anicteric sclerae ENMT: external ear and nose normal, oropharynx normal Neck: trachea midline, no thyromegaly Respiratory: normal respiratory effort, lungs clear to auscultation Cardiovascular: RRR, no murmur, no edema Gastrointestinal (Abdomen): normal bowel sounds, soft, nontender, no hepatosplenomegaly Musculoskeletal: no cyanosis or clubbing, extremities motor strength 5/5 Neurologic: PERRL, EOMI, accommodation nl, no face palsy, no dysarthria Psychiatric: A+Ox3, euthymic affect Results & Data Results & Data ([facility]) Vital Signs (Past 12 Hours) Vital Signs Temp Pulse Pulse Resp BP Pulse Ox 01/02/20 15:57 106 H 01/02/20 15:36 36.2 C L 107 H 20 104/74 91 01/02/20 11:28 36.5 C 106 H 17 101/71 94 01/02/20 07:24 103 H 01/02/20 07:09 36.3 C L 117 H 18 125/86 92
[2020-01-02] MEDS: cefTRIAXone SODIUM 2,000 MG in DEXTROSE 5% 50 ML IV SCH (18:31)
[2020-01-02] MEDS: FOLIC ACID 1 MG TAB PO SCH (20:48)
[2020-01-03 06:57] LABS: Hemoglobin 9.9 g/dL (14.0-18.0); Mean Corpuscular Hemoglobin 29.4 pg (25-34); Mean Platelet Volume 10.1 fL (7.4-10.4); Nucleated RBC # (auto) 0.05 K/uL (0-0); Nucleated RBC % (auto) 0.8 %; Platelet Count 475 K/uL (130-400); RDW Standard Deviation 54.5 fL (36.4-46.3); Red Blood Count 3.37 M/uL (4.7-6.1); White Blood Count 5.92 K/uL (4.8-10.8)
[2020-01-03 07:26] LABS: BUN Creatinine Ratio 6.1 (10-20); Calcium 7.2 mg/dl (8.5-10.1); Creatinine Clr Calc Pharmacy 120.1 ml/min; Est GFR (African American) 123.1; Est GFR (Non-African American) 106.2; Potassium 3.4 mmol/L (3.5-5.1)
[2020-01-03] MEDS: Magic Mouthwash 240mL PO SCH ×3 (08:20→17:15)
[2020-01-03] MEDS: METOCLOPRAMIDE HCL INJ 5 MG/ML 2 ML VIAL IV SCH (08:21)
[2020-01-03] MEDS: guaiFENesin 600 MG TABCR PO SCH (08:22)
[2020-01-03] MEDS: CHLORPROMAZINE HCL 25 MG TABLET PO SCH ×2 (08:22→14:26)
[2020-01-03] MEDS: PANTOprazole 40 MG TAB PO SCH (08:23)
[2020-01-03] MEDS ORDERED: POTASSIUM CHLORIDE 20 MEQ TABCR PO ONE (11:30)
[2020-01-03] MEDS ORDERED: Nursing to Pharmacy Communication STA (11:31)
[2020-01-03] MEDS: cefTRIAXone SODIUM 2,000 MG in DEXTROSE 5% 50 ML IV SCH (12:45)
--- NOTE | 2020-01-03 15:44 | Discharge Summary ---
Date of Service January 03, 2020 Admission HPI Per Admitting Provider Pt is 64 y/o M with PMH adenocarcinoma lung, h/o pleural effusion requiring Pleurx cath,h/o DVT right upper extremity 10/2019 on Lovenox presented to ER for N/V x 2 weeks. Had chemo on 12/09/2019 (Keytruda, Alimta, carboplatin). Has been vomiting multiple times a day since 12/11/2019. Initially had diarrhea which has since resolved with use of Imodium. C/O diffuse abdominal aching, worse with dry heaving. Pt not eating or drinking. Has had sore mouth and sore throat and was diagnosed with thrush however has not yet received nystatin prescription. C/O sore mouth and throat and can't eat or drink secondary to this as well as nausea. Has chronic cough productive phlegm. Denies any worsening cough.. Denies SOB, CP. Pt has [facility] that has been following him recently. On 12/21/19 at noted BP: 80/50 with pulse of 96 and was given 1L NSS. He was encouraged to come to ER past couple days however did not want to come until today. Today reported temp 99.4F. Patient reports has been feeling very rundown and weak since chemo. Denies hemoptysis, hematochezia. History of hospitalization 11/29/2019- 12/06/2019, had SBO, had port placed 12/06/2019. Reports decreased drainage from Pleur x cath and now only draining every 5 days, last drained 25ml. Denies ROBISON, syncope, vision changes, rhinorrhea, paresthesias, extremity edema, rashes, urinary symptoms. Principal Diagnosis Metastatic adenocarcinoma of the lungs Malignant pleural effusion Sepsis/weight coag negative staph bacteremia GI bleed/acute blood loss anemia, resolved Discharge Exam Constitutional WD/WN, vitals as above + ill appearing and + thin Eyes + anicteric sclerae ENMT external ear and nose normal, oropharynx normal Neck trachea midline, no thyromegaly Respiratory normal respiratory effort, lungs clear to auscultation Cardiovascular RRR, no murmur, no edema Gastrointestinal (Abdomen) normal bowel sounds, soft, nontender, no hepatosplenomegaly Musculoskeletal no cyanosis or clubbing, extremities motor strength 5/5 Neurologic PERRL, EOMI, accommodation nl, no face palsy, no dysarthria Psychiatric A+Ox3, euthymic affect Discharge Data Allergies Allergy/AdvReac Type Severity Reaction Status Date / Time amlodipine AdvReac Intermediate peripheral Verified 12/23/19 16:51 edema Consultations 12/23/19 15:27 ED Decision to Admit Stat 12/23/19 17:49 Consult Case Management - Discharge Planning Routine 12/24/19 13:11 Consult General Surgery Routine 12/25/19 14:36 Consult Infectious Diseases Routine 12/26/19 18:12 Consult Pulmonology Routine 12/27/19 13:48 Consult Cardiology Routine 12/28/19 18:08 Consult Gastroenterology Routine 12/31/19 17:28 Consult Anesthesiology Routine Procedures Performed Operation Date: 12/28/19 07:45 Actual Procedures p Echo Transesophageal - DO shara Peralta Echo Color Flow - Yannick Murphy DO s Echo Doppler Complete - Yannick Murphy DO Operation Date: 01/01/20 08:30 Actual Procedures p Esophagogastroduodenoscopy(Not Applicable) - Yadira Ba s Colonoscopy(Not Applicable) - Yadira Ba Operation Date: 01/02/20 17:30 <No data on this case meets the specified criteria> Ordered Studies 12/23/19 15:27 CT abd pelvis wo con Stat 12/26/19 17:11 CT chest w con Stat 12/31/19 10:48 CT angio abdomen pelvis w con Urgent 12/31/19 17:02 US venous doppler UE RT Routine Hospital Course (1) GI (gastrointestinal bleed): Possible secondary to diverticular bleed Resolved, no further episode of melanotic stool for last 24 hours H&H remained stable Risk factor for bleeding was on subcu Lovenox for upper extremity DVT which has been discontinued, Aspirin 81 mg daily discontinued Status post EGD and colonoscopy: Normal study on EGD, Colonoscopy poor colon prep limited view, severe diverticulosis of left colon, no evidence of active bleeding Diet advanced, Hold anticoagulation History of right upper extremity DVT: Ultrasound shows resolution of DVT, Risk for GI bleed will not resume Lovenox. 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 Had first chemo on 12/09/2019 (Keytruda, Alimta, carboplatin) Follow-up with hematology regarding the metastatic disease and formulate a plan as outpatient. Dr. Griggs is aware of all findings and current plan above. Patient sent for severe SOB from PCP office on 10/06 to [facility] where he was admitted until 10/18/19. -RUE DVT found and started on full dose Lovenox-was continued for active GI bleed -echo revealed pericardial effusion and window was performed on 10/12 with effusion consistent with adenocarcinoma -persistent SOB lead to thoracis surgery draining R side and placing PleurX on 10/18/2019 -12/05/2019-had A port placement by Dr. Grady at [facility] -12/09/2019 first chemotherapy tx -over all prognosis poor pt and his Significant other ( girl Friend ) aware wants to pursue all treatment : IV Abx chemo tx if possible wants to discuss with Oncology regarding prognosis , treatment options and possible , hospice if pt is unable to receive any more chemo tx on next clinic visit (5) History of DVT (deep vein thrombosis): H/O RUE DVT in 10/2019. Was on Lovenox Ultrasound, this admission 12/31/2019: No evidence of right upper extremity DVT No indication to continue Lovenox therapy Status: Full code Disposition: discharge home today Total Time Total Time Spent Total Time Spent (In Minutes): 35 mins Discharge Plan Discharge Items Patient Disposition: Home - Home Health Services Reason For Visit: SEPSIS Discharge Diagnosis: Metastatic adenocarcinoma of the lungs Malignant pleural effusion Sepsis/weight coag negative staph bacteremia GI bleed/acute blood loss anemia, resolved Activity: As commented below Activity Comment: As tolerated Non-emergency contact: Primary Care Provider Call non-emergency contact if: you have any medication questions Follow-up/Referrals: Agus Osuna MD [Physician] - ([facility] Office will call you with an appointment. ) Yannick Murphy DO [Senior Maintenance Technician] - ([facility] Card[facility] office will call you with an appointment.) Shahzad Griggs MD [Surgeon] - ([facility] Oncology office will call you with an appointment that is sooner than your previously made February appointment. ) Odilon Lin MD [Primary Care Provider] - 01/05/20 11:05 am Hemant Ojeda MD [Physician] - 01/10/20 10:40 am (Date & Time 01/10/2020 10:40 AM Provider Hemant Toth MD Department Infectious Disease, [address] [place]ton Ordonez, [address] Floor ) Diet: Regular Ambulatory Orders: Basic Metabolic Panel (Routine) Timeframe: 1 Week Location: Determined by Patient Ordered By: Delphine Gabriel Complete Blood Count no Diff (Routine) Timeframe: 1 Week Location: Determined by Patient Ordered By: Delphine Gabriel Addtl Attending Provider Instructions: 2D transthoracic echocardiogram demonstrates should pericardial effusion/fluid around your heart .Repeat echocardiogram in 2-4 weeks Continue to drain Pleurx catheter daily at home Drain fluids as much as you are able to tolerate, stop for any shortness of breath, chest pain Do not drain more than 1 L/day of pleural/lung fluid Please notify your family physician or return to ER, with any onset of high fever, shortness of breath, cough Or any other recurrence of blood in stool or dark-colored stool Do not take aspirin, Advil and Aleve, Motrin, ibuprofen-high risk for bleeding and stomach and intestine Do not take subcu Lovenox, Repeat blood work: Blood count, basic metabolic panel with next physician visit Follow-up with infectious disease doctor appointment scheduled on 01/10/2020 at [facility] Follow-up with cardiology for repeat echocardiogram Pulmonology follow-up for maintenance and evaluation for Pleurx catheter Please follow-up with your hematology oncology, Dr. Shahzad Griggs for further recommendation for cancer treatment Pending Studies at Discharge: Yes Studies:: Echo cardiogram in 2 -4 weeks Stand-Alone Forms: My [employer], Smoking Cessation Medications and DC Order Prescriptions: New ceftriaxone in dextrose,iso-os 2 gram/50 mL piggyback 2 g IV DAILY Qty: 7 RF: 0 Continued chlorpromazine 25 mg tablet 25 mg PO TID RF: 0 mirtazapine 15 mg tablet 15 mg PO HS RF: 0 acetaminophen [Tylenol Extra Strength] 500 mg Tablet 1,000 mg PO Q6H PRN (Reason: Pain) RF: 0 bisacodyl 10 mg suppository [address] DAILY PRN (Reason: Constipation) RF: 0 folic acid 1 mg Tablet 1 mg PO QAM RF: 0 dexamethasone 4 mg tablet 4 mg PO BID RF: 0 ondansetron HCl 8 mg tablet 8 mg PO Q8H PRN (Reason: Nausea) RF: 0 prochlorperazine maleate 10 mg tablet 10 mg PO Q6H PRN (Reason: Nausea) RF: 0 Changed pantoprazole 40 mg tablet,delayed release (DR/EC) 40 mg PO BID 30 Days Qty: 60 RF: 0 Discontinued aspirin 81 mg Tablet,Delayed Release (Dr/Ec) 81 mg PO QAM RF: 0 enoxaparin 80 mg/0.8 mL syringe 60 mg subcut Q12H RF: 0 Discharge Orders: Discharge Order (Routine); Ordered 01/03/20 Ordered By: Delphine Gabriel Admission Data Admit Date/Time: 12/23/19 15:57 Attending Provider: Delphine Gabriel Admit Provider: Jona Ortega Primary Care Provider: Odilon Lin Other Providers: [facility] ; Yadira Ba ; Jona Ortega ; Maldonado Patel ; Hemant Ojeda ; Anny Esteban ; Davi Rodriguez I. ; Justino Rojo II ; Lorri Ruiz ; Maldonado Davis ; Agus Osuna ; Yannick Murphy ; Rosi Lanier ; Dawna Plummer ; Roby Regalado ; Susan Rodríguez ; Tello Arenas ; Deann Valerio ; Sherrill Benavides ; [place] ; Shelton West ; Jihan Knight ; Radha Barker ; Jocelin Leyva ; Rebeca Victoria ; Carleen Lockett Other Interventions: Discharge Summary Assessment (RN) Last Done: 01/03/20 15:42
== END 2020-01-03 17:47 | disposition home health service (06) | DRG 872 ==
LOC: ED 13:47 → SUATTDRO 15:57 → 2S 15:57
DX: B37.0 Candidal stomatitis; Z68.20 Body mass index [BMI] 20.0-20.9, adult; C34.91 Malignant neoplasm of unspecified part of right bronchus or lung; N40.0 Benign prostatic hyperplasia without lower urinary tract symptoms; D62 Acute posthemorrhagic anemia; R65.20 Severe sepsis without septic shock; K92.1 Melena; N17.9 Acute kidney failure, unspecified; Z86.718 Personal history of other venous thrombosis and embolism; E87.6 Hypokalemia; E46 Unspecified protein-calorie malnutrition; E83.42 Hypomagnesemia; Z79.82 Long term (current) use of aspirin; Z79.01 Long term (current) use of anticoagulants; I10 Essential (primary) hypertension; A41.89 Other specified sepsis; D70.9 Neutropenia, unspecified; K21.9 Gastro-esophageal reflux disease without esophagitis; Z79.899 Other long term (current) drug therapy; K40.90 Unilateral inguinal hernia, without obstruction or gangrene, not specified as recurrent; J91.0 Malignant pleural effusion

== ENCOUNTER 2020-01-24 17:34 | Inpatient (IN) ==
[2020-01-24] MEDS ORDERED: SODIUM CHLORIDE 0.9% 1000ML 1,000 ML IV SCH ×2 (18:00→18:54)
[2020-01-24] MEDS ORDERED: ONDANSETRON INJ 2 MG/ML 2 ML VIAL IV STA (18:05)
[2020-01-24] MEDS ORDERED: MoRPHine SULFATE 4 MG/ML 1 ML CARP\\VIAL IV STA (18:05)
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
[2020-01-24 18:31] LABS: INR 1.3 (0.9-1.1); Partial Thromboplastin Ratio 1.3; Partial Thromboplastin Time 36.4 Seconds (21.0-31.0); Prothrombin Time 13.1 Seconds (9.0-12.0)
[2020-01-24 18:41] LABS: Alanine Aminotransferase 16 U/L (12-78); Albumin Level 1.7 gm/dl (3.4-5.0); Aspartate Aminotransferase 19 U/L (15-37); Blood Urea Nitrogen 19 mg/dl (7-18); Carbon Dioxide 28 mmol/L (21-32); Chloride 102 mmol/L (98-107); Est GFR (African American) 102.1; Est GFR (Non-African American) 88.1; Glucose 97 mg/dl (70-99); Magnesium 1.3 mg/dl (1.8-2.4); Potassium 3.3 mmol/L (3.5-5.1); Sodium 139 mmol/L (136-145)
[2020-01-24 18:47] LABS: Albumin Globulin Ratio 0.4 (0.9-2); Alkaline Phosphatase 114 U/L (45-117); Bilirubin,Total 0.7 mg/dl (0.2-1); Globulin 4.7 gm/dl (2.5-4.0); Total Protein 6.4 gm/dl (6.4-8.2); Troponin I < 0.015 ng/ml (0-0.045)
--- NOTE | 2020-01-24 18:55 | XRay Report ---
XR chest 1V portable CLINICAL HISTORY: SEPSIS COMPARISON STUDY: Chest CT December 26, 2019. Chest radiograph December 27, 2019. FINDINGS: A left internal jugular Csmhyt-g-[id number] and right pleural drain are in place. Elevation of th e right hemidiaphragm is unchanged. Hazy right apical opacity has slightly improved since prior exam. There is no pneumothorax. Right pleural fusion is likely decreased. There is mild left basilar opaci ty. Visualized portions of the abdomen demonstrate several loops of moderately dilated small bowel me asure up to 5.1 cm in caliber. IMPRESSION: 1. Interval improvement in right upper lung hazy opacity. This may reflect improvement in right upper lobe collapse. 2. Right pleural catheter in place. Decrease in a right pleural effusion. 3. Mild left basilar opacity. 4. Moderate small bowel dilatation. This may reflect a small bowel obstruction or ileus. ACT 112: Negative or not required by law. Electronically signed by: Nasir Baker M.D. 01/24/2020 6:54 PM
[2020-01-24] MEDS ORDERED: PROCHLORPERAZINE 2 ML IV ONE (19:20)
[2020-01-24] MEDS ORDERED: PROMETHAZINE 12.5 MG/50.5 ML BAG IV PRN (19:21)
[2020-01-24] MEDS ORDERED: IOVERSOL 100ml IV ONE (19:43)
--- NOTE | 2020-01-24 20:12 | CT Scan Report ---
CT OF THE ABDOMEN AND PELVIS WITH CONTRAST CLINICAL HISTORY: Lower abdominal pain. COMPARISON STUDY: CTA of the abdomen and pelvis December 31, 2019. TECHNIQUE: Following IV administration of 94 mL of Optiray-320, axial images of the abdomen and pelvi s were obtained from the lung bases to the proximal femurs. Images were reviewed in the axial, sagitt al, and coronal planes. IV contrast was administered without complication. Automated exposure contro l was utilized for the study. A dose lowering technique was utilized adhering to the principles of A RISHI. CT DOSE: 309.95 mGy.cm FINDINGS: Imaged portions of the lower chest demonstrate a right pleural catheter. Small bilateral pl eural effusions have decreased in size since prior exam of December 31, 2019. Necrotic mediastinal n odes are partially imaged on this exam. Dilatation of the ascending aorta, measuring 4.3 cm is partia lly imaged. There are mild airspace opacities within the lower lungs. Evaluation of the abdomen and p lila is difficult given lack of oral contrast and paucity of intra-abdominal fat. No pneumatosis, fr ee air or portal venous gas is present. The liver, right adrenal gland, pancreas and kidneys are unre markable. A 2 cm left adrenal nodule is similar to exam of December 31, 2019. This was not present o n initial CT. This suggests a metastasis. A small amount of ascites is noted. There is body wall aniceto a. The proximal to mid small bowel is moderately dilated and fluid-filled. Probable transition point within the right lower quadrant is noted. The distal small bowel is decompressed. Extensive colonic d iverticulosis is noted without evidence for acute diverticulitis. There is no hydronephrosis. There a re several renal cysts. There is no biliary or pancreatic ductal dilatation. No suspicious osseous le sions are noted within visualized skeletal structures. IMPRESSION: 1. Moderately dilated fluid-filled proximal to mid small bowel with probable transition point within the right lower quadrant with decompressed distal small bowel. These findings suggest a small bowel o bstruction. Previous CT of December 31, 2019 demonstrated a right inguinal hernia which contained sm all bowel loops. No bowel loops identified within the hernia on this exam. No pneumatosis, free air o r portal venous gas. Small amount of ascites. 2. Difficult study to interpret given paucity of intra-abdominal fat. 3. 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 4. Interval decrease in size of small bilateral pleural effusions. Mild bilateral lower lung opacitie s. ACT 112: Negative or not required by law. Electronically signed by: Nasir Baker M.D. 01/24/2020 8:10 PM
[2020-01-24] MEDS ORDERED: fentaNYL citrate 100 MCG/2 ML VIAL IV STA (20:22)
[2020-01-24] MEDS ORDERED: MAGNESIUM SULFATE / D5W 1 GM/100 ML BAG IV STA (20:25)
[2020-01-24] MEDS ORDERED: CALCIUM GLUCONATE 10% 10 ML VIAL IV STA (20:25)
[2020-01-24] MEDS ORDERED: LACTATED RINGER'S 1,000 ML IV ONE (20:44)
[2020-01-24] MEDS ORDERED: POTASSIUM CHLORIDE 40 MEQ in SODIUM CHLORIDE 0.9% 1000ML 1,000 ML IV ONE (20:49)
[2020-01-24] MEDS ORDERED: METOPROLOL TARTRATE 1 MG/ML VIAL IV STA (20:53)
[2020-01-24] MEDS: POTASSIUM CHLORIDE / WTR 10 MEQ/100 ML PLCT IV SCH ×2 (21:19→23:28)
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
[2020-01-24 22:27] LABS: Basophils # (auto) 0.02 K/uL (0-0.2); Basophils % (auto) 0.1 %; Eosinophils # (auto) 0.02 K/uL (0-0.5); Eosinophils % (auto) 0.1 %; Hemoglobin 12.1 g/dL (14.0-18.0); Immature Granulocytes # (auto) 0.18 K/uL (0.00-0.02); Immature Granulocytes % (auto) 1.1 %; Lymphocytes # (auto) 0.56 K/uL (1.2-3.4); Lymphocytes % (auto) 3.5 %; Mean Corpuscular Hgb Conc 33.6 g/dL (32-36); Mean Corpuscular Volume 89.3 fL (80-100); Monocytes # (auto) 0.57 K/uL (0.11-0.59); Monocytes % (auto) 3.6 %; Neutrophils # (auto) 14.47 K/uL (1.4-6.5); Neutrophils % (auto) 91.6 %; Platelet Count 283 K/uL (130-400); Red Blood Count 4.03 M/uL (4.7-6.1); White Blood Count 15.82 K/uL (4.8-10.8)
[2020-01-24] MEDS ORDERED: ACETAMINOPHEN 325 MG TAB PO PRN (23:25)
[2020-01-24] MEDS ORDERED: ACETAMINOPHEN 1,000 MG/100 ML VIAL IV PRN (23:25)
[2020-01-24] MEDS ORDERED: traMADol HCL 50 MG TABLET PO PRN (23:25)
[2020-01-24] MEDS: MAGNESIUM SULFATE / D5W 1 GM/100 ML BAG IV SCH (23:52)
[2020-01-25] MEDS: MAGNESIUM SULFATE / D5W 1 GM/100 ML BAG IV SCH (01:31)
[2020-01-25] MEDS: POTASSIUM CHLORIDE 40 MEQ in SODIUM CHLORIDE 0.9% 1000ML 1,000 ML IV SCH ×2 (02:07→20:09)
[2020-01-25] MEDS: METOPROLOL TARTRATE 1 MG/ML VIAL IV SCH ×2 (05:12→14:50)
[2020-01-25 06:23] LABS: Basophils # (auto) 0.02 K/uL (0-0.2); Basophils % (auto) 0.2 %; Eosinophils # (auto) 0.07 K/uL (0-0.5); Eosinophils % (auto) 0.7 %; Hematocrit (blood only) 30.7 % (42-52); Hemoglobin 10.2 g/dL (14.0-18.0); Lymphocytes # (auto) 0.53 K/uL (1.2-3.4); Lymphocytes % (auto) 5.2 %; Mean Corpuscular Hemoglobin 29.7 pg (25-34); Mean Corpuscular Hgb Conc 33.2 g/dL (32-36); Mean Corpuscular Volume 89.5 fL (80-100); Mean Platelet Volume 10.8 fL (7.4-10.4); Monocytes # (auto) 0.52 K/uL (0.11-0.59); Monocytes % (auto) 5.1 %; Neutrophils # (auto) 9.01 K/uL (1.4-6.5); Neutrophils % (auto) 87.8 %; Platelet Count 240 K/uL (130-400); RDW Coefficient of Variation 18.4 % (11.5-14.5); RDW Standard Deviation 58.1 fL (36.4-46.3); Red Blood Count 3.43 M/uL (4.7-6.1); White Blood Count 10.25 K/uL (4.8-10.8)
[2020-01-25 07:23] LABS: BUN Creatinine Ratio 25.1 (10-20); Calcium 6.9 mg/dl (8.5-10.1); Creatinine Clr Calc Pharmacy 91.1 ml/min; Est GFR (African American) 116.2; Est GFR (Non-African American) 100.2; Magnesium 1.9 mg/dl (1.8-2.4); Potassium 3.8 mmol/L (3.5-5.1)
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
--- NOTE | 2020-01-25 08:31 | Communication Note ---
Date of Service: January 25, 2020 ATTENDING NOTE: Severe protein-calorie malnutrition Due to metastatic adeno ca of lungs -s/p chemo , associated with malignant pleural and pericardial effusion /multiple hospital admission with sepsis , GI bleed very poor appetite , worsening of PO intake due to ongoing abdominal pain , nausea and vomiting , diarrhea -for past several months BMI is 17.8 kg/m*m. significant wt loss 22.9 kg in past 10 months Weight on 03/28/19 was 82.4 kg/Weight 01/24 was 59.5 kg. Delphine Gabriel MD
[2020-01-25] MEDS ORDERED: PANTOprazole 40 MG TAB PO SCH (09:00)
[2020-01-25] MEDS: PROMETHAZINE HCL 6.25 MG in SODIUM CHLORIDE 0.9% 50 ML IV PRN ×2 (09:25→16:46)
[2020-01-25] MEDS: FOLIC ACID 1 MG TAB PO SCH (09:46)
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
--- NOTE | 2020-01-25 13:03 | Electrocardiogram Report ---
Test Reason : Blood Pressure : / mmHG Vent. Rate : 103 BPM Atrial Rate : 156 BPM P-R Int : 134 ms QRS Dur : 082 ms QT Int : 364 ms P-R-T Axes : 051 -34 063 degrees QTc Int : 476 ms Poor data quality, interpretation may be adversely affected Normal sinus rhythm with frequent , and consecutive Premature ventricular complexes Left axis deviation Cannot rule out Inferior infarct (cited on or before 26-DEC-2019) Abnormal ECG When compared with ECG of 26-DEC-2019 14:27, Premature ventricular complexes now present Confirmed by Ten Joel ([id number]) on 01/25/2020 1:03:06 PM Referred By: REFERRED SELF Confirmed By:Ten Joel
--- NOTE | 2020-01-25 13:10 | Electrocardiogram Report ---
Test Reason : Blood Pressure : / mmHG Vent. Rate : 124 BPM Atrial Rate : 150 BPM P-R Int : 142 ms QRS Dur : 080 ms QT Int : 328 ms P-R-T Axes : 069 -59 060 degrees QTc Int : 471 ms Sinus tachycardia with frequent Premature atrial complexes Left axis deviation Low voltage QRS Poor R wave progression, consider anterior FL vs. lead placement vs. LVH Abnormal ECG When compared with ECG of 24-JAN-2020 18:27, (unconfirmed) No significant change Confirmed by Ten Joel ([id number]) on 01/25/2020 1:10:23 PM Referred By: REFERRED SELF Confirmed By:Ten Joel
[2020-01-25] MEDS: ASPIRIN 81 MG ECTAB PO SCH (16:50)
[2020-01-25] MEDS ORDERED: PROCHLORPERAZINE 10 MG in SYRINGE 8 ML IV PRN (19:55)
[2020-01-25 20:23] LABS: Appearance Urine Clear (Clear); Bilirubin Urine Negative (Negative); Blood Urine Negative (Negative); Color Urine Dark Yellow; Glucose Urine UA Negative (Negative); Ketones Urine Trace (Negative); Leukocyte Esterase Urine Negative (Negative); Nitrite Urine Negative (Negative); Protein Urine Negative (Negative); Specific Gravity Urine > 1.045 (1.000-1.030); Urobilinogen Urine Negative (Negative)
[2020-01-25] MEDS ORDERED: METOPROLOL TARTRATE 1 MG/ML VIAL IV STA (20:28)
--- NOTE | 2020-01-25 20:28 | Hospitalist Progress Note ---
Date of Service January 25, 2020 Assessment & Plan (1) SBO (small bowel obstruction): presented with abdominal pain /nausea and vomiting CT abdomen /pelvis : dilated loops of bowel suggestive of small bowel obstruction vs illeus surgery following pt continues to be very nauseous , with multiple episodes of vomiting , ongoing abdominal pain ordered for NG tube with intermittent suction check KUB xray strict NPO antiemetics , IV fluid , pain control Metastatic lung ca : with widespread mets to pleura -causing malignant pleural effusion /has rt plurex catheter : cont daily drainage mets to pericardium s/p pericardial window in [place] extremely poor prognosis pt and his significant other aware , palliative care /hospice was discusses last admission , they declined the service AFIB RVR : cont lopressor , changed to IV as pt is on NG suction not a candidate for anticoagulation due hx of recent GI bleed , requiring 4 units of PRBC transfusion continue to monitor in tele over all prognosis remains extremely poor Admission and Anticipated Discharge Date Admission Date: January 24, 2020 Subjective continues to fell nauseous , had multiple episodes of vomiting 8-10 times through out the day complains of lower abdominal pain no bowel movement for past 2 days Review of Systems Review of Systems: All systems reviewed & are unremarkable except as noted in HPI & below Gastrointestinal: + abdominal pain, + nausea, + vomiting and + constipation Physical Exam Constitutional: WD/WN, vitals as above + acute distress (due to nausea /abdominal pain ) and + thin Eyes: PERRL, conjunctivae normal, anicteric sclerae ENMT: Mouth: + oral mucosal abnormality (dry oral mucosa ) Neck: trachea midline, no thyromegaly Respiratory: normal respiratory effort; no respiratory distress Auscultation: + rales; no rhonchi and no wheezes plurex catheter present on rt anterior chest wall Cardiovascular: Rate/Rhythm: + tachycardic; + abnormal rhythm Gastrointestinal (Abdomen): Inspection/Auscultation: normal bowel sounds (hyperactive bowel sounds ) Percussion/Palpation: + abdomen tender and abdomen soft Skin: no rashes, warm and dry Neurologic: PERRL, EOMI, accommodation nl, no face palsy, no dysarthria Psychiatric: Orientation: alert and oriented x 3 Affect: + flat affect Mood: + anxious mood Results & Data Results & Data ([facility]) Vital Signs (Past 12 Hours) Vital Signs Temp Pulse Pulse Resp BP BP Pulse Ox 01/25/20 19:06 36.6 C 114 H 24 124/89 95 01/25/20 17:51 92 H 01/25/20 15:26 36.2 C L 109 H 16 107/75 91 01/25/20 12:20 36.9 C 89 19 109/76 93
[2020-01-25] MEDS ORDERED: POTASSIUM CHLORIDE 20 MEQ in SODIUM CHLORIDE 0.9% 1000ML 1,000 ML IV SCH (20:30)
--- NOTE | 2020-01-25 20:37 | Communication Note ---
Date of Service: January 25, 2020 pt remains Full code -as per previous discussions over all prognosis extremely poor , will continue to have discussion with pt and his significant other regarding goals of care Delphine Gabriel MD
[2020-01-25] MEDS: MIRTAZAPINE TAB 15 MG TAB PO SCH (20:43)
[2020-01-25] MEDS: PANTOprazole 40 MG in SYRINGE 0 ML IV SCH (20:44)
--- NOTE | 2020-01-25 20:57 | XRay Report ---
XR KUB/Abdomen 1 view CLINICAL HISTORY: small bowel obstruction COMPARISON STUDY: 12/24/2019, CT scan dated 01/24/2020 FINDINGS: There is contrast within the bladder. There are dilated small bowel loops measuring up to 4 2 mm. There is a paucity of colonic gas. IMPRESSION: Small bowel obstructive pattern. ACT 112: Negative or not required by law. Electronically signed by: Chris Parmar M.D. 01/25/2020 8:55 PM
[2020-01-25] MEDS ORDERED: METOPROLOL TARTRATE 25 MG TAB PO SCH (21:00)
[2020-01-25] MEDS ORDERED: POTASSIUM CHLORIDE 40 MEQ in SODIUM CHLORIDE 0.9% 1000ML 1,000 ML IV SCH (21:06)
[2020-01-26] MEDS ORDERED: METOPROLOL TARTRATE 1 MG/ML VIAL IV SCH
[2020-01-26] MEDS: MoRPHine SULFATE 4 MG/ML 1 ML CARP\\VIAL IV PRN (00:22)
[2020-01-26] MEDS: METOPROLOL TARTRATE 1 MG/ML VIAL IV SCH ×5 (00:22→23:56)
[2020-01-26 08:21] LABS: BUN Creatinine Ratio 23.9 (10-20); Calcium 7.1 mg/dl (8.5-10.1); Creatinine Clr Calc Pharmacy 93.6 ml/min; Est GFR (African American) 116.9; Est GFR (Non-African American) 100.8; Potassium 4.2 mmol/L (3.5-5.1)
--- NOTE | 2020-01-26 09:26 | Cardiology Progress Note ---
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 Paroxysmal atrial fibrillation with controlled ventricular response recorded on admission in the setting of acute dehydration, nausea, vomiting, and acute bowel obstruction. Contra indications to anticoagulation currently in the setting of recent GIB. No recurrent atrial fibrillation over the past 24 hours. Recommend low-dose aspirin, 81 mg daily when patient able to take oral medications. Transition IV Lopressor, 2.5 mg every 6 hours to metoprolol tartrate 12.5 mg twice daily when able to take oral medications as well. Continue telemetry monitoring during hospitalization In regard to patient's large loculated pericardial effusion, no evidence of tamponade currently. Recommend repeat resting 2D transthoracic echocardiogram in 2 to 4 weeks. Admission and Anticipated Discharge Date Admission Date: January 24, 2020 Subjective Patient seen and examined at the bedside. NG tube remains in place. He is n.p.o. at this time. Denies chest pain, shortness of breath, or palpitations. No evidence of recurrent atrial fibrillation on telemetry. Offers no new concerns/complaints at this time. Review of Systems Review of Systems: All systems reviewed & are unremarkable except as noted in HPI & below Physical Exam Constitutional: + ill appearing and + cachectic; no acute distress Respiratory: normal respiratory effort; no respiratory distress and no labored breathing Auscultation: + rhonchi (Scattered bilateral); no crackles, no rales and no wheezes Cardiovascular: Rate/Rhythm: regular rate, regular rhythm and + tachycardic Heart Sounds: normal S1 and normal S2; no murmur Vessels: no JVD and no carotid bruit Extremities: no edema Gastrointestinal (Abdomen): Inspection/Auscultation: abdomen normal to inspection; abdomen not distended and + abnormal bowel sounds Percussion/Palpation: abdomen soft; abdomen nontender, no guarding and abdomen not rigid Skin: no rashes, warm and dry Neurologic: moves all extremities; no focal motor deficits Speech / Cognition: normal speech Motor/Sensory: no tremor Psychiatric: Affect: + flat affect Results & Data ([facility]) Vital Signs (Past 12 Hours) Vital Signs Temp Pulse Pulse Resp BP BP Pulse Ox 01/26/20 07:44 36.3 C L 85 17 110/79 94 01/26/20 03:58 36.6 C 87 18 115/83 93 01/26/20 00:01 36.3 C L 95 H 18 106/80 92 01/26/20 00:00 105 H
[2020-01-26] MEDS: FOLIC ACID 1 MG TAB PO SCH (09:48)
[2020-01-26] MEDS: ASPIRIN 81 MG ECTAB PO SCH (09:48)
[2020-01-26] MEDS: PANTOprazole 40 MG in SYRINGE 0 ML IV SCH ×2 (10:32→21:04)
--- NOTE | 2020-01-26 13:21 | XRay Report ---
KUB CLINICAL HISTORY: Small bowel obstruction. FINDINGS: 2 AP supine abdominal radiographs are compared to study dated 01/25/2020 and correlated wit h abdominal CT dated 01/24/2020. A pleural catheter is again seen at the right lung base. Enteric tub e projects below the diaphragm over the stomach. Gaseous distention of the small bowel loops persists but has modestly improved as compared to yesterday. Air-fluid levels are noted. No evidence of intra peritoneal free air is seen on these supine images. Excreted IV contrast fills the bladder. There are numerous pelvic phleboliths. The skeletal structures are osteopenic and appear intact. IMPRESSION: 1. There is persistent gaseous distention of the small bowel loops consistent with obstruction. This appears modestly improved from yesterday. 2. An enteric tube and a pleural catheter at the right lung base are unchanged from previous. Electronically signed by: aJswinder Alva M.D. 01/26/2020 1:19 PM
[2020-01-26] MEDS ORDERED: LACTATED RINGER'S 1,000 ML IV SCH (14:00)
[2020-01-26] MEDS ORDERED: D5W AND LACTATED RINGERS 1,000 ML IV SCH (15:45)
--- NOTE | 2020-01-26 15:57 | Surgery Progress Note ---
Date of Service passed some gas, no abdominal pain, NG 1100ml, January 26, 2020 Assessment & Plan (1) SBO (small bowel obstruction): resolving and may be more of ileus pattern right inguinal hernia not issue IVF as dehydrated from N/V begin clears abdomen benign 01/26/2020 3:58PM f?u SBO, doing better, passed some gas, no abdominal pain, continue conservative treatment, will F/U Admission and Anticipated Discharge Date Admission Date: January 24, 2020 Subjective Patient seen and examined at the bedside. NG tube remains in place. He is n.p.o. at this time. Denies chest pain, shortness of breath, or palpitations. No evidence of recurrent atrial fibrillation on telemetry. Offers no new concerns/complaints at this time. Review of Systems Constitutional: + fatigue and + weakness; no fever, no chills and no anorexia Respiratory: + dyspnea and + dyspnea on exertion; no cough, no chest congestion and no change in sputum Cardiovascular: + dyspnea and + dyspnea on exertion; no chest pain and no chest pain with activity Gastrointestinal: + abdominal pain (resolved this AM), + nausea, + vomiting, + change in bowel habits (diarrhea) and + change in stools (last BM yesterday) Musculoskeletal: + back pain and + muscle weakness; no neck pain and no joint pain Neurologic: + generalized weakness; no localized weakness Physical Exam Constitutional: WD/WN, vitals as above + ill appearing Eyes: PERRL, conjunctivae normal, anicteric sclerae ENMT: external ear and nose normal, oropharynx normal Neck: trachea midline, no thyromegaly Respiratory: normal respiratory effort, lungs clear to auscultation Cardiovascular: RRR, no murmur, no edema Gastrointestinal (Abdomen): normal bowel sounds, soft, nontender, no hepatosplenomegaly no distend, BS + Musculoskeletal: no cyanosis or clubbing, extremities motor strength 5/5 Skin: no rashes, warm and dry Neurologic: awake Psychiatric: Orientation: alert and oriented x 3 Results & Data ([facility]) Vital Signs (Past 12 Hours) Vital Signs Temp Pulse Pulse Resp BP BP BP 01/26/20 13:36 88 118/84 01/26/20 11:38 36.5 C 88 19 118/84 01/26/20 07:44 36.3 C L 85 17 110/79 01/26/20 03:58 36.6 C 87 18 115/83 Pulse Ox 01/26/20 13:36 01/26/20 11:38 96 01/26/20 07:44 94 01/26/20 03:58 93 Laboratory Results Abnormal lab results 01/25/20 01/26/20 Range/Units 19:06 07:18 Chloride 112 H (98-107) mmol/L BUN/Creatinine Ratio 23.9 H (10-20) Glucose 58 L (70-99) mg/dl Calcium 7.1 L (8.5-10.1) mg/dl Ur Specific Otho > 1.045 H (1.000-1.030) Urine Ketones Trace H (Negative) Diagnostic Findings KUB CLINICAL HISTORY: Small bowel obstruction. FINDINGS: 2 AP supine abdominal radiographs are compared to study dated 01/25/2020 and correlated with abdominal CT dated 01/24/2020. A pleural catheter is again seen at the right lung base. Enteric tube projects below the diaphragm over the stomach. Gaseous distention of the small bowel loops persists but has modestly improved as compared to yesterday. Air-fluid levels are noted. No evide nce of intraperitoneal free air is seen on these supine images. Excreted IV contrast fills the bladder. There are numerous pelvic phleboliths. The skeletal structures are osteopenic and appear intact. IMPRESSION: 1. There is persistent gaseous distention of the small bowel loops consistent with obstruction. This appears modestly improved from yesterday. 2. An enteric tube and a pleural catheter at the right lung base are unchanged from previous.
[2020-01-26] MEDS ORDERED: bisacodyL 10 MG SUPP PR STA (15:59)
[2020-01-26] MEDS ORDERED: CARBOHYDRATES FOR HYPOGLYCEMIA PO PRN (16:52)
[2020-01-26] MEDS ORDERED: GLUCOSE 40% GEL 15 GM TUBE PO PRN (16:52)
[2020-01-26] MEDS ORDERED: GLUCAGON FOR INJ 1 MG VIAL SQ PRN (16:52)
[2020-01-26] MEDS ORDERED: GLUCOSE 10 TABS/TUBE PO PRN (16:52)
[2020-01-26] MEDS ORDERED: DEXTROSE 50% 50 ML SYRINGE IV PRN (16:52)
[2020-01-26] MEDS: DEXTROSE 50% 50 ML SYRINGE IV ONE ×2 (17:01→18:00)
--- NOTE | 2020-01-26 19:27 | Hospitalist Progress Note ---
Date of Service January 26, 2020 Assessment & Plan (1) SBO (small bowel obstruction): presented with abdominal pain /nausea and vomiting CT abdomen /pelvis : dilated loops of bowel suggestive of small bowel obstruction vs illeus surgery following NG tube inserted as pt was very nauseous , with multiple episodes of vomiting , ongoing abdominal pain KUB shows improvement of :persistent gaseous distention of the small bowel loops consistent with obstruction. This appears modestly improved from yesterday. surgery following antiemetics , IV fluid , pain control Metastatic lung ca : with widespread mets to pleura -causing malignant pleural effusion /has rt plurex catheter : cont daily drainage mets to pericardium s/p pericardial window in [place] extremely poor prognosis pt and his significant other aware , palliative care /hospice was discusses last admission , they declined the service AFIB RVR : cont lopressor , changed to IV as pt is on NG suction not a candidate for anticoagulation due hx of recent GI bleed , requiring 4 units of PRBC transfusion continue to monitor in tele over all prognosis remains extremely poor Admission and Anticipated Discharge Date Admission Date: January 24, 2020 Subjective has ongoing NG suction no complain of nausea or vomiting since NG tube no complain of abdominal pain had small bowel movement today Physical Exam Constitutional: WD/WN, vitals as above + acute distress (due to nausea /abdominal pain ) and + thin Eyes: PERRL, conjunctivae normal, anicteric sclerae ENMT: Mouth: + oral mucosal abnormality (dry oral mucosa ) Neck: trachea midline, no thyromegaly Respiratory: normal respiratory effort; no respiratory distress Auscultation: + rales; no rhonchi and no wheezes Cardiovascular: Rate/Rhythm: + tachycardic; + abnormal rhythm Gastrointestinal (Abdomen): Inspection/Auscultation: normal bowel sounds (hyperactive bowel sounds ) Percussion/Palpation: + abdomen tender and abdomen soft Skin: no rashes, warm and dry Neurologic: PERRL, EOMI, accommodation nl, no face palsy, no dysarthria Psychiatric: Orientation: alert and oriented x 3 Affect: + flat affect Mood: + anxious mood Results & Data Results & Data ([facility]) Vital Signs (Past 12 Hours) Vital Signs Temp Pulse Pulse Resp BP BP BP 01/26/20 15:48 36.6 C 88 20 104/80 01/26/20 13:36 88 118/84 01/26/20 11:38 36.5 C 88 19 118/84 01/26/20 07:44 36.3 C L 85 17 110/79 Pulse Ox 01/26/20 15:48 95 01/26/20 13:36 01/26/20 11:38 96 01/26/20 07:44 94
[2020-01-27] MEDS: MoRPHine SULFATE 4 MG/ML 1 ML CARP\\VIAL IV PRN ×2 (01:59→20:01)
[2020-01-27] MEDS: METOPROLOL TARTRATE 1 MG/ML VIAL IV SCH ×3 (05:35→19:23)
[2020-01-27] MEDS: HEPARIN 100 UNIT/ML 5ML FLUSH FLUSH PRN (07:59)
[2020-01-27 08:52] LABS: BUN Creatinine Ratio 23.9 (10-20); Calcium 7.6 mg/dl (8.5-10.1); Creatinine Clr Calc Pharmacy 98.1 ml/min; Est GFR (African American) 119.1; Est GFR (Non-African American) 102.7; Potassium 3.8 mmol/L (3.5-5.1)
[2020-01-27] MEDS: ASPIRIN 81 MG ECTAB PO SCH (08:59)
[2020-01-27] MEDS: PANTOprazole 40 MG in SYRINGE 0 ML IV SCH ×2 (09:43→20:01)
[2020-01-27] MEDS: PROMETHAZINE HCL 12.5 MG in SODIUM CHLORIDE 0.9% 50 ML IV PRN ×2 (09:43→16:53)
--- NOTE | 2020-01-27 10:57 | Cardiology Progress Note ---
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 Paroxysmal atrial fibrillation with controlled ventricular response recorded on admission in the setting of acute dehydration, nausea, vomiting, and acute bowel obstruction. Contraindications to anticoagulation currently in the setting of recent GIB. No recurrent atrial fibrillation over the past 48 hours. Recommend low-dose aspirin, 81 mg daily when patient able to take oral medications. Transition IV Lopressor, 2.5 mg every 6 hours to metoprolol tartrate 12.5 mg twice daily when able to take oral medications as well. Continue telemetry monitoring during hospitalization In regard to patient's large loculated pericardial effusion, no evidence of tamponade currently. Recommend repeat resting 2D transthoracic echocardiogram in 2 to 4 weeks. Cardiology will sign off. Please call with questions. Admission and Anticipated Discharge Date Admission Date: January 24, 2020 Subjective Patient seen and examined the bedside. Denies chest pain or palpitations. No evidence of recurrent atrial fibrillation on telemetry. NG tube in place remains on suction. Experienced episode of nausea and vomiting this morning. Remains n.p.o. Review of Systems Review of Systems: All systems reviewed & are unremarkable except as noted in HPI & below Physical Exam Constitutional: + ill appearing and + cachectic; no acute distress Respiratory: normal respiratory effort; no respiratory distress and no labored breathing Auscultation: + rhonchi (Scattered bilateral); no crackles, no r ales and no wheezes Cardiovascular: Rate/Rhythm: regular rate, regular rhythm and + tachycardic Heart Sounds: normal S1 and normal S2; no murmur Vessels: no JVD and no carotid bruit Extremities: no edema Gastrointestinal (Abdomen): Inspection/Auscultation: abdomen normal to inspection; abdomen not distended and + abnormal bowel sounds Percussion/Palpation: abdomen soft; abdomen nontender, no guarding and abdomen not rigid Skin: no rashes, warm and dry Neurologic: moves all extremities; no focal motor deficits Speech / Cognition: normal speech Motor/Sensory: no tremor Psychiatric: Affect: + flat affect Results & Data ([facility]) Vital Signs (Past 12 Hours) Vital Signs Temp Pulse Pulse Resp BP BP BP 01/27/20 07:13 36.9 C 94 H 19 105/72 01/27/20 05:35 95 H 114/68 01/27/20 03:56 36.4 C L 73 17 102/72 01/27/20 00:03 36.4 C L 93 H 16 99/68 L 92/45 L 01/27/20 00:00 98 H 01/26/20 23:56 92 H 110/69 Pulse Ox 01/27/20 07:13 96 01/27/20 05:35 01/27/20 03:56 94 01/27/20 00:03 97 01/27/20 00:00 01/26/20 23:56
--- NOTE | 2020-01-27 11:35 | Surgery Progress Note ---
Date of Service doing better, no abdominal pain, passed BM last night, NG 350ml, January 27, 2020 Assessment & Plan (1) SBO (small bowel obstruction): resolving and may be more of ileus pattern right inguinal hernia not issue IVF as dehydrated from N/V begin clears abdomen benign 01/26/2020 3:58PM f/u SBO, doing better, passed some gas, no abdominal pain, continue conservative treatment, will F/U 01/27/2020 11:36AM no surgical indication now. 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 Admission and Anticipated Discharge Date Admission Date: January 24, 2020 Subjective has ongoing NG suction no complain of nausea or vomiting since NG tube no complain of abdominal pain had small bowel movement today Review of Systems Constitutional: + fatigue and + weakness; no fever, no chills and no anorexia Respiratory: + dyspnea and + dyspnea on exertion; no cough, no chest congestion and no change in sputum Cardiovascular: + dyspnea and + dyspnea on exertion; no chest pain and no ch est pain with activity Gastrointestinal: + abdominal pain (resolved this AM), + nausea, + vomiting, + change in bowel habits (diarrhea) and + change in stools (last BM yesterday) Musculoskeletal: + back pain and + muscle weakness; no neck pain and no joint pain Neurologic: + generalized weakness; no localized weakness Physical Exam Constitutional: WD/WN, vitals as above + ill appearing Eyes: PERRL, conjunctivae normal, anicteric sclerae ENMT: external ear and nose normal, oropharynx normal Neck: trachea midline, no thyromegaly Respiratory: normal respiratory effort, lungs clear to auscultation Cardiovascular: RRR, no murmur, no edema Gastrointestinal (Abdomen): normal bowel sounds, soft, nontender, no hepatosplenomegaly Musculoskeletal: no cyanosis or clubbing, extremities motor strength 5/5 Skin: no rashes, warm and dry Neurologic: awake Psychiatric: Orientation: alert and oriented x 3 Results & Data ([facility]) Vital Signs (Past 12 Hours) Vital Signs Temp Pulse Pulse Resp BP BP BP 01/27/20 07:13 36.9 C 94 H 19 105/72 01/27/20 05:35 95 H 114/68 01/27/20 03:56 36.4 C L 73 17 102/72 01/27/20 00:03 36.4 C L 93 H 16 99/68 L 92/45 L 01/27/20 00:00 98 H 01/26/20 23:56 92 H 110/69 Pulse Ox 01/27/20 07:13 96 01/27/20 05:35 01/27/20 03:56 94 01/27/20 00:03 97 01/27/20 00:00 01/26/20 23:56
--- NOTE | 2020-01-27 13:12 | XRay Report ---
KUB HISTORY: Follow up study in a patient with small bowel obstruction small bowel obstruction COMPARISON: KUB 01/26/2020, CT 01/24/2020 FINDINGS: Status post placement of an enteric tube, distal tip projected over the abdominal left uppe r quadrant, likely within the mid gastric body. Resistive mildly decreased gaseous distended loops of small bowel. Air is noted within the large bowel is well. Minimal retained contrast within the urina ry bladder. Phleboliths of the pelvis. Pleural catheter with right lung base is unchanged. No renal calculi. No ureteral calculi. No pneumoperitoneum or pneumatosis. No fracture. IMPRESSION: 1. Unchanged positioning of the enteric tube. 2. Persistent mildly improved gaseous distended loops of small bowel suggestive of small bowel obstru ction. 3. No pneumatosis or pneumoperitoneum. ACT 112: Negative or not required by law. The above report was generated using voice recognition software. It may contain grammatical, syntax o r spelling errors. Electronically signed by: Alex Appiah M.D. 01/27/2020 1:11 PM
--- NOTE | 2020-01-27 18:30 | Hospitalist Progress Note ---
Date of Service January 27, 2020 Assessment & Plan (1) SBO (small bowel obstruction): presented with abdominal pain /nausea and vomiting CT abdomen /pelvis : dilated loops of bowel suggestive of small bowel obstruction vs illeus surgery following NG tube inserted as pt was very nauseous , with multiple episodes of vomiting , ongoing abdominal pain KUB shows improvement of :persistent gaseous distention of the small bowel loops consistent with obstruction. This appears modestly improved from yesterday. surgery following cont supportive care with antiemetics , IV fluid , pain control Metastatic lung ca : with widespread mets to pleura -causing malignant pleural effusion /has rt plurex catheter : cont daily drainage mets to pericardium s/p pericardial window in [place] extremely poor prognosis pt and his significant other aware , palliative care /hospice was discusses last admission , they declined the service AFIB RVR : cont lopressor , changed to IV as pt is on NG suction not a candidate for anticoagulation due hx of recent GI bleed , requiring 4 units of PRBC transfusion continue to monitor in tele over all prognosis remains extremely poor Admission and Anticipated Discharge Date Admission Date: January 24, 2020 Subjective continues to have nausea no vomiting on NG suction had small bowel movement today Physical Exam Constitutional: WD/WN, vitals as above + acute distress (due to nausea /abdominal pain ) and + thin Eyes: PERRL, conjunctivae normal, anicteric sclerae ENMT: Mouth: + oral mucosal abnormality (dry oral mucosa ) Neck: trachea midline, no thyromegaly Respiratory: normal respiratory effort; no respiratory distress Auscultation: + rales; no rhonchi and no wheezes Cardiovascular: Rate/Rhythm: + tachycardic; + abnormal rhythm Gastrointestinal (Abdomen): Inspection/Auscultation: normal bowel sounds (hyperactive bowel sounds ) Percussion/Palpation: + abdomen tender and abdomen soft Skin: no rashes, warm and dry Neurologic: PERRL, EOMI, accommodation nl, no face palsy, no dysarthria Psychiatric: Orientation: alert and oriented x 3 Affect: + flat affect Mood: + anxious mood Results & Data Results & Data ([facility]) Vital Signs (Past 12 Hours) Vital Signs Temp Pulse Pulse Resp BP BP Pulse Ox 01/27/20 15:40 36.4 C L 94 H 18 113/81 94 01/27/20 11:50 36.4 C L 94 H 18 111/80 97 01/27/20 08:00 93 H 01/27/20 07:13 36.9 C 94 H 19 105/72 96
[2020-01-27] MEDS: D5W AND LACTATED RINGERS 1,000 ML IV SCH (19:20)
[2020-01-28] MEDS: METOPROLOL TARTRATE 1 MG/ML VIAL IV SCH ×5 (00:46→23:58)
[2020-01-28] MEDS: PROMETHAZINE HCL 12.5 MG in SODIUM CHLORIDE 0.9% 50 ML IV PRN (06:35)
[2020-01-28] MEDS: PANTOprazole 40 MG in SYRINGE 0 ML IV SCH ×2 (08:38→20:16)
[2020-01-28] MEDS: MoRPHine SULFATE 4 MG/ML 1 ML CARP\\VIAL IV PRN ×2 (08:38→13:13)
[2020-01-28] MEDS ORDERED: HEPARIN SOD 5,000 UNIT/0.5 ML VIAL SQ SCH (09:00)
--- NOTE | 2020-01-28 09:28 | XRay Report ---
XR chest 1V portable CLINICAL HISTORY: SOB /chest pain COMPARISON STUDY: 01/24/2020 FINDINGS: The cardiac and mediastinal contours remain stable. There is a left-sided A-Port catheter. There is a nasogastric tube which passes into the stomach. The tip is at the level of the gastric car diogenes. There is a right-sided chest tube present. There is blunting of the right lateral costophrenic a ngle. There is a hazy right upper lung zone opacity. Right upper lobe volume loss is suspected.[ IMPRESSION: 1. Hazy right upper lung zone opacity. Right upper lobe volume loss is suspected 2. Interval placement of a nasogastric tube the tip of which projects over the proximal gastric cardi a 3. No evidence of pneumothorax 4. Suspected trace right pleural effusion ACT 112: Negative or not required by law. Electronically signed by: Chris Parmar M.D. 01/28/2020 9:27 AM
--- NOTE | 2020-01-28 09:29 | XRay Report ---
XR KUB/Abdomen 1 view CLINICAL HISTORY: left flank pain COMPARISON STUDY: 01/27/2020 FINDINGS: There is a nasogastric tube with its tip at the level of the esophagogastric junction. Ther e is no pathologic bowel dilatation. No urinary tract calculi are visualized. Pelvic basin calcificat ions while nonspecific likely represent phleboliths. IMPRESSION: 1. Nonobstructive bowel gas pattern 2. No urinary tract calculi identified 3. Nasogastric tube with its tip at the level the esophageal gastric junction ACT 112: Negative or not required by law. Electronically signed by: Chris Parmar M.D. 01/28/2020 9:28 AM
[2020-01-28 09:43] LABS: BUN Creatinine Ratio 22.3 (10-20); Calcium 7.5 mg/dl (8.5-10.1); Creatinine Clr Calc Pharmacy 97.8 ml/min; Est GFR (African American) 119.1; Est GFR (Non-African American) 102.7; Potassium 3.6 mmol/L (3.5-5.1)
--- NOTE | 2020-01-28 10:28 | Ultrasound Report ---
US venous doppler UE LT CLINICAL HISTORY: left upper extremity swelling; eval for DVT COMPARISON STUDY: No previous studies for comparison. FINDINGS: There is a left-sided central venous catheter. Slow flow was visualized left internal jugul ar vein which appear patent. The proximal and mid subclavian vein was not visualized due to the patient's port access bandaging. There was thrombus within the distal subclavian vein, axillary vein and basilic vein.. IMPRESSION: 1. Acute left upper extremity DVT with involvement of the distal subclavian vein, axillary vein, and basilic vein. ACT 112: Negative or not required by law. Electronically signed by: Chris Parmar M.D. 01/28/2020 10:27 AM
[2020-01-28] MEDS ORDERED: Heparin IV Low Dose *NO* Bolus IV SCH (10:42)
[2020-01-28] MEDS ORDERED: HEPARIN SODIUM/DEXTROSE 25,000 UNITS/500 ML BAG IV SCH (11:00)
[2020-01-28] MEDS ORDERED: HYDROmorphone INJ 1 MG/ML SYRINGE IV STA (11:02)
--- NOTE | 2020-01-28 11:05 | Surgery Progress Note ---
Date of Service January 28, 2020 Assessment & Plan (1) SBO (small bowel obstruction): On examination pt's abdomen is soft, nondistended, and non tender to palpation KUB obtained today revealed a non obstructive bowel gas pattern NGT output downtrending, 150cc documented Discussed pt with hospitalists; pt feeling more nauseated after we examined him. Given this we will plan to keep NGT in for today; may possibly remove tomorrow and start on clears if symptoms improve We did obtain a doppler US of his LUE given LUE swelling; this did show acute DVT in the distal subclavian, axillary, and basilic veins- will inform hospitalist of findings; unsure if candidate for anticoagulation given history of GI bleed Pt seen and examined with Dr. Peterson Admission and Anticipated Discharge Date Admission Date: January 24, 2020 Subjective Patient states he is feeling okay today. Denies much complaints. Noted to have passed a BM yesterday, but not passing much flatus this AM. 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); abdomen not distended Percussion/Palpation: abdomen soft; abdomen nontender Musculoskeletal: Extremities: + upper extremity abnormal to inspection (swelling of LUE) Results & Data ([facility]) Vital Signs (Past 12 Hours) Vital Signs Temp Pulse Pulse Resp BP BP Pulse Ox 01/28/20 08:32 36.5 C 90 16 105/73 96 01/28/20 08:00 98 H 01/28/20 06:44 74 109/78 01/28/20 04:11 36.7 C 121 H 20 105/76 94 01/28/20 00:46 99 H 01/28/20 00:00 36.5 C 97 H 18 110/78 95 01/27/20 23:12 119 H PG Care Time/CCT Total # of Minutes Spent Total Time Spent with Patient: Total time spent is greater than 50% in coordination of care (as documented) at patient's floor/unit and/or counseling patient: Coding Level of Care Code 85378 Subseq Hosp Care Lvl 1 Diagnoses SBO (small bowel obstruction) K56.609
[2020-01-28] MEDS: D5W AND LACTATED RINGERS 1,000 ML IV SCH ×2 (11:15→23:58)
[2020-01-28 12:00] LABS: Hematocrit (blood only) 32.5 % (42-52); Hemoglobin 10.8 g/dL (14.0-18.0); Mean Corpuscular Hemoglobin 29.8 pg (25-34); Mean Corpuscular Volume 89.8 fL (80-100); Mean Platelet Volume 11.1 fL (7.4-10.4); Platelet Count 140 K/uL (130-400); RDW Coefficient of Variation 18.4 % (11.5-14.5); RDW Standard Deviation 57.6 fL (36.4-46.3); Red Blood Count 3.62 M/uL (4.7-6.1)
[2020-01-28] MEDS ORDERED: OPTIRAY 320 125ml IV ONE (12:10)
[2020-01-28 12:17] LABS: Partial Thromboplastin Ratio 1.4; Partial Thromboplastin Time 37.9 Seconds (21.0-31.0)
[2020-01-28 12:20] LABS: Mean Corpuscular Hgb Conc 33.2 g/dL (32-36)
--- NOTE | 2020-01-28 13:59 | Hospitalist Progress Note ---
Date of Service January 28, 2020 Assessment & Plan (1) SBO (small bowel obstruction): presented with abdominal pain /nausea and vomiting CT abdomen /pelvis : dilated loops of bowel suggestive of small bowel obstruction vs illeus surgery following pt continued with NG suction , supportive care with antiemetics , IV fluid , pain control KUB today shows : non obstructive bowel gas pattern pt still having episodes of nausea , will keep the NG clamped allow for sips of water and ice chip NG will be d/day tomorrow if no further episode of N/V surgery team updated , agreeable with plan LEFT UPPER EXT DVT: usg of left arm ordered for increased swelling shows extensive DVT ; started on IV heparin hx of prior DVT , anticoagulation was d/day for GI bleed cont to monitor H&H closely LEFT SIDED SHARP /PLEURITIC CHEST PAIN : concern for possible PE CTA of chest could not be done -lack of IV access, A-port does not have any blood return continue IV heparin Metastatic lung ca : with widespread mets to pleura -causing malignant pleural effusion /has rt plurex catheter : cont daily drainage mets to pericardium s/p pericardial window in [place] extremely poor prognosis pt and his significant other aware , palliative care /hospice was discusses last admission , they declined the service / AFIB RVR : cont lopressor , changed to IV as pt is on NG suction started on IV heparin for DVT , follow H&H closely for bleeding complication continue to monitor in tele over all prognosis remains extremely poor girl friend updated over phone Admission and Anticipated Discharge Date Admission Date: January 24, 2020 Subjective developed left sided chest pain today severe 10/10 , sharp , worse with taking deep breath no complain of abdominal pain , no nausea or vomiting Review of Systems Review of Systems: All systems reviewed & are unremarkable except as noted in HPI & below Physical Exam Constitutional: WD/WN, vitals as above + thin Eyes: PERRL, conjunctivae normal, anicteric sclerae ENMT: Mouth: + oral mucosal abnormality (dry oral mucosa ) NG tube present Neck: trachea midline, no thyromegaly Respiratory: normal respiratory effort; no respiratory distress Auscultation: + rales; no rhonchi and no wheezes Cardiovascular: Rate/Rhythm: + tachycardic; + abnormal rhythm Gastrointestinal (Abdomen): Inspection/Auscultation: normal bowel sounds (hyperactive bowel sounds ) Percussion/Palpation: + abdomen tender and abdomen soft Skin: no rashes, warm and dry Neurologic: PERRL, EOMI, accommodation nl, no face palsy, no dysarthria Psychiatric: Orientation: alert and oriented x 3 Affect: + flat affect Results & Data Results & Data ([facility]) Vital Signs (Past 12 Hours) Vital Signs Temp Pulse Pulse Resp BP BP Pulse Ox 01/28/20 13:12 98 H 118/86 01/28/20 12:08 36.5 C 98 H 16 118/86 96 01/28/20 08:32 36.5 C 90 16 105/73 96 01/28/20 08:00 98 H 01/28/20 06:44 74 109/78 01/28/20 04:11 36.7 C 121 H 20 105/76 94
[2020-01-28] MEDS: ONDANSETRON INJ 2 MG/ML 2 ML VIAL IV PRN (18:43)
[2020-01-28 21:13] LABS: Partial Thromboplastin Ratio 2.2
[2020-01-28 21:14] LABS: Partial Thromboplastin Time 62.2 Seconds (21.0-31.0)
[2020-01-29] MEDS: MoRPHine SULFATE 4 MG/ML 1 ML CARP\\VIAL IV PRN (00:06)
[2020-01-29] MEDS: ONDANSETRON INJ 2 MG/ML 2 ML VIAL IV PRN (06:08)
[2020-01-29] MEDS: METOPROLOL TARTRATE 1 MG/ML VIAL IV SCH ×2 (06:08→12:30)
[2020-01-29 07:05] LABS: Hematocrit (blood only) 30.5 % (42-52); Hemoglobin 10.4 g/dL (14.0-18.0); Mean Corpuscular Hemoglobin 30.5 pg (25-34); Mean Corpuscular Hgb Conc 34.1 g/dL (32-36); Mean Corpuscular Volume 89.4 fL (80-100); Nucleated RBC # (auto) 0.05 K/uL (0-0); Nucleated RBC % (auto) 0.6 %; Platelet Count 130 K/uL (130-400); RDW Coefficient of Variation 18.5 % (11.5-14.5); RDW Standard Deviation 57.7 fL (36.4-46.3); Red Blood Count 3.41 M/uL (4.7-6.1); White Blood Count 8.07 K/uL (4.8-10.8)
[2020-01-29 07:29] LABS: Partial Thromboplastin Ratio 3.2
[2020-01-29 07:41] LABS: BUN Creatinine Ratio 19.7 (10-20); Calcium 7.2 mg/dl (8.5-10.1); Creatinine Clr Calc Pharmacy 90.6 ml/min; Est GFR (African American) 114.8; Potassium 3.5 mmol/L (3.5-5.1)
[2020-01-29] MEDS: PANTOprazole 40 MG in SYRINGE 0 ML IV SCH (08:19)
--- NOTE | 2020-01-29 08:29 | Surgery Progress Note ---
Date of Service January 29, 2020 Assessment & Plan (1) SBO (small bowel obstruction): improved, will d/c NGT can have ice/sips, maybe clears for lunch or dinner if doing OK Pt seen and examined with Dr. Peterson Admission and Anticipated Discharge Date Admission Date: January 24, 2020 Subjective some flatus, no BM, no abd pain, heparin gtt started for LUE DVT Physical Exam Gastrointestinal (Abdomen): Inspection/Auscultation: abdomen not distended Percussion/Palpation: abdomen soft; abdomen nontender NG minimal past 24 hours Results & Data ([facility]) Vital Signs (Past 12 Hours) Vital Signs Temp Pulse Pulse Resp BP BP Pulse Ox 01/29/20 06:08 103 H 110/80 01/29/20 04:11 36.5 C 125 H 17 101/73 93 01/29/20 00:18 97 H 01/28/20 23:51 36.4 C L 112 H 16 108/78 97 PG Care Time/CCT Total # of Minutes Spent Total Time Spent with Patient: Total time spent is greater than 50% in coordination of care (as documented) at patient's floor/unit and/or counseling patient: Coding Level of Care Code 46974 Subseq Hosp Care Lvl 1 Diagnoses SBO (small bowel obstruction) K56.609
[2020-01-29] MEDS: D5W AND LACTATED RINGERS 1,000 ML IV SCH (10:34)
[2020-01-29 16:40] LABS: Partial Thromboplastin Ratio 2.3
[2020-01-29 16:53] LABS: Partial Thromboplastin Time 65.3 Seconds (21.0-31.0)
[2020-01-29] MEDS ORDERED: MoRPHine SULFATE 4 MG/ML 1 ML CARP\\VIAL IV PRN (17:03)
--- NOTE | 2020-01-29 17:10 | Hospitalist Progress Note ---
Date of Service January 29, 2020 Assessment & Plan (1) SBO (small bowel obstruction): presented with abdominal pain /nausea and vomiting CT abdomen /pelvis : dilated loops of bowel suggestive of small bowel obstruction vs illeus surgery following required NG suction SBO resolved with supportive care with antiemetics , IV fluid , pain control KUB t : non obstructive bowel gas pattern NG tube D/day on ice chips and sips of water , will order clears in AM if no nausea or vomiting LEFT UPPER EXT DVT: usg of left arm shows extensive DVT ; started on IV heparin hx of prior DVT , was on lovenox d/day for GI bleed in last admission given metastatic malignancy , 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 changed to SC Lovenox [place] dose follow H&H or evidence of bleeding complication LEFT SIDED SHARP /PLEURITIC CHEST PAIN : concern for possible PE CTA of chest could not be done -lack of IV access, A-port does not have any blood return anticoagulation with SC Lovenox as above Metastatic lung ca : with widespread mets to pleura -causing malignant pleural effusion /has rt plurex catheter : cont daily drainage mets to pericardium s/p pericardial window in [place] extremely poor prognosis pt and his significant other aware , palliative care /hospice was discusses last admission , declined the service pt is currently active with [facility] home health which can provide hospice care when pt is agreeable AFIB RVR : cont lopressor , changed to PO over all prognosis remains extremely poor girl friend updated at bedside CODE STATUS : poor prognosis , in a setting of cardiac arrest or resp failure -mechaincal ventilation or CPR may not provide any benefit transition to hospice with goal of care to keep pt comfortable and allow natural would be appropriate pt is aware , wants some time to think about it at present pt remains FULL CODE Admission and Anticipated Discharge Date Admission Date: January 24, 2020 Physical Exam Constitutional: WD/WN, vitals as above + thin Eyes: PERRL, conjunctivae normal, anicteric sclerae ENMT: Mouth: + oral mucosal abnormality (dry oral mucosa ) Neck: trachea midline, no thyromegaly Respiratory: normal respiratory effort; no respiratory distress Auscultation: + rales; no rhonchi and no wheezes Cardiovascular: Rate/Rhythm: + tachycardic; + abnormal rhythm Gastrointestinal (Abdomen): Inspection/Auscultation: normal bowel sounds (hyperactive bowel sounds ) Percussion/Palpation: + abdomen tender and abdomen soft Skin: no rashes, warm and dry Neurologic: PERRL, EOMI, accommodation nl, no face palsy, no dysarthria Psychiatric: Orientation: alert and oriented x 3 Affect: + flat affect Mood: + anxious mood Results & Data Results & Data ([facility]) Vital Signs (Past 12 Hours) Vital Signs Temp Pulse Pulse Resp BP BP Pulse Ox 01/29/20 15:57 36.4 C L 93 H 16 111/81 97 01/29/20 15:55 68 01/29/20 14:14 96 H 16 115/83 95 01/29/20 09:55 90 01/29/20 08:00 35.7 C L 91 H 16 119/85 94 01/29/20 06:08 103 H 110/80
[2020-01-29] MEDS ORDERED: ENOXAPARIN 1 MG/KG SC SCH (17:15)
[2020-01-29] MEDS ORDERED: ENOXAPARIN INJ 60 MG/0.6 ML SYR SQ SCH (18:00)
[2020-01-29] MEDS ORDERED: PROCHLORPERAZINE MALEATE 10 MG TAB PO PRN (18:57)
[2020-01-29] MEDS ORDERED: bisacodyL 10 MG SUPP PR PRN (18:57)
[2020-01-29] MEDS: PROMETHAZINE HCL 12.5 MG in SODIUM CHLORIDE 0.9% 50 ML IV PRN (19:27)
[2020-01-29] MEDS: MIRTAZAPINE TAB 15 MG TAB PO SCH (21:07)
[2020-01-29] MEDS: PANTOprazole 40 MG TAB PO SCH (21:07)
[2020-01-29] MEDS: METOPROLOL TARTRATE 25 MG TAB PO SCH (21:07)
[2020-01-30] MEDS: PROMETHAZINE HCL 12.5 MG in SODIUM CHLORIDE 0.9% 50 ML IV PRN (01:27)
[2020-01-30 06:26] LABS: Hematocrit (blood only) 30.9 % (42-52); Hemoglobin 10.3 g/dL (14.0-18.0); Mean Corpuscular Hemoglobin 29.8 pg (25-34); Mean Corpuscular Hgb Conc 33.3 g/dL (32-36); Mean Corpuscular Volume 89.3 fL (80-100); Nucleated RBC # (auto) 0.07 K/uL (0-0); Nucleated RBC % (auto) 0.8 %; Platelet Count 111 K/uL (130-400); RDW Coefficient of Variation 18.5 % (11.5-14.5); RDW Standard Deviation 57.9 fL (36.4-46.3); Red Blood Count 3.46 M/uL (4.7-6.1); White Blood Count 8.43 K/uL (4.8-10.8)
[2020-01-30 06:33] LABS: Partial Thromboplastin Ratio 1.6; Partial Thromboplastin Time 44.1 Seconds (21.0-31.0)
[2020-01-30 06:56] LABS: BUN Creatinine Ratio 22.4 (10-20); Calcium 7.1 mg/dl (8.5-10.1); Creatinine Clr Calc Pharmacy 137.6 ml/min; Est GFR (Non-African American) 115.6; Potassium 3.2 mmol/L (3.5-5.1)
[2020-01-30] MEDS: POTASSIUM CHLORIDE / WTR 10 MEQ/100 ML PLCT IV SCH ×2 (08:29→09:38)
[2020-01-30] MEDS: METOPROLOL TARTRATE 25 MG TAB PO SCH ×2 (08:29→21:17)
[2020-01-30] MEDS: PANTOprazole 40 MG TAB PO SCH ×2 (08:29→21:16)
[2020-01-30] MEDS: FOLIC ACID 1 MG TAB PO SCH (09:09)
[2020-01-30] MEDS: ASPIRIN 81 MG ECTAB PO SCH (09:09)
[2020-01-30] MEDS: ONDANSETRON 8MG OD TAB PO PRN ×2 (09:24→20:11)
--- NOTE | 2020-01-30 12:34 | Surgery Progress Note ---
Date of Service January 30, 2020 Assessment & Plan (1) SBO (small bowel obstruction): Had bowel movement and passing flatus Denies abdominal pain abdominal exam is benign Would recommend beginning clear liquids No indication for surgical intervention at this time Admission and Anticipated Discharge Date Admission Date: January 24, 2020 Subjective Denies abdominal pain today. Still has some nausea Passing large amount of flatus Had bowel movement last night Physical Exam Gastrointestinal (Abdomen): Inspection/Auscultation: normal bowel sounds; abdomen not distended Percussion/Palpation: abdomen soft; abdomen nontender Results & Data ([facility]) Vital Signs (Past 12 Hours) Vital Signs Temp Pulse Pulse Resp BP Pulse Ox 01/30/20 11:29 36.8 C 103 H 20 94/72 L 100 01/30/20 07:58 36.8 C 98 H 18 116/73 91 01/30/20 07:50 93 H 01/30/20 03:29 36.4 C L 83 18 113/81 93 01/30/20 00:34 100 H
[2020-01-30] MEDS: ENOXAPARIN 100 MG/1ML SYR SQ SCH ×2 (13:55→13:56)
[2020-01-30] MEDS: HEPARIN 100 UNIT/ML 5ML FLUSH FLUSH PRN (14:58)
[2020-01-30] MEDS: MoRPHine SULFATE 10 MG/0.5 ML UDP PO PRN (20:13)
[2020-01-30] MEDS: MIRTAZAPINE TAB 15 MG TAB PO SCH (21:16)
[2020-01-31] MEDS: PROMETHAZINE HCL 12.5 MG in SODIUM CHLORIDE 0.9% 50 ML IV PRN (01:55)
[2020-01-31 08:37] LABS: Hematocrit (blood only) 30.6 % (42-52); Hemoglobin 10.3 g/dL (14.0-18.0)
[2020-01-31 08:44] LABS: Partial Thromboplastin Ratio 1.5; Partial Thromboplastin Time 40.6 Seconds (21.0-31.0)
[2020-01-31] MEDS: METOPROLOL TARTRATE 25 MG TAB PO SCH (08:50)
[2020-01-31] MEDS: FOLIC ACID 1 MG TAB PO SCH (08:50)
[2020-01-31] MEDS: ASPIRIN 81 MG ECTAB PO SCH (08:53)
[2020-01-31] MEDS: PANTOprazole 40 MG TAB PO SCH ×2 (08:54→20:12)
[2020-01-31 09:06] LABS: BUN Creatinine Ratio 20.3 (10-20); Creatinine Clr Calc Pharmacy 110.7 ml/min; Est GFR (African American) 123.1; Est GFR (Non-African American) 106.2; Potassium 3.3 mmol/L (3.5-5.1)
--- NOTE | 2020-01-31 12:51 | Surgery Progress Note ---
Date of Service F/U SBO, doing fine, no abdominal pain, passed BM last night, no nausea, no vomiting, tolerated full liquid diet, January 31, 2020 Assessment & Plan (1) SBO (small bowel obstruction): Had bowel movement and passing flatus Denies abdominal pain abdominal exam is benign Would recommend beginning clear liquids No indication for surgical intervention at this time 01/31/2020 12:50PM doing fine, SBO resolved soft diet, sign off today, please call with questions, thanks, Admission and Anticipated Discharge Date Admission Date: January 24, 2020 Subjective Denies abdominal pain today. Still has some nausea Passing large amount of flatus Had bowel movement last night Review of Systems Constitutional: + fatigue and + weakness; no fever, no chills and no anorexia Respiratory: + dyspnea and + dyspnea on exertion; no cough, no chest congestion and no change in sputum Cardiovascular: + dyspnea and + dyspnea on exertion; no chest pain and no chest pain with activity Gastrointestinal: + abdominal pain (resolved this AM), + nausea, + vomiting, + change in bowel habits (diarrhea) and + change in stools (last BM yesterday) Musculoskeletal: + back pain and + muscle weakness; no neck pain and no joint pain Neurologic: + generalized weakness; no localized weakness Physical Exam Constitutional: WD/WN, vitals as above + ill appearing Eyes: PERRL, conjunctivae normal, anicteric sclerae ENMT: external ear and nose normal, oropharynx normal Neck: trachea midline, no thyromegaly Respiratory: normal respiratory effort, lungs clear to auscultation Cardiovascular: RRR, no murmur, no edema Gastrointestinal (Abdomen): normal bowel sounds, soft, nontender, no hepato splenomegaly Musculoskeletal: no cyanosis or clubbing, extremities motor strength 5/5 Skin: no rashes, warm and dry Neurologic: awake Psychiatric: Orientation: alert and oriented x 3 Results & Data ([facility]) Vital Signs (Past 12 Hours) Vital Signs Temp Pulse Resp BP Pulse Ox 01/31/20 11:03 37 C 118 H 19 96/61 L 95 01/31/20 07:27 105 H 18 103/73 93 01/31/20 04:00 36.6 C 91 H 18 107/75 94
[2020-01-31] MEDS: ENOXAPARIN 100 MG/1ML SYR SQ SCH (13:46)
[2020-01-31] MEDS ORDERED: POTASSIUM CHLORIDE CRTAB 20 MEQ TABCR PO ONE (14:30)
[2020-01-31] MEDS: ONDANSETRON INJ 2 MG/ML 2 ML VIAL IV PRN (14:37)
[2020-01-31] MEDS: HEPARIN 100 UNIT/ML 5ML FLUSH FLUSH PRN (14:37)
[2020-01-31] MEDS ORDERED: SODIUM CHLORIDE 0.9% 1000ML 500 ML IV ONE (15:08)
--- NOTE | 2020-01-31 16:34 | Hospitalist Progress Note ---
Date of Service January 31, 2020 Assessment & Plan (1) SBO (small bowel obstruction): Acute hypoxemic respiratory failure Became hypoxic SPO2 in 60s, respiratory distress, moist productive cough Placed on high flow nasal cannula, Stat portable chest x-ray shows right lower lobe infiltrate suggestive of pneumonia, concern for aspiration given recent small bowel obstruction with nausea vomiting Ordered for n.p.o. IV Zosyn Severe sepsis: Possible secondary to right lower lobe pneumonia, Meets criteria, hypotensive, tachycardic, respiratory failure, lactic acid elevated 3.1 Antibiotic with Zosyn, given IV fluid bolus, continue with IV fluids caution with fluid resuscitation as increased risk of volume overload, worsening of pleural effusion, patient has malignant pleural effusion question daily Pleurx catheter drainage Overall prognosis remains extremely poor Updated patient and patient's girlfriend at bedside Discussed regarding CODE STATUS again, patient does not have mechanical ventilation or CPR, CODE STATUS changed to DNR/DNI Small bowel obstruction resolved presented with abdominal pain /nausea and vomiting CT abdomen /pelvis : dilated loops of bowel suggestive of small bowel obstruction vs illeus surgery following required NG suction SBO resolved with supportive care with antiemetics , IV fluid , pain control KUB t : non obstructive bowel gas pattern NG tube D/day Diet was advanced to full liquid, has been tolerating well, ordered for n.p.o. 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 changed to SC Lovenox therapeutic dose follow H&H or evidence of bleeding complication LEFT SIDED SHARP /PLEURITIC CHEST PAIN : concern for possible PE CTA of chest could not be done -lack of IV access, A-port does not have any blood return anticoagulation with SC Lovenox as above Metastatic lung ca : with widespread mets to pleura -causing malignant pleural effusion /has rt plurex catheter : cont daily drainage mets to pericardium s/p pericardial window in [place] extremely poor prognosis pt and his significant other aware , palliative care /hospice was discusses last admission , declined the service pt is currently active with [facility] health which can provide hospice care when pt is agreeable AFIB RVR : Lopressor discontinued given hypotensive episode with severe sepsis IV Lopressor as needed for heart rate more than 100, hold for SBP less than 100 CODE STATUS : Patient wants to be DNR/DNI aware of poor prognosis Disposition: Transfer to PCU for further care, over all prognosis remains extremely poor girl friend updated at bedside Admission and Anticipated Discharge Date Admission Date: January 24, 2020 Subjective Patient became severely patient became very hypoxic, this afternoon, while sitting on chair hypotensive SBP and tachycardic Victor dizzy and lightheaded, Patient is transferred back to bed, given with 500 cc bolus given, Started on high flow oxygen Patient will be transferred to PCU, Physical Exam Constitutional: WD/WN, vitals as above + acute distress (for shortness of breath ) and + thin Eyes: PERRL, conjunctivae normal, anicteric sclerae ENMT: Mouth: + oral mucosal abnormality (dry oral mucosa ) Neck: trachea midline, no thyromegaly Respiratory: normal respiratory effort; no respiratory distress Auscultation: + rales; no rhonchi and no wheezes Cardiovascular: Rate/Rhythm: + tachycardic; + abnormal rhythm Gastrointestinal (Abdomen): Inspection/Auscultation: normal bowel sounds (hyperactive bowel sounds ) Percussion/Palpation: abdomen soft Skin: no rashes, warm and dry Neurologic: PERRL, EOMI, accommodation nl, no face palsy, no dysarthria Psychiatric: Orientation: alert and oriented x 3 Affect: + flat affect Mood: + anxious mood Results & Data Results & Data ([facility]) Vital Signs (Past 12 Hours) Vital Signs Temp Pulse Pulse Resp BP Pulse Ox 01/31/20 16:23 99 H 01/31/20 15:53 36.1 C L 97 H 20 82/54 L 94 01/31/20 15:10 99 H 20 86/52 L 98 01/31/20 14:40 103 H 20 66/44 L 60 L 01/31/20 11:03 37 C 118 H 19 96/61 L 95 01/31/20 07:27 105 H 18 103/73 93
[2020-01-31] MEDS ORDERED: METOPROLOL TARTRATE 1 MG/ML VIAL IV PRN (16:35)
--- NOTE | 2020-01-31 17:08 | XRay Report ---
XR chest 1V portable HISTORY: 64 years-old Male SOB acute shortness of breath COMPARISON: Chest radiograph 01/28/2020 TECHNIQUE: Portable AP view of the chest FINDINGS: Left IJ [id number] catheter is unchanged. Interval removal of the enteric tube. Cardiomediastinal and hilar silhouettes are unchanged. Small pleural effusions with hazy bibasilar right upper lung opa cities. Slightly improved aeration of the right lung base. Unchanged right-sided chest tube. No pneum othorax. Degenerative changes of the shoulders and spine. IMPRESSION: 1. Interval removal of the enteric tube. Unchanged positioning of the right-sided chest tube. 2. No pneumothorax. 3. Hazy bibasilar and right upper lung opacities. Mildly improved aeration of the right lung base. 4. Trace pleural effusions. ACT 112: Negative or not required by law. The above report was generated using voice recognition software. It may contain grammatical, syntax o r spelling errors. Electronically signed by: Alex Appiah M.D. 01/31/2020 5:06 PM
[2020-01-31] MEDS ORDERED: PIPERACILL/TAZOBAC CONSULT ACTIVE PRN (17:28)
[2020-01-31] MEDS ORDERED: LACTATED RINGER'S 1,000 ML IV SCH (18:00)
[2020-01-31] MEDS ORDERED: PIPERACILLIN/TAZOBACTAM 4.5 GM in DEXTROSE 5% 100 ML IV ONE (18:30)
[2020-01-31] MEDS: PIPERACILLIN/TAZOBACTAM 3.375 GM in DEXTROSE 5% 100 ML IV SCH (23:18)
[2020-01-31] MEDS: MoRPHine SULFATE 10 MG/0.5 ML UDP PO PRN (23:33)
[2020-02-01] MEDS: ONDANSETRON INJ 2 MG/ML 2 ML VIAL IV PRN (03:29)
[2020-02-01] MEDS: MoRPHine SULFATE 10 MG/0.5 ML UDP PO PRN ×2 (03:29→06:52)
[2020-02-01 06:40] LABS: Hematocrit (blood only) 25.7 % (42-52); Hemoglobin 8.8 g/dL (14.0-18.0); Mean Corpuscular Hemoglobin 29.8 pg (25-34); Mean Corpuscular Hgb Conc 34.2 g/dL (32-36); Mean Corpuscular Volume 87.1 fL (80-100); Nucleated RBC # (auto) 0.19 K/uL (0-0); Nucleated RBC % (auto) 1.4 %; Platelet Count 98 K/uL (130-400); RDW Coefficient of Variation 17.9 % (11.5-14.5); RDW Standard Deviation 55.6 fL (36.4-46.3); Red Blood Count 2.95 M/uL (4.7-6.1); White Blood Count 13.81 K/uL (4.8-10.8)
[2020-02-01 06:41] LABS: Basophils # (auto) 0.01 K/uL (0-0.2); Basophils % (auto) 0.1 %; Echinocytes 1+; Eosinophils # (auto) 0.01 K/uL (0-0.5); Eosinophils % (auto) 0.1 %; Giant Platelets 1+; Immature Granulocytes # (auto) 0.06 K/uL (0.00-0.02); Immature Granulocytes % (auto) 0.4 %; Lymphocytes # (auto) 0.18 K/uL (1.2-3.4); Lymphocytes % (auto) 1.3 %; Monocytes # (auto) 0.12 K/uL (0.11-0.59); Monocytes % (auto) 0.9 %; Neutrophils # (auto) 13.43 K/uL (1.4-6.5); Neutrophils % (auto) 97.2 %; Pappenheimer Bodies 1+; Platelet Estimate Decreased (Normal)
[2020-02-01 06:50] LABS: BUN Creatinine Ratio 16.5 (10-20); Calcium 6.5 mg/dl (8.5-10.1); Creatinine Clr Calc Pharmacy 73.3 ml/min; Est GFR (African American) 103.5; Est GFR (Non-African American) 89.3
[2020-02-01] MEDS: HEPARIN 100 UNIT/ML 5ML FLUSH FLUSH PRN (06:52)
[2020-02-01] MEDS ORDERED: POTASSIUM CHLORIDE CRTAB 20 MEQ TABCR PO STA (08:17)
[2020-02-01] MEDS: PIPERACILLIN/TAZOBACTAM 3.375 GM in DEXTROSE 5% 100 ML IV SCH (08:21)
[2020-02-01 08:43] LABS: Hematocrit (blood only) 26.1 % (42-52)
[2020-02-01] MEDS: POTASSIUM CHLORIDE / WTR 10 MEQ/100 ML PLCT IV SCH ×5 (09:08→13:55)
[2020-02-01] MEDS: FOLIC ACID 1 MG TAB PO SCH (09:59)
[2020-02-01] MEDS: PANTOprazole 40 MG TAB PO SCH (09:59)
--- NOTE | 2020-02-01 10:49 | Hospitalist Progress Note ---
Date of Service February 01, 2020 Assessment & Plan (1) SBO (small bowel obstruction): Acute hypoxemic respiratory failure On 01/30 Became hypoxic SPO2 in 60s, respiratory distress, moist productive cough Placed on high flow nasal cannula, Stat portable chest x-ray shows right lower lobe infiltrate suggestive of pneumonia, concern for aspiration given recent small bowel obstruction with nausea vomiting Ordered for n.p.o. IV Zosyn Blood cultures ordered History of pericardial effusion, will repeat echo Concern for PE, will order CT PE (was not done yesterday as patient did not have IV access) Thrombocytopenia -Platelet counts down to 98, on Jan 24, platelet 240 -concern for HIT -Platelet factor 4 ordered, will be sent to [facility] -Discussed with Dr. Javier Severe sepsis: Possible secondary to right lower lobe pneumonia, Meets criteria, hypotensive, tachycardic, respiratory failure, lactic acid elevated 3.1 Antibiotic with Zosyn, given IV fluid bolus, continue with IV fluids caution wit h fluid resuscitation as increased risk of volume overload, worsening of pleural effusion, patient has malignant pleural effusion, daily Pleurx catheter drainage Overall prognosis remains extremely poor Updated patient and patient's girlfriend at bedside Discussed regarding CODE STATUS again, patient does not have mechanical ventilation or CPR, CODE STATUS changed to DNR/DNI on 01/30 Small bowel obstruction resolved presented with abdominal pain /nausea and vomiting CT abdomen /pelvis : dilated loops of bowel suggestive of small bowel obstr uction vs illeus surgery following required NG suction SBO resolved with supportive care with antiemetics , IV fluid , pain control KUB t : non obstructive bowel gas pattern NG tube D/day Diet was advanced to full liquid, has been tolerating well, ordered for n.p.o. 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 Javier contcted re: anticoagulation, poss. HIT LEFT SIDED SHARP /PLEURITIC CHEST PAIN : concern for possible PE CTA of chest could not be done -lack of IV access, A-port does not have any blood return anticoagulation with SC Lovenox as above Ultrasound-guided peripheral access obtained on January 30, CT PE ordered Metastatic lung ca : with widespread mets to pleura -causing malignant pleural effusion /has rt plurex catheter : cont daily drainage mets to pericardium s/p pericardial window in [place] extremely poor prognosis pt and his significant other aware , palliative care /hospice was discusses last admission , declined the service pt is currently active with [facility] home health which can provide hospice care when pt is agreeable AFIB RVR : Lopressor discontinued given hypotensive episode with severe sepsis IV Lopressor as needed for heart rate more than 100, hold for SBP less than 100 CODE STATUS : Patient wants to be DNR/DNI aware of poor prognosis Disposition: Transferred to PCU for further care, over all prognosis remains extremely poor girl friend updated at bedside by Dr. Gabriel on 01/30 Admission and Anticipated Discharge Date Admission Date: January 24, 2020 Subjective Yesterday patient became severely patient became very hypoxic, while sitting in the chair, and hypotensive and tachycardic He will given with 500 cc bolus given, Started on high flow oxygen He was transferred to PCU Discussed CODE STATUS visit Dr. Gabriel yesterday, patient DNR/DNI Today patient is sitting up in bed, appears somnolent but able to answer simple questions. He has productive cough. Hemoglobin down to 9, platelets down to 98. Recently restarted on heparin and Lovenox, due to upper extremity DVT, and concern for PE. CT PE was not able to be done yesterday due to IV access. Ultrasound-guided IV access was obtained now, will order CT for PE. Also concern for HIT, platelet factor 4 ordered will be sent to [facility] lab. Anticoagulation and possible HIT also discussed with Dr. Javier. Review of Systems Review of Systems: All systems reviewed & are unremarkable except as noted in HPI & below Constitutional: + fatigue Respiratory: + cough and + dyspnea Physical Exam Physical Exam: Constitutional: WD/WN, vitals as above, +thin, chronically ill -appearing, currently in no acute distress, but reports difficulty breathing, using suppl. O2 via nasal cannula Eyes: PERRL, EOMI, conjunctivae normal, anicteric sclerae ENMT: Mouth: + poor dentition Neck: trachea midline, no thyromegaly Respiratory: normal respiratory effort; no respiratory distress Auscultation: + Coarse breath sounds +rales; wheezes Cardiovascular: Rate/Rhythm: + tachycardic; + abnormal rhythm Gastrointestinal (Abdomen): Inspection/Auscultation: normal bowel sounds (hyperactive bowel sounds ) Percussion/Palpation: abdomen soft Skin: no rashes, warm and dry Neurologic: PERRL, EOMI, accommodation nl, no face palsy, no dysarthria Psychiatric: Orientation: alert and oriented x 3 Affect: + flat affect Results & Data Results & Data ([facility]) Vital Signs (Past 12 Hours) Vital Signs Temp Pulse Pulse Resp BP BP Pulse Ox 02/01/20 08:50 95 02/01/20 07:56 36.8 C 85 21 92/52 L 95 02/01/20 07:15 120 H 24 95 02/01/20 03:45 119 H 24 96 02/01/20 03:37 36.7 C 116 H 20 107/67 95 01/31/20 23:51 37.4 C 118 H 28 H 136/67 96 Laboratory Results 02/01/20 02/01/20 02/01/20 Range/Units 08:26 08:24 05:34 WBC (4.8-10.8) K/uL RBC (4.7-6.1) M/uL Hgb 9.0 L (14.0-18.0) g/dL Hct 26.1 L (42-52) % MCV (80-100) fL MCH (25-34) pg MCHC (32-36) g/dL RDW Std Deviation (36.4-46.3) fL RDW Coeff of Mani (11.5-14.5) % Plt Count (130-400) K/uL MPV (7.4-10.4) fL Immature Gran % (Auto) % Neut % (Auto) % Lymph % (Auto) % Rowan % (Auto) % Eos % (Auto) % Baso % (Auto) % Neut # (Auto) (1.4-6.5) K/uL Lymph # (Auto) (1.2-3.4) K/uL Rowan # (Auto) (0.11-0.59) K/uL Eos # (Auto) (0-0.5) K/uL Baso # (Auto) (0-0.2) K/uL Immature Gran # (Auto) (0.00-0.02) K/uL Absolute Nucleated RBC (0-0) K/uL Nucleated RBC % (auto) % Platelet Estimate (Normal) Giant Platelets Pappenheimer Bodies Echinocytes Sodium 145 (136-145) mmol/L Potassium 3.0 L (3.5-5.1) mmol/L Chloride 111 H (98-107) mmol/L Carbon Dioxide 26 (21-32) mmol/L Anion Gap 8.0 (3-11) BUN 15 (7-18) mg/dl Creatinine 0.90 D (0.6-1.4) mg/dl Est Cr Clr Drug Dosing 73.3 ml/min Est GFR ( Amer) 103.5 Est GFR (Non-Af Amer) 89.3 BUN/Creatinine Ratio 16.5 (10-20) Glucose 65 L (70-99) mg/dl Lactate 2.9 H* (0.4-2.0) mmol/L Calcium 6.5 L (8.5-10.1) mg/dl Procalcitonin (0-0.5) ng/ml 02/01/20 01/31/20 01/31/20 Range/Units 05:34 17:44 17:44 WBC 13.81 H (4.8-10.8) K/uL RBC 2.95 L (4.7-6.1) M/uL Hgb 8.8 L (14.0-18.0) g/dL Hct 25.7 L (42-52) % MCV 87.1 (80-100) fL MCH 29.8 (25-34) pg MCHC 34.2 (32-36) g/dL RDW Std Deviation 55.6 H (36.4-46.3) fL RDW Coeff of Mani 17.9 H (11.5-14.5) % Plt Count 98 L (130-400) K/uL MPV 12.0 H (7.4-10.4) fL Immature Gran % (Auto) 0.4 % Neut % (Auto) 97.2 % Lymph % (Auto) 1.3 % Rowan % (Auto) 0.9 % Eos % (Auto) 0.1 % Baso % (Auto) 0.1 % Neut # (Auto) 13.43 H (1.4-6.5) K/uL Lymph # (Auto) 0.18 L (1.2-3.4) K/uL Rowan # (Auto) 0.12 (0.11-0.59) K/uL Eos # (Auto) 0.01 (0-0.5) K/uL Baso # (Auto) 0.01 (0-0.2) K/uL Immature Gran # (Auto) 0.06 H (0.00-0.02) K/uL Absolute Nucleated RBC 0.19 H (0-0) K/uL Nucleated RBC % (auto) 1.4 % Platelet Estimate Decreased L (Normal) Giant Platelets 1+ Pappenheimer Bodies 1+ Echinocytes 1+ Sodium (136-145) mmol/L Potassium (3.5-5.1) mmol/L Chloride (98-107) mmol/L Carbon Dioxide (21-32) mmol/L Anion Gap (3-11) BUN (7-18) mg/dl Creatinine (0.6-1.4) mg/dl Est Cr Clr Drug Dosing ml/min Est GFR ( Amer) Est GFR (Non-Af Amer) BUN/Creatinine Ratio (10-20) Glucose (70-99) mg/dl Lactate 3.1 H* (0.4-2.0) mmol/L Calcium (8.5-10.1) mg/dl Procalcitonin 0.65 H (0-0.5) ng/ml Medications Administered Current Inpatient Medications Acetaminophen (Acetaminophen 325 Mg Tab) 650 mg PO Q4H PRN PRN Reason: Pain or Fever Stop: 02/23/20 23:24 Bisacodyl (Bisacodyl 10 Mg Supp) 10 mg KY DAILY PRN PRN Reason: Constipation Stop: 02/28/20 18:56 Dextrose (Dextrose 50% 50 Ml Syringe) 25 - 50 ml IV UD PRN; Protocol PRN Reason: Hypoglycemia Protocol Stop: 02/25/20 16:51 Enoxaparin Sodium (Enoxaparin 100 Mg/1ml Syr) 90 mg SQ Q24H SEBASTIAN Stop: 02/29/20 12:59 Last Admin: 01/31/20 13:46 Dose: 90 mg Documented by: Folic Acid (Folic Acid 1 Mg Tab) 1 mg PO QAM SEBASTIAN Stop: 02/24/20 08:59 Last Admin: 02/01/20 09:59 Dose: 1 mg Documented by: Glucagon (Glucagon For Inj 1 Mg Vial) 1 mg SQ UD PRN; Protocol PRN Reason: Hypoglycemia Protocol Stop: 02/25/20 16:51 Glucose (Glucose 10 Tabs/Tube) 4 - 8 tabs PO UD PRN; Protocol PRN Reason: Hypoglycemia Protocol Stop: 02/25/20 16:51 Glucose (Glucose 40% Gel 15 Gm Tube) 15 - 30 gm PO UD PRN; Protocol PRN Reason: Hypoglycemia Protocol Stop: 02/25/20 16:51 Heparin Sodium (Porcine) (Heparin 100 Unit/Ml 5ml Flush) 5 ml FLUSH PRN PRN PRN Reason: Flush Stop: 02/24/20 00:10 Last Admin: 02/01/20 06:52 Dose: 5 ml Documented by: Prochlorperazine 10 mg/ (Syringe) 10 mls @ 5 mls/min IV Q6H PRN PRN Reason: Nausea And Vomiting Stop: 02/24/20 19:54 Last Admin: 01/25/20 22:28 Dose: 5 mls/min Documented by: Promethazine HCl 12.5 mg/ (Sodium Chloride) 50.5 mls @ 202 mls/hr IV Q6H PRN PRN Reason: Nausea And Vomiting Stop: 02/24/20 20:12 Last Infusion: 01/31/20 02:35 Dose: Infused Documented by: Piperacillin Sod/Tazobactam (Sod 3.375 gm/ Dextrose) 115 mls @ 28.75 mls/hr IV Q8H SEBASTIAN; Protocol Stop: 02/08/20 00:00 Last Admin: 02/01/20 08:21 Dose: 28.8 mls/hr Documented by: Potassium Chloride (K Star / Wtr) 10 meq in 100 mls @ 100 mls/hr IV Q1H SEBASTIAN Stop: 02/01/20 11:29 Last Admin: 02/01/20 10:14 Dose: 100 mls/hr Documented by: Metoprolol Tartrate (Metoprolol Tartrate 1 Mg/Ml Vial) 2.5 mg IV Q4 PRN PRN Reason: HR> 100 Stop: 03/01/20 19:59 Miscellaneous (Carbohydrates For Hypoglycemia ) 15 - 30 gm PO UD PRN PRN Reason: Hypoglycemia Protocol Stop: 02/25/20 16:51 Miscellaneous Information (Piperacill/Tazobac Consult Active) 1 ea N/A UD PRN PRN Reason: Consult Stop: 03/01/20 17:27 Morphine Sulfate (Morphine Sulfate 10 Mg/0.5 Ml Udp) 10 mg PO Q4 PRN PRN Reason: Pain Stop: 02/12/20 17:04 Last Admin: 02/01/20 06:52 Dose: 10 mg Documented by: Ondansetron HCl (Ondansetron Inj 2 Mg/Ml 2 Ml Vial) 4 mg IV Q6H PRN PRN Reason: Nausea Stop: 02/24/20 19:54 Last Admin: 02/01/20 03:29 Dose: 4 mg Documented by: Ondansetron HCl (Ondansetron 8mg Od Tab) 8 mg PO Q8H PRN PRN Reason: Nausea Stop: 02/28/20 18:56 Last Admin: 01/30/20 20:11 Dose: 8 mg Documented by: Pantoprazole Sodium (Pantoprazole 40 Mg Tab) 40 mg PO BID SEBASTIAN Stop: 02/28/20 20:59 Last Admin: 02/01/20 09:59 Dose: 40 mg Documented by: Prochlorperazine (Prochlorperazine Maleate 10 Mg Tab) 10 mg PO Q6H PRN PRN Reason: Nausea Stop: 02/28/20 18:56 Last Admin: 01/31/20 08:55 Dose: 10 mg Documented by:
[2020-02-01] MEDS ORDERED: SODIUM CHLORIDE 0.9% 1000ML 500 ML IV ONE (11:30)
[2020-02-01] MEDS: ALBUMIN 25% 12.5 GM/50 ML VIAL IV SCH ×2 (11:49→12:24)
[2020-02-01] MEDS ORDERED: DIGOXIN 250 MCG in SYRINGE 9 ML IV ONE (12:15)
--- NOTE | 2020-02-01 12:29 | XRay Report ---
XR chest 1V portable HISTORY: 64 years-old Male hypotension, hypoxia acute hypertension with hypoxia COMPARISON: Chest radiograph 01/31/2020 TECHNIQUE: Portable AP view the chest FINDINGS: Cardiac silhouette is enlarged. Calcified plaque the thoracic aorta. Left IJ Yozpid-c-Odkj catheter i s unchanged. A right-sided chest tube is in stable positioning. No pneumothorax. Right greater left p leural effusions. Progressively worsened right greater left bibasilar and right midlung consolidation . Pulmonary vascular congestion with interstitial coarsening. Degenerative changes of the shoulders a nd spine. IMPRESSION: 1. Unchanged positioning of the right-sided chest tube. No pneumothorax. 2. Right greater left pleural effusions with progressively worsened right midlung and bibasilar conso lidation. 3. Interval development of pulmonary edema. ACT 112: Negative or not required by law. The above report was generated using voice recognition software. It may contain grammatical, syntax o r spelling errors. Electronically signed by: Alex Appiah M.D. 02/01/2020 12:28 PM
[2020-02-01] MEDS ORDERED: LORazepam 1 MG/2 ML VIAL IV PRN (12:39)
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
--- NOTE | 2020-02-01 12:50 | Hospitalist Progress Note ---
Date of Service February 01, 2020 Assessment & Plan Admission and Anticipated Discharge Date Admission Date: January 24, 2020 Subjective Patient became hypotensive, tachycardic, assessed patient again at the bedside. Patient appears very fatigued but able to answer questions. Ordered IV normal saline bolus and IV albumin. Discussed with cardiology he is repeat echo this morning. Patient does have pericardial effusion, however no tamponade, not causing patient's current state. He is however very tachycardic, recommend to give IV digoxin. Discussed that the patient is dying. I contacted patient's trip Coon and updated her over the phone. She is coming to the hospital and understands the seriousness of situation and patient's terminal illness. Discussed with the patient if he would want to talk with palliative medicine, and he agreed. Palliative medicine contacted. Palliative medicine assessed the patient, and contacted as well his shyanne Coon. Patient agreed to be on comfort care measures. Palliative medicine will be ordering comfort care medications. MD Brandan Results & Data Results & Data ([facility]) Vital Signs (Past 12 Hours) Vital Signs Temp Pulse Pulse Pulse Resp BP BP 02/01/20 12:26 124 H 28 H 65/51 L 02/01/20 12:12 126 H 02/01/20 12:01 122 H 24 70/55 L 02/01/20 11:51 162 H 62/41 L 02/01/20 11:50 36.6 C 123 H 21 75/45 L 02/01/20 08:50 02/01/20 07:56 36.8 C 85 21 92/52 L 02/01/20 07:15 120 H 24 02/01/20 03:45 119 H 24 02/01/20 03:37 36.7 C 116 H 20 107/67 Pulse Ox 02/01/20 12:26 90 02/01/20 12:12 02/01/20 12:01 91 02/01/20 11:51 93 02/01/20 11:50 92 02/01/20 08:50 95 02/01/20 07:56 95 02/01/20 07:15 95 02/01/20 03:45 96 02/01/20 03:37 95
[2020-02-01] MEDS ORDERED: DIGOXIN 250 MCG in SYRINGE 9 ML IV SCH (13:30)
[2020-02-01] MEDS: MoRPHine SULFATE 2 MG/ML CARP IV PRN ×2 (14:00→19:31)
[2020-02-01] MEDS: GLYCOPYRROLATE 0.2 MG/ML VIAL IV PRN (14:01)
[2020-02-01] MEDS: ENOXAPARIN 100 MG/1ML SYR SQ SCH (14:11)
--- NOTE | 2020-02-02 11:40 | Palliative Care Progress Note ---
Date of Service February 02, 2020 Assessment & Plan (1) Palliative care encounter: I visited with this patient, who had multiple family members including his 96 year old mother and his girlfriend, Jaymie. The patient received two doses of Morphine IV over the past 24 hours. When I entered the room, the patient had his eyes closed, using diaphragm muscles for breathing and he had facial grimacing. No mottling noted at this time. Patient does open his eyes, but is not oriented or able to answer questions. Pretty somnolent. Discussed at length what to expect as patient continues to decline with family. All questions answered. Family comfortable with care. I will order Morphine 2mg IV Q6 Scheduled and also allow the Morphine 2mg IV Q1 PRN to be administered in addition. Discussed with nursing to assess for furrowed brow, facial grimacing, increased accessory muscle use to have a low threshold for comfort medication administration. Life expectancy remains likely hours to a day. Palliative Care will follow and continue to offer support through this transition for the patient and his family. This patient is not a GIP candidate as his symptom management medications are adequate for him. Patient anticipated to pass away in the hospital. PPS: 10% (2) Dehydration: (3) Adenocarcinoma of lung: (4) Malnutrition: (5) Cachexia: Admission and Anticipated Discharge Date Admission Date: January 24, 2020 Subjective Multiple family members at bedside. Patient awakens to verbal stimuli; however, not responding to commands or questions. Pt unable to participate in ROS. Review of Systems Review of Systems: Unobtainable due to reduced consciousness Physical Exam Constitutional: + acute distress, + ill appearing, + cachectic and + frail appearing Respiratory: + labored breathing and + uses accessory muscles Auscultation: + crackles and + rales Cardiovascular: RRR, no murmur, no edema Gastrointestinal (Abdomen): normal bowel sounds, soft, nontender, no hepatosplenomegaly Skin: + dry skin and + ecchymosis Psychiatric: A+Ox3, euthymic affect Lymphatic: no cervical or axillary lymphadenopathy PG Care Time/CCT Total # of Minutes Spent Total Time Spent with Patient: Total time spent is greater than 50% in coordination of care (as documented) at patient's floor/unit and/or counseling patient: 35 Coding Level of Care Code 00651 Subseq Hosp Care Lvl 3 Diagnoses Palliative care encounter Z51.5 Dehydration E86.0 Adenocarcinoma of lung C34.90 Malnutrition E46 Cachexia R64 Time Spent (min) 35 Time Spent Midlevel Total time spent 35 minutes spent with > 50% of that time spent assessing the patient, discussing symptom management and collaborating with the IDT
[2020-02-02] MEDS: MoRPHine SULFATE 2 MG/ML CARP IV PRN ×2 (12:25→20:28)
[2020-02-02] MEDS: MoRPHine SULFATE 2 MG/ML CARP IV SCH ×2 (17:32→22:43)
--- NOTE | 2020-02-02 20:33 | Hospitalist Progress Note ---
Date of Service February 02, 2020 Assessment & Plan (1) SBO (small bowel obstruction): Acute hypoxemic respiratory failure On 01/30 Became hypoxic SPO2 in 60s, respiratory distress, moist productive cough Placed on high flow nasal cannula, Stat portable chest x-ray shows right lower lobe infiltrate suggestive of pneumonia, concern for aspiration given recent small bowel obstruction with nausea vomiting Ordered for n.p.o. IV Zosyn Blood cultures ordered History of pericardial effusion, repeat echo showed again pericardial effusion, however no tamponade Concern for PE, will order CT PE (was not done on 01/30 as patient did not have IV access), patient was however treated with Lovenox given upper extremity DVT On 01/31 patient decompensated again, became profoundly hypotensive, tachycardic IV fluid and IV albumin resuscitation provided, and IV digoxin given after discussing with cardiology however given patient's extremely poor prognosis and worsening clinical status, patient agreed for consultation with palliative medicine and comfort care PATIENT currently transitioned to COMFORT CARE Thrombocytopenia -Platelet counts down to 98, on Jan 24, platelet 240 -concern for HIT -Platelet factor 4 ordered, sent to [facility] -Discussed with Dr. Javier Severe sepsis: Possible secondary to right lower lobe pneumonia, Meets criteria, hypotensive, tachycardic, respiratory failure, lactic acid elevated 3.1 Antibiotic with Zosyn, given IV fluid bolus, continued with IV fluids caution with fluid resuscitation as increased risk of volume overload, worsening of pleural effusion, patient has malignant pleural effusion, daily Pleurx catheter drainage Overall prognosis remains extremely poor Updated patient and patient's girlfriend at bedside Discussed regarding CODE STATUS again, patient does not have mechanical ventilation or CPR, CODE STATUS changed to DNR/DNI on 01/30 PATIENT currently transitioned to COMFORT CARE Small bowel obstruction resolved presented with abdominal pain /nausea and vomiting CT abdomen /pelvis : dilated loops of bowel suggestive of small bowel obstruction vs illeus surgery following required NG suction SBO resolved with supportive care with antiemetics , IV fluid , pain control KUB t : non obstructive bowel gas pattern NG tube D/day Diet was advanced to full liquid, has been tolerating well, ordered for n.p.o. 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 Javier contacted re: anticoagulation, poss. HIT LEFT SIDED SHARP /PLEURITIC CHEST PAIN : concern for possible PE CTA of chest could not be done -lack of IV access, A-port does not have any blood return anticoagulation with SC Lovenox as above Ultrasound-guided peripheral access obtained on January 30, CT PE ordered Unfortunately patient suddenly decompensated on January [address] angio could not be obtained PATIENT currently transitioned to COMFORT CARE Metastatic lung ca : with widespread mets to pleura -causing malignant pleural effusion /has rt plurex catheter : cont daily drainage mets to pericardium s/p pericardial window in [place] extremely poor prognosis pt and his significant other aware , palliative care /hospice was discusses last admission , declined the service pt is currently active with [facility] which can provide hospice care when pt is agreeable Patient agreeable to palliative care and comfort care measures after his clinical status worsened on January 31 AFIB RVR : Lopressor discontinued given hypotensive episode with severe sepsis IV Lopressor as needed for heart rate more than 100, hold for SBP less than 100 Tried IV digoxin given hypotension and significant tachycardia however did not change his clinical status CODE STATUS : Patient wants to be DNR/DNI aware of poor prognosis COMFORT CARE Disposition: Initially transferred to PCU for further care given his acute decompensation, overall prognosis remains extremely poor Now transitioned to comfort care Reynold Coon present at the bedside and updated Admission and Anticipated Discharge Date Admission Date: January 24, 2020 Subjective Patient is lying in bed, in no acute distress, appears comfortable. Reynold Coon and her friend present at bedside. Patient awakens to verbal stimuli; however, not responding to commands or questions. Pt unable to participate in ROS. Review of Systems Review of Systems: Unobtainable due to cognitive status Physical Exam Physical Exam: Constitutional: WD/WN, vitals as above, +thin, chronically ill-appearing, currently in no acute distress, appears comfortable ENMT: Mouth: + poor dentition, dry mucous membranes Respiratory: normal respiratory effort; no respiratory distress Auscultation: + Coarse breath sounds +rales Cardiovascular: Rate/Rhythm: + tachycardic; + abnormal rhythm Gastrointestinal (Abdomen): Inspection/Auscultation:+bowel sounds Percussion/Palpation: abdomen soft Skin: no rashes, warm and dry Neurologic: somnolent
[2020-02-02] MEDS: GLYCOPYRROLATE 0.2 MG/ML VIAL IV PRN (22:01)
[2020-02-03] MEDS: GLYCOPYRROLATE 0.2 MG/ML VIAL IV PRN (01:30)
[2020-02-03] MEDS: MoRPHine SULFATE 2 MG/ML CARP IV PRN (01:30)
--- NOTE | 2020-02-03 17:05 | Discharge Summary ---
Date of Service February 03, 2020 Admission HPI Per Admitting Provider History obtained from patient, family, and records. Medical history significant for non-small cell lung cancer status post chemotherapy, history of upper extremity DVT not on anticoagulation secondary to GI bleed, chronic anemia (baseline hemoglobin 10), past tobacco/alcohol abuse. Last confinement last month for neutropenic fever, sepsis. Coagulase-negative Staphylococcus 1 bottle status post Ceftriaxone Rx UGIB during confinement. Normal EGD. Poor colonoscopy prep. diverticulosis left colon. Lovenox for right upper extremity DVT history discontinued. 1 day history of achy abdominal pain associated with nausea, nonbilious emesis. Good bowel movement. No fever, no chills. No chest pain, no S OB. No unusual cough symptoms. Patient brought to ER by family. Noted to be in rapid atrial fibrillation at some point during stay at the ER. Medical History as above Surgical History : Pericardiostomy, back surgery, adhesiolysis, splenectomy Family History : Breast cancer, colon cancer, skin cancer Personal/Social history : Past tobacco/alcohol abuse Admission Exam Per Admitting Provider GENERAL: uncomfortable, underweight, chronically ill, no respiratory distress, occasionally staring blankly into space SKIN: Pallor, warm HEENT: Pale palpebral conjunctivae, no ptosis, dry buccal mucosa NECK : Supple, no tenderness CHEST : Decreased breath sounds, no tenderness HEART : Regular, tachycardic, no obvious murmurs ABDOMEN: Some distention, minimal central abdominal tenderness EXTREMITIES : No LE swelling/tenderness, no other conspicuous deformities noted NEUROLOGIC : Coherent, no facial asymmetry, no other gross focality Principal Diagnosis Non-small cell lung cancer with recurrent pleural effusions and malignant pericardial effusion Hypercoagulable state secondary to malignancy Severe protein calorie malnutrition Atrial fibrillation with RVR Upper extremity DVT SBO Discharge Exam Pt was examined and pronounced by two RNs Discharge Data Allergies Allergy/AdvReac Type Severity Reaction Status Date / Time amlodipine AdvReac Intermediate peripheral Verified 01/24/20 20:26 edema Consultations 01/24/20 20:39 ED Decision to Admit Stat 01/24/20 23:25 Consult Cardiology Routine Consult General Surgery Routine 02/01/20 12:08 Consult Palliative Care Routine Ordered Studies 01/24/20 18:07 CT abd pelvis IV con only Stat IMPRESSION: 1. Moderately dilated fluid-filled proximal to mid small bowel with probable transition point within the right lower quadrant with decompressed distal small bowel. These findings suggest a small bowel obstruction. Previous CT of December 31, 2019 demonstrated a right inguinal hernia which contained small bowel loops. No bowel loops identified within the hernia on this exam. No pne umatosis, free air or portal venous gas. Small amount of ascites. 2. Difficult study to interpret given paucity of intra-abdominal fat. 3. 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 4. Interval decrease in size of small bilateral pleural effusions. Mild bilateral lower lung opacities. 01/28/20 08:12 US venous doppler UE LT Routine IMPRESSION: 1. Acute left upper extremity DVT with involvement of the distal subclavian vein, axillary vein, and basilic vein. Hospital Course (1) SBO (small bowel obstruction): Acute hypoxemic respiratory failure On 01/30 Became hypoxic SPO2 in 60s, respiratory distress, moist productive cough Placed on high flow nasal cannula, Stat portable chest x-ray shows right lower lobe infiltrate suggestive of pneumonia, concern for aspiration given recent small bowel obstruction with nausea vomiting Ordered for n.p.o. IV Zosyn Blood cultures ordered History of pericardial effusion, repeat echo showed again pericardial effusion, however no tamponade Concern for PE, will order CT PE (was not done on 01/30 as patient did not have IV access), patient was however treated with Lovenox given upper extremity DVT On 01/31 patient decompensated again, became profoundly hypotensive, tachycardic IV fluid and IV albumin resuscitation provided, and IV digoxin given after discussing with cardiology however given patient's extremely poor prognosis and worsening clinical status, patient agreed for consultation with palliative medicine and comfort care PATIENT was transitioned to COMFORT CARE Thrombocytopenia -Platelet counts down to 98, on Jan 24, platelet 240 -concern for HIT -Platelet factor 4 ordered, sent to [facility] -Discussed with Dr. Javier Concern for sepsis Possible secondary to right lower lobe pneumonia Meets criteria, hypotensive, tachycardic, respiratory failure, lactic acid elevated 3.1 Antibiotic with Zosyn, given IV fluid bolus, continued with IV fluids caution with fluid resuscitation as increased risk of volume overload, worsening of pleural effusion, patient has malignant pleural effusion, daily Pleurx catheter drainage Overall prognosis remains extremely poor Updated patient and patient's girlfriend at bedside Dr. Gabriel discussed regarding CODE STATUS again, patient does not want mechanical ventilation or CPR, CODE STATUS changed to DNR/DNI on 01/30 PATIENT was transitioned to COMFORT CARE on 01/31 Small bowel obstruction resolved presented with abdominal pain /nausea and vomiting CT abdomen /pelvis : dilated loops of bowel suggestive of small bowel obstruction vs illeus surgery following required NG suction SBO resolved with supportive care with antiemetics , IV fluid , pain control KUB t : non obstructive bowel gas pattern NG tube D/day Diet was advanced to full liquid, has been tolerating well, ordered for n.p.o. 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 Javier contacted re: anticoagulation, poss. HIT LEFT SIDED SHARP /PLEURITIC CHEST PAIN : concern for possible PE CTA of chest could not be done immediately due to lack of IV access anticoagulation with SC Lovenox as above Ultrasound-guided peripheral access obtained on January 30, CT PE ordered Unfortunately patient suddenly decompensated on January [address] angio could not be obtained PATIENT was transitioned to COMFORT CARE Metastatic lung ca : with widespread mets to pleura -causing malignant pleural effusion /has rt plurex catheter : cont daily drainage mets to pericardium s/p pericardial window in [place] extremely poor prognosis pt and his significant other aware Patient agreeable to palliative care and comfort care measures after his clinical status worsened on January 31 AFIB RVR : Lopressor discontinued given hypotensive episode IV Lopressor as needed for heart rate more than 100, hold for SBP less than 100 Tried IV digoxin given hypotension and significant tachycardia however did not change his clinical status CODE STATUS : Patient wants to be DNR/DNI aware of poor prognosis Now transitioned to COMFORT CARE Disposition: Initially transferred to PCU for further care given his acute decompensation, overall prognosis remained extremely poor Now transitioned to comfort care Reynold Coon present at the bedside and updated on clinical course and prognosis Total Time Total Time Spent Total Time Spent (In Minutes): 20 Total Time Includes: Discharge Planning Discharge Plan Discharge Items Patient Disposition: Discharge Diagnosis: SMALL BOWEL OBSTRUCTION LEFT UPPER EXTREMITY DVT METASTATIC LUNG CANCER Addtl Attending Provider Instructions: Patient supervisor compounding and finishing of February 03, 2020, due to his serious underlying illness, metastatic lung cancer.
== END 2020-02-03 09:37 | disposition expired | DRG 388 ==
LOC: ED 17:34 → SUATTDRO 21:57 → 2S 21:57 → 2N 01-29 17:08 → 2S 01-31 21:44 → 2W 02-01 15:44